=== PATIENT | female | born 1945 | race Caucasian/White ===

== ENCOUNTER 2017-07-22 20:52 | Emergency (ER) | payer MEDICARE, OTHER, SELFPAY ==
[2017-07-22 20:46] VITALS: BP 126/47; PULSE 70; RESP 20; TEMP 36.4; O2SAT 95; BMI 29.9
--- NOTE | 2017-07-22 20:55 | XR_ITS ---
XR chest 2V HISTORY: ITS.REASON: CHEST PAIN ORDERING PHYSICIAN: Juan Pablo Hilton MD PATIENT AGE: 72 years COMPARISON: None available FINDINGS: The cardiomediastinal silhouette and pulmonary vascularity are within normal limits. The lungs are clear without infiltrates, suspicious nodules, or pleural effusions. There is chronic wedging of T12 No acute bony abnormalities. IMPRESSION: No change with no acute finding
[2017-07-22 21:43] LABS: Basophils % 0.6 % (0.1-2.0); Eosinophils # 0.2 K/mm3 (0.0-0.4); Eosinophils % 2.5 % (0.1-12.0); Hematocrit 37.2 % (37.0-47.0); Hemoglobin 11.8 g/dL (12.2-16.2); Lymphocytes # 2.1 K/mm3 (0.7-4.5); Lymphocytes % 26.3 K/mm3 (10-50); Mean Corpuscular HGB Conc 31.7 g/dL (31.8-35.4); Mean Corpuscular Hemoglobin 29.3 pg (27.0-31.2); Mean Corpuscular Volume 92.2 fl (81-99); Mean Platelet Volume 8.5 fl (7.4-10.4); Monocytes # 0.6 K/mm3 (0.1-1.0); Monocytes % 7.3 % (1.7-9.3); Neutrophils # 5.1 K/mm3 (1.8-7.8); Neutrophils % 63.2 % (37.0-80.0); Platelet Count 182 K/mm3 (142-424); Red Blood Count 4.03 M/mm3 (4.20-5.40); Red Cell Distribution Width 13.4 % (11.5-17.5)
[2017-07-22 22:10] LABS: Alanine Aminotransferase 26 U/L (12-78); Albumin Level 3.7 gm/dL (3.4-5.0); Albumin/Globulin Ratio 1.1 (1.1-1.8); Alkaline Phosphatase 106 U/L (46-116); Anion Gap 12.7 mEq/L (5-15); Aspartate Amino Transferase 11 U/L (15-37); Bilirubin,Total 0.4 mg/dL (0.2-1.0); Blood Urea Nitrogen 13 mg/dL (7-18); CKMB Relative Index 1.6 U/L (0-4.0); Calcium 8.6 mg/dL (8.5-10.1); Carbon Dioxide 27 mmol/L (21.0-32.0); Chloride 105 mmol/L (98-107); Creatine Kinase 87 U/L (26-192); Creatine Kinase MB 1.4 mg/ml (0.0-3.6); Creatinine Clearance Estimated 66 mL/min (0-300); Creatinine,Serum 0.72 mg/dL (0.55-1.02); Estimated Glomerular Filt Rate 80 ml/min (>60); GFR (African American) 96 ML/MIN (>60); Globulin 3.4 gm/dl (1.3-3.2); Glucose 97 mg/dL (74-106); Potassium 3.7 mmoL/L (3.5-5.1); Sodium 141 mmol/L (136-145); Total Protein,Serum 7.1 gm/dL (6.4-8.2); Troponin I < 0.02 ng/ml (0.00-0.06)
[2017-07-22 23:15] VITALS: BP 169/90; PULSE 85; O2SAT 95
--- NOTE | 2017-07-22 23:15 | HMH.EDCP ---
ED Disposition Clinical Impression: Chest pain Qualifiers: Chest pain type: other chest pain Qualified Code(s): R07.89 - Other chest pain Acute bronchitis Qualifiers: Bronchitis organism: unspecified organism Qualified Code(s): J20.9 - Acute bronchitis, unspecified Disposition: Home, Self-Care Condition on Discharge: Good Instructions: DI for Acute Bronchitis, DI for Atypical Chest Pain Additional Instructions: Please follow-up with Dr. Jerel Juares, manager development, within 2 days, for mandatory follow-up. Prescriptions: Amoxicillin/Potassium Clav [Augmentin 875-125 Tablet] 1 tab PO Q12H #20 tab Referrals: Donnie Wadsworth MD [Primary Care Provider] - Time of Disposition: 00:35 - Critical Care Critical Care Time: No Attestation: On 07/22/17, the high probability of a clinically significant, sudden or life threatening deterioration of the following system(s) required my full and direct attention, intervention and personal management. The time I documented below is in addition to time spent performing reported procedures but includes the following listed in this critical care notation. Medical Decision Making - Medical Records Medical records reviewed: Yes: I reviewed the patient's medical records. Vital Signs: 07/22/17 20:46 07/22/17 23:15 07/23/17 00:46 Temperature 97.6 F 97.9 F Temperature Source Oral Pulse Rate 65 Pulse Rate [Right Radial] 70 85 Respiratory Rate 20 20 Blood Pressure 101/56 Blood Pressure [Right Arm] 126/47 169/90 Blood Pressure Mean [Right Arm] 73 116 Blood Pressure Source [Right Arm] Automatic Cuff Blood Pressure Position Sitting Blood Pressure Position [Right Arm] Sitting 02 Sat by Pulse Oximetry 95 95 - Lab Data Lab results reviewed: Yes: I reviewed the patient's lab results. Lab Results 07/22/17 21:10: WBC 8.0, RBC 4.03 L, Hgb 11.8 L, Hct 37.2, MCV 92.2, MCH 29.3, MCHC 31.7 L, RDW 13.4, Plt Count 182, MPV 8.5, Neut % (Auto) 63.2, Lymph % (Auto) 26.3, Swain % (Auto) 7.3, Eos % (Auto) 2.5, Baso % (Auto) 0.6, Neut # (Auto) 5.1, Lymph # (Auto) 2.1, Swain # (Auto) 0.6, Eos # (Auto) 0.2, Baso # (Auto) 0.0 07/22/17 21:10: Sodium 141, Potassium 3.7, Chloride 105, Carbon Dioxide 27, Anion Gap 12.7, BUN 13, Creatinine 0.72, Estimated Creat Clear 66, Estimated GFR 80, Est GFR ( Amer) 96, Glucose 97, Calcium 8.6, Total Bilirubin 0.4, AST 11 L, ALT 26, Alkaline Phosphatase 106, Total Creatine Kinase 87, CK-MB (CK-2) 1.4, CK-MB (CK-2) Rel Index 1.6, Troponin I < 0.02, Total Protein 7.1, Albumin 3.7, Globulin 3.4 H, Albumin/Globulin Ratio 1.1 07/22/17 23:35: Total Creatine Kinase 84, CK-MB (CK-2) 1.0 D, CK-MB (CK-2) Rel Index 1.2, Troponin I < 0.02 Result diagrams: 07/22/17 21:10 07/22/17 21:10 Orders (Tests/Meds): ED MEDICATIONS Discontinued Medications Generic Name Dose Route Start Last Admin Trade Name Freq PRN Reason Stop Dose Admin Amoxicillin/Clavulanate Potassium 1 each 07/23/17 00:37 07/23/17 00:45 Augmentin 500mg Tablet PO 07/23/17 00:38 1 each ONCE ONE Administration Protocol - Radiology Data #1 Image(s): Chest Image Reviewed: Yes I reviewed the patient's radiology results - ECG Data Tracing #1 I reviewed this ECG and interpreted as documented below: ECG normal with no acute: arrhythmias, ischemia, conduction abnormalities, chamber hypertrophy Normal Sinus Rhythm: Yes - Nitin Inquiry Pt receiving controlled substance: No - Reevaluation(s) Time: 00:30 Reevaluation #1: Upon evaluation patient appears medically stable, in no acute distress. Advise patient of results obtained, need to follow-up with PCP if not better within 2 days. If unable to see her family physician and still having active complaints patient instructed to return promptly to this, same, emergency room for re-evaluation. Chest Pain HPI - General Chief Complaint: Chest Pain Stated Complaint: CHEST PAIN Mode of Arrival: EM
[2017-07-23 00:08] LABS: CKMB Relative Index 1.2 U/L (0-4.0); Creatine Kinase 84 U/L (26-192); Troponin I < 0.02 ng/ml (0.00-0.06)
[2017-07-23 00:46] VITALS: BP 101/56; PULSE 65; RESP 20; TEMP 36.6; O2SAT 96
== END 2017-07-23 00:55 | disposition home or self-care (01) ==
PROVIDERS: Emergency Provider Emergency Medicine; Family Provider Emergency Medicine; PCP Emergency Medicine
DX: R07.89 Other chest pain (principal)
CPT/HCPCS: 71046; 80053; 82550; 82553; 84484; 85025; 93005; 99283

== ENCOUNTER → 2017-08-09 14:24 | Outpatient (CLI) | payer MEDICARE, OTHER, SELFPAY ==
--- NOTE | 2017-08-09 14:24 | CT_ITS ---
CT chest wo con HISTORY: Chest pain, cough, dyspnea ITS.REASON: DYSPNEA ORDERING PHYSICIAN: Junior Sanchez MD PATIENT AGE: 72 years Technique: Axial images obtained. Sagittal and coronal reformatted images are also generated and reviewed. All CT scans at the facility use one or more dose reduction, viz: automated exposure control; ma/kV adjustment per patient size (including targeted exams where dose is matched to indication; i.e. head); or iterative reconstruction technique. CONTRAST: None COMPARISON: None FINDINGS: Scattered small lymph nodes are present within the mediastinum. Coronary artery calcifications are present. There is gas present within a mildly distended esophagus throughout the esophagus. This could be related to severe reflux, achalasia or, stenosis of the distal esophagus etiology indeterminate. Consider barium swallow for further evaluation. Biapical fibrotic changes are present. There is calcified granuloma in the right lung base. Dependent changes are present in the posterior hemithoraces on both sides. There is a 16 x 12 mm opacity in the right middle lobe anteriorly subpleural region. As could be postinflammatory or fibrotic in nature. Cannot exclude the possibility of a developing nodule. Short-term CT follow-up recommended. No effusions evident. Upper abdominal images show fat-containing nodule in the right kidney superiorly consistent with an adenoma lipoma at 7 mm. Nonobstructing calculus is present in the upper pole the right kidney. Severe wedge compression changes are present at T11 with gas in the disc spaces at T10-T11 and T11-T12 and within the compressed vertebral body. This was present on older radiograph of 09/03/2016. IMPRESSION: 1. Mild dependent changes in the lung bases and posterior hemithoraces. 2. 16 mm parenchymal opacity right middle lobe inferiorly and anteriorly and could be related to postinflammatory fibrotic change or developing nodule. Recommend [address] follow-up 3. Dilated esophagus which may be seen with a chalasia, severe reflux, or distal esophageal structure and. Consider barium swallow for further evaluation. 4. Biapical fibrotic changes
== END ==
PROVIDERS: Family Provider Emergency Medicine; PCP Emergency Medicine; Visit Provider Internal Medicine Cardiovascular Disease
DX: R06.00 Dyspnea, unspecified (principal); R00.2 Palpitations; R07.89 Other chest pain; I10 Essential (primary) hypertension; E78.5 Hyperlipidemia, unspecified
CPT/HCPCS: 71250

== ENCOUNTER → 2017-08-17 06:53 | Outpatient (CLI) | payer MEDICARE, OTHER, SELFPAY ==
--- NOTE | 2017-08-17 | CA_ITS ---
PROCEDURE: 2-D M-mode and color Doppler study INDICATIONS FOR THE TEST: Chest pain+ COPD Heart Murmur Tobacco Smoking+ Palpitations Fatigue Syncope Edema Hypertension+Diabetes Mellitus Rheumatic Fever SOB+[place] Obesity Hyperlipidemia+ Family History HD Additional History PATIENT INFORMATION HEIGHT: 66 WEIGHT: 178 GENDER: Female B/P: 136/90 2-D/M-MODE INTERPRETATION: 2-D MEASUREMENTS OBSERVED VALUES IN CMS Right Ventricular Dimension (RVDd) 1.8 Interventricular Septum (Thickness)(IVsd) 0.9 Left Ventricular Internal Dimensions(LVIDd) 3.2 Left Ventricular Posterior Wall (Thickness)(LVPWd) 1.0 Aortic Root 2.7 Aortic Cusp Separation 2.0 Left Atrial Dimensions (LAD) 2.6 2D 1. Technically difficult study because of the patient's factor and poor acoustic windows 2. Qualitatively mildly enlarged left atrium, normal left ventricular size, visually estimated ejection fraction 55% with no obvious regional wall motion abnormality, there is no concentric left ventricular hypertrophy. 3. The right atrium and right ventricle are normal size and contractility. 4. The aortic valve is minimally thickened and fibrosed. 5. The mitral and tricuspid valve are grossly normal. 6. The pulmonic valve is poorly visualized. 7. No significant pericardial effusion noted. DOPPLER INTERROGATION: Doppler interrogation of the aortic, mitral and tricuspid valvular presence of mild mitral and tricuspid regurgitation, tricuspid and enteric velocity insufficient for calculation of the right ventricular systolic pressure, grade 1 diastolic dysfunction seen without tissue Doppler evidence of raised left atrial pressure. CONCLUSION: 1. Technically difficult study because of the patient's factor and poor acoustic windows 2. Qualitatively mildly enlarged left atrium, normal left ventricular size, visually estimated ejection fraction 55% with no obvious regional wall motion abnormality, grade 1 diastolic dysfunction seen without tissue Doppler evidence of raised left atrial pressure. 3. Mild mitral and tricuspid regurgitation 4. No significant pericardial effusion noted.
--- NOTE | 2017-08-17 06:56 | NM_ITS ---
History and Indications: Chest pain, shortness of breath, palpitations and hyperlipidemia Procedure: Patient received a 0.4 mg of Lexiscan, resting heart rate was 73 resting blood pressure 124/65, with Lexiscan maximum heart rate achieved was 91 bpm which is less than 85% of the maximum predicted heart rate and a blood pressure 134/70. With Lexiscan patient complained of shortness of breath. Electrocardiogram: Resting electrocardiogram showed sinus, with Lexiscan there is less than 1.[address] segment depression noted from the baseline EKG. The EKG portion of the Lexiscan Myoview is nondiagnostic. Cardiac stress and resting SPECT images: Cardiac stress and rest SPECT images were obtained using technetium 99 Myoview 11.1 mCi at rest and 29.5 mCi at stress, gated SPECT further analysis of segmental wall motion and calculation of the ejection fraction also done. Cardiac stress and rest increased tracer activity in the inferior and inferoseptal wall which improves on the resting images suggestive of reversible computer derived ejection fraction is 65% with no obvious regional wall motion abnormality, right ventricle is mildly enlarged with normal contractility. Conclusion: 1. The EKG portion of the Lexiscan Myoview is nondiagnostic. 2. Scintigraphic evidence of mild reversible ischemia involving the inferior and inferoseptal wall, computer derived ejection fraction is over 65% with no obvious regional wall motion abnormality, right ventricle is mildly enlarged with normal contractility. 3. Abnormal Lexiscan Myoview study.
--- NOTE | 2017-08-17 11:05 | HMH.ITSHM ---
compazine albuterol lopurinol vetolim aspirin atorvastatin baclofen buspar neurontin celexa claritin ativan pantoprazole potassium maxzide
== END ==
PROVIDERS: Family Provider Emergency Medicine; PCP Emergency Medicine; Visit Provider Internal Medicine Cardiovascular Disease
DX: E78.5 Hyperlipidemia, unspecified; R06.00 Dyspnea, unspecified; R00.2 Palpitations; I10 Essential (primary) hypertension; R07.9 Chest pain, unspecified
CPT/HCPCS: 78452; 93017; 93306; A9502; J2785

== ENCOUNTER 2018-09-09 19:35 | Observation (INO) ==
[2018-09-09 19:58] LABS: Basophils % 0.7 % (0.1-2.0); Eosinophils # 0.2 K/mm3 (0.0-0.4); Eosinophils % 3.4 % (0.1-12.0); Hematocrit 36.2 % (37.0-47.0); Hemoglobin 12.1 g/dL (12.2-16.2); Lymphocytes # 2.6 K/mm3 (0.7-4.5); Lymphocytes % 48.6 % (10-50); Mean Corpuscular HGB Conc 33.5 g/dL (31.8-35.4); Mean Corpuscular Hemoglobin 30.4 pg (27.0-31.2); Mean Corpuscular Volume 90.6 fl (81-99); Mean Platelet Volume 8.4 fl (7.4-10.4); Monocytes # 0.4 K/mm3 (0.1-1.0); Monocytes % 7.1 % (1.7-9.3); Neutrophils # 2.2 K/mm3 (1.8-7.8); Neutrophils % 40.3 % (37.0-80.0); Platelet Count 191 K/mm3 (142-424); Red Blood Count 3.99 M/mm3 (4.20-5.40); Red Cell Distribution Width 13.6 % (11.5-17.5); White Blood Count 5.4 K/mm3 (4.8-10.8)
--- NOTE | 2018-09-09 20:15 | Emergency Department Note ---
ED Disposition Clinical Impression: Unstable angina pectoris, Tobacco dependence syndrome Schizophrenia Qualifiers: Schizophrenia type: unspecified Qualified Code(s): F20.9 - Schizophrenia, unspecified Gastroesophageal reflux disease Qualifiers: Esophagitis presence: esophagitis presence not specified Qualified Code(s): K21.9 - Gastro-esophageal reflux disease without esophagitis HLD (hyperlipidemia) Qualifiers: Hyperlipidemia type: unspecified Qualified Code(s): E78.5 - Hyperlipidemia, unspecified Hypertension Qualifiers: Hypertension type: essential hypertension Qualified Code(s): I10 - Essential (primary) hypertension Disposition: Admitted as Observation Condition on Discharge: Good Referrals: Provider,Referral, [Referring] - - Critical Care Critical Care Time: No Attestation: On 09/09/18, the high probability of a clinically significant, sudden or life threatening deterioration of the following system(s) required my full and direct attention, intervention and personal management. The time I documented below is in addition to time spent performing reported procedures but includes the following listed in this critical care notation. Medical Decision Making - Medical Records Medical records reviewed: Yes: I reviewed the patient's medical records. - Nitin Inquiry Pt receiving controlled substance: No Vital Signs: 09/09/18 19:36 09/09/18 20:35 Temperature 97.9 F Temperature Source Oral Pulse Rate [Right Brachial] 73 63 Respiratory Rate 16 Blood Pressure [Right Arm] 127/66 125/67 Blood Pressure Mean [Right Arm] 86 86 Blood Pressure Source [Right Arm] Automatic Cuff Blood Pressure Position [Right Arm] Sitting 02 Sat by Pulse Oximetry 97 94 L Oxygen Delivery Method Room Air Room Air - Lab Data Lab results reviewed: Yes: I reviewed the patient's lab results. Lab Results 09/09/18 19:30: WBC 5.4, RBC 3.99 L, Hgb 12.1 L, Hct 36.2 L, MCV 90.6, MCH 30.4, MCHC 33.5, RDW 13.6, Plt Count 191, MPV 8.4, Neut % (Auto) 40.3, Lymph % (Auto) 48.6, Potter % (Auto) 7.1, Eos % (Auto) 3.4, Baso % (Auto) 0.7, Neut # (Auto) 2.2, Lymph # (Auto) 2.6, Potter # (Auto) 0.4, Eos # (Auto) 0.2, Baso # (Auto) 0.0 09/09/18 19:30: Sodium 141, Potassium 3.6, Chloride 104, Carbon Dioxide 29, Anion Gap 11.6, BUN 15, Creatinine 0.72, Estimated Creat Clear 61, Estimated GFR 79, Est GFR ( Amer) 96, Glucose 86, Calcium 8.7, Troponin I < 0.02 09/09/18 19:30: Lactate 1.1 Result diagrams: 09/09/18 19:30 09/09/18 19:30 Orders (Tests/Meds): ED MEDICATIONS Generic Name Dose Route Start Last Admin Trade Name Freq PRN Reason Stop Dose Admin Sodium Chloride 1,000 mls @ 999 mls/hr 09/09/18 20:00 09/09/18 20:14 Sod Chlor 0.9% 1000ml Bag IV 09/09/18 21:00 999 mls/hr .Q1H1M FISH Administration Discontinued Medications Generic Name Dose Route Start Last Admin Trade Name Freq PRN Reason Stop Dose Admin Nitroglycerin 0.5 gm 09/09/18 20:54 Nitroglycerin 1 Inch Oint Udp TD 09/09/18 20:55 ONCE ONE ORDERS Category Date Time Status Urinalysis and Microscopic Stat Lab 09/09/18 19:46 Ordered Blood Culture Stat Micro 09/09/18 19:55 Ordered ECG Request by /Gerri Stat Y 09/09/18 19:45 Ordered - Radiology Data #1 Image(s): Chest Image Reviewed: Yes I reviewed the patient's radiology image Preliminary Findings: Normal/NAD - ECG Data Tracing #1 Normal Sinus Rhythm: Yes Ischemic changes: non-specific ST-T wave changes Chest Pain HPI - General Chief Complaint: Chest Pain Stated Complaint: CP Time Seen by Provider: 09/09/18 20:14 Mode of Arrival: EMS Source of Information: Patient, EMS, Medical Record Limitations: No Limitations Description of Symptoms (Recalled from ER Triage Doc. by RN): Pt states she was outside walking in the heat about an hour ago, when she starting having CP and SOA. She states she has had a cough for a while, no other symptoms reported. - History of Present Illness HPI narrative: pt with episode of chest pain at [facility] today with hx of abn gxt - pt with recurrent episodes of chest pain MD complaint: chest pain indicative of cardiac Onset (ago): hour(s) Duration: intermittent Activity at onset: during rest, light activity Pain location: substernal, left chest Severity: similar to previous episodes Quality: tightness Relieving factors: nitroglycerin Associated symptoms: dyspnea Risk Factors for CAD: Hypercholesterolemia, Family Hx of CAD, Smoking Treatments prior to or on arrival for Cardiac Chest Pain: aspirin, nitroglycerin - BLU Score for Non-Stemi Age of Patient: 70-79 years old Heart Rate: 70-89 bpm Systolic Blood Pressure: 120-139 mmhg Serum Creatinine: 0.40-0.79 mg/dl CHF [place] Class: I-No CHF Other Risk Factors: None Non-Stemi Risk Score: 122 - Related Data Prior Cardiac Testing/Procedures: Echocardiogram, Stress Test On Oral Contraceptives: No Home Medications Medication Instructions Recorded Confirmed acetaminophen 500 mg capsule 500 mg PO Q6H PRN 07/27/17 10/03/17 albuterol sulfate HFA 90 2 puff INHALATION Q4-6H PRN 07/27/17 10/03/17 mcg/actuation aerosol inhaler allopurinol 100 mg tablet 100 mg PO BID tab 07/27/17 10/03/17 aspirin 81 mg tablet,delayed 81 mg PO DAILY tab 07/27/17 10/03/17 release atorvastatin 10 mg tablet 10 mg PO DAILY tab 07/27/17 10/03/17 baclofen 20 mg tablet 20 mg PO BID tab 07/27/17 10/03/17 benztropine 1 mg tablet 1 mg PO BID 07/27/17 10/03/17 buspirone 10 mg tablet 10 mg PO BID 07/27/17 10/03/17 citalopram 20 mg tablet 20 mg PO DAILY tab 07/27/17 10/03/17 dextromethorphan-guaifenesin 10 10 ml PO Q4-6H PRN 07/27/17 10/03/17 mg-100 mg/5 mL oral syrup gabapentin 100 mg capsule 100 mg PO TID cap 07/27/17 10/03/17 lactulose 10 gram/15 mL oral 20 g PO DAILY PRN ml 07/27/17 10/03/17 solution loperamide 2 mg tablet 2 mg PO Q8H PRN tab 07/27/17 10/03/17 loratadine 10 mg tablet 10 mg PO DAILY tab 07/27/17 10/03/17 lorazepam 1 mg tablet 1 mg PO TID tab 07/27/17 10/03/17 nitroglycerin 0.4 mg sublingual 0.4 mg SUBLINGUAL Q5M PRN 07/27/17 10/03/17 tablet olanzapine 10 mg tablet 5 mg PO BID tab 07/27/17 10/03/17 pantoprazole 40 mg tablet,delayed 40 mg PO QAM 07/27/17 10/03/17 release potassium chloride ER 20 mEq 20 meq PO TID tab 07/27/17 10/03/17 tablet,extended release prochlorperazine maleate 10 mg 10 mg PO .Q6hr PRN tab 07/27/17 10/03/17 tablet triamterene 75 1 tab PO QAM 07/27/17 10/03/17 mg-hydrochlorothiazide 50 mg tablet Previous Rx's Medication Instructions Recorded Benzonatate [Tessalon Perle 100mg 100 mg PO TID #30 cap 10/03/17 Cap] levoFLOXacin [Levaquin 500mg 500 mg PO DAILY #7 tab 10/03/17 tab] predniSONE [Prednisone 20mg 20 mg PO DAILY #10 tab 10/03/17 Tab] Allergies Allergy/AdvReac Type Severity Reaction Status Date / Time No Known Allergies Allergy Verified 11/22/17 08:49 [facility] History - Hepatitis A Screen Drug use history?: No High risk sexual behaviors?: No History of sexually transmitted infection?: No Currently employed?: No Childcare worker?: No Do you have indoor plumbing?: Yes Do you have electricity?: Yes Attestation statement:: This patient has been screened for Hepatitis A risk factors. I have reviewed the patient's past medical history: Yes Medical History: Reports:: Asthma, Chronic Obstructive Pulmonary Disease (COPD), Gastroesophageal Reflux Disease(GERD), Hyperlipidemia, Hypertension Denies:: Cancer, Diabetes Mellitus Type 1, Diabetes Mellitus Type 2, MRSA Other Medical History: Reports: Arthritis Other Surgeries: Yes: Cholecystectomy Amputation: No Fractures: No Comment: Tumor removed from breast. - Social History Smoking Status: Current every day smoker Tobacco Type: cigarettes # Packs/Day (cigarettes): 1 Alcohol Intake: never Alcohol Intake Frequency:: other Substance Use Type: denies use Occupational Status: disabled Housing: assisted living facility - Psychiatric History Expresses thoughts of harming self/others: None Suicide Plan Description: No Plan Family Hx:: Unable to obtain ROS Obtained: Yes All systems reviewed & no additional complaints - Constitutional Constitutional: Denies fever(s) - Eyes Eyes: Denies change in vision - ENT Ears, Nose, Mouth, and Throat: Denies sore throat - Cardiovascular Cardiovascular: Reports chest pain, Reports chest pain with activity, Reports dyspnea - Respiratory Respiratory: Yes cough, No non-productive cough - Gastrointestinal Gastrointestingal: Denies: vomiting - Genitourinary Female Genitourinary: Denies hematuria - Musculoskeletal Musculoskeletal: Denies joint pain - Integumentary/Breasts Skin/Breast: Denies rash - Neurologic Neurologic: Denies seizure-like activity Physical Exam - General General appearance: in no apparent distress - Head Head exam: normocephalic - Eye Eye exam: Present: PERRL, EOMI. Absent: scleral icterus - ENT ENT exam: Present: mucous membranes dry - Neck Neck exam: Present: trachea midline - Respiratory Respiratory exam: Present: normal lung sounds bilaterally. Absent: respiratory distress - Cardiovascular Cardiovascular exam: Present: regular rate, systolic murmur, +S4 - Abdominal Exam Abdominal exam: Present: soft - Extremities Exam Extremities exam: Absent: calf tenderness - Neurological Exam Neurological exam: Present: alert, CN II-XII intact. Absent: motor sensory deficit - Psychiatric Psychiatric exam: Present: flat affect - Skin Skin exam: Absent: rash
[2018-09-09 20:16] LABS: Anion Gap 11.6 mEq/L (5-15); Blood Urea Nitrogen 15 mg/dL (7-18); Calcium 8.7 mg/dL (8.5-10.1); Carbon Dioxide 29 mmol/L (21.0-32.0); Chloride 104 mmol/L (98-107); Glucose 86 mg/dL (74-106); Potassium 3.6 mmoL/L (3.5-5.1); Sodium 141 mmol/L (136-145)
[2018-09-10 06:28] LABS: Basophils # 0.1 K/mm3 (0-0.2); Basophils % 0.9 % (0.1-2.0); Eosinophils # 0.2 K/mm3 (0.0-0.4); Eosinophils % 2.9 % (0.1-12.0); Hematocrit 34.4 % (37.0-47.0); Hemoglobin 11.4 g/dL (12.2-16.2); Lymphocytes # 1.7 K/mm3 (0.7-4.5); Lymphocytes % 33.4 % (10-50); Mean Corpuscular HGB Conc 33.3 g/dL (31.8-35.4); Mean Corpuscular Hemoglobin 30.1 pg (27.0-31.2); Mean Corpuscular Volume 90.6 fl (81-99); Mean Platelet Volume 8.3 fl (7.4-10.4); Monocytes # 0.4 K/mm3 (0.1-1.0); Monocytes % 8.2 % (1.7-9.3); Neutrophils # 2.8 K/mm3 (1.8-7.8); Neutrophils % 54.5 % (37.0-80.0); Platelet Count 166 K/mm3 (142-424); Red Blood Count 3.79 M/mm3 (4.20-5.40); Red Cell Distribution Width 13.7 % (11.5-17.5); White Blood Count 5.2 K/mm3 (4.8-10.8)
[2018-09-10 06:40] LABS: Anion Gap 10.8 mEq/L (5-15); Calcium 8.1 mg/dL (8.5-10.1); Chol/HDL Ratio 1.7 (1-3.5)
[2018-09-10 06:55] LABS: Potassium 2.8 mmoL/L (3.5-5.1)
--- NOTE | 2018-09-10 07:57 | Pharmacy Consult Notes ---
[facility] Pharmacy VTE Monitoring - Patient Demographics Admission date: 09/09/18 Report Date: 09/10/18 Time: 07:57 Allergies/Adverse Reactions: Patient Allergies No Known Allergies Allergy (Verified 11/22/17 08:49) Height: 1.73 m Weight: 81.4 kg Patient Problems: Current Active Problems (Updated 09/09/18 @ 21:06 by Donnie Wadsworth MD) Unstable angina pectoris (Acute) Gastroesophageal reflux disease (Chronic) Tobacco dependence syndrome (Chronic) Schizophrenia (Chronic) HLD (hyperlipidemia) (Chronic) Hypertension (Chronic) - VTE Risk Labs: VTE Related Lab Results Hgb 11.4 g/dL (12.2-16.2) L 09/10/18 05:46 Hct 34.4 % (37.0-47.0) L 09/10/18 05:46 Plt Count 166 K/mm3 (142-424) 09/10/18 05:46 BUN 12 mg/dL (7-18) 09/10/18 05:46 Creatinine 0.58 mg/dL (0.55-1.02) 09/10/18 05:46 Estimated Creat Clear 64 mL/min (50-200) 09/10/18 05:46 Was VTE Risk Assessment Performed: Yes VTE Score: 2 Clinical Trial Participant: No - Prophylaxis Types of VTE Prophylaxis: TEDS Knee High Location of Applied Device: Not Applicable
--- NOTE | 2018-09-10 08:08 | Consult Report ---
History of Present Illness Consult date: 09/10/18 Requesting physician: Donnie Wadsworth Consult reason: chest pain Chief complaint: Chest pain Additional Medical History:: 1. Chest pain A. Abnormal lexiscan myoview, 07/2017, 1. The EKG portion of the Lexiscan Myoview is nondiagnostic. 2. Scintigraphic evidence of mild reversible ischemia involving the inferior and inferoseptal wall, computer derived ejection fraction is over 65% with no obvious regional wall motion abnormality, right ventricle is mildly enlarged with normal contractility. 3. Abnormal Lexiscan Myoview study. 2. HTN A. Echo, 07/2017, 1. Technically difficult study because of the patient's factor and poor acoustic windows 2. Qualitatively mildly enlarged left atrium, normal left ventricular size, visually estimated ejection fraction 55% with no obvious regional wall motion abnormality, grade 1 diastolic dysfunction seen without tissue Doppler evidence of raised left atrial pressure. 3. Mild mitral and tricuspid regurgitation 4. No significant pericardial effusion noted 3. Gastroesophageal reflux disease 4. Hyperlipidemia 5. Tobacco use with history of COPD 6. History of schizophrenia History of present illness: 73-year-old white female resident of [facility] was sent to the emergency department for evaluation of chest pain. Patient relates substernal discomfort with associated sweating without radiation of symptoms. Symptoms did resolve with nitroglycerin with no further recurrence overnight. Patient is somewhat vague on the discomfort with activity but states this is not the first time she has had this chest pain. Previously she was evaluated July 2017 with a stress test and echocardiogram. Echocardiogram showed preserved ejection fraction with stress test showing evidence of ischemia. Patient did not follow-up for further testing. Troponins overnight have returned normal. EKG is sinus with no acute changes. Cardiology consulted for evaluation recommendations. [facility] History Medical History: Reports:: Asthma, Chronic Obstructive Pulmonary Disease (COPD), Gastroesophageal Reflux Disease(GERD), Hyperlipidemia, Hypertension Denies:: Cancer, Diabetes Mellitus Type 1, Diabetes Mellitus Type 2, MRSA *Have you ever received a pneumonia vaccine?: No *Have you received a flu vaccine this season?: No Other Medical History: Reports: Arthritis Other Surgeries: Yes: Cholecystectomy Amputation: No Fractures: No - *Social History Educational Level: Attended Grade School Smoking Status: Current every day smoker Tobacco Type: cigarettes # Packs/Day (cigarettes): 1 Alcohol Intake: never Alcohol Intake Frequency:: other Substance Use Type: denies use *Occupational Status:: disabled Housing: assisted living facility *Travel in the last 8 weeks: None - Psychiatric History Expresses thoughts of harming self/others: None Suicide Plan Description: No Plan Family Hx:: Unable to obtain Meds Home Medications Medication Instructions Recorded Confirmed Type allopurinol 100 mg tablet 100 mg PO BID tab 07/27/17 09/10/18 History aspirin 81 mg tablet,delayed 81 mg PO DAILY tab 07/27/17 09/10/18 History release atorvastatin 10 mg tablet 10 mg PO DAILY tab 07/27/17 09/10/18 History baclofen 20 mg tablet 20 mg PO BID tab 07/27/17 09/10/18 History benztropine 1 mg tablet 1 mg PO BID 07/27/17 09/10/18 History buspirone 10 mg tablet 10 mg PO BID 07/27/17 09/10/18 History citalopram 20 mg tablet 20 mg PO DAILY tab 07/27/17 09/10/18 History gabapentin 100 mg capsule 100 mg PO TID cap 07/27/17 09/10/18 History lactulose 10 gram/15 mL oral 20 g PO DAILYP PRN ml 07/27/17 09/10/18 History solution loperamide 2 mg tablet 2 mg PO Q8HP PRN tab 07/27/17 09/10/18 History loratadine 10 mg tablet 10 mg PO DAILY tab 07/27/17 09/10/18 History lorazepam 1 mg tablet 1 mg PO TID tab 07/27/17 09/10/18 History nitroglycerin 0.4 mg sublingual 0.4 mg SUBLINGUAL Q5M PRN 07/27/17 09/10/18 History tablet olanzapine 10 mg tablet 10 mg PO DAILY tab 07/27/17 09/10/18 History pantoprazole 40 mg tablet,delayed 40 mg PO QAM 07/27/17 09/10/18 History release potassium chloride ER 20 mEq 20 meq PO TID tab 07/27/17 09/10/18 History tablet,extended release triamterene 75 1 tab PO QAM 07/27/17 09/10/18 History mg-hydrochlorothiazide 50 mg tablet Acetaminophen 650 mg PO Q4HP PRN 09/10/18 09/10/18 History Allergies Allergy/AdvReac Type Severity Reaction Status Date / Time No Known Allergies Allergy Verified 11/22/17 08:49 Review of Systems - *Cardiovascular Reports chest pain, Denies shortness of breath with activity - *Respiratory Reports cough, Denies shortness of breath with activity - *Gastrointestinal Denies abdominal pain, Denies vomiting - *Genitourinary Denies blood in urine - *Musculoskeletal Denies joint pain, Denies back pain - *Neurologic Denies seizure-like activity Exam Vital signs and Labs for Last 24 Hours: Temp Pulse Resp BP Pulse Ox 97.2 F L 72 20 122/59 L 94 L 09/10/18 04:00 09/10/18 04:00 09/10/18 04:00 09/10/18 04:00 09/10/18 04:00 Laboratory Results - last 24 hr 09/09/18 19:30: WBC 5.4, RBC 3.99 L, Hgb 12.1 L, Hct 36.2 L, MCV 90.6, MCH 30.4, MCHC 33.5, RDW 13.6, Plt Count 191, MPV 8.4, Neut % (Auto) 40.3, Lymph % (Auto) 48.6, [place] % (Auto) 7.1, Eos % (Auto) 3.4, Baso % (Auto) 0.7, Neut # (Auto) 2.2, Lymph # (Auto) 2.6, [place] # (Auto) 0.4, Eos # (Auto) 0.2, Baso # (Auto) 0.0 09/09/18 19:30: Sodium 141, Potassium 3.6, Chloride 104, Carbon Dioxide 29, Anion Gap 11.6, BUN 15, Creatinine 0.72, Estimated Creat Clear 61, Estimated GFR 79, Est GFR ( Amer) 96, Glucose 86, Calcium 8.7, Troponin I < 0.02 09/09/18 19:30: Lactate 1.1 09/10/18 01:55: Troponin I < 0.02 09/10/18 03:23: Troponin I < 0.02 09/10/18 05:46: WBC 5.2, RBC 3.79 L, Hgb 11.4 L, Hct 34.4 L, MCV 90.6, MCH 30.1, MCHC 33.3, RDW 13.7, Plt Count 166, MPV 8.3, Neut % (Auto) 54.5, Lymph % (Auto) 33.4, [place] % (Auto) 8.2, Eos % (Auto) 2.9, Baso % (Auto) 0.9, Neut # (Auto) 2.8, Lymph # (Auto) 1.7, [place] # (Auto) 0.4, Eos # (Auto) 0.2, Baso # (Auto) 0.1 09/10/18 05:46: Sodium 143, Potassium 2.8 L* D, Chloride 108 H, Carbon Dioxide 27, Anion Gap 10.8, BUN 12, Creatinine 0.58, Estimated Creat Clear 64, Estimated GFR 102, Est GFR ( Amer) 123 D, Glucose 92, Calcium 8.1 L, Magnesium 1. 9, Triglycerides 35, Cholesterol 129 L, LDL Cholesterol 45, VLDL Cholesterol 7, HDL Cholesterol 77, Cholesterol/HDL Ratio 1.7 I & O for Last 24 hours: Intake & Output 09/07/18 09/08/18 09/09/18 09/10/18 11:59 11:59 11:59 11:59 Intake Total 187 / 187 Output Total 300 / 300 Balance -113 / -113 Weight 179 lb 7.3 oz Microbiology Reports for the Last 24 Hours: Microbiology 09/10/18 02:00 Sputum - Expectorated Sputum Gram Stain - Final - *Routine HEENT Exam Head: Present: normocephalic Eye: Present: EOMI, PERRL ENT: Present: mucous membranes moist - *Routine Neck Exam Present: supple. Absent: JVD, carotid bruit - *Routine Respiratory Exam Present: CTA bilaterally. Absent: accessory muscle use, rales, rhonchi, wheezes - *Routine Cardiovascular Exam Present: RRR. Absent: murmur, gallop, rubs - *Routine Abdominal Exam Present: soft. Absent: tenderness, distended, guarding - *Routine Extremities Exam Absent: edema, calf tenderness - *Routine Neurological Exam Present: alert, moving all extremities Assessment and Plan (1) Unstable angina pectoris Current visit: Yes Status: Acute Category: Medical Code(s): I20.0 - Unstable angina (2) Abnormal cardiovascular stress test Current visit: Yes Status: Acute Category: Medical Code(s): R94.39 - Abnormal result of other cardiovascular function study (3) Gastroesophageal reflux disease Current visit: Yes Status: Chronic Qualifiers: Esophagitis presence: esophagitis presence not specified Qualified Code(s): K21.9 - Gastro-esophageal reflux disease without esophagitis Category: Medical Code(s): K21.9 - Gastro-esophageal reflux disease without esophagitis (4) HLD (hyperlipidemia) Current visit: Yes Status: Chronic Qualifiers: Hyperlipidemia type: unspecified Qualified Code(s): E78.5 - Hyperlipidemia, unspecified Category: Medical Code(s): E78.5 - Hyperlipidemia, unspecified (5) Hypertension Current visit: Yes Status: Chronic Qualifiers: Hypertension type: essential hypertension Qualified Code(s): I10 - Essential (primary) hypertension Category: Medical Code(s): I10 - Essential (primary) hypertension (6) Schizophrenia Current visit: Yes Status: Chronic Qualifiers: Schizophrenia type: unspecified Qualified Code(s): F20.9 - Schizophrenia, unspecified Category: Medical Code(s): F20.9 - Schizophrenia, unspecified (7) Tobacco dependence syndrome Current visit: Yes Status: Chronic Category: Medical Code(s): F17.200 - Nicotine dependence, unspecified, uncomplicated - Assessment and plan all Dx Assessment and Plan for all problems:: 1. In light of the patient's recurrent chest pain, tobacco use with history of abnormal stress test, recommend proceeding with left heart catheterization today. 2. Continue aspirin, statin and will add metoprolol 25 mg daily. 3. Further recommendations to follow pending cardiac catheter results.
--- NOTE | 2018-09-10 09:39 | History & Physical Report ---
*Admission Date: 09/09/18 *Chief complaint: Chest Pain *History of present illness: 73-year-old white female resident of [facility] was sent to the emergency department for evaluation of chest pain. Patient relates substernal discomfort with associated sweating without radiation of symptoms. Symptoms did resolve with nitroglycerin with no further recurrence overnight. Patient is somewhat vague on the discomfort with activity but states this is not the first time she has had this chest pain. Previously she was evaluated July 2017 with a stress test and echocardiogram. Echocardiogram showed preserved ejection fraction with stress test showing evidence of ischemia. Patient did not follow-up for further testing. Troponins overnight have returned normal. EKG is sinus with no acute changes. Cardiology consulted for evaluation recommendations. Per Jus Luevano [facility] History I have reviewed the patient's past medical history: Yes Medical History: Reports:: Asthma, Chronic Obstructive Pulmonary Disease (COPD), Gastroesophageal Reflux Disease(GERD), Hyperlipidemia, Hypertension Denies:: Cancer, Diabetes Mellitus Type 1, Diabetes Mellitus Type 2, MRSA *Have you ever received a pneumonia vaccine?: No *Have you received a flu vaccine this season?: No Other Medical History: Reports: Arthritis Other Surgeries: Yes: Cholecystectomy Amputation: No Fractures: No - *Social History Educational Level: Attended Grade School Smoking Status: Current every day smoker Tobacco Type: cigarettes # Packs/Day (cigarettes): 1 Alcohol Intake: never Alcohol Intake Frequency:: other Substance Use Type: denies use *Occupational Status:: disabled Housing: assisted living facility *Travel in the last 8 weeks: None - Psychiatric History Expresses thoughts of harming self/others: None Suicide Plan Description: No Plan Family Hx:: Unable to obtain Review of Systems - Review of Systems Review of systems:: pertinent systems reviewed and negative unless documented below - Constitutional Reports fatigue, Reports weakness - Eyes Denies blurry vision, Denies change in vision - ENT Denies abnormal hearing - *Cardiovascular Reports chest pain, Reports shortness of breath - *Respiratory Denies chest congestion, Denies cough - *Gastrointestinal Denies abdominal pain, Denies change in bowel habits - *Musculoskeletal Denies abnormal walking, Denies joint pain - *Neurologic Denies abnormal speech, Denies seizure-like activity - Psychiatric Denies hearing things others do not hear, Denies behavioral changes - Endocrine Denies cold intolerance, Denies heat intolerance - Hematologic/Lymphatic Denies easy bleeding Meds Home Medications Medication Instructions Recorded Confirmed Type allopurinol 100 mg tablet 100 mg PO BID tab 07/27/17 09/10/18 History aspirin 81 mg tablet,delayed 81 mg PO DAILY tab 07/27/17 09/10/18 History release atorvastatin 10 mg tablet 10 mg PO DAILY tab 07/27/17 09/10/18 History baclofen 20 mg tablet 20 mg PO BID tab 07/27/17 09/10/18 History benztropine 1 mg tablet 1 mg PO BID 07/27/17 09/10/18 History buspirone 10 mg tablet 10 mg PO BID 07/27/17 09/10/18 History citalopram 20 mg tablet 20 mg PO DAILY tab 07/27/17 09/10/18 History gabapentin 100 mg capsule 100 mg PO TID cap 07/27/17 09/10/18 History lactulose 10 gram/15 mL oral 20 g PO DAILYP PRN ml 07/27/17 09/10/18 History solution loperamide 2 mg tablet 2 mg PO Q8HP PRN tab 07/27/17 09/10/18 History loratadine 10 mg tablet 10 mg PO DAILY tab 07/27/17 09/10/18 History lorazepam 1 mg tablet 1 mg PO TID tab 07/27/17 09/10/18 History nitroglycerin 0.4 mg sublingual 0.4 mg SUBLINGUAL Q5M PRN 07/27/17 09/10/18 History tablet olanzapine 10 mg tablet 10 mg PO DAILY tab 07/27/17 09/10/18 History pantoprazole 40 mg tablet,delayed 40 mg PO QAM 07/27/17 09/10/18 History release potassium chloride ER 20 mEq 20 meq PO TID tab 07/27/17 09/10/18 History tablet,extended release triamterene 75 1 tab PO QAM 07/27/17 09/10/18 History mg-hydrochlorothiazide 50 mg tablet Acetaminophen 650 mg PO Q4HP PRN 09/10/18 09/10/18 History Allergies Allergy/AdvReac Type Severity Reaction Status Date / Time No Known Allergies Allergy Verified 11/22/17 08:49 Exam Vital signs and Labs for Last 24 Hours: Temp Pulse Resp BP Pulse Ox 97.8 F 78 22 136/76 93 L 09/10/18 08:00 09/10/18 08:00 09/10/18 08:00 09/10/18 08:00 09/10/18 08:00 Laboratory Results - last 24 hr 09/09/18 19:30: WBC 5.4, RBC 3.99 L, Hgb 12.1 L, Hct 36.2 L, MCV 90.6, MCH 30.4, MCHC 33.5, RDW 13.6, Plt Count 191, MPV 8.4, Neut % (Auto) 40.3, Lymph % (Auto) 48.6, [place] % (Auto) 7.1, Eos % (Auto) 3.4, Baso % (Auto) 0.7, Neut # (Auto) 2.2, Lymph # (Auto) 2.6, [place] # (Auto) 0.4, Eos # (Auto) 0.2, Baso # (Auto) 0.0 09/09/18 19:30: Sodium 141, Potassium 3.6, Chloride 104, Carbon Dioxide 29, Anion Gap 11.6, BUN 15, Creatinine 0.72, Estimated Creat Clear 61, Estimated GFR 79, Est GFR ( Amer) 96, Glucose 86, Calcium 8.7, Troponin I < 0.02 09/09/18 19:30: Lactate 1.1 09/10/18 01:55: Troponin I < 0.02 09/10/18 03:23: Troponin I < 0.02 09/10/18 05:46: WBC 5.2, RBC 3.79 L, Hgb 11.4 L, Hct 34.4 L, MCV 90.6, MCH 30.1, MCHC 33.3, RDW 13.7, Plt Count 166, MPV 8.3, Neut % (Auto) 54.5, Lymph % (Auto) 33.4, [place] % (Auto) 8.2, Eos % (Auto) 2.9, Baso % (Auto) 0.9, Neut # (Auto) 2.8, Lymph # (Auto) 1.7, [place] # (Auto) 0.4, Eos # (Auto) 0.2, Baso # (Auto) 0.1 09/10/18 05:46: Sodium 143, Potassium 2.8 L* D, Chloride 108 H, Carbon Dioxide 27, Anion Gap 10.8, BUN 12, Creatinine 0.58, Estimated Creat Clear 64, Estimated GFR 102, Est GFR ( Amer) 123 D, Glucose 92, Calcium 8.1 L, Magnesium 1 .9, Triglycerides 35, Cholesterol 129 L, LDL Cholesterol 45, VLDL Cholesterol 7, HDL Cholesterol 77, Cholesterol/HDL Ratio 1.7 I & O for Last 24 hours: Intake & Output 09/07/18 09/08/18 09/09/18 09/10/18 23:59 23:59 23:59 23:59 Intake Total 187 / 187 Output Total 1100 / 1100 Balance -913 / -913 Weight 179 lb 7.3 oz 179 lb 7.3 oz Microbiology Reports for the Last 24 Hours: Microbiology 09/10/18 02:00 Sputum - Expectorated Sputum Gram Stain - Final Radiology Reports for the Last 24 Hours: CXR 09/09: MPRESSION: Findings suggesting minimal bilateral basilar bronchopneumonia and suggest follow-up films to assess clearing Dictated By: Alfred Link - *Routine HEENT Exam Head: Present: normocephalic Eye: Present: EOMI, PERRL ENT: Present: mucous membranes moist - *Routine Neck Exam Present: supple. Absent: lymphadenopathy - *Routine Respiratory Exam Present: CTA bilaterally - *Routine Cardiovascular Exam Present: RRR, Normal S1, Normal S2 - *Routine Abdominal Exam Present: soft, normoactive bowel sounds. Absent: tenderness - *Routine Extremities Exam Present: full ROM. Absent: cyanosis - *Routine Skin Exam Present: warm. Absent: rash - *Routine Neurological Exam Present: alert, oriented X3 Assessment and Plan (1) Unstable angina pectoris Current visit: Yes Status: Acute Category: Medical Code(s): I20.0 - Unstable angina (2) Abnormal cardiovascular stress test Current visit: Yes Status: Acute Category: Medical Code(s): R94.39 - Abnormal result of other cardiovascular function study (3) Gastroesophageal reflux disease Current visit: Yes Status: Chronic Qualifiers: Esophagitis presence: esophagitis presence not specified Qualified Code(s): K21.9 - Gastro-esophageal reflux disease without esophagitis Category: Medical Code(s): K21.9 - Gastro-esophageal reflux disease without esophagitis (4) HLD (hyperlipidemia) Current visit: Yes Status: Chronic Qualifiers: Hyperlipidemia type: unspecified Qualified Code(s): E78.5 - Hyperlipidemia, unspecified Category: Medical Code(s): E78.5 - Hyperlipidemia, unspecified (5) Hypertension Current visit: Yes Status: Chronic Qualifiers: Hypertension type: essential hypertension Qualified Code(s): I10 - Essential (primary) hypertension Category: Medical Code(s): I10 - Essential (primary) hypertension (6) Schizophrenia Current visit: Yes Status: Chronic Qualifiers: Schizophrenia type: unspecified Qualified Code(s): F20.9 - Schizophrenia, unspecified Category: Medical Code(s): F20.9 - Schizophrenia, unspecified (7) Tobacco dependence syndrome Current visit: Yes Status: Chronic Category: Medical Code(s): F17.200 - Nicotine dependence, unspecified, uncomplicated - Assessment and plan all Dx Assessment and Plan for all problems:: Rounds per Dr. Wadsworth All orders per Dr. Wadsworth To have Card Cath today
--- NOTE | 2018-09-10 14:40 | Discharge Summary ---
General - General Admission date:: 09/09/18 Discharge date: 09/10/18 HPI HPI: 73-year-old white female resident of [facility] was sent to the emergency department for evaluation of chest pain. Patient relates substernal discomfort with associated sweating without radiation of symptoms. Symptoms did resolve with nitroglycerin with no further recurrence overnight. Patient is somewhat vague on the discomfort with activity but states this is not the first time she has had this chest pain. Previously she was evaluated July 2017 with a stress test and echocardiogram. Echocardiogram showed preserved ejection fraction with stress test showing evidence of ischemia. Patient did not follow-up for further testing. Troponins overnight have returned normal. EKG is sinus with no acute changes. Cardiology consulted for evaluation recommendations. Per [facility] Hospital Course: pt has did well in hospital and no chest pain - she had low k but otherwise stable labs - she was seen by willie ibrahim A. Abnormal lexiscan myoview, 07/2017, 1. The EKG portion of the Lexiscan Myoview is nondiagnostic. 2. Scintigraphic evidence of mild reversible ischemia involving the inferior and inferoseptal wall, computer derived ejection fraction is over 65% with no obvious regional wall motion abnormality, right ventricle is mildly enlarged with normal contractility. 3. Abnormal Lexiscan Myoview study. 2. HTN A. Echo, 07/2017, 1. Technically difficult study because of the patient's factor and poor acoustic windows 2. Qualitatively mildly enlarged left atrium, normal left ventricular size, visually estimated ejection fraction 55% with no obvious regional wall motion abnormality, grade 1 diastolic dysfunction seen without tissue Doppler evidence of raised left atrial pressure. 3. Mild mitral and tricuspid regurgitation 4. No significant pericardial effusion noted 3. Gastroesophageal reflux disease 4. Hyperlipidemia 5. Tobacco use with history of COPD 6. History of schizophrenia History of present illness: 73-year-old white female resident of [facility] was sent to the emergency department for evaluation of chest pain. Patient relates substernal discomfort with associated sweating without radiation of symptoms. Symptoms did resolve with nitroglycerin with no further recurrence overnight. Patient is somewhat vague on the discomfort with activity but states this is not the first time she has had this chest pain. Previously she was evaluated July 2017 with a stress test and echocardiogram. Echocardiogram showed preserved ejection fraction with stress test showing evidence of ischemia. Patient did not follow-up for further testing. Troponins overnight have returned normal. EKG is sinus with no acute changes. Cardiology consulted for evaluation recommendations. n light of the patient's recurrent chest pain, tobacco use with history of abnormal stress test, recommend proceeding with left heart catheterization today. 2. Continue aspirin, statin and will add metoprolol 25 mg daily. 3. Further recommendations to follow pending cardiac catheter results. pt refused heart cath and amadeo be d/c to senior living at this time Objective Vital signs: Temp Pulse Resp BP Pulse Ox 97.7 F 64 18 119/58 L 91 L 09/10/18 11:50 09/10/18 11:50 09/10/18 11:50 09/10/18 11:50 09/10/18 11:50 no acute distress - *Routine HEENT Exam Head: Present: normocephalic Eye: Present: EOMI, PERRL ENT: Present: mucous membranes dry - *Routine Neck Exam Present: supple. Absent: JVD - *Routine Respiratory Exam Present: CTA bilaterally - *Routine Cardiovascular Exam Present: RRR, murmur, S4 - *Routine Abdominal Exam Present: soft - *Routine Extremities Exam Absent: calf tenderness - *Routine Skin Exam Present: intact - *Routine Neurological Exam Present: alert, oriented X3, CN II-XII intact - Routine Psychiatric Exam Present: normal affect Results Labs on day of discharge: Labs from last 24 hours 09/10/18 09/10/18 09/10/18 05:46 05:46 03:23 WBC 5.2 RBC 3.79 L Hgb 11.4 L Hct 34.4 L MCV 90.6 MCH 30.1 MCHC 33.3 RDW 13.7 Plt Count 166 MPV 8.3 Neut % (Auto) 54.5 Lymph % (Auto) 33.4 Mcnairy % (Auto) 8.2 Eos % (Auto) 2.9 Baso % (Auto) 0.9 Neut # (Auto) 2.8 Lymph # (Auto) 1.7 Mcnairy # (Auto) 0.4 Eos # (Auto) 0.2 Baso # (Auto) 0.1 Sodium 143 Potassium 2.8 L* D Chloride 108 H Carbon Dioxide 27 Anion Gap 10.8 BUN 12 Creatinine 0.58 Estimated Creat Clear 64 Estimated GFR 102 Est GFR ( Amer) 123 D Glucose 92 Lactate Calcium 8.1 L Magnesium 1.9 Troponin I < 0.02 Triglycerides 35 Cholesterol 129 L LDL Cholesterol 45 VLDL Cholesterol 7 HDL Cholesterol 77 Cholesterol/HDL Ratio 1.7 09/10/18 09/09/18 09/09/18 01:55 19:30 19:30 WBC RBC Hgb Hct MCV MCH MCHC RDW Plt Count MPV Neut % (Auto) Lymph % (Auto) Mcnairy % (Auto) Eos % (Auto) Baso % (Auto) Neut # (Auto) Lymph # (Auto) Mcnairy # (Auto) Eos # (Auto) Baso # (Auto) Sodium 141 Potassium 3.6 Chloride 104 Carbon Dioxide 29 Anion Gap 11.6 BUN 15 Creatinine 0.72 Estimated Creat Clear 61 Estimated GFR 79 Est GFR ( Amer) 96 Glucose 86 Lactate 1.1 Calcium 8.7 Magnesium Troponin I < 0.02 < 0.02 Triglycerides Cholesterol LDL Cholesterol VLDL Cholesterol HDL Cholesterol Cholesterol/HDL Ratio 09/09/18 19:30 WBC 5.4 RBC 3.99 L Hgb 12.1 L Hct 36.2 L MCV 90.6 MCH 30.4 MCHC 33.5 RDW 13.6 Plt Count 191 MPV 8.4 Neut % (Auto) 40.3 Lymph % (Auto) 48.6 Mcnairy % (Auto) 7.1 Eos % (Auto) 3.4 Baso % (Auto) 0.7 Neut # (Auto) 2.2 Lymph # (Auto) 2.6 Mcnairy # (Auto) 0.4 Eos # (Auto) 0.2 Baso # (Auto) 0.0 Sodium Potassium Chloride Carbon Dioxide Anion Gap BUN Creatinine Estimated Creat Clear Estimated GFR Est GFR ( Amer) Glucose Lactate Calcium Magnesium Troponin I Triglycerides Cholesterol LDL Cholesterol VLDL Cholesterol HDL Cholesterol Cholesterol/HDL Ratio DS: Diagnosis - Discharge Diagnosis (1) Unstable angina pectoris Status: Acute (2) Abnormal cardiovascular stress test Status: Acute (3) Gastroesophageal reflux disease Status: Chronic (4) HLD (hyperlipidemia) Status: Chronic (5) Hypertension Status: Chronic (6) Schizophrenia Status: Chronic (7) Tobacco dependence syndrome Status: Chronic (8) Hypokalemia Status: Acute Discharge Plan - Patient Discharge Instructions ACTIVITY: Continue current activity DIET: continue same diet Patient Instructions: Heart-Healthy Diet, DI for Angina, DI for Gastroesophageal Reflux Disease (GERD) - Follow up Plan Disposition: Home, Self-Intermediate Medications: Home Medications Medication Instructions Recorded Confirmed Type allopurinol 100 mg tablet 100 mg PO BID tab 07/27/17 09/10/18 History aspirin 81 mg tablet,delayed 81 mg PO DAILY tab 07/27/17 09/10/18 History release atorvastatin 10 mg tablet 10 mg PO DAILY tab 07/27/17 09/10/18 History baclofen 20 mg tablet 20 mg PO BID tab 07/27/17 09/10/18 History benztropine 1 mg tablet 1 mg PO BID 07/27/17 09/10/18 History buspirone 10 mg tablet 10 mg PO BID 07/27/17 09/10/18 History citalopram 20 mg tablet 20 mg PO DAILY tab 07/27/17 09/10/18 History gabapentin 100 mg capsule 100 mg PO TID cap 07/27/17 09/10/18 History lactulose 10 gram/15 mL oral 20 g PO DAILYP PRN ml 07/27/17 09/10/18 History solution loperamide 2 mg tablet 2 mg PO Q8HP PRN tab 07/27/17 09/10/18 History loratadine 10 mg tablet 10 mg PO DAILY tab 07/27/17 09/10/18 History lorazepam 1 mg tablet 1 mg PO TID tab 07/27/17 09/10/18 History nitroglycerin 0.4 mg sublingual 0.4 mg SUBLINGUAL Q5M PRN 07/27/17 09/10/18 History tablet olanzapine 10 mg tablet 10 mg PO DAILY tab 07/27/17 09/10/18 History pantoprazole 40 mg tablet,delayed 40 mg PO QAM 07/27/17 09/10/18 History release potassium chloride ER 20 mEq 20 meq PO TID tab 07/27/17 09/10/18 History tablet,extended release triamterene 75 1 tab PO QAM 07/27/17 09/10/18 History mg-hydrochlorothiazide 50 mg tablet Acetaminophen 650 mg PO Q4HP PRN 09/10/18 09/10/18 History Metoprolol Succinate [Toprol XL 25 mg PO DAILY #90 tab.er.24h 09/10/18 Rx 25mg tablet] Prescriptions/Medication Reconciliation: New Buspirone HCl [Buspar 10mg tablet] 10 mg PO BID tablet Citalopram Hydrobromide [Celexa 20mg Tablet] 20 mg PO DAILY tablet Benztropine Mesylate [Cogentin 1mg tablet] 1 mg PO BID tablet Potassium Chloride [Klor-con 20 mEq tablet] 20 meq PO TID tablet Baclofen [Lioresal 10mg tablet] 20 mg PO BID tablet Allopurinol [Allopurinol 100mg tablet] 100 mg PO BID tablet OLANZapine [Zyprexa 5mg tablet] 10 mg PO DAILY tablet Metoprolol Succinate [Toprol XL 25mg tablet] 25 mg PO DAILY #90 tab.er.24h Continued atorvastatin 10 mg tablet 10 mg PO DAILY tab baclofen 20 mg tablet 20 mg PO BID tab buspirone 10 mg tablet 10 mg PO BID citalopram 20 mg tablet 20 mg PO DAILY tab gabapentin 100 mg capsule 100 mg PO TID cap loratadine 10 mg tablet 10 mg PO DAILY tab olanzapine 10 mg tablet 10 mg PO DAILY tab lactulose 10 gram/15 mL oral solution 20 g PO DAILYP PRN ml PRN Reason: Constipation loperamide 2 mg tablet 2 mg PO Q8HP PRN tab PRN Reason: Diarrhea nitroglycerin 0.4 mg sublingual tablet 0.4 mg SUBLINGUAL Q5M PRN PRN Reason: Chest Pain allopurinol 100 mg tablet 100 mg PO BID tab pantoprazole 40 mg tablet,delayed release 40 mg PO QAM triamterene 75 mg-hydrochlorothiazide 50 mg tablet 1 tab PO QAM aspirin 81 mg tablet,delayed release 81 mg PO DAILY tab lorazepam 1 mg tablet 1 mg PO TID tab potassium chloride ER 20 mEq tablet,extended release 20 meq PO TID tab Acetaminophen 650 mg PO Q4HP PRN PRN Reason: Breakthru Moderate Pain No Action benztropine 1 mg tablet 1 mg PO BID
== END 2018-09-10 15:14 | disposition home or self-care (01) ==
LOC: 2ND 19:35 → ER 19:35 → 2ND 22:00
PROVIDERS: ADMIT Emergency Medicine; ATTEND Emergency Medicine
DX: Z79.82 Long term (current) use of aspirin; F20.9 Schizophrenia, unspecified; R94.39 Abnormal result of other cardiovascular function study; J44.9 Chronic obstructive pulmonary disease, unspecified; E78.5 Hyperlipidemia, unspecified; F17.200 Nicotine dependence, unspecified, uncomplicated; J45.909 Unspecified asthma, uncomplicated; Z79.899 Other long term (current) drug therapy; I10 Essential (primary) hypertension; R06.02 Shortness of breath; R07.9 Chest pain, unspecified; K21.9 Gastro-esophageal reflux disease without esophagitis; I20.0 Unstable angina
CPT/HCPCS: 36415; 71010; 71045; 80048; 80061; 83605; 83735; 84484; 85025; 87040; 87070; 87205; 93005; 96365; 99284; G0378

== ENCOUNTER 2018-10-18 11:38 | Emergency (ER) | payer MEDICARE, OTHER, SELFPAY ==
[2018-10-18 11:39] VITALS: BP 106/65; PULSE 68; RESP 20; TEMP 36.8; O2SAT 95; BMI 28.7
--- NOTE | 2018-10-18 11:45 | XR_ITS ---
XR femur LT 2V CLINICAL INDICATION: Pain following injury ITS.REASON: fall ORDERING PHYSICIAN: John Porter MD PATIENT AGE: 73 years Comparison: None FINDINGS: No fracture or dislocation. No lytic or blastic change. There is hyperostosis of the symphysis pubis with an old fracture of left superior and inferior pubic ramus medially. IMPRESSION: 1. No acute finding. 2. Old left superior and inferior pubic ramus fracture medially
--- NOTE | 2018-10-18 11:46 | HMH.EDGENADL ---
ED Disposition Clinical Impression: Elevated troponin Abdominal trauma Qualifiers: Encounter type: initial encounter Qualified Code(s): S39.91XA - Unspecified injury of abdomen, initial encounter Disposition: Xfer Short-Term Hosp Condition on Discharge: Good - Critical Care Critical Care Time: No Attestation: On , the high probability of a clinically significant, sudden or life threatening deterioration of the following system(s) required my full and direct attention, intervention and personal management. The time I documented below is in addition to time spent performing reported procedures but includes the following listed in this critical care notation. Medical Decision Making - Medical Records Medical records reviewed: Yes: I reviewed the patient's medical records. - Nitin Inquiry Pt receiving controlled substance: No Vital Signs: 10/18/18 11:39 10/18/18 12:42 10/18/18 13:30 Temperature 98.3 F Temperature Source Oral Pulse Rate [Right Radial] 68 65 66 Respiratory Rate 20 18 Blood Pressure [Right Arm] 106/65 L 125/63 128/58 L Blood Pressure Mean [Right Arm] 78 83 81 Blood Pressure Source [Right Arm] Automatic Cuff Automatic Cuff Automatic Cuff Blood Pressure Position [Right Arm] Sitting Sitting Sitting 02 Sat by Pulse Oximetry 95 95 95 Oxygen Delivery Method Room Air Room Air Room Air - Lab Data Lab results reviewed: Yes: I reviewed the patient's lab results. Lab Results 10/18/18 11:55: WBC 8.0, RBC 4.44, Hgb 12.5, Hct 42.1, MCV 94.8, MCH 28.2, MCHC 29.7 L, RDW 14.0, Plt Count 182, MPV 8.9, Neut % (Auto) 78.4, Lymph % (Auto) 13.7, Benson % (Auto) 7.3, Eos % (Auto) 0.4, Baso % (Auto) 0.4, Neut # (Auto) 6.3, Lymph # (Auto) 1.1, Benson # (Auto) 0.6, Eos # (Auto) 0.0, Baso # (Auto) 0.0 10/18/18 11:55: Sodium 142, Potassium 3.6, Chloride 103, Carbon Dioxide 25, Anion Gap 17.6 H, BUN 24 H, Creatinine 0.84, Estimated Creat Clear 72, Estimated GFR 66, Est GFR ( Amer) 80, Glucose 115 H, Calcium 8.8, Total Bilirubin 1.0, AST 93 H, ALT 45, Alkaline Phosphatase 116, Troponin I 0.07 H, Total Protein 7.4, Albumin 3.9, Globulin 3.5 H, Albumin/Globulin Ratio 1.1 Result diagrams: 10/18/18 11:55 10/18/18 11:55 Orders (Tests/Meds): ED MEDICATIONS Discontinued Medications Generic Name Dose Route Start Last Admin Trade Name Ethan PRN Reason Stop Dose Admin Acetaminophen 500 mg 10/18/18 11:45 10/18/18 12:42 Tylenol 500mg Tablet PO 10/18/18 11:46 500 mg ONCE ONE Administration Furosemide 40 mg 10/18/18 14:43 Lasix 40mg/4ml Vial IV 10/18/18 14:44 ONCE ONE ORDERS Category Date Time Status CT abdomen pelvis w con Stat Cat Scan 10/18/18 13:[address] angio chest Stat Cat Scan 10/18/18 13:48 Ordered Chest XR -- portable [XR chest portable] Stat Exams 10/18/18 15:28 Ordered - Radiology Data #1 Image(s): Femur Image Reviewed: Yes I have reviewed radiologist's interpretation Preliminary Findings: No Fracture Seen - ECG Data Tracing #1 I reviewed this ECG and interpreted as documented below: Normal Sinus Rhythm: Yes (no stemi) Medical Decision Narrative: pt accepted to ED by Dr Soto ([facility]) for trauma since the cat scanner at [place] is down indefinitely, pt vss General Adult HPI - General Stated complaint: fall lastnight, R rib pain Time Seen by Provider: 10/18/18 11:46 Mode of Arrival: EMS Source of Information: Patient, EMS - History of Present Illness HPI narrative: mild constant ache of the right chest wall and left thigh since slip and fall in the tub at assisted living yesterday, no loc, no bleeding, no neck pain - Related Data Home Medications Medication Instructions Recorded Confirmed allopurinol 100 mg tablet 100 mg PO BID tab 07/27/17 10/02/18 aspirin 81 mg tablet,delayed 81 mg PO DAILY tab 07/27/17 10/02/18 release baclofen 20 mg tablet 20 mg PO BID tab 07/27/17 10/02/18 buspirone 10 mg tablet 10 mg PO BID
--- NOTE | 2018-10-18 11:49 | ED_ITS ---
ED Disposition Clinical Impression: Elevated troponin Abdominal trauma Qualifiers: Encounter type: initial encounter Qualified Code(s): S39.91XA - Unspecified injury of abdomen, initial encounter Disposition: Xfer Short-Term Hosp Condition on Discharge: Good - Critical Care Critical Care Time: No Attestation: On , the high probability of a clinically significant, sudden or life threatening deterioration of the following system(s) required my full and direct attention, intervention and personal management. The time I documented below is in addition to time spent performing reported procedures but includes the following listed in this critical care notation. Medical Decision Making - Medical Records Medical records reviewed: Yes: I reviewed the patient's medical records. - Nitin Inquiry Pt receiving controlled substance: No Vital Signs: 10/18/18 11:39 10/18/18 12:42 10/18/18 13:30 Temperature 98.3 F Temperature Source Oral Pulse Rate [Right Radial] 68 65 66 Respiratory Rate 20 18 Blood Pressure [Right Arm] 106/65 L 125/63 128/58 L Blood Pressure Mean [Right Arm] 78 83 81 Blood Pressure Source [Right Arm] Automatic Cuff Automatic Cuff Automatic Cuff Blood Pressure Position [Right Arm] Sitting Sitting Sitting 02 Sat by Pulse Oximetry 95 95 95 Oxygen Delivery Method Room Air Room Air Room Air - Lab Data Lab results reviewed: Yes: I reviewed the patient's lab results. Lab Results 10/18/18 11:55: WBC 8.0, RBC 4.44, Hgb 12.5, Hct 42.1, MCV 94.8, MCH 28.2, MCHC 29.7 L, RDW 14.0, Plt Count 182, MPV 8.9, Neut % (Auto) 78.4, Lymph % (Auto) 13.7, Orange % (Auto) 7.3, Eos % (Auto) 0.4, Baso % (Auto) 0.4, Neut # (Auto) 6.3, Lymph # (Auto) 1.1, Orange # (Auto) 0.6, Eos # (Auto) 0.0, Baso # (Auto) 0.0 10/18/18 11:55: Sodium 142, Potassium 3.6, Chloride 103, Carbon Dioxide 25, Anion Gap 17.6 H, BUN 24 H, Creatinine 0.84, Estimated Creat Clear 72, Estimated GFR 66, Est GFR ( Amer) 80, Glucose 115 H, Calcium 8.8, Total Bilirubin 1.0, AST 93 H, ALT 45, Alkaline Phosphatase 116, Troponin I 0.07 H, Total Protein 7.4, Albumin 3.9, Globulin 3.5 H, Albumin/Globulin Ratio 1.1 Result diagrams: 10/18/18 11:55 10/18/18 11:55 Orders (Tests/Meds): ED MEDICATIONS Discontinued Medications Generic Name Dose Route Start Last Admin Trade Name Freq PRN Reason Stop Dose Admin Acetaminophen 500 mg 10/18/18 11:45 10/18/18 12:42 Tylenol 500mg Tablet PO 10/18/18 11:46 500 mg ONCE ONE Administration Furosemide 40 mg 10/18/18 14:43 Lasix 40mg/4ml Vial IV 10/18/18 14:44 ONCE ONE ORDERS Category Date Time Status CT abdomen pelvis w con Stat Cat Scan 10/18/18 13:[address] angio chest Stat Cat Scan 10/18/18 13:48 Ordered Chest XR -- portable [XR chest portable] Stat Exams 10/18/18 15:28 Ordered - Radiology Data #1 Image(s): Femur Image Reviewed: Yes I have reviewed radiologist's interpretation Preliminary Findings: No Fracture Seen - ECG Data Tracing #1 I reviewed this ECG and interpreted as documented below: Normal Sinus Rhythm: Yes (no stemi) Medical Decision Narra
--- NOTE | 2018-10-18 11:50 | PC.NURSE ---
Upon reviewing orders that were placed per ER MD, I notified ER MD that I was given in report that pt has fallen when getting out of the bathtub and fell onto bath tub. Pt reports R shoulder and R rib pain and pt reports bruising on L inner thigh. ER MD was asked about pelvis xray, shoulder and rib xrays, ER MD did not give any further orders at this time, stated I will probably CT patient after lab work results
[2018-10-18 12:07] LABS: Basophils % 0.4 % (0.1-2.0); Eosinophils % 0.4 % (0.1-12.0); Hematocrit 42.1 % (37.0-47.0); Hemoglobin 12.5 g/dL (12.2-16.2); Lymphocytes # 1.1 K/mm3 (0.7-4.5); Lymphocytes % 13.7 % (10-50); Mean Corpuscular HGB Conc 29.7 g/dL (31.8-35.4); Mean Corpuscular Hemoglobin 28.2 pg (27.0-31.2); Mean Corpuscular Volume 94.8 fl (81-99); Mean Platelet Volume 8.9 fl (7.4-10.4); Monocytes # 0.6 K/mm3 (0.1-1.0); Monocytes % 7.3 % (1.7-9.3); Neutrophils # 6.3 K/mm3 (1.8-7.8); Neutrophils % 78.4 % (37.0-80.0); Platelet Count 182 K/mm3 (142-424); Red Blood Count 4.44 M/mm3 (4.20-5.40)
[2018-10-18 12:30] LABS: Alanine Aminotransferase 45 U/L (12-78); Albumin Level 3.9 gm/dL (3.4-5.0); Albumin/Globulin Ratio 1.1 (1.1-1.8); Alkaline Phosphatase 116 U/L (46-116); Anion Gap 17.6 mEq/L (5-15); Aspartate Amino Transferase 93 U/L (15-37); Blood Urea Nitrogen 24 mg/dL (7-18); Calcium 8.8 mg/dL (8.5-10.1); Carbon Dioxide 25 mmol/L (21.0-32.0); Chloride 103 mmol/L (98-107); Creatinine Clearance Estimated 72 mL/min (50-200); Creatinine,Serum 0.84 mg/dL (0.55-1.02); Estimated Glomerular Filt Rate 66 ml/min (>60); GFR (African American) 80 ML/MIN (>60); Globulin 3.5 gm/dl (1.3-3.2); Glucose 115 mg/dL (74-106); Potassium 3.6 mmoL/L (3.5-5.1); Sodium 142 mmol/L (136-145); Total Protein,Serum 7.4 gm/dL (6.4-8.2); Troponin I 0.07 ng/ml (0.00-0.06)
[2018-10-18 12:42] VITALS: BP 125/63; PULSE 65; O2SAT 95
--- NOTE | 2018-10-18 13:05 | PC.NURSE ---
Pt to rad
--- NOTE | 2018-10-18 13:13 | XR_ITS ---
XR femur RT 1V CLINICAL INDICATION: ITS.REASON: pain ORDERING PHYSICIAN: John Porter MD PATIENT AGE: 73 years Comparison: None FINDINGS: No fracture, location, lytic, or blastic change is evident within the femur. There are minimal osteoarthritic changes of the hip and knee. An area of sclerosis is present involving the fibular head consistent with bone infarction. IMPRESSION: Mild osteoarthritic change of the hip and knee Bone infarction or head
[2018-10-18 13:30] VITALS: BP 128/58; PULSE 66; RESP 18; O2SAT 95
--- NOTE | 2018-10-18 13:32 | PC.NURSE ---
Pt returned from rad.
--- NOTE | 2018-10-18 14:27 | PC.NURSE ---
ALEXANDER Rose at BS
--- NOTE | 2018-10-18 14:29 | PC.NURSE ---
Armando Luevano at bedside
--- NOTE | 2018-10-18 14:32 | HMH.CNCARD ---
History of Present Illness Consult date: 10/18/18 Consult reason: chest pain Chief complaint: chest pain Additional Medical History:: 1. Chest pain A. Abnormal lexiscan myoview, 07/2017, 1. The EKG portion of the Lexiscan Myoview is nondiagnostic. 2. Scintigraphic evidence of mild reversible ischemia involving the inferior and inferoseptal wall, computer derived ejection fraction is over 65% with no obvious regional wall motion abnormality, right ventricle is mildly enlarged with normal contractility. 3. Abnormal Lexiscan Myoview study. B. LHC, 09/2018, mild non-flow limiting CAD with normal LVEF and mildly elevated LVEDP at 20 mm Hg 2. HTN A. Echo, 07/2017, 1. Technically difficult study because of the patient's factor and poor acoustic windows 2. Qualitatively mildly enlarged left atrium, normal left ventricular size, visually estimated ejection fraction 55% with no obvious regional wall motion abnormality, grade 1 diastolic dysfunction seen without tissue Doppler evidence of raised left atrial pressure. 3. Mild mitral and tricuspid regurgitation 4. No significant pericardial effusion noted 3. Gastroesophageal reflux disease 4. Hyperlipidemia 5. Tobacco use with history of COPD 6. History of schizophrenia History of present illness: 73 yo WF with mild non-flow limiting CAD by cardiac cath this month was sent to ER for evaluation of chest pain after falling in bathroom. Symptoms are right sided and worse with movement and deep breathing. Initial troponin noted to be mildly elevated and cardiology consulted for evaluation. EKG is sinus and unremarkable. Pt denies any chest pain or palpitations prior to falling. She believes she slipped. [facility] History Medical History: Reports:: Asthma, Chronic Obstructive Pulmonary Disease (COPD), Gastroesophageal Reflux Disease(GERD), Hyperlipidemia, Hypertension Denies:: Cancer, Diabetes Mellitus Type 1, Diabetes Mellitus Type 2, Internal Pacemaker, MRSA, Seizures *Have you ever received a pneumonia vaccine?: No *Have you received a flu vaccine this season?: No Other Medical History: Reports: Arthritis Other Surgeries: Yes: Cardiac Catheterization, Cholecystectomy. No: Pacemaker Amputation: No Fractures: No - *Social History Smoking Status: Current some day smoker Tobacco Type: cigarettes # Packs/Day (cigarettes): 0 Alcohol Intake: never Alcohol Intake Frequency:: other Substance Use Type: denies use *Occupational Status:: retired, disabled Housing: assisted living facility Household Members: other *Travel in the last 8 weeks: None - Psychiatric History Expresses thoughts of harming self/others: None Suicide Plan Description: No Plan Family Hx:: Unable to obtain Meds Home Medications Medication Instructions Recorded Confirmed Type allopurinol 100 mg tablet 100 mg PO BID tab 07/27/17 10/02/18 History aspirin 81 mg tablet,delayed 81 mg PO DAILY tab 07/27/17 10/02/18 History release baclofen 20 mg tablet 20 mg PO BID tab 07/27/17 10/02/18 History buspirone 10 mg tablet 10 mg PO BID 07/27/17 10/02/18 History citalopram 20 mg tablet 20 mg PO DAILY tab 07/27/17 10/02/18 History gabapentin 100 mg capsule 100 mg PO TID cap 07/27/17 10/02/18 History lactulose 10 gram/15 mL oral 20 g PO DAILYP PRN ml 07/27/17 10/02/18 History solution loperamide 2 mg tablet 2 mg PO Q8HP PRN tab 07/27/17 10/02/18 History loratadine 10 mg tablet 10 mg PO DAILY tab 07/27/17 10/02/18 History lorazepam 1 mg tablet 1 mg PO TID tab 07/27/17 10/02/18 History nitroglycerin 0.4 mg sublingual 0.4 mg SUBLINGUAL Q5M PRN 07/27/17 10/02/18 History tablet olanzapine 10 mg tablet 10 mg PO DAILY tab 07/27/17 10/02/18 History pantoprazole 40 mg tablet,delayed 40 mg PO QAM 07/27/17 10/02/18 History release potassium chloride ER 20 mEq 20 meq PO TID tab 07/27/17 10/02/18 History tablet,extended release triamterene 75 1 tab PO QAM 07/27/17 10/02/18 History mg-hydrochloroth
--- NOTE | 2018-10-18 14:33 | PC.NURSE ---
radiology notified of CT order, spoke with Elton
--- NOTE | 2018-10-18 14:35 | P.CONS_ITS ---
History of Present Illness Consult date: 10/18/18 Consult reason: chest pain Chief complaint: chest pain Additional Medical History:: 1. Chest pain A. Abnormal lexiscan myoview, 07/2017, 1. The EKG portion of the Lexiscan Myoview is nondiagnostic. 2. Scintigraphic evidence of mild reversible ischemia involving the inferior and inferoseptal wall, computer derived ejection fraction is over 65% with no obvious regional wall motion abnormality, right ventricle is mildly enlarged with normal contractility. 3. Abnormal Lexiscan Myoview study. B. LHC, 09/2018, mild non-flow limiting CAD with normal LVEF and mildly elevated LVEDP at 20 mm Hg 2. HTN A. Echo, 07/2017, 1. Technically difficult study because of the patient's factor and poor acoustic windows 2. Qualitatively mildly enlarged left atrium, normal left ventricular size, visually estimated ejection fraction 55% with no obvious regional wall motion abnormality, grade 1 diastolic dysfunction seen without tissue Doppler evidence of raised left atrial pressure. 3. Mild mitral and tricuspid regurgitation 4. No significant pericardial effusion noted 3. Gastroesophageal reflux disease 4. Hyperlipidemia 5. Tobacco use with history of COPD 6. History of schizophrenia History of present illness: 73 yo WF with mild non-flow limiting CAD by cardiac cath this month was sent to ER for evaluation of chest pain after falling in bathroom. Symptoms are right sided and worse with movement and deep breathing. Initial troponin noted to be mildly elevated and cardiology consulted for evaluation. EKG is sinus and unremarkable. Pt denies any chest pain or palpitations prior to falling. She believes she slipped. [facility] History Medical History: Reports:: Asthma, Chronic Obstructive Pulmonary Disease (COPD), Gastroesophageal Reflux Disease(GERD), Hyperlipidemia, Hypertension Denies:: Cancer, Diabetes Mellitus Type 1, Diabetes Mellitus Type 2, Internal Pacemaker, MRSA, Seizures *Have you ever received a pneumonia vaccine?: No *Have you received a flu vaccine this season?: No Other Medical History: Reports: Arthritis Other Surgeries: Yes: Cardiac Catheterization, Cholecystectomy. No: Pacemaker Amputation: No Fractures: No - *Social History Smoking Status: Current some day smoker Tobacco Type: cigarettes # Packs/Day (cigarettes): 0 Alcohol Intake: never Alcohol Intake Frequency:: other Substance Use Type: denies use *Occupational Status:: retired, disabled Housing: assisted living facility Household Members: other *Travel in the last 8 weeks: None - Psychiatric History Expresses thoughts of harming self/others: None Suicide Plan Description: No Plan Family Hx:: Unable to obtain Meds Home Medications Medication Instructions Recorded Confirmed Type allopurinol 100 mg tablet 100 mg PO BID tab 07/27/17 10/02/18 History aspirin 81 mg tablet,delayed 81 mg PO DAILY tab 07/27/17 10/02/18 History release baclofen 20 mg tablet 20 mg PO BID tab 07/27/17 10/02/18 History buspirone 10 mg tablet 10 mg PO BID 07/27/17 10/02/18 History citalopram 20 mg tablet 20 mg PO DAILY tab 07/27/17 10/02/18 History gabapentin 100 mg capsule 100 mg PO TID cap 07/27/17 10/02/18 History lactulose 10 gram/15 mL oral 20 g PO DAILYP PRN ml 07/27/17 10/02/18 History solution loperamide 2 mg tablet 2 mg PO Q8HP PRN tab 07/27/17 10/02/18 History loratadine 10 mg tablet 10 mg PO DAILY tab 07/27/17 10/02/18 History lorazepam
--- NOTE | 2018-10-18 14:41 | PC.NURSE ---
Pt ambulated with staff to bathroom and to wheelchair, transported to radiology
--- NOTE | 2018-10-18 14:54 | PC.NURSE ---
pt to CT
--- NOTE | 2018-10-18 15:19 | PC.NURSE ---
Pt return from CT scan at this time, pt was unable to get CT scans r/t a malfunction of the CT scan table. ER is aware
--- NOTE | 2018-10-18 15:28 | XR_ITS ---
XR chest portable HISTORY: Fall with injury and pain ITS.REASON: trauma ORDERING PHYSICIAN: John Porter MD PATIENT AGE: 73 years COMPARISON: 09/09/2018 FINDINGS: The cardiomediastinal silhouette and pulmonary vascularity are within normal limits. There is a patchy area of increased density left lung base which may be due to an area of atelectasis versus patchy infiltrate or developing nodule. Upright PA and lateral chest suggested for both evaluation. The remaining lungs are clear. There is chronic coarsening of the bronchovascular markings.. No acute bony abnormalities. IMPRESSION: Faint opacity in the left lung base which may be due to atelectasis/infiltrate or developing nodule. Suggest follow-up for confirmation
--- NOTE | 2018-10-18 15:37 | PC.NURSE ---
DR LEE HAS REQUESTED TO SPEAK WITH [facility] DUE TO NOT BEING ABLE TO SCAN PT DUE TO CT SCANNER DOWN
--- NOTE | 2018-10-18 15:42 | PC.NURSE ---
Pt accepted to ER per Dr. Soto
--- NOTE | 2018-10-18 15:50 | PC.NURSE ---
PT SLEEPING AT THIS TIME
--- NOTE | 2018-10-18 15:58 | PC.NURSE ---
[facility] aware of pt need of transport, stated will transport pt when a truck becomes available
[2018-10-18 16:03] VITALS: BP 139/96; PULSE 63; O2SAT 98
--- NOTE | 2018-10-18 16:36 | PC.NURSE ---
notified lab of need of blood draw on pt
[2018-10-18 17:09] LABS: Troponin I 0.05 ng/ml (0.00-0.06)
[2018-10-18 17:18] VITALS: BP 132/42; PULSE 66; O2SAT 93
--- NOTE | 2018-10-18 17:33 | PC.NURSE ---
notified ER MD of pt repeat troponin result.
--- NOTE | 2018-10-18 17:40 | PC.NURSE ---
report called to LEANNA Pantoja at ER
--- NOTE | 2018-10-18 18:35 | PC.NURSE ---
Upon assessment of liu insert, pt vaginal labia is swollen, left more than right with some bruising noted.
[2018-10-18 18:40] LABS: Appearance,Urine CLEAR (Clear); Bilirubin,Urine Negative (Negative); Blood, Urine Negative (Negative); Color,Urine YELLOW (Yellow); Glucose,Urine (UA) Negative (Negative); Ketones,Urine Negative (Negative); Leukocyte Esterase,Urine Negative (Negative); Microscopic, Urine URINE MICROSCOPIC (MICROSCOPIC); Nitrate,Urine Negative (Negative); PH,Urine 7.5 (5.0-8.5); Protein,Urine Negative (Negative); Specific Gravity, Urine 1.015 (1.005-1.030); Urobilinogen,Urine 0.2 EU/dl (0.2)
[2018-10-18 18:42] LABS: Bacteria,Urine Trace /lpf; Mucus,Urine Trace /lpf
[2018-10-18 19:05] VITALS: BP 144/74; PULSE 62; RESP 18; TEMP 36.6; O2SAT 95
== END 2018-10-18 19:07 | disposition short-term general hospital (02) ==
PROVIDERS: Emergency Provider Emergency Medicine Emergency Medical Services
DX: S39.91XA Unspecified injury of abdomen, initial encounter (principal); W18.2XXA Fall in (into) shower or empty bathtub, initial encounter; Y92.121 Bathroom in nursing home as the place of occurrence of the external cause; R74.8 Abnormal levels of other serum enzymes; F17.210 Nicotine dependence, cigarettes, uncomplicated; I10 Essential (primary) hypertension; E78.5 Hyperlipidemia, unspecified; J44.9 Chronic obstructive pulmonary disease, unspecified; K21.9 Gastro-esophageal reflux disease without esophagitis
CPT/HCPCS: 36415; 71045; 73551; 73552; 80053; 81001; 84484; 85025; 93005; 96374; 99285

== ENCOUNTER → 2019-01-24 10:33 | Outpatient (CLI) | payer MEDICARE, OTHER, SELFPAY ==
--- NOTE | 2019-01-24 10:38 | XR_ITS ---
PROCEDURE: XR KNEE RT 4V CLINICAL INDICATION: Right knee pain possible knot anterior side of knee for the past few weeks COMPARISON: Femur R from 10/18/2018 FINDINGS: No fracture or dislocation. No lytic or blastic change. There is normal mineralization. There is mild narrowing of the patellofemoral space. There is no definite effusion. 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 No soft tissue abnormality is noted. IMPRESSION: No acute findings. Dictated by: Dr. Juan Pablo Link MD 01/24/2019 11:[address] Juan Pablo Link MD in [place] 01/24/2019 11:09
== END ==
PROVIDERS: PCP Emergency Medicine; Visit Provider Orthopaedic Surgery
DX: M25.561 Pain in right knee (principal)
CPT/HCPCS: 73564

== ENCOUNTER 2019-02-25 09:30 | Outpatient (CLI) | payer MEDICARE, OTHER, SELFPAY ==
[2019-02-25 09:50] VITALS: BP 123/80; PULSE 105; RESP 20; TEMP 36.6; O2SAT 93
== END 2019-02-25 10:20 | disposition home or self-care (01) ==
LOC: INF 09:30
PROVIDERS: Visit Provider Emergency Medicine
DX: J06.9 Acute upper respiratory infection, unspecified (principal)
CPT/HCPCS: 96372; J1335

== ENCOUNTER 2019-02-26 11:22 | Outpatient (CLI) | payer MEDICARE, OTHER, SELFPAY ==
[2019-02-26 11:47] VITALS: BP 105/53; PULSE 67; RESP 18; TEMP 36.6; O2SAT 95
[2019-02-26 12:15] VITALS: BP 110/59; PULSE 64; RESP 18; TEMP 36.6; O2SAT 95
== END 2019-02-26 12:15 | disposition home or self-care (01) ==
LOC: INF 11:22
PROVIDERS: Visit Provider Emergency Medicine
DX: J06.9 Acute upper respiratory infection, unspecified (principal)
CPT/HCPCS: 96372; J1335

== ENCOUNTER 2019-02-27 10:40 | Outpatient (CLI) | payer MEDICARE, OTHER, SELFPAY ==
[2019-02-27 11:00] VITALS: BP 124/69; PULSE 70; RESP 18; TEMP 36.6; O2SAT 98
== END 2019-02-27 11:27 | disposition home or self-care (01) ==
LOC: INF 10:40
PROVIDERS: Visit Provider Emergency Medicine
DX: J06.9 Acute upper respiratory infection, unspecified (principal)
CPT/HCPCS: 96372; J1335

== ENCOUNTER 2019-03-01 15:42 | Outpatient (CLI) | payer MEDICARE, OTHER, SELFPAY ==
[2019-03-01 16:04] VITALS: BP 132/72; PULSE 74; RESP 18; O2SAT 97
[2019-03-01 16:07] VITALS: BMI 26.6
== END 2019-03-01 16:05 | disposition home or self-care (01) ==
PROVIDERS: PCP Emergency Medicine; Visit Provider Emergency Medicine
DX: J06.9 Acute upper respiratory infection, unspecified (principal)
CPT/HCPCS: 96372; J1335

== ENCOUNTER 2019-03-02 10:54 | Outpatient (CLI) | payer MEDICARE, OTHER, SELFPAY ==
[2019-03-02 11:05] VITALS: BP 126/69; PULSE 72; RESP 18; O2SAT 96
== END 2019-03-02 11:53 | disposition home or self-care (01) ==
LOC: INF 10:55
PROVIDERS: PCP Emergency Medicine; Visit Provider Emergency Medicine
DX: J06.9 Acute upper respiratory infection, unspecified (principal)
CPT/HCPCS: 96372; J1335

== ENCOUNTER 2019-03-03 14:04 | Outpatient (CLI) | payer MEDICARE, OTHER, SELFPAY ==
[2019-03-03 14:17] VITALS: BP 131/69; PULSE 72; RESP 18; TEMP 36.2; O2SAT 96
--- NOTE | 2019-03-03 14:17 | PC.NURSE ---
1417 Invanz 1 gram IM given, 500mg IM L gluteus terrence, 500mg IM R gluteus terrence. Pt giovanni well with no problems noted.
== END 2019-03-03 14:36 | disposition home or self-care (01) ==
LOC: INF 14:04
PROVIDERS: Visit Provider Emergency Medicine
DX: J06.9 Acute upper respiratory infection, unspecified (principal)
CPT/HCPCS: 96372; J1335

== ENCOUNTER 2019-03-04 13:47 | Outpatient (CLI) | payer MEDICARE, OTHER, SELFPAY ==
[2019-03-04 13:57] VITALS: BP 103/64; PULSE 71; RESP 18; TEMP 36.6; O2SAT 95
[2019-03-04 14:10] VITALS: BP 110/68; PULSE 74; RESP 16; TEMP 36.6; O2SAT 95
--- NOTE | 2019-03-04 16:20 | PC.NURSE ---
Gelacio Spoke with LEANNA Remy at Dr. Wadsworth's office to inform that [facility] IM course completed today. Inquired as to whether pt to have follow up appt scheduled. Sandrita states she will address issue with Dr. Wadsworth and he will see her at [place].
== END 2019-03-04 14:10 | disposition home or self-care (01) ==
LOC: INF 13:47
PROVIDERS: Visit Provider Emergency Medicine
DX: J06.9 Acute upper respiratory infection, unspecified (principal)
CPT/HCPCS: 96372; J1335

== ENCOUNTER 2019-03-22 06:26 | Observation (INO) ==
[2019-03-22 07:01] LABS: Basophils % 0.6 % (0.1-2.0); Eosinophils # 0.3 K/mm3 (0.0-0.4); Eosinophils % 4.1 % (0.1-12.0); Hemoglobin 11.8 g/dL (12.2-16.2); Lymphocytes % 46.3 % (10-50); Mean Corpuscular HGB Conc 31.2 g/dL (31.8-35.4); Mean Corpuscular Volume 98.5 fl (81-99); Mean Platelet Volume 8.9 fl (7.4-10.4); Monocytes # 0.4 K/mm3 (0.1-1.0); Monocytes % 5.8 % (1.7-9.3); Neutrophils # 2.8 K/mm3 (1.8-7.8); Neutrophils % 43.1 % (37.0-80.0); Platelet Count 209 K/mm3 (142-424); Red Blood Count 3.85 M/mm3 (4.20-5.40); Red Cell Distribution Width 14.1 % (11.5-17.5); White Blood Count 6.4 K/mm3 (4.8-10.8)
--- NOTE | 2019-03-22 07:04 | Emergency Department Note ---
ED Disposition Clinical Impression: Epistaxis due to trauma Concussion Qualifiers: Encounter type: initial encounter Loss of consciousness presence/duration: without LOC Qualified Code(s): S06.0X0A - Concussion without loss of consciousness, initial encounter Fall Qualifiers: Encounter type: initial encounter Qualified Code(s): W19.XXXA - Unspecified fall, initial encounter Nasal bone fracture Qualifiers: Encounter type: initial encounter Fracture type: open Qualified Code(s): S02.2XXB - Fracture of nasal bones, initial encounter for open fracture Shoulder fracture, left Qualifiers: Encounter type: initial encounter Fracture type: closed Qualified Code(s): S42.92XA - Fracture of left shoulder girdle, part unspecified, initial encounter for closed fracture Wrist fracture, right Qualifiers: Encounter type: initial encounter Fracture type: closed Qualified Code(s): S62.101A - Fracture of unspecified carpal bone, right wrist, initial encounter for closed fracture A-fib Qualifiers: Atrial fibrillation type: unspecified chronic Qualified Code(s): I48.20 - Chronic atrial fibrillation, unspecified; I48.2 - Chronic atrial fibrillation Schizophrenia Qualifiers: Schizophrenia type: unspecified Qualified Code(s): F20.9 - Schizophrenia, unspecified Disposition: Admitted as Observation Condition on Discharge: Fair Referrals: Donnie Wadsworth MD [Primary Care Provider] - - Critical Care Critical Care Time: No Attestation: On 03/22/19, the high probability of a clinically significant, sudden or life threatening deterioration of the following system(s) required my full and direct attention, intervention and personal management. The time I documented below is in addition to time spent performing reported procedures but includes the following listed in this critical care notation. Medical Decision Making - Medical Records Medical records reviewed: Yes: I reviewed the patient's medical records. - Nitin Inquiry Pt receiving controlled substance: No Vital Signs: 03/22/19 06:37 03/22/19 06:44 Temperature 98.9 F 98.9 F Temperature Source Rectal Rectal Pulse Rate [Right] 77 77 Respiratory Rate 18 18 Blood Pressure [Right Arm] 122/72 122/72 Blood Pressure Mean [Right Arm] 88 88 Blood Pressure Source [Right Arm] Manual Cuff/ Auscultation Manual Cuff/ Auscultation Blood Pressure Position [Right Arm] Supine Supine 02 Sat by Pulse Oximetry 98 98 Oxygen Delivery Method Room Air Room Air - Lab Data Lab results reviewed: Yes: I reviewed the patient's lab results. Lab Results 03/22/19 06:30: POC Glucose 135 H 03/22/19 06:32: WBC 6.4, RBC 3.85 L, Hgb 11.8 L, Hct 38.0, MCV 98.5, MCH 30.7, MCHC 31.2 L, RDW 14.1, Plt Count 209, MPV 8.9, Neut % (Auto) 43.1, Lymph % (Auto) 46.3, Kidder % (Auto) 5.8, Eos % (Auto) 4.1, Baso % (Auto) 0.6, Neut # (Auto) 2.8, Lymph # (Auto) 3.0, Kidder # (Auto) 0.4, Eos # (Auto) 0.3, Baso # (Auto) 0.0 03/22/19 06:32: Sodium 143, Potassium 4.1, Chloride 109 H, Carbon Dioxide 26, Anion Gap 12.1, BUN 14, Creatinine 0.72, Estimated Creat Clear 65, Estimated GFR 79, Est GFR ( Amer) 96, Glucose 120 H, Calcium 8.7, Total Bilirubin 0.4, AST 10 L, ALT 22, Alkaline Phosphatase 115, Total Protein 6.7, Albumin 3.4, Globulin 3.3 H, Albumin/Globulin Ratio 1.0 L, Amylase 40, Lipase 86 03/22/19 07:06: Urine Color Yellow, Urine Appearance Clear, Urine pH 7.0, Ur Specific [place] 1.015, Urine Protein Negative, Urine Glucose (UA) Negative, Urine Ketones Negative, Urine Blood Negative, Urine Nitrate Negative, Urine Bilirubin Negative, Urine Urobilinogen 0.2, Ur Leukocyte Esterase Trace, Urine WBC 3-5, Ur Squamous Epith Cells Occasional, Urine Bacteria 1+ Result diagrams: 03/22/19 06:32 03/22/19 06:32 Orders (Tests/Meds): ED MEDICATIONS Discontinued Medications Generic Name Dose Route Start Last Admin Trade Name Freq PRN Reason Stop Dose Admin Lidocaine HCl 20 ml 03/22/19 07:57 03/22/19 07:59 Lidocaine 2% 20ml Vial IJ 03/22/19 07:58 Not Given ONCE ONE Lidocaine HCl 20 ml 03/22/19 07:58 03/22/19 07:59 Lidocaine 1% 20ml Mdv IJ 03/22/19 07:59 20 ml ONCE ONE Administration Lidocaine/Epinephrine 20 ml 03/22/19 07:54 03/22/19 07:58 Lidocaine 1% W/Epi 1:100,000 20ml Vial IJ 03/22/19 07:55 Not Given ONCE ONE ORDERS Category Date Time Status Wrist XR right minimum 3 views [XR wrist RT min 3V] Exams 03/22/19 06:53 Taken Stat XR shoulder LT min 2V Stat Exams 03/22/19 06:53 Taken - Radiology Data #1 Image(s): Chest, Shoulder, Wrist, Pelvis Image Reviewed: Yes I reviewed the patient's radiology image Preliminary Findings: Abnormal (wrist and shoulder fx ) - CT Data CT Scan: Head, C-Spine, Sinus Time Received: 08:[address] Reviewed: Yes: I have viewed the radiologist's interpretation Preliminary Findings: Abnormal (see reports ) - ECG Data Tracing #1 Arrhythmias present: afib Ischemic changes: non-specific ST-T wave changes Fall HPI - General Chief Complaint: Fall Stated Complaint: trauma Time Seen by Provider: 03/22/19 07:04 Mode of Arrival: EMS Source of Information: Patient, EMS, Medical Record Limitations: Physical Limitations Description of Symptoms (Recalled from ER Triage Doc. by RN): fall - History of Present Illness HPI Narrative: [facility] this am with facial injury and lt shoulder and rt wrist injury -no loc and pt was unable to give hx of why she fell - no def loc - MD complaint: fall Onset (ago): hour(s) Fall from: standing Fall witnessed: no Place fall occurred: alf/SNF Loss of consciousness: unsure Prolonged down time: no Location of injury: head, face Location of injury - extremities: Left: shoulder, Right: forearm Severity: moderate Associated symptoms (after fall): denies - Related Data Home Medications Medication Instructions Recorded Confirmed allopurinol 100 mg tablet 100 mg PO BID tab 07/27/17 03/10/19 aspirin 81 mg tablet,delayed 81 mg PO DAILY tab 07/27/17 03/10/19 release baclofen 20 mg tablet 20 mg PO BID tab 07/27/17 03/10/19 buspirone 10 mg tablet 10 mg PO BID 07/27/17 03/10/19 citalopram 20 mg tablet 20 mg PO DAILY tab 07/27/17 03/10/19 gabapentin 100 mg capsule 100 mg PO TID cap 07/27/17 03/10/19 lorazepam 1 mg tablet 1 mg PO TID tab 07/27/17 03/10/19 nitroglycerin 0.4 mg sublingual 0.4 mg SUBLINGUAL Q5M PRN 07/27/17 03/10/19 tablet olanzapine 10 mg tablet 10 mg PO DAILY tab 07/27/17 03/10/19 pantoprazole 40 mg tablet,delayed 40 mg PO QAM 07/27/17 03/10/19 release potassium chloride ER 20 mEq 20 meq PO TID tab 07/27/17 03/10/19 tablet,extended release Acetaminophen 650 mg PO Q4HP PRN 09/10/18 03/10/19 atorvastatin 10 mg tablet 20 mg PO DAILY tab 10/02/18 03/10/19 Apixaban [Eliquis 5mg tab] 5 mg PO BID 12/09/18 03/10/19 Metoprolol Succinate 25 mg PO DAILY 12/09/18 03/10/19 Previous Rx's Medication Instructions Recorded Benztropine Mesylate [Cogentin 1mg 1 mg PO BID #60 tab 09/10/18 tablet] Allergies Allergy/AdvReac Type Severity Reaction Status Date / Time No Known Allergies Allergy Verified 03/10/19 10:13 [facility] History - Hepatitis A Screen Drug use history?: No High risk sexual behaviors?: No History of sexually transmitted infection?: No Currently employed?: No Childcare worker?: No Do you have indoor plumbing?: Yes Do you have electricity?: Yes Attestation statement:: This patient has been screened for Hepatitis A risk factors. I have reviewed the patient's past medical history: Yes Medical History: Reports:: Asthma, Chronic Obstructive Pulmonary Disease (COPD), Gastroesophageal Reflux Disease(GERD), Hyperlipidemia, Hypertension Denies:: Cancer, Diabetes Mellitus Type 1, Diabetes Mellitus Type 2, Internal Pacemaker, MRSA, Seizures Other Medical History: Reports: Arthritis Other Surgeries: Yes: Cardiac Catheterization, Cholecystectomy, Colonoscopy, Other. No: Pacemaker Amputation: No Fractures: No Comment: Tumor removed from breast. - Social History Smoking Status: Current every day smoker Tobacco Type: cigarettes, cigars # Packs/Day (cigarettes): 1 Alcohol Intake: never Alcohol Intake Frequency:: other Substance Use Type: denies use Occupational Status: retired, disabled Housing: assisted living facility Household Members: other Family Hx:: Unable to obtain ROS Obtained: Yes All systems reviewed & no additional complaints - Constitutional Constitutional: Denies fever(s) - Eyes Eyes: Denies change in vision - ENT Ears, Nose, Mouth, and Throat: Denies sore throat - Cardiovascular Cardiovascular: Denies chest pain - Respiratory Respiratory: No cough - Gastrointestinal Gastrointestingal: Denies: abdominal pain - Genitourinary Female Genitourinary: Denies hematuria - Musculoskeletal Musculoskeletal: Reports as per HPI, Reports joint pain, Reports joint swelling, Reports limited range of motion, Reports neck pain - Integumentary/Breasts Skin/Breast: Denies rash - Neurologic Neurologic: Reports as per HPI, Denies convulsions, Reports dizziness Physical Exam - General General appearance: alert, in no apparent distress - Head Head exam: normocephalic - Eye Eye exam: Present: PERRL, EOMI - ENT ENT exam: Present: other (nasal deformity with nosebleed and 1 cm nasal lac ) - Neck Neck exam: Present: full ROM, trachea midline - Respiratory Respiratory exam: Present: normal lung sounds bilaterally. Absent: respiratory distress - Cardiovascular Cardiovascular exam: Present: irregular rhythm, systolic murmur, +S4 - Abdominal Exam Abdominal exam: Present: soft. Absent: tenderness - Expanded Upper Extremity Exam Left Shoulder exam: Present: tenderness. Absent: full ROM Forearm/Wrist exam: Present: tenderness, deformity. Absent: full ROM - Neurological Exam Neurological exam: Present: alert, CN II-XII intact - Psychiatric Psychiatric exam: Present: normal affect - Skin Skin exam: Present: other (1 cm nasal lac ) Procedures - Laceration Laceration 1 Site: face Side (If applicable): right Size (cm): 1 Description: irregular Depth: involves subcutaneous layer Local Anesthetic: lidocaine 1% Amount of anesthesia used (mL): 2 Pre-repair: deep structures intact Skin layer closed with: nylon Size (cm): 4-0 Number of sutures: 2 Technique: simple, interrupted - Epistaxis Control Time Out Performed: Yes Nostril: bilateral Nose Prepped With: cocaine Direct Inspection: unable to visualize Clots Removed by: manually Patient Tolerated Procedure: well Complications: nasal trauma
[2019-03-22 07:08] LABS: Microscopic, Urine URINE MICROSCOPIC (MICROSCOPIC)
[2019-03-22 07:12] LABS: Appearance,Urine CLEAR (Clear); Bilirubin,Urine Negative (Negative); Blood, Urine Negative (Negative); Color,Urine YELLOW (Yellow); Glucose,Urine (UA) Negative (Negative); Ketones,Urine Negative (Negative); Leukocyte Esterase,Urine TRACE (Negative); Protein,Urine Negative (Negative); Specific Gravity, Urine 1.015 (1.005-1.030); Urobilinogen,Urine 0.2 EU/dl (0.2)
[2019-03-22 07:14] LABS: Albumin Level 3.4 gm/dL (3.4-5.0); Anion Gap 12.1 mEq/L (5-15); Bilirubin,Total 0.4 mg/dL (0.2-1.0); Calcium 8.7 mg/dL (8.5-10.1); Globulin 3.3 gm/dl (1.3-3.2); Total Protein,Serum 6.7 gm/dL (6.4-8.2)
[2019-03-22 07:29] LABS: Bacteria,Urine 1+ /lpf; Squamous Epithelial Cell,Urine Occasional #/hpf (0-5)
--- NOTE | 2019-03-22 08:31 | History & Physical Report ---
*Admission Date: 03/22/19 *Chief complaint: fall *History of present illness: this wf who fell at residential at [facility] - reported dizzyness and fell - has hx of a fib and on elaquis - no loc and pt denied any chest pain - she has facial and rt wrist and lt shoulder injury - she had nasal lac and assoc fx w ith nosebleed- pt was admitted for eval and treatment [facility] History I have reviewed the patient's past medical history: Yes Medical History: Reports:: Asthma, Chronic Obstructive Pulmonary Disease (COPD), Gastroesophageal Reflux Disease(GERD), Hyperlipidemia, Hypertension Denies:: Cancer, Diabetes Mellitus Type 1, Diabetes Mellitus Type 2, Internal Pacemaker, MRSA, Seizures *Have you ever received a pneumonia vaccine?: Yes *Have you received a flu vaccine this season?: Yes Other Medical History: Reports: Arthritis Other Surgeries: Yes: Cardiac Catheterization, Cholecystectomy, Colonoscopy, Other. No: Pacemaker Amputation: No Fractures: No - *Social History Smoking Status: Current every day smoker Tobacco Type: cigarettes, cigars # Packs/Day (cigarettes): 1 Alcohol Intake: never Alcohol Intake Frequency:: other Substance Use Type: denies use *Occupational Status:: retired, disabled Housing: assisted living facility Household Members: other *Travel in the last 8 weeks: None Family Hx:: Unable to obtain Review of Systems - Review of Systems Review of systems:: pertinent systems reviewed and negative unless documented below - Constitutional Denies fatigue, Denies fever(s) - Eyes Denies change in vision - ENT Reports facial pain, Reports nasal trauma, Reports neck pain, Denies sore throat - *Cardiovascular Denies chest pain - *Respiratory Denies cough - *Gastrointestinal Denies abdominal pain - *Genitourinary Denies blood in urine - *Musculoskeletal Reports joint pain, Reports deformity, Reports limited joint movement - Integumentary/Breasts Reports other (nasal lac ), Denies rash - *Neurologic Reports dizziness, Denies seizure-like activity - Psychiatric Denies confusion Meds Home Medications Medication Instructions Recorded Confirmed Type allopurinol 100 mg tablet 100 mg PO BID tab 07/27/17 03/22/19 History aspirin 81 mg tablet,delayed 81 mg PO DAILY tab 07/27/17 03/22/19 History release baclofen 20 mg tablet 20 mg PO 0900,1700 tab 07/27/17 03/22/19 History buspirone 10 mg tablet 10 mg PO BID 07/27/17 03/22/19 History citalopram 20 mg tablet 20 mg PO DAILY tab 07/27/17 03/22/19 History gabapentin 100 mg capsule 100 mg PO TID cap 07/27/17 03/22/19 History lorazepam 1 mg tablet 1 mg PO AC tab 07/27/17 03/22/19 History nitroglycerin 0.4 mg sublingual 0.4 mg SUBLINGUAL Q5MINP PRN 07/27/17 03/22/19 History tablet olanzapine 10 mg tablet 10 mg PO DAILY tab 07/27/17 03/22/19 History pantoprazole 40 mg tablet,delayed 40 mg PO QAM 07/27/17 03/22/19 History release potassium chloride ER 20 mEq 20 meq PO TID tab 07/27/17 03/22/19 History tablet,extended release Acetaminophen 650 mg PO Q4HP PRN 09/10/18 03/22/19 History Benztropine Mesylate [Cogentin 1mg 1 mg PO BID #60 tab 09/10/18 03/22/19 Rx tablet] Apixaban [Eliquis 5mg tab] 5 mg PO BID 12/09/18 03/22/19 History Metoprolol Succinate 25 mg PO DAILY 12/09/18 03/22/19 History Atorvastatin Calcium [Atorvastatin 20 mg PO HS 03/22/19 03/22/19 History 20mg Tab] Mag Hydrox/Aluminum Hyd/Simeth 30 ml PO Q4HP PRN 03/22/19 03/22/19 History [Mylanta Maximum Strength Liq] Allergies Allergy/AdvReac Type Severity Reaction Status Date / Time No Known Allergies Allergy Verified 03/10/19 10:13 Exam Vital signs and Labs for Last 24 Hours: Temp Pulse Resp BP Pulse Ox 98.9 F 77 18 122/72 98 03/22/19 06:44 03/22/19 06:44 03/22/19 06:44 03/22/19 06:44 03/22/19 06:44 Laboratory Results - last 24 hr 03/22/19 06:30: POC Glucose 135 H 03/22/19 06:32: WBC 6.4, RBC 3.85 L, Hgb 11.8 L, Hct 38.0, MCV 98.5, MCH 30.7, MCHC 31.2 L, RDW 14.1, Plt Count 209, MPV 8.9, Neut % (Auto) 43.1, Lymph % (Auto) 46.3, [place] % (Auto) 5.8, Eos % (Auto) 4.1, Baso % (Auto) 0.6, Neut # (Auto) 2.8, Lymph # (Auto) 3.0, [place] # (Auto) 0.4, Eos # (Auto) 0.3, Baso # (Auto) 0.0 03/22/19 06:32: Sodium 143, Potassium 4.1, Chloride 109 H, Carbon Dioxide 26, Anion Gap 12.1, BUN 14, Creatinine 0.72, Estimated Creat Clear 65, Estimated GFR 79, Est GFR ( Amer) 96, Glucose 120 H, Calcium 8.7, Total Bilirubin 0.4, AST 10 L, ALT 22, Alkaline Phosphatase 115, Total Protein 6.7, Albumin 3.4, Globulin 3.3 H, Albumin/Globulin Ratio 1.0 L, Amylase 40, Lipase 86 03/22/19 07:06: Urine Color Yellow, Urine Appearance Clear, Urine pH 7.0, Ur Specific [place] 1.015, Urine Protein Negative, Urine Glucose (UA) Negative, Urine Ketones Negative, Urine Blood Negative, Urine Nitrate Negative, Urine Bilirubin Negative, Urine Urobilinogen 0.2, Ur Leukocyte Esterase Trace, Urine WBC 3-5, Ur Squamous Epith Cells Occasional, Urine Bacteria 1+ I & O for Last 24 hours: Intake & Output 03/19/19 03/20/19 03/21/19 03/22/19 11:59 11:59 11:59 11:59 Weight 180 lb - Constitutional no acute distress - *Routine HEENT Exam Head: Present: normocephalic Eye: Present: EOMI, PERRL ENT: Present: mucous membranes dry Comments: nasal swelling with 1 cm nasal lac and periorbital swelling on rt - *Routine Neck Exam Present: trachea midline. Absent: full ROM - *Routine Respiratory Exam Present: decreased breath sounds - *Routine Cardiovascular Exam Present: murmur, S4, irregular rhythm - *Routine Abdominal Exam Present: soft - *Routine Extremities Exam Comments: dec rom of lt shoulder and rt wrist - *Routine Skin Exam Present: ecchymosis - *Routine Neurological Exam Present: alert, CN II-XII intact - Routine Psychiatric Exam Present: normal affect Assessment and Plan (1) Fall Current visit: Yes Status: Acute Category: Medical Code(s): W19.XXXA - Unspecified fall, initial encounter (2) Nasal bone fracture Current visit: Yes Status: Acute Qualifiers: Encounter type: initial encounter Fracture type: open Qualified Code(s): S02.2XXB - Fracture of nasal bones, initial encounter for open fracture Category: Medical Code(s): S02.2XXA - Fracture of nasal bones, initial encounter for closed fracture (3) Epistaxis due to trauma Current visit: Yes Status: Acute Category: Medical Code(s): R04.0 - Epistaxis (4) Fracture of humerus, proximal, left, closed Current visit: Yes Status: Acute Category: Medical Code(s): S42.202A - Unspecified fracture of upper end of left humerus, initial encounter for closed fracture (5) Fracture of radius, distal, right, closed Current visit: Yes Status: Acute Category: Medical Code(s): S52.501A - Unspecified fracture of the lower end of right radius, initial encounter for closed fracture (6) Schizophrenia Current visit: Yes Status: Chronic Qualifiers: Schizophrenia type: unspecified Qualified Code(s): F20.9 - Schizophrenia, unspecified Category: Medical Code(s): F20.9 - Schizophrenia, unspecified (7) Anemia Current visit: Yes Status: Acute Qualifiers: Anemia type: unspecified type Qualified Code(s): D64.9 - Anemia, unspe cified Category: Medical Code(s): D64.9 - Anemia, unspecified
--- NOTE | 2019-03-22 10:59 | Pharmacy Consult Notes ---
[facility] Pharmacy VTE Monitoring - Patient Demographics Admission date: 03/22/19 Report Date: 03/22/19 Time: 10:58 Allergies/Adverse Reactions: Patient Allergies No Known Allergies Allergy (Verified 03/10/19 10:13) Height: 1.78 m Weight: 76.289 kg Patient Problems: Current Active Problems Concussion (Acute) Fall (Acute) Nasal bone fracture (Acute) Epistaxis due to trauma (Acute) Shoulder fracture, left (Acute) Wrist fracture, right (Acute) A-fib (Acute) Schizophrenia (Chronic) - VTE Risk Labs: VTE Related Lab Results Hgb 11.8 g/dL (12.2-16.2) L 03/22/19 06:32 Hct 38.0 % (37.0-47.0) 03/22/19 06:32 Plt Count 209 K/mm3 (142-424) 03/22/19 06:32 BUN 14 mg/dL (7-18) 03/22/19 06:32 Creatinine 0.72 mg/dL (0.55-1.02) 03/22/19 06:32 Estimated Creat Clear 65 mL/min (50-200) 03/22/19 06:32 Was VTE Risk Assessment Performed: Yes VTE Score: 3 VTE Risk Level: Low Risk - Prophylaxis Types of VTE Prophylaxis: TEDS Knee High Location of Applied Device: Bilateral Lower Extremeties (MUNIR HOSE ORDER PLACED)
--- NOTE | 2019-03-22 17:11 | Consult Report ---
*Admission Date: 03/22/19 *Reason for consult:: Fracture proximal humerus, left; fracture distal radius, right *History of present illness: Patient is a 73-year-old [id number] female admitted from the ER early this morning with multiple injuries. She is a resident of [facility] who was brought to the ER with history of fall after feeling dizzy. Evaluation in the ER showed facial lacerations and fracture of nasal bones associated with epistaxis. She was also found to have a left proximal humerus fracture and a right distal radius fracture. Patient has multiple medical problems including atrial fibrillation and is on long-term anticoagulation with Eliquis. Her last dose was yesterday. There is no history of any loss of consciousness and she denies any chest pain. Patient is admitted mainly for social reasons as well as for the nosebleed and I was consulted to manage orthopedic injuries. She has history of chronic tobacco abuse. Review of Systems - Review of Systems Review of systems:: pertinent systems reviewed and negative unless documented below - Constitutional Denies fever(s) - Eyes Denies change in vision - ENT Reports nosebleed - *Cardiovascular Denies chest pain, Denies shortness of breath - *Respiratory Denies cough - *Gastrointestinal Denies abdominal pain - *Musculoskeletal Reports joint pain, Reports joint swelling, Reports limited joint movement - Integumentary/Breasts Denies rash - *Neurologic Reports dizziness, Denies seizure-like activity - Hematologic/Lymphatic Reports easy bleeding, Reports easy bruising [facility] History I have reviewed the patient's past medical history: Yes Medical History: Reports:: Asthma, Atrial Fibrillation, Chronic Obstructive Pulmonary Disease (COPD), Gastroesophageal Reflux Disease(GERD), Hyperlipidemia, Hypertension Denies:: Cancer, Diabetes Mellitus Type 1, Diabetes Mellitus Type 2, Internal Pacemaker, MRSA, Seizures *Have you ever received a pneumonia vaccine?: Yes *Have you received a flu vaccine this season?: No Other Medical History: Reports: Arthritis, Sinus Problems Other Surgeries: Yes: Cardiac Catheterization, Cholecystectomy, Colonoscopy, Other. No: Pacemaker Amputation: No Fractures: No - *Social History Educational Level: Attended Grade School Smoking Status: Current every day smoker Tobacco Type: cigarettes # Packs/Day (cigarettes): 1 Alcohol Intake: never Alcohol Intake Frequency:: other Substance Use Type: denies use *Occupational Status:: retired, disabled Housing: assisted living facility Household Members: other *Travel in the last 8 weeks: None Family Hx:: Unable to obtain Meds Home Medications Medication Instructions Recorded Confirmed Type allopurinol 100 mg tablet 100 mg PO BID tab 07/27/17 03/22/19 History aspirin 81 mg tablet,delayed 81 mg PO DAILY tab 07/27/17 03/22/19 History release baclofen 20 mg tablet 20 mg PO 0900,1700 tab 07/27/17 03/22/19 History buspirone 10 mg tablet 10 mg PO BID 07/27/17 03/22/19 History citalopram 20 mg tablet 20 mg PO DAILY tab 07/27/17 03/22/19 History gabapentin 100 mg capsule 100 mg PO TID cap 07/27/17 03/22/19 History lorazepam 1 mg tablet 1 mg PO AC tab 07/27/17 03/22/19 History nitroglycerin 0.4 mg sublingual 0.4 mg SUBLINGUAL Q5MINP PRN 07/27/17 03/22/19 History tablet olanzapine 10 mg tablet 10 mg PO DAILY tab 07/27/17 03/22/19 History pantoprazole 40 mg tablet,delayed 40 mg PO QAM 07/27/17 03/22/19 History release potassium chloride ER 20 mEq 20 meq PO TID tab 07/27/17 03/22/19 History tablet,extended release RX: Acetaminophen 650 mg PO Q4HP PRN 09/10/18 03/22/19 History RX: Benztropine Mesylate [Cogentin 1 mg PO BID #60 tab 09/10/18 03/22/19 Rx 1mg tablet] Apixaban [Eliquis 5mg tab] 5 mg PO BID 12/09/18 03/22/19 History Metoprolol Succinate 25 mg PO DAILY 12/09/18 03/22/19 History Atorvastatin Calcium [Atorvastatin 20 mg PO HS 03/22/19 03/22/19 History 20mg Tab] Mag Hydrox/Aluminum Hyd/Simeth 30 ml PO Q4HP PRN 03/22/19 03/22/19 History [Mylanta Maximum Strength Liq] Allergies Allergy/AdvReac Type Severity Reaction Status Date / Time No Known Allergies Allergy Verified 03/10/19 10:13 Exam Vital signs and Labs for Last 24 Hours: Temp Pulse Resp BP Pulse Ox 98.2 F 83 19 138/63 92 L 03/22/19 09:40 03/22/19 09:40 03/22/19 09:40 03/22/19 09:40 03/22/19 11:15 Laboratory Results - last 24 hr 03/22/19 06:30: POC Glucose 135 H 03/22/19 06:32: WBC 6.4, RBC 3.85 L, Hgb 11.8 L, Hct 38.0, MCV 98.5, MCH 30.7, MCHC 31.2 L, RDW 14.1, Plt Count 209, MPV 8.9, Neut % (Auto) 43.1, Lymph % (Auto) 46.3, [place] % (Auto) 5.8, Eos % (Auto) 4.1, Baso % (Auto) 0.6, Neut # (Auto) 2.8, Lymph # (Auto) 3.0, [place] # (Auto) 0.4, Eos # (Auto) 0.3, Baso # (Auto) 0.0 03/22/19 06:32: Sodium 143, Potassium 4.1, Chloride 109 H, Carbon Dioxide 26, Anion Gap 12.1, BUN 14, Creatinine 0.72, Estimated Creat Clear 65, Estimated GFR 79, Est GFR ( Amer) 96, Glucose 120 H, Calcium 8.7, Total Bilirubin 0.4, AST 10 L, ALT 22, Alkaline Phosphatase 115, Total Protein 6.7, Albumin 3.4, Globulin 3.3 H, Albumin/Globulin Ratio 1.0 L, Amylase 40, Lipase 86 03/22/19 07:06: Urine Color Yellow, Urine Appearance Clear, Urine pH 7.0, Ur Specific [place] 1.015, Urine Protein Negative, Urine Glucose (UA) Negative, Urine Ketones Negative, Urine Blood Negative, Urine Nitrate Negative, Urine Bilirubin Negative, Urine Urobilinogen 0.2, Ur Leukocyte Esterase Trace, Urine WBC 3-5, Ur Squamous Epith Cells Occasional, Urine Bacteria 1+ 03/22/19 11:10: Troponin I < 0.02 03/22/19 14:45: Troponin I < 0.02 I & O for Last 24 hours: Intake & Output 03/20/19 03/21/19 03/22/19 03/23/19 11:59 11:59 11:59 10:59 Intake Total 50 / 50 Balance 50 / 50 Weight 168 lb 3 oz - Constitutional no acute distress, average body habitus, cooperative - *Routine HEENT Exam Head: Present: normocephalic Eye: Present: EOMI ENT: Present: mucous membranes moist Comments: Multiple facial lacerations with suture laceration over the nose. Both nostrils are packed and no active bleeding noted at the time of examination. - *Routine Neck Exam Present: supple, full ROM, trachea midline. Absent: lymphadenopathy - *Routine Respiratory Exam Present: CTA bilaterally. Absent: respiratory distress - *Routine Cardiovascular Exam Present: RRR, Normal S1, Normal S2 - *Routine Abdominal Exam Present: soft, normoactive bowel sounds. Absent: organomegaly - *Routine Extremities Exam Comments: Left shoulder/upper extremity Skin: skin is in good condition, no ulcerations or lacerations evident, extensive ecchymosis noted over the upper arm and forearm. Palpation/Inspection: Tender over the proximal humerus and the shoulder joint. Range of motion: Not tested because of known fracture and pain. Vascular: Radial and ulnar pulses intact; cap refill brisk. Neurovascular status: grossly intact; axillary nerve intact. Sensation is intact to light touch throughout. Normal sensation and motor power over R/M/U nerve distribution. Miscellaneous: Examination of elbow, wrist and hand are unremarkable. Diagnostic Imaging: X-rays performed at [facility] reviewed along with the radiologist's report- the x-rays show a minimally displaced and impacted fracture of the proximal humerus. No evidence of any dislocation or subluxation noted. Right wrist/upper extremity: Skin is in good condition, no abrasions, ulcerations or lacerations noted; extensive ecchymosis noted over the distal forearm and wrist joint. Palpation/Inspection: Obvious dinner fork deformity of the right wrist noted; diffuse swelling and tenderness over the distal radius and wrist joint. Nontender over the elbow joint. There is some swelling over the dorsum of the hand and fingers. Range of motion: Wrist movements not tested because of pain and underlying fracture. She also has limited range of finger movements secondary to wrist pain and swelling of the fingers. Pronation and supination are limited. Full range of pain-free elbow movements present. Neurovascular status: Normal sensation noted to light touch over the median, ulnar and radial nerve distribution. Vascular status: Capillary refill is brisk. Miscellaneous: Examination of shoulder and elbow are unremarkable. Diagnostic Imaging: X-rays of her right wrist performed at [facility] reviewed along with radiologist report. The x-rays are showing a comminuted fracture of the left distal radius with shortening of the radius and dorsal tilt of the distal fragment. A degree of osteopenia is noted. - Routine Back/Spine/Pelvis Exam Back/Spine: Absent: paraspinal tenderness, vertebral tenderness - *Routine Skin Exam Present: warm, normal turgor, ecchymosis - *Routine Neurological Exam Present: alert, oriented X3, normal tone - Routine Psychiatric Exam Present: cooperative Results - Labs Result Diagrams: 03/23/19 06:46 03/23/19 06:46 Labs: Abnormal lab results 03/22/19 03/22/19 03/22/19 Range/Units 06:30 06:32 06:32 RBC 3.85 L (4.20-5.40) M/mm3 Hgb 11.8 L (12.2-16.2) g/dL MCHC 31.2 L (31.8-35.4) g/dL Chloride 109 H (98-107) mmol/L Glucose 120 H (74-106) mg/dL POC Glucose 135 H (70-110) AST 10 L (15-37) U/L Globulin 3.3 H (1.3-3.2) gm/dl Albumin/Globulin Ratio 1.0 L (1.1-1.8) H & H 03/22/19 Range/Units 06:32 Hgb 11.8 L (12.2-16.2) g/dL Hct 38.0 (37.0-47.0) % All other labs normal. Assessment and Plan (1) Fall Current visit: Yes Status: Acute Qualifiers: Encounter type: initial encounter Qualified Code(s): W19.XXXA - Unspecified fall, initial encounter Category: Medical Code(s): W19.XXXA - Unspecified fall, initial encounter (2) Fracture of humerus, proximal, left, closed Current visit: Yes Status: Acute Category: Medical Code(s): S42.202A - Unspecified fracture of upper end of left humerus, initial encounter for closed fracture I have reviewed the clinical and x-ray findings with the patient; discussed the diagnosis, natural history and management options in detail including both nonsurgical and surgical. Given the fracture pattern/alignment and her medical comorbidities, I have recommended continuation of conservative management with sling and swath immobilization. Advised rest, icing, intermittent elbow, wrist and finger movements, simple pain medication as needed and to sleep in a reclined position. I have told the patient that there will be some loss of shoulder range of movements following this type of injury which ever way it is managed. All her questions were answered and she verbalized a good understanding. (3) Fracture of radius, distal, right, closed Current visit: Yes Status: Acute Category: Medical Code(s): S52.501A - Unspecified fracture of the lower end of right radius, initial encounter for closed fracture I have reviewed the clinical and x-ray findings with the patient; discussed the diagnosis, natural history and management options in detail including both nonsurgical and surgical. She has a right distal radius fracture which is displaced along with a nondisplaced ulnar head fracture. Given the significant displacement, shortening and deformity of the distal radius fracture, it would be better to manage this with either close reduction and pertains pinning or closed reduction and external fixation or open reduction and internal fixation as appropriate at the time of the surgery. I also discussed about nonoperative management and patient is keen to have the fracture reduced and stabilized in the best possible manner to improve the function. I have discussed the details of the procedures, risks and benefits and alternatives in detail. The complications discussed include but are not limited to- infection, bleeding, injury to nerves, tendons and blood vessels, incisional scar (cosmesis), DVT/PE, malunion, nonunion/delayed union, loss of position, refracture, wrist/finger stiffness, CRPS (complex regional pain syndrome- pain, sensory and temperature changes, swelling and stiffness), painful/prominent hardware, intra-articular screw penetration, loss of fixation/hardware failure, pin tract infection, breakage of pins, incomplete relief of pain, incomplete return of function, posttraumatic arthritis and likely need for further surgery in future and also the risks of anesthesia including heart attack, stroke, and even . I have discussed how there is a small but real possibility of loss of use of the arm, loss of the limb (amputation) or loss of life itself. I have also explained how additional surgery may be required if there are any complications or the fracture fails to heal. We have also discussed the postoperative pain management, recovery and rehabilitation, immobilization required, the likely need for physical therapy, the possibility of stiffness, chronic pain and we've also discussed the option of nonsurgical treatment. The patient expressed full understanding and has asked appropriate questions. All her questions were answered and she verbalized a good understanding. She desires to proceed with the proposed surgery of either a closed reduction and percutaneous pinning or close reduction and external fixation or open reduction and internal fixation of the right distal radius fracture as appropriate at the time of surgery. Patient understood the risks, agreed to proceed with surgery and no guarantees or assurances were given or implied. Patient has multiple medical comorbidities including significant cardiac history. Patient is also on oral anticoagulation which is held since admission. Given the situation she would not be suitable for any surgical intervention for the next 48 hours or so. If cleared for surgery from medical and cardiac standpoint, I am planning to take her to the operating room on 03/24/2019. I have have re-applied the wrist splint, advised her to elevate the hand and mobilize the fingers. I have also advised her to mobilize the elbow and fingers and ice the fracture site frequently to try and reduce the pain and swelling. Continue medical management as per Dr. Wadsworth. (4) Epistaxis due to trauma Current visit: Yes Status: Acute Category: Medical Code(s): R04.0 - Epistaxis (5) Nasal bone fracture Current visit: Yes Status: Acute Qualifiers: Encounter type: initial encounter Fracture type: open Qualified Code(s): S02.2XXB - Fracture of nasal bones, initial encounter for open fracture Category: Medical Code(s): S02.2XXA - Fracture of nasal bones, initial encounter for closed fracture (6) A-fib Current visit: Yes Status: Acute Qualifiers: Atrial fibrillation type: unspecified chronic Qualified Code(s): I48.20 - Chronic atrial fibrillation, unspecified; I48.2 - Chronic atrial fibrillation Category: Medical Code(s): I48.91 - Unspecified atrial fibrillation
[2019-03-22 21:11] LABS: Hematocrit 32.6 % (37.0-47.0)
[2019-03-22 21:27] LABS: Hemoglobin 10.6 g/dL (12.2-16.2)
[2019-03-23 07:03] LABS: Basophils % 0.3 % (0.1-2.0); Eosinophils % 0.4 % (0.1-12.0); Lymphocytes # 1.2 K/mm3 (0.7-4.5); Lymphocytes % 16.6 % (10-50); Mean Corpuscular HGB Conc 31.4 g/dL (31.8-35.4); Mean Platelet Volume 9.5 fl (7.4-10.4); Monocytes # 0.6 K/mm3 (0.1-1.0); Monocytes % 8.2 % (1.7-9.3); Neutrophils # 5.4 K/mm3 (1.8-7.8); Neutrophils % 74.5 % (37.0-80.0); Platelet Count 177 K/mm3 (142-424); Red Cell Distribution Width 14.2 % (11.5-17.5); White Blood Count 7.3 K/mm3 (4.8-10.8)
[2019-03-23 07:08] LABS: Anion Gap 15.4 mEq/L (5-15); Calcium 7.9 mg/dL (8.5-10.1)
--- NOTE | 2019-03-23 09:15 | Electrocardiograph Report ---
APPROVED REPORT Exam: Resting ECG HR:81 bpm ECG Measurements Heart Rate 81 AXES QRSd 76 QRS -8 QT 382 T53 QTc 443 <Conclusion> Atrial fibrillation late r wave progression Abnormal ECG Electronically signed by : Cecil Pena, 03/23/2019 09:14:40
--- NOTE | 2019-03-23 09:40 | Progress Note ---
Internal Medicine - PN: Subj *Date: 03/24/19 *Time: 12:57 Interval history: doing better and no active nasal bleeding Exam Vital signs and Labs for Last 24 Hours: Temp Pulse Resp BP Pulse Ox 98.1 F 75 19 155/78 H 91 L 03/23/19 08:00 03/23/19 08:00 03/23/19 08:00 03/23/19 08:00 03/23/19 08:00 Laboratory Results - last 24 hr 03/22/19 11:10: Troponin I < 0.02 03/22/19 14:45: Troponin I < 0.02 03/22/19 21:00: Hgb 10.6 L D, Hct 32.6 L 03/23/19 06:46: WBC 7.3, RBC 3.30 L, Hgb 10.0 L, Hct 32.0 L, MCV 97.0, MCH 30.4, MCHC 31.4 L, RDW 14.2, Plt Count 177, MPV 9.5, Neut % (Auto) 74.5, Lymph % (Auto) 16.6, [place] % (Auto) 8.2, Eos % (Auto) 0.4, Baso % (Auto) 0.3, Neut # (Auto) 5.4, Lymph # (Auto) 1.2, [place] # (Auto) 0.6, Eos # (Auto) 0.0, Baso # (Auto) 0.0 03/23/19 06:46: Sodium 141, Potassium 3.4 L, Chloride 106, Carbon Dioxide 23, Anion Gap 15.4 H, BUN 17, Creatinine 0.56 D, Estimated Creat Clear 60, Estimated GFR 106, Est GFR ( Amer) 128 D, Glucose 117 H, Calcium 7.9 L I & O for Last 24 hours: Intake & Output 03/20/19 03/21/19 03/22/19 03/23/19 11:59 11:59 11:59 10:59 Intake Total 50 / 50 1862 / 1862 Output Total 1000 / 1000 Balance 50 50 862 / 862 Weight 168 lb 3 oz - Constitutional no acute distress - *Routine HEENT Exam Head: Present: normocephalic Eye: Present: EOMI, PERRL Comments: no active bleeding - *Routine Neck Exam Absent: JVD - *Routine Respiratory Exam Present: CTA bilaterally - *Routine Cardiovascular Exam Present: RRR, murmur - *Routine Abdominal Exam Present: soft - *Routine Extremities Exam Comments: s/p fx as noted rt wrist and lt shoulder - *Routine Skin Exam Present: ecchymosis - *Routine Neurological Exam Present: alert, CN II-XII intact - Routine Psychiatric Exam Present: normal affect
--- NOTE | 2019-03-23 17:41 | Progress Note ---
Subjective Date: 03/23/19 Time: 17:00 Principal diagnosis: Fracture distal radius, right; fracture proximal humerus, left Interval history: Patient states she is doing a lot better today and appears comfortable. She is lying down on the bed. She reports very little pain in her left shoulder and right wrist. No history of any further epistaxis. No history of any distal tingling or numbness. Nursing staff reports that she has been up this afternoon and sat in the chair for a while. PN: Obj Ex Vital signs: Temp Pulse Resp BP Pulse Ox 98.2 F 82 18 132/67 93 L 03/23/19 16:00 03/23/19 16:00 03/23/19 16:00 03/23/19 16:00 03/23/19 16:00 Narrative: Laboratory Results - last 24 hr 03/22/19 21:00: Hgb 10.6 L D, Hct 32.6 L 03/23/19 06:46: WBC 7.3, RBC 3.30 L, Hgb 10.0 L, Hct 32.0 L, MCV 97.0, MCH 30.4, MCHC 31.4 L, RDW 14.2, Plt Count 177, MPV 9.5, Neut % (Auto) 74.5, Lymph % (Auto) 16.6, [place] % (Auto) 8.2, Eos % (Auto) 0.4, Baso % (Auto) 0.3, Neut # (Auto) 5.4, Lymph # (Auto) 1.2, [place] # (Auto) 0.6, Eos # (Auto) 0.0, Baso # (Auto) 0.0 03/23/19 06:46: Sodium 141, Potassium 3.4 L, Chloride 106, Carbon Dioxide 23, Anion Gap 15.4 H, BUN 17, Creatinine 0.56 D, Estimated Creat Clear 60, Estimated GFR 106, Est GFR ( Amer) 128 D, Glucose 117 H, Calcium 7.9 L Exam General appearance: alert, active, awake, no acute distress Cardiovascular: regular rate & rhythm, normal peripheral pulses Respiratory: No respiratory distress noted, speaks in full sentences ABD: soft and non tender Neuro: alert, awake, oriented x 3 On examination of the left shoulder, the skin is intact. The left upper extremity is in an arm sling. There is diffuse swelling around the shoulder and ecchymosis over the upper arm. She is tender over the left shoulder. Movements of the shoulder not tested because of known fracture and pain. She has good range of elbow, wrist and finger movements. Distal circulation is intact-radial pulse 2+ and capillary refill is brisk. Sensation is intact light touch throughout. No motor deficits noted distally. On examination of her right wrist, she is in a removable wrist splint. The skin is intact. There is diffuse swelling and ecchymosis around the right wrist. There is an obvious dinner fork deformity of the distal forearm/wrist joint. Movements of the right is not tested because of the known fracture and pain. She has good range of elbow and finger movements. Sensation is intact light touch throughout. Capillary refill is brisk. - Urinary Catheter Management Mendoza Cath placed during this visit: no Progress Note: A&P (1) Fracture of humerus, proximal, left, closed Status: Acute Current Visit: Yes (2) Fracture of radius, distal, right, closed Status: Acute Current Visit: Yes Assessment and Plan for All Diagnoses:: I have reviewed the clinical findings and progress with the patient. She has an essentially nondisplaced proximal humerus fracture on the left side which we have decided to manage nonoperatively. She also has a right distal radius fracture which is displaced along with a nondisplaced ulnar head fracture. Given the significant displacement/deformity of the distal radius fracture, it would be better to manage this with either close reduction and pertains pinning or closed reduction and external fixation or open reduction and internal fixation as appropriate at the time of the surgery. We also discussed about nonoperative management and patient is keen to have the fracture reduced and stabilized in the best possible manner. I have discussed the details of the procedures, risks and benefits and alternatives in detail. The complications discussed include but are not limited to- infection, bleeding, injury to nerves, tendons and blood vessels, incisional scar (cosmesis), DVT/PE, malunion, nonunion/delayed union, loss of position, refracture, wrist/finger stiffness, CRPS (complex regional pain syndrome- pain, sensory and temperature changes, swelling and stiffness), painful/prominent hardware, intra-articular screw penetration, loss of fixation/hardware failure, pin tract infection, breakage of pins, incomplete relief of pain, incomplete return of function, posttraumatic arthritis and likely need for further surgery in future and also the risks of anesthesia including heart attack, stroke, and even . I have discussed how there is a small but real possibility of loss of use of the arm, loss of the limb (amputation) or loss of life itself. I have also explained how additional surgery may be required if there are any complications or the fracture fails to heal. We have also discussed the postoperative pain management, recovery and rehabilitation, immobilization required, the likely need for physical therapy, the possibility of stiffness, chronic pain and we've also discussed the option of nonsurgical treatment. The patient expressed full understanding and has asked appropriate questions. All her questions were answered and she verbalized a good understanding. She desires to proceed with the proposed surgery of either a closed reduction and percutaneous pinning or close reduction and external fixation or open reduction and internal fixation of the right distal radius fracture as appropriate at the time of surgery. Patient understood the risks, agreed to proceed with surgery and no guarantees or assurances were given or implied. Patient has multiple medical comorbidities including significant cardiac history. I am planning to take her to the operating room tomorrow if she is cleared from both medical and cardiac standpoint. Patient is also on oral anticoagulation which is held since admission. We have re-applied the wrist splint, advised her to elevate the hand and mobilize her fingers. I have also advised her to mobilize the elbow and fingers and ice the fracture site frequently to try and reduce the pain and swelling. Continue with sling and swath immobilization for the left proximal humerus fracture. Continue medical management as per Dr. Wadsworth.
--- NOTE | 2019-03-24 07:34 | Consult Report ---
History of Present Illness Consult date: 03/24/19 Requesting physician: Donnie Wadsworth Consult reason: pre-op evaluation Chief complaint: Fall with fractures, pre-op evaluation Additional Medical History:: 1. Chest pain A. Abnormal lexiscan myoview, 07/2017, 1. The EKG portion of the Lexiscan Myoview is nondiagnostic. 2. Scintigraphic evidence of mild reversible ischemia involving the inferior and inferoseptal wall, computer derived ejection fraction is over 65% with no obvious regional wall motion abnormality, right ventricle is mildly enlarged with normal contractility. 3. Abnormal Lexiscan Myoview study. B. LHC, 09/2018, mild non-flow limiting CAD with normal LVEF and mildly elevated LVEDP at 20 mm Hg 2. HTN A. Echo, 07/2017, 1. Technically difficult study because of the patient's factor and poor acoustic windows 2. Qualitatively mildly enlarged left atrium, normal left ventricular size, visually estimated ejection fraction 55% with no obvious regional wall motion abnormality, grade 1 diastolic dysfunction seen without tissue Doppler evidence of raised left atrial pressure. 3. Mild mitral and tricuspid regurgitation 4. No significant pericardial effusion noted 3. Gastroesophageal reflux disease 4. Hyperlipidemia 5. Tobacco use with history of COPD 6. History of schizophrenia 7. Reported PAF with eliquis use for elevated CHADS-VASC score, 2018 History of present illness: 73-year-old white female resident of [facility] with history as noted above was admitted through the ER for fracture suffered after a fall. Patient has a left shoulder fracture which will be managed nonoperatively. She has right wrist fractures with recommendation for surgical treatment. Patient states she fell without loss of consciousness, chest pain, pressure or tightness. She carries a history of atrial fibrillation and is on Eliquis therapy for that however her EKG on admission shows sinus rhythm with PACs and baseline artifact likely due to the patient's baseline tremors. Telemetry during her stay has shown only sinus rhythm. Eliquis has been held since admission. Echocardiogram has been performed this a.m. with preliminary report showing preserved ejection fraction. Patient denies any recent chest pain, pressure or tightness with activity. Cardiology consulted for preop evaluation. [facility] History Medical History: Reports:: Asthma, Atrial Fibrillation, Chronic Obstructive Pulmonary Disease (COPD), Gastroesophageal Reflux Disease(GERD), Hyperlipidemia, Hypertension Denies:: Cancer, Diabetes Mellitus Type 1, Diabetes Mellitus Type 2, Internal Pacemaker, MRSA, Seizures *Have you ever received a pneumonia vaccine?: Yes *Have you received a flu vaccine this season?: No Other Medical History: Reports: Arthritis, Sinus Problems Other Surgeries: Yes: Cardiac Catheterization, Cholecystectomy, Colonoscopy, Other. No: Pacemaker Amputation: No Fractures: No - *Social History Educational Level: Attended Grade School Smoking Status: Current every day smoker Tobacco Type: cigarettes # Packs/Day (cigarettes): 1 Alcohol Intake: never Alcohol Intake Frequency:: other Substance Use Type: denies use *Occupational Status:: retired, disabled Housing: assisted living facility Household Members: other *Travel in the last 8 weeks: None Family Hx:: Unable to obtain Meds Home Medications Medication Instructions Recorded Confirmed Type allopurinol 100 mg tablet 100 mg PO BID tab 07/27/17 03/22/19 History aspirin 81 mg tablet,delayed 81 mg PO DAILY tab 07/27/17 03/22/19 History release baclofen 20 mg tablet 20 mg PO 0900,1700 tab 07/27/17 03/22/19 History buspirone 10 mg tablet 10 mg PO BID 07/27/17 03/22/19 History citalopram 20 mg tablet 20 mg PO DAILY tab 07/27/17 03/22/19 History gabapentin 100 mg capsule 100 mg PO TID cap 07/27/17 03/22/19 History lorazepam 1 mg tablet 1 mg PO AC tab 07/27/17 03/22/19 History nitroglycerin 0.4 mg sublingual 0.4 mg SUBLINGUAL Q5MINP PRN 07/27/17 03/22/19 History tablet olanzapine 10 mg tablet 10 mg PO DAILY tab 07/27/17 03/22/19 History pantoprazole 40 mg tablet,delayed 40 mg PO QAM 07/27/17 03/22/19 History release potassium chloride ER 20 mEq 20 meq PO TID tab 07/27/17 03/22/19 History tablet,extended release Acetaminophen 650 mg PO Q4HP PRN 09/10/18 03/22/19 History Benztropine Mesylate [Cogentin 1mg 1 mg PO BID #60 tab 09/10/18 03/22/19 Rx tablet] Apixaban [Eliquis 5mg tab] 5 mg PO BID 12/09/18 03/22/19 History Metoprolol Succinate 25 mg PO DAILY 12/09/18 03/22/19 History Atorvastatin Calcium [Atorvastatin 20 mg PO HS 03/22/19 03/22/19 History 20mg Tab] Mag Hydrox/Aluminum Hyd/Simeth 30 ml PO Q4HP PRN 03/22/19 03/22/19 History [Mylanta Maximum Strength Liq] Allergies Allergy/AdvReac Type Severity Reaction Status Date / Time No Known Allergies Allergy Verified 03/10/19 10:13 Review of Systems - *Cardiovascular Reports shortness of breath with activity, Denies chest pain - *Respiratory Reports cough, Reports shortness of breath with activity - *Gastrointestinal Denies abdominal pain, Denies loose stools, Denies vomiting - *Genitourinary Denies blood in urine - *Musculoskeletal Reports joint pain, Reports back pain - *Neurologic Reports dizziness, Denies seizure-like activity Exam Vital signs and Labs for Last 24 Hours: Temp Pulse Resp BP Pulse Ox 98.6 F 79 16 153/72 H 95 03/24/19 04:22 03/24/19 04:22 03/24/19 04:22 03/24/19 04:22 03/24/19 04:22 I & O for Last 24 hours: Intake & Output 03/21/19 03/22/19 03/23/19 03/24/19 12:59 12:59 11:59 11:59 Intake Total 2106 / 2106 Output Total 250 / 250 Balance 1856 / 1856 Weight 168 lb 3 oz - *Routine HEENT Exam Head: Present: normocephalic Eye: Present: EOMI, PERRL ENT: Present: mucous membranes moist Comments: Bruising of face noted with stitches on nasal bridge. - *Routine Neck Exam Present: supple. Absent: JVD, carotid bruit - *Routine Respiratory Exam Present: CTA bilaterally. Absent: accessory muscle use, rales, rhonchi, wheezes - *Routine Cardiovascular Exam Present: RRR. Absent: murmur, gallop, rubs - *Routine Abdominal Exam Present: soft. Absent: tenderness, distended, guarding - *Routine Extremities Exam Absent: edema, calf tenderness Comments: right wrist in splint left arm in sling - *Routine Neurological Exam Present: alert, oriented X3, moving all extremities Assessment and Plan (1) Fall Current visit: Yes Status: Acute Qualifiers: Encounter type: initial encounter Qualified Code(s): W19.XXXA - Unspecified fall, initial encounter Category: Medical Code(s): W19.XXXA - Unspecified fall, initial encounter (2) Fracture of humerus, proximal, left, closed Current visit: Yes Status: Acute Category: Medical Code(s): S42.202A - Unspecified fracture of upper end of left humerus, initial encounter for closed fracture (3) Fracture of radius, distal, right, closed Current visit: Yes Status: Acute Category: Medical Code(s): S52.501A - Unspecified fracture of the lower end of right radius, initial encounter for closed fracture (4) Epistaxis due to trauma Current visit: Yes Status: Acute Category: Medical Code(s): R04.0 - Epistaxis (5) Nasal bone fracture Current visit: Yes Status: Acute Qualifiers: Encounter type: initial encounter Fracture type: open Qualified Code(s): S02.2XXB - Fracture of nasal bones, initial encounter for open fracture Category: Medical Code(s): S02.2XXA - Fracture of nasal bones, initial encounter for closed fracture (6) A-fib Current visit: Yes Status: Acute Qualifiers: Atrial fibrillation type: unspecified chronic Qualified Code(s): I48.20 - Chronic atrial fibrillation, unspecified; I48.2 - Chronic atrial fibrillation Category: Medical Code(s): I48.91 - Unspecified atrial fibrillation - Assessment and plan all Dx Assessment and Plan for all problems:: 1. Pt is a low and acceptable risk from Cardiology standpoint for planned surgery. 2. Recommend continue to hold eliquis and monitor for A. fib as patient is increased risk for falls and significant bleed. 3. Continue metoprolol XL perioperatively for HTN. 4. Continue atorvastatin for hyperlipidemia with LDL goal less than 70. Most recent LDL 45 in 08/2018.
--- NOTE | 2019-03-24 10:23 | Progress Note ---
Subjective Date: 03/24/19 Time: 09:45 Principal diagnosis: Fracture distal radius, right; fracture proximal humerus, left Interval history: Patient states she is doing well and appears comfortable. She is lying down on the bed. She reports very little pain in her left shoulder and right wrist. No history of any further nose bleeds. No history of any distal tingling or numbness. She was seen by cardiology this morning and cleared for surgery with appropriate risk stratification. PN: Obj Ex Vital signs: Temp Pulse Resp BP Pulse Ox 98.5 F 70 20 161/72 H 90 L 03/24/19 08:00 03/24/19 09:00 03/24/19 08:00 03/24/19 08:00 03/24/19 08:00 Narrative: Exam General appearance: alert, active, awake, no acute distress Cardiovascular: regular rate & rhythm, normal peripheral pulses Respiratory: No respiratory distress noted, speaks in full sentences ABD: soft and non tender On examination of the left shoulder, the skin is intact. The left upper extremity is in an arm sling. There is diffuse swelling around the shoulder and ecchymosis over the upper arm. She is tender over the left shoulder. Movements of the shoulder not tested because of known fracture and pain. She has good range of elbow, wrist and finger movements. Distal circulation is intact-radial pulse 2+ and capillary refill is brisk. Sensation is intact light touch throughout. No motor deficits noted distally. On examination of her right wrist, she is in a removable wrist splint. The skin is intact. There is diffuse swelling and ecchymosis around the right wrist. There is an obvious dinner fork deformity of the distal forearm. Movements of the wrist are not tested because of the known fracture and pain. She has good range of elbow and finger movements. Sensation is intact to light touch throughout. Capillary refill is brisk. - Urinary Catheter Management Mendoza Cath placed during this visit: no Progress Note: A&P (1) Fall Status: Acute Current Visit: Yes (2) Fracture of humerus, proximal, left, closed Status: Acute Current Visit: Yes (3) Fracture of radius, distal, right, closed Status: Acute Current Visit: Yes (4) Epistaxis due to trauma Status: Acute Current Visit: Yes (5) Nasal bone fracture Status: Acute Current Visit: Yes (6) A-fib Status: Acute Current Visit: Yes Assessment and Plan for All Diagnoses:: I have again reviewed the clinical, x-ray findings and progress with the patient. She has a nondisplaced proximal humerus fracture on the left side which we have decided to manage nonoperatively. She also has a right distal radius fracture which is displaced along with a nondisplaced ulnar head fracture. Given the significant displacement/deformity with shortening, the distal radius fracture would be better managed with either closed reduction and percutaneous pinning or closed reduction and external fixation or open reduction and internal fixation as appropriate at the time of the surgery. We also discussed about nonoperative management but not recommended. I have discussed the details of the proposed procedures, risks and benefits and alternatives in detail. The complications discussed include but are not limited to- infection, bleeding, injury to nerves, tendons and blood vessels, incisional scar (cosmesis), DVT/PE, malunion, nonunion/delayed union, loss of position, refracture, wrist/finger stiffness, CRPS (complex regional pain syndrome- pain, sensory and temperature changes, swelling and stiffness), painful/prominent hardware, intra-articular screw penetration, loss of fixation/hardware failure, pin tract infection, breakage of pins, incomplete relief of pain, incomplete return of function, posttraumatic arthritis and likely need for further surgery in future and also the risks of anesthesia including heart attack, stroke, and even . I have discussed how there is a small but real possibility of loss of use of the arm, loss of the limb (amputation) or loss of life itself. I have also explained how additional surgery may be required if there are any complications or the fracture fails to heal. We have also discussed the postoperative pain management, recovery and rehabilitation, immobilization required, the likely need for physical therapy, the possibility of stiffness, chronic pain and we've also discussed the option of nonsurgical treatment. The patient expressed full understanding and has asked appropriate questions. All her questions were answered and she verbalized a good understanding. She desires to proceed with the proposed surgery of either a closed reduction and percutaneous pinning or closed reduction and external fixation or open reduction and internal fixation of the right distal radius fracture as appropriate at the time of surgery. Patient understood the risks, agreed to proceed with surgery and no guarantees or assurances were given or implied. Patient has been cleared for surgery by the cardiology this morning. I am planning to take her to the operating room later today for the procedures. Patient is also on oral anticoagulation which is held since admission. We have re-applied the wrist splint, advised her to elevate the hand and mobilize her fingers. I have also advised her to mobilize the elbow and fingers and ice the fracture site frequently to try and reduce the pain and swelling. Continue with sling and swath immobilization for the left proximal humerus fracture. Continue medical management as per Dr. Wadsworth.
--- NOTE | 2019-03-24 10:33 | Progress Note ---
[facility] Anesthesia Checklist - Patient Identification Patient Identification: Arm Band, Verbal (Name & ) - Structural Data Admitted From: Inpatient Planned Operative Procedure/s: Right wrist closed reduction, percutaneous pinning Consent for Planned Operative Procedure(s) Verified: Yes Verified Documents: Surgical Consent, History and Physical, Cardiac Clearance - NPO Status Verified Time NPO: 00:00 - Chart Verification Results Verified: CBC, BMP, ECG - Additional verifications Patient : No Anesthesia Reactions: No - Airway Assessment C-Spine Mobility Assessed: Yes TMJ Mobility Assessed: Yes Dentition: Edentulous - Neurological Assessment Level of Consciousness: Awake, Appropriate, Follows Commands Hx Seizures: No Numbness or tingling in extremities: No - Anesthesia Plan Anesthesia Risk discussed: Yes Anesthesia Plan: Verified ASA Class: III Anesthesia Type: General [facility] History I have reviewed the patient's past medical history: Yes Medical History: Reports:: Atrial Fibrillation, Chronic Obstructive Pulmonary Disease (COPD), Gastroesophageal Reflux Disease(GERD), Hyperlipidemia, Hyper tension Denies:: Cancer, Diabetes Mellitus Type 1, Diabetes Mellitus Type 2, Internal Pacemaker, MRSA, Seizures *Have you ever received a pneumonia vaccine?: Yes *Have you received a flu vaccine this season?: No Other Medical History: Reports: Arthritis, Sinus Problems Comment:: Gout, Schizophrenia Anesthesia experience/problems:: No complications noted Other Surgeries: Yes: Cardiac Catheterization, Cholecystectomy, Colonoscopy, Other. No: Pacemaker Amputation: No Fractures: No - *Social History Educational Level: Attended Grade School Smoking Status: Current every day smoker Tobacco Type: cigarettes, cigars # Packs/Day (cigarettes): 1 Alcohol Intake: never Alcohol Intake Frequency:: other Substance Use Type: denies use *Occupational Status:: retired, disabled Housing: assisted living facility Household Members: other *Travel in the last 8 weeks: None Family Hx:: Unable to obtain
--- NOTE | 2019-03-24 13:03 | Progress Note ---
Internal Medicine - PN: Subj *Date: 03/24/19 *Time: 13:00 Interval history: doing better - discussed with card and ortho will possible do surg today Exam Vital signs and Labs for Last 24 Hours: Temp Pulse Resp BP Pulse Ox 98.5 F 70 20 161/72 H 90 L 03/24/19 08:00 03/24/19 09:00 03/24/19 08:00 03/24/19 08:00 03/24/19 08:00 I & O for Last 24 hours: Intake & Output 03/22/19 03/23/19 03/24/19 03/25/19 12:59 11:59 11:59 11:59 Intake Total 2106 / 2106 Output Total 250 / 250 Balance 1856 / 1856 Weight 168 lb 3.015 oz - Constitutional no acute distress - *Routine HEENT Exam Head: Present: normocephalic Eye: Present: EOMI, PERRL ENT: Present: mucous membranes dry - *Routine Neck Exam Present: supple - *Routine Respiratory Exam Present: decreased breath sounds - *Routine Cardiovascular Exam Present: RRR, murmur - *Routine Abdominal Exam Present: soft - *Routine Extremities Exam Comments: dec chris in rt wrist and lt shoulder - *Routine Skin Exam Present: ecchymosis - *Routine Neurological Exam Present: alert, CN II-XII intact - Routine Psychiatric Exam Present: normal affect
--- NOTE | 2019-03-24 14:36 | Consult Report ---
*Admission Date: 03/22/19 *Reason for consult:: nasal fracture *History of present illness: Patient is a 73-year-old [id number] female admitted from the ER early this morning with multiple injuries. She is a resident of [facility] who was brought to the ER with history of fall after feeling dizzy. Evaluation in the ER showed facial lacerations and fracture of nasal bones associated with epistaxis. She was also found to have a left proximal humerus fracture and a right distal radius fracture. Patient has multiple medical problems including atrial fibrillation and is on long-term anticoagulation with Eliquis. Her last dose was yesterday. There is no history of any loss of consciousness and she denies any chest pain. Patient is admitted mainly for social reasons as well as for the nosebleed and I was consulted to manage orthopedic injuries. She has history of chronic tobacco abuse. Review of Systems - ENT Reports other Comments: visible bruising over face and nasal bones - *Neurologic Reports dizziness, Denies confusion, Denies seizure-like activity [facility] History I have reviewed the patient's past medical history: Yes Medical History: Reports:: Asthma, Atrial Fibrillation, Chronic Obstructive Pulmonary Disease (COPD), Gastroesophageal Reflux Disease(GERD), Hyperlipidemia, Hypertension Denies:: Cancer, Diabetes Mellitus Type 1, Diabetes Mellitus Type 2, Internal Pacemaker, MRSA, Seizures *Have you ever received a pneumonia vaccine?: Yes *Have you received a flu vaccine this season?: No Other Medical History: Reports: Arthritis, Sinus Problems Anesthesia experience/problems:: No complications noted Other Surgeries: Yes: Cardiac Catheterization, Cholecystectomy, Colonoscopy, Other. No: Pacemaker Amputation: No Fractures: No - *Social History Educational Level: Attended Grade School Smoking Status: Current every day smoker Tobacco Type: cigarettes, cigars # Packs/Day (cigarettes): 1 Alcohol Intake: never Alcohol Intake Frequency:: other Substance Use Type: denies use *Occupational Status:: retired, disabled Housing: assisted living facility Household Members: other *Travel in the last 8 weeks: None Family Hx:: Unable to obtain Meds Home Medications Medication Instructions Recorded Confirmed Type allopurinol 100 mg tablet 100 mg PO BID tab 07/27/17 03/22/19 History aspirin 81 mg tablet,delayed 81 mg PO DAILY tab 07/27/17 03/22/19 History release baclofen 20 mg tablet 20 mg PO 0900,1700 tab 07/27/17 03/22/19 History buspirone 10 mg tablet 10 mg PO BID 07/27/17 03/22/19 History citalopram 20 mg tablet 20 mg PO DAILY tab 07/27/17 03/22/19 History gabapentin 100 mg capsule 100 mg PO TID cap 07/27/17 03/22/19 History lorazepam 1 mg tablet 1 mg PO AC tab 07/27/17 03/22/19 History nitroglycerin 0.4 mg sublingual 0.4 mg SUBLINGUAL Q5MINP PRN 07/27/17 03/22/19 History tablet olanzapine 10 mg tablet 10 mg PO DAILY tab 07/27/17 03/22/19 History pantoprazole 40 mg tablet,delayed 40 mg PO QAM 07/27/17 03/22/19 History release potassium chloride ER 20 mEq 20 meq PO TID tab 07/27/17 03/22/19 History tablet,extended release Acetaminophen 650 mg PO Q4HP PRN 09/10/18 03/22/19 History Benztropine Mesylate [Cogentin 1mg 1 mg PO BID #60 tab 09/10/18 03/22/19 Rx tablet] Apixaban [Eliquis 5mg tab] 5 mg PO BID 12/09/18 03/22/19 History Metoprolol Succinate 25 mg PO DAILY 12/09/18 03/22/19 History Atorvastatin Calcium [Atorvastatin 20 mg PO HS 03/22/19 03/22/19 History 20mg Tab] Mag Hydrox/Aluminum Hyd/Simeth 30 ml PO Q4HP PRN 03/22/19 03/22/19 History [Mylanta Maximum Strength Liq] Allergies Allergy/AdvReac Type Severity Reaction Status Date / Time No Known Allergies Allergy Verified 03/10/19 10:13 Exam Vital signs and Labs for Last 24 Hours: Temp Pulse Resp BP Pulse Ox 98.5 F 80 20 161/72 H 90 L 03/24/19 08:00 03/24/19 11:39 03/24/19 08:00 03/24/19 08:00 03/24/19 08:00 I & O for Last 24 hours: Intake & Output 03/22/19 03/23/19 03/23/19 03/24/19 00:59 00:59 23:59 23:59 Intake Total 1386 / 1386 Output Total 250 / 250 Balance 1136 / 1136 Weight 168 lb 3.015 oz - *Routine HEENT Exam Comments: Patient was examined because of an injury that she sustained to her face when she fell 2 days ago. Severely comminuted nasal fracture as well as a septal fra cture resulting in a severe displacement of her nose to the right and a severe deviation of the nasal septum to the left. He also sustained a fractured wrist and was scheduled for orthopedic surgery to reset the wrist. I recommended that we proceed with a an open reduction of the nasal septal fracture and that was scheduled immediately to proceed prior to the wrist fracture repair. She was given 1 g of Ancef and 12 mg of Decadron preop. Results - Labs 03/23/19 06:46 03/23/19 06:46
--- NOTE | 2019-03-24 14:42 | Operative Note ---
Date of procedure: 03/24/19 Pre-op Diagnosis:: Nasal septal fracture with displacement Post-op Diagnosis:: same Procedure performed:: Open reduction of nasal septal fracture with external fixation Surgeon:: Derek Morillo MD COLOR SPECIALIST:: Vito Frias Anesthesia: LATRICE Estimated blood loss (mL): 4 Operative findings:: same Operative note:: With the patient under general anesthesia the face was prepped and draped the eyes were protected with Steri-Strips. The nose was decongested with topical cocaine and then examined. There were blood clots in both nasal fossae and also a hematoma of the nasal septum. The nose was injected with 5 cc of 2% lidocaine containing epinephrine. A left hemitransfixion incision was made and the mucoperichondrium and mucoperiosteum was elevated from both sides of the nasal septum. The quadrangular cartilage and vomer were severely fractured the cartilaginous and bony fragments were removed, there was a hematoma of the nasal septum which was evacuated, there was continuing oozing from the maxillary crest, and that was stopped with cautery. Blood loss during the procedure was less than 10 cc but all of the preexistent clots were removed. The septum was then realigned in the midline and it was held there with transfixion and yaz- transfixion cromic suture. Surgicel snow was placed in the septum as well as in the nasal cavities. The Steve elevator was then used to elevate the fracture nasal bones and septum in the midline. External fixation was obtained using a Steri-Strip nasal dressing. The patient tolerated the procedure well and was left on the operating table to have her wrist repaired per Dr Brand. Condition: stable Disposition: PACU Complications:: none
--- NOTE | 2019-03-24 14:44 | Progress Note ---
[facility] Anesthesia Record Part I Intake, IV Amount: 1,500 Estimated blood loss (mL): 10 Urine output (mL): 400 Blood Pressure: 135/66 SaO2: 95 Pulse Rate: 82 Respiratory Rate: 16 Temperature: 97.0 F Patient is:: Drowsy, Stable Stable to PACU at:: 14:35
--- NOTE | 2019-03-24 14:45 | Progress Note ---
[facility] Anesthesia Record Part II Discharge Time: 15:05 Destination: 2nd floor PACU nurse assessment reviewed?: Yes Patient Condition:: Good Anesthesia Complications:: None Swallowing reflex intact?: Yes Cyanosis?: No
--- NOTE | 2019-03-24 15:38 | Operative Note ---
Date of procedure: 03/24/19 Pre-op Diagnosis:: 1. Fracture distal radius, right wrist 2. Fracture distal ulna, right wrist Post-op Diagnosis:: Same Procedure performed:: Closed reduction and K wire fixation distal radius, right Surgeon:: Chon Brand MD Valve Repairer(s):: Maine Ferguson UMBRELLA TIPPER:: Vito Frias Anesthesia: GETA Estimated blood loss (mL): 2 Clinical Note:: Patient is a 73-year-old female who sustained a closed displaced fracture of her right distal radius along with a nondisplaced distal ulna fracture a when she had the [facility] longterm couple of days ago. A closed reduction under anesthesia with or without K wire fixation or an open reduction and internal fixation as appropriate is indicated to improve the alignment of the fracture and improve the function. Patient also has a nondisplaced impacted fracture of the left proximal humerus and we are treating this nonoperatively. Nikky warner refer to my consult note for full details. Operative findings:: A closed, displaced fracture of the right distal radius and a nondisplaced fracture of the distal ulna as noted on the preoperative x-rays. The fracture is reducible satisfactory by closed manipulation. The distal radius fracture was then stabilized with percutaneous K wires in a stable fashion. Bone quality is osteoporotic. Operative note:: Prior to the procedure, I have reviewed the clinical and x-ray findings with the patient. I have discussed the diagnosis, natural history and management options in detail including both nonsurgical and surgical. Given the fracture pattern and displacement, I have recommended a closed manipulative reduction under anesthesia and percutaneous pinning. I have informed her that if we could not reduce the fracture by closed manipulation or if the fracture is too unstable for stabilization with percutaneous pinning then I would perform either an external fixation or an open reduction and internal fixation as necessary. I have discussed the procedures, risks and benefits and alternatives in detail. The complications discussed include but are not limited to- infection, injury to nerves and blood vessels, injury to tendons, loss of position requiring further procedures, nonunion, malunion/delayed union, refracture, stiffness, CRPS, incomplete relief of pain, incomplete return of function, likely need for further procedures or surgery in future and anesthetic risks. All her questions were answered and she verbalized a good understanding. The limb was appropriately marked and initialed by me. Patient understood the risks, agreed to proceed with surgery and no guarantees or assurances were given or implied. Operative consent was obtained from her healthcare proxy over telephone. The patient was already in the operating room having an open reduction of her nasal bones by Dr. Morillo. I followed the procedure for the right wrist fracture after Dr. Morillo finished his surgery. Patient was already in the supine position on the operating table and was under general anesthesia. The RIGHT upper extremity was placed on a hand table. All the bony prominences were appropriately padded. A well-padded tourniquet cuff was placed over the right upper arm. The RIGHT upper extremity was prepped and draped in the usual steri le fashion. A preprocedure timeout was performed as per the Hospital protocol. Administration of IV Ancef was verbally confirmed with the floor person. Under C- arm control the fracture site was marked on the skin. Then the fracture was reduced by closed manipulation under fluoroscopic control. I then made a small skin incision over the radial styloid, the soft tissue by blunt dissection with the hemostat and introduced a 0.62 K wire percutaneously. The K wire was introduced into the bone through the radial styloid and passed across the fracture site engaging the opposite medial cortex. I then placed a second K wire through the dorsal aspect of the distal radius. We again made a small skin incision on the dorsal aspect of the distal radius and soft tissue bluntly dissected with hemostat. A second 0.62 K wire was then introduced just proximal to the articular surface of the distal radius and advanced across the fracture site to engage the volar cortex. I then added a third K wire through the radial styloid process for additional stability for the fixation. This gave us satisfactory fixation and stability to the fracture. The K wires were bent and cut outside the skin. Protective end caps were placed over the K wires. Sterile dressings were applied with Xeroform, 4 x 4 and a Soft-Roll. A sugar tongs Ortho-Glass splint was applied with the elbow at 90 degrees flexion and the forearm in full pronation. Fluoroscopic images at the end of the procedure were satisfactory with good reduction and stable fixation. The patient was then reversed from the anesthetic and [facility] She was then transported to the postoperative recovery area in stable condition. The swab, needle and instrument counts were correct at the end of the procedure according to the scrub team. Patient tolerated the procedure well and there were no immediate complications. Following a period of observation in the postoperative recovery area, the patient was transferred to the floor. Implants: 0.62 K wires 3 with end caps Tourniquet time (min): 0 Condition: stable Disposition: PACU Specimens:: None Complications:: None
--- NOTE | 2019-03-24 19:25 | Cardiology Report ---
APPROVED REPORT EXAM: Comprehensive 2D, Doppler, and color-flow Echocardiogram Grounds Maintenance Supervisor: Erin Mitchell CRT Ht: 5 ft 10 in Wt: 168lbs BSA: 1.94 BP: 122/72 mmHg Indications: murmur, preop shoulder and wrist fx, fall, afib, copd, gerd, htn, hld 2D Dimensions IVSd 1.25 cm F: 0.6-1.0LVEF (Visual) 75.70 % PWd 0.50 cm F: 0.6 - 1.0 LVDd 4.04 cm F: 3.9 - 5.3 LVDs 2.00 cm F: 2.2 - 3.5 LVOT 1.66 cm (M/F) 1.5-2.5 M-Mode Dimensions LVDd 4.04 cm (3.5-5.7)LVDs 2.00 cm (3.5-5.7) IVSd 1.25 cm (0.6-1.1)PWd 0.50 cm (0.6-1.1) FS 43.50% LV Diastology E/A Ratio 0.82 Mitral Valve MV A Velocity 81.00 (40-130 cm/s) Left Ventricle Left atrium is mildly enlarged, left ventricle is normal size, mild concentric left ventricular hypertrophy, visually estimated ejection fraction 55% with no regional wall motion abnormality. Grade 1 diastolic dysfunction seen without tissue Doppler evidence of raise left atrial pressure. Right Ventricle Right atrium and right ventricular normal size and contractility. Aortic Valve Aortic valve is minimally thickened and fibrosed, there is no aortic stenosis or aortic insufficiency. Mitral Valve Mitral valve is grossly normal, there is mild mitral regurgitation. Tricuspid Valve Tricuspid valve is poorly visualized, there is mild tricuspid regurgitation. Pulmonic Valve Pulmonic valve is poorly visualized. Great Vessels Aortic root is normal size. Pericardium No significant pericardial effusion noted. Conclusion 1. Mildly low left atrium, normal left ventricular size, mild concentric left ventricular hypertrophy, visually estimated ejection fraction 55% with no regional wall motion abnormality, grade 1 diastolic dysfunction seen without tissue Doppler evidence of raise left atrial pressure. Grade 1 diastolic dysfunction seen without tissue Doppler evidence of raise left atrial pressure. 2. Mild mitral and tricuspid regurgitation. 3. No significant pericardial effusion noted. Electronically signed by : Junior Sanchez, 03/24/2019 19:24:38
--- NOTE | 2019-03-25 07:28 | Progress Note ---
Subjective Date: 03/25/19 Time: 07:25 Principal diagnosis: Fracture distal radius, right; fracture proximal humerus, left Interval history: 73 yo WF in bedside chair eating breakfast in NAD. Denies any chest pain. Right wrist and nasal surgery performed without complications. Exam Vital signs and Labs for Last 24 Hours: Temp Pulse Resp BP Pulse Ox 98.5 F 95 H 20 153/69 H 93 L 03/25/19 04:00 03/25/19 04:00 03/25/19 04:00 03/25/19 04:00 03/25/19 04:00 I & O for Last 24 hours: Intake & Output 03/22/19 03/23/19 03/24/19 03/25/19 12:59 11:59 11:59 11:59 Intake Total 2106 / 2106 2417 / 2417 Output Total 250 / 250 1150 / 1150 Balance 1856 / 1856 1267 / 1267 Weight 168 lb 3.015 oz 171 lb 4 oz - *Routine Respiratory Exam Present: CTA bilaterally. Absent: accessory muscle use, rales, rhonchi, wheezes - *Routine Cardiovascular Exam Present: RRR. Absent: murmur, gallop, rubs - *Routine Extremities Exam Absent: edema, calf tenderness Progress Note: A&P (1) Nasal bone fracture Status: Acute Current Visit: Yes (2) Shoulder fracture, left Status: Acute Current Visit: Yes (3) Wrist fracture, right Status: Acute Current Visit: Yes (4) Schizophrenia Status: Chronic Current Visit: Yes (5) Hypertension Status: Chronic Current Visit: No Assessment and Plan for All Diagnoses:: 1. Continue metoprolol succinate XL but increase to 50 mg daily and follow BP and HR. 2. Continue to monitor for A. fib on telemetry until discharged. Continue to hold eliquis due to high risk for falls. No A. fib seen during this hospital stay. 3. OK for discharge from cardiology standpoint when placement at rehab obtained.
--- NOTE | 2019-03-25 08:35 | History & Physical Report ---
*Admission Date: 03/22/19 *History of present illness: this wf who fell at fdc at [facility] - reported dizzyness and fell - has h x of a fib and on elaquis - no loc and pt denied any chest pain - she has facial and rt wrist and lt shoulder injury - she had nasal lac and assoc fx with nosebleed- pt was admitted for eval and treatment [facility] History Medical History: Reports:: Asthma, Atrial Fibrillation, Chronic Obstructive Pulmonary Disease (COPD), Gastroesophageal Reflux Disease(GERD), Hyperlipidemia, Hypertension Denies:: Cancer, Diabetes Mellitus Type 1, Diabetes Mellitus Type 2, Internal Pacemaker, MRSA, Seizures *Have you ever received a pneumonia vaccine?: Yes *Have you received a flu vaccine this season?: No Other Medical History: Reports: Arthritis, Sinus Problems Anesthesia experience/problems:: No complications noted Other Surgeries: Yes: Cardiac Catheterization, Cholecystectomy, Colonoscopy, Other. No: Pacemaker Amputation: No Fractures: No - *Social History Educational Level: Attended Grade School Smoking Status: Current every day smoker Tobacco Type: cigarettes # Packs/Day (cigarettes): 1 Alcohol Intake: never Alcohol Intake Frequency:: other Substance Use Type: denies use *Occupational Status:: retired, disabled Housing: assisted living facility Household Members: other *Travel in the last 8 weeks: None Family Hx:: Unable to obtain Review of Systems - *Neurologic Reports dizziness, Denies confusion, Denies seizure-like activity Meds Home Medications Medication Instructions Recorded Confirmed Type allopurinol 100 mg tablet 100 mg PO BID tab 07/27/17 03/22/19 History aspirin 81 mg tablet,delayed 81 mg PO DAILY tab 07/27/17 03/22/19 History release baclofen 20 mg tablet 20 mg PO 0900,1700 tab 07/27/17 03/22/19 History buspirone 10 mg tablet 10 mg PO BID 07/27/17 03/22/19 History citalopram 20 mg tablet 20 mg PO DAILY tab 07/27/17 03/22/19 History gabapentin 100 mg capsule 100 mg PO TID cap 07/27/17 03/22/19 History lorazepam 1 mg tablet 1 mg PO AC tab 07/27/17 03/22/19 History nitroglycerin 0.4 mg sublingual 0.4 mg SUBLINGUAL Q5MINP PRN 07/27/17 03/22/19 History tablet olanzapine 10 mg tablet 10 mg PO DAILY tab 07/27/17 03/22/19 History pantoprazole 40 mg tablet,delayed 40 mg PO QAM 07/27/17 03/22/19 History release potassium chloride ER 20 mEq 20 meq PO TID tab 07/27/17 03/22/19 History tablet,extended release Acetaminophen 650 mg PO Q4HP PRN 09/10/18 03/22/19 History Benztropine Mesylate [Cogentin 1mg 1 mg PO BID #60 tab 09/10/18 03/22/19 Rx tablet] Apixaban [Eliquis 5mg tab] 5 mg PO BID 12/09/18 03/22/19 History Metoprolol Succinate 25 mg PO DAILY 12/09/18 03/22/19 History Atorvastatin Calcium [Atorvastatin 20 mg PO HS 03/22/19 03/22/19 History 20mg Tab] Mag Hydrox/Aluminum Hyd/Simeth 30 ml PO Q4HP PRN 03/22/19 03/22/19 History [Mylanta Maximum Strength Liq] Allergies Allergy/AdvReac Type Severity Reaction Status Date / Time No Known Allergies Allergy Verified 03/10/19 10:13 Exam Vital signs and Labs for Last 24 Hours: Temp Pulse Resp BP Pulse Ox 98.1 F 82 18 168/79 H 90 L 03/25/19 08:00 03/25/19 08:00 03/25/19 08:00 03/25/19 08:00 03/25/19 08:00 I & O for Last 24 hours: Intake & Output 03/23/19 03/23/19 03/24/19 03/25/19 00:59 23:59 23:59 23:59 Intake Total 3126 / 3126 1037 / 1037 Output Total 500 / 1100 900 / 900 Balance 2626 / 2026 137 / 137 Weight 168 lb 3.015 oz 171 lb 4 oz Assessment and Plan (1) Nasal bone fracture Current visit: Yes Status: Acute Qualifiers: Encounter type: initial encounter Fracture type: open Qualified Code(s): S02.2XXB - Fracture of nasal bones, initial encounter for open fracture Category: Medical Code(s): S02.2XXA - Fracture of nasal bones, initial encounter for closed fracture (2) Shoulder fracture, left Current visit: Yes Status: Acute Qualifiers: Encounter type: initial encounter Fracture type: closed Qualified Code(s): S42.92XA - Fracture of left shoulder girdle, part unspecified, initial encounter for closed fracture Category: Medical Code(s): S42.92XA - Fracture of left shoulder girdle, part unspecified, initial encounter for closed fracture (3) Wrist fracture, right Current visit: Yes Status: Acute Qualifiers: Encounter type: initial encounter Fracture type: closed Qualified Code(s): S62.101A - Fracture of unspecified carpal bone, right wrist, initial encounter for closed fracture Category: Medical Code(s): S62.101A - Fracture of unspecified carpal bone, right wrist, initial encounter for closed fracture (4) Schizophrenia Current visit: Yes Status: Chronic Qualifiers: Schizophrenia type: unspecified Qualified Code(s): F20.9 - Schizophrenia, unspecified Category: Medical Code(s): F20.9 - Schizophrenia, unspecified (5) Hypertension Current visit: No Status: Chronic Qualifiers: Hypertension type: essential hypertension Qualified Code(s): I10 - Essential (primary) hypertension Category: Medical Code(s): I10 - Essential (primary) hypertension - Assessment and plan all Dx Assessment and Plan for all problems:: Rounded with Dr. Wadsworth, all orders per Dr. Wadsworth
--- NOTE | 2019-03-25 08:36 | Progress Note ---
Internal Medicine - PN: Subj *Date: 03/25/19 *Time: 08:41 Interval history: 73-year-old female patient sitting up in chair respirations easy even. Closed reduction and K wire fixation distal radius, right per Dr. Brand and a Open reduction of nasal septal fracture with external fixation per Dr. Morillo yesterday. She does report her pain is under control, Juma wrap to right upper extremity good neuro/circ checks right upper extremity. Was explained that she will need to be discharged from extended care facility before going back [facility]. She is in agreement with this, furniture upholsterer is currently working on placement Exam Vital signs and Labs for Last 24 Hours: Temp Pulse Resp BP Pulse Ox 98.1 F 82 18 168/79 H 90 L 03/25/19 08:00 03/25/19 08:00 03/25/19 08:00 03/25/19 08:00 03/25/19 08:00 I & O for Last 24 hours: Intake & Output 03/23/19 03/23/19 03/24/19 03/25/19 00:59 23:59 23:59 23:59 Intake Total 3126 / 3126 1037 / 1037 Output Total 500 / 1100 900 / 900 Balance 2626 / 2026 137 / 137 Weight 168 lb 3.015 oz 171 lb 4 oz - Constitutional no acute distress - *Routine HEENT Exam Head: Present: normocephalic, facial swelling Eye: Present: EOMI, PERRL, periorbital swelling ENT: Present: mucous membranes dry - *Routine Neck Exam Present: full ROM, trachea midline. Absent: JVD, tracheal deviation - *Routine Respiratory Exam Present: CTA bilaterally. Absent: accessory muscle use - *Routine Cardiovascular Exam Present: RRR - *Routine Abdominal Exam Present: soft, normoactive bowel sounds. Absent: tenderness, firm - *Routine Extremities Exam Present: edema, pulses intact. Absent: full ROM Comments: Juma wrap and splint to right upper extremity - Routine Back/Spine/Pelvis Exam Back/Spine: Present: full ROM. Absent: CVA tenderness - *Routine Skin Exam Present: intact. Absent: mottling - *Routine Neurological Exam Present: alert, CN II-XII intact. Absent: altered mental status - Routine Psychiatric Exam Present: normal affect, normal thought process. Absent: visual hallucinations, tactile hallucinations Assessment and Plan (1) Nasal bone fracture Current visit: Yes Status: Acute Qualifiers: Encounter type: initial encounter Fracture type: open Qualified Code(s): S02.2XXB - Fracture of nasal bones, initial encounter for open fracture Category: Medical Code(s): S02.2XXA - Fracture of nasal bones, initial encounter for closed fracture (2) Shoulder fracture, left Current visit: Yes Status: Acute Qualifiers: Encounter type: initial encounter Fracture type: closed Qualified Code(s): S42.92XA - Fracture of left shoulder girdle, part unspecified, initial encounter for closed fracture Category: Medical Code(s): S42.92XA - Fracture of left shoulder girdle, part unspecified, initial encounter for closed fracture (3) Wrist fracture, right Current visit: Yes Status: Acute Qualifiers: Encounter type: initial encounter Fracture type: closed Qualified Code(s): S62.101A - Fracture of unspecified carpal bone, right wrist, initial encounter for closed fracture Category: Medical Code(s): S62.101A - Fracture of unspecified carpal bone, right wrist, initial encounter for closed fracture (4) Schizophrenia Current visit: Yes Status: Chronic Qualifiers: Schizophrenia type: unspecified Qualified Code(s): F20.9 - Schizophrenia, unspecified Category: Medical Code(s): F20.9 - Schizophrenia, unspecified (5) Hypertension Current visit: No Status: Chronic Qualifiers: Hypertension type: essential hypertension Qualified Code(s): I10 - Essential (primary) hypertension Category: Medical Code(s): I10 - Essential (primary) hypertension - Assessment and plan all Dx Assessment and Plan for all problems:: Rounded with Dr. Wadsworth all orders per Dr. Wadsworth Cardiology is seen and recommends: 1. Continue metoprolol succinate XL but increase to 50 mg daily and follow BP and HR. 2. Continue to monitor for A. fib on telemetry until discharged. Continue to hold eliquis due to high risk for falls. No A. fib seen during this hospital stay. 3. OK for discharge from cardiology standpoint when placement at rehab obtained. 1. Currently working on discharge to [facility]
--- NOTE | 2019-03-26 08:56 | Progress Note ---
Subjective Date: 03/26/19 Time: 08:40 Principal diagnosis: Fracture distal radius, right; fracture proximal humerus, left Interval history: This is a 73-year-old white female who is status post right wrist and nasal surgery. She has tolerated this well. She denies any pain this morning. She denies any chest pain or pressure. She denies any shortness of breath or edema. She denies any fever, chills, nausea, vomiting, diarrhea, PND or orthopnea. Exam Vital signs and Labs for Last 24 Hours: Temp Pulse Resp BP Pulse Ox 98.0 F 77 18 166/76 H 92 L 03/26/19 07:53 03/26/19 07:53 03/26/19 07:53 03/26/19 07:53 03/26/19 08:00 I & O for Last 24 hours: Intake & Output 03/23/19 03/24/19 03/25/19 03/26/19 23:59 23:59 23:59 23:59 Intake Total 3126 / 3126 1037 / 1037 1312 / 1312 Output Total 500 / 1100 1400 / 1400 850 / 850 Balance 2626 / 2026 -363 / -363 462 / 462 Weight 168 lb 3.015 oz 171 lb 4 oz 170 lb 8 oz Narrative: Telemetry strip is sinus rhythm with a rate of 68. - Constitutional no acute distress, average body habitus - *Routine HEENT Exam Head: Present: normocephalic, atraumatic Eye: Present: EOMI, PERRL ENT: Present: mucous membranes moist - *Routine Neck Exam Present: supple, full ROM, normal carotid upstroke. Absent: JVD, carotid bruit, lymphadenopathy - *Routine Respiratory Exam Present: CTA bilaterally - *Routine Cardiovascular Exam Present: RRR, Normal S1, Normal S2. Absent: murmur - *Routine Abdominal Exam Present: soft, normoactive bowel sounds. Absent: tenderness, distended - *Routine Extremities Exam Present: full ROM (Except right upper extremity due to cast), pulses intact, normal capillary refill. Absent: cyanosis, clubbing, edema - *Routine Skin Exam Present: intact, warm. Absent: erythema, rash - *Routine Neurological Exam Present: alert, oriented X3, CN II-XII intact - Detailed Eye Exam Eyelids: Left normal inspection Progress Note: A&P (1) Nasal bone fracture Status: Acute Current Visit: Yes (2) Shoulder fracture, left Status: Acute Current Visit: Yes (3) Wrist fracture, right Status: Acute Current Visit: Yes (4) Schizophrenia Status: Chronic Current Visit: Yes (5) Hypertension Status: Chronic Current Visit: No (6) A-fib Status: Acute Current Visit: Yes (7) Gastroesophageal reflux disease Status: Chronic Current Visit: No (8) HLD (hyperlipidemia) Status: Chronic Current Visit: No Assessment and Plan for All Diagnoses:: Plan: 1. Patient was admitted to the hospital after a fall. She did have surgery to her right wrist in her nose. She has tolerated this well. 2. The patient's anticoagulation has been stopped due to her high risk of falls. 3. She has had no evidence of atrial fibrillation on telemetry at this time. Continue Toprol XL. 4. Her blood pressure is high today. We will start losartan 50 mg p.o. daily for better blood pressure control. 5. Her LDL goal is less than 100. 6. No further recommendations at this time from a cardiac standpoint. The patient is stable for discharge from a cardiovascular standpoint. She will need to follow-up in 1 to 2 weeks on an outpatient basis. Thank you for the opportunity to help participate in the care of this patient.
--- NOTE | 2019-03-26 15:55 | Progress Note ---
Internal Medicine - PN: Subj *Date: 03/26/19 *Time: 08:00 Interval history: pt doing better - will remove liu and oob Exam Vital signs and Labs for Last 24 Hours: Temp Pulse Resp BP Pulse Ox 97.7 F 90 20 156/72 H 92 L 03/26/19 11:39 03/26/19 12:00 03/26/19 11:39 03/26/19 11:39 03/26/19 11:39 I & O for Last 24 hours: Intake & Output 03/24/19 03/25/19 03/26/19 03/27/19 11:59 11:59 11:59 11:59 Intake Total 2106 / 2106 2777 / 2777 1312 / 1312 120 / 120 Output Total 250 / 250 1150 / 1150 1350 / 1350 Balance 1856 / 1856 1627 / 1627 -38 / -38 120 / 120 Weight 168 lb 3.015 oz 171 lb 4 oz 170 lb 8 oz - Constitutional no acute distress - *Routine HEENT Exam Head: Present: normocephalic Eye: Present: EOMI, PERRL ENT: Present: mucous membranes dry - *Routine Neck Exam Present: supple - *Routine Respiratory Exam Present: decreased breath sounds - *Routine Cardiovascular Exam Present: RRR, murmur - *Routine Abdominal Exam Present: soft - *Routine Extremities Exam Comments: cast on rt upper ext - *Routine Skin Exam Present: intact - *Routine Neurological Exam Present: alert, CN II-XII intact - Routine Psychiatric Exam Present: normal affect Assessment and Plan (1) Nasal bone fracture Current visit: Yes Status: Acute Qualifiers: Encounter type: initial encounter Fracture type: open Qualified Code(s): S02.2XXB - Fracture of nasal bones, initial encounter for open fracture Category: Medical Code(s): S02.2XXA - Fracture of nasal bones, initial encounter for closed fracture (2) Shoulder fracture, left Current visit: Yes Status: Acute Qualifiers: Encounter type: initial encounter Fracture type: closed Qualified Code(s): S42.92XA - Fracture of left shoulder girdle, part unspecified, initial encounter for closed fracture Category: Medical Code(s): S42.92XA - Fracture of left shoulder girdle, part unspecified, initial encounter for closed fracture (3) Wrist fracture, right Current visit: Yes Status: Acute Qualifiers: Encounter type: initial encounter Fracture type: closed Qualified Code(s): S62.101A - Fracture of unspecified carpal bone, right wrist, initial encounter for closed fracture Category: Medical Code(s): S62.101A - Fracture of unspecified carpal bone, right wrist, initial encounter for closed fracture (4) Schizophrenia Current visit: Yes Status: Chronic Qualifiers: Schizophrenia type: unspecified Qualified Code(s): F20.9 - Schizophrenia, unspecified Category: Medical Code(s): F20.9 - Schizophrenia, unspecified (5) Hypertension Current visit: No Status: Chronic Qualifiers: Hypertension type: essential hypertension Qualified Code(s): I10 - Essential (primary) hypertension Category: Medical Code(s): I10 - Essential (primary) hypertension (6) A-fib Current visit: Yes Status: Acute Qualifiers: Atrial fibrillation type: unspecified chronic Qualified Code(s): I48.20 - Chronic atrial fibrillation, unspecified; I48.2 - Chronic atrial fibrillation Category: Medical Code(s): I48.91 - Unspecified atrial fibrillation (7) Gastroesophageal reflux disease Current visit: No Status: Chronic Qualifiers: Esophagitis presence: esophagitis presence not specified Qualified Code(s): K21.9 - Gastro-esophageal reflux disease without esophagitis Category: Medical Code(s): K21.9 - Gastro-esophageal reflux disease without es ophagitis (8) HLD (hyperlipidemia) Current visit: No Status: Chronic Qualifiers: Hyperlipidemia type: unspecified Qualified Code(s): E78.5 - Hyperlipidemia, unspecified Category: Medical Code(s): E78.5 - Hyperlipidemia, unspecified
--- NOTE | 2019-03-26 17:17 | Progress Note ---
Subjective Date: 03/26/19 Time: 17:05 Principal diagnosis: Fracture distal radius, right; fracture proximal humerus, left Interval history: Patient is status post closed reduction and K wire fixation right distal radius fracture, POD 2; she also has an impacted fracture of her left proximal humerus which is being treated nonoperatively. She is lying down on the bed and says she is comfortable. Reports no problems and says the pain is well controlled with as needed medication. Nursing staff also reports no problems with her. She is awaiting placement to a senior care facility. PN: Obj Ex Vital signs: Temp Pulse Resp BP Pulse Ox 97.7 F 78 18 151/73 H 91 L 03/26/19 16:00 03/26/19 16:00 03/26/19 16:00 03/26/19 16:00 03/26/19 16:00 Narrative: Exam General appearance: alert, active, awake, no acute distress Cardiovascular: regular rate & rhythm, normal peripheral pulses Respiratory: No respiratory distress noted, speaks in full sentences ABD: soft and non tender On examination of the left shoulder, the skin is intact. The left upper extremity is in an arm sling. There is diffuse swelling around the shoulder and ecchymosis over the upper arm. She is tender over the left shoulder. Movements of the shoulder not tested because of known fracture and pain. She has good range of elbow, wrist and finger movements. Distal circulation is intact-radial pulse 2+ and capillary refill is brisk. Sensation is intact light touch throughout. No motor deficits noted distally. On examination of her right wrist, she is in a sugar tong's splint which is fitting well. There is minimal swelling of the fingers and she has got good range of finger movements. Sensation is intact to light touch throughout. Capillary refill is brisk. - Urinary Catheter Management Mendoza Cath placed during this visit: no Progress Note: A&P (1) Nasal bone fracture Status: Acute Current Visit: Yes (2) Shoulder fracture, left Status: Acute Current Visit: Yes (3) Wrist fracture, right Status: Acute Current Visit: Yes (4) Schizophrenia Status: Chronic Current Visit: Yes (5) Hypertension Status: Chronic Current Visit: No (6) A-fib Status: Acute Current Visit: Yes (7) Gastroesophageal reflux disease Status: Chronic Current Visit: No (8) HLD (hyperlipidemia) Status: Chronic Current Visit: No Assessment and Plan for All Diagnoses:: I have reviewed the findings and progress with the patient. Overall she is doing well from an orthopedic standpoint and her pain is well controlled with as needed pain medication. Continue sling and swath immobilization to the left proximal humerus fracture, continue icing, elevation of the hand and active finger movements; continue splint for the right wrist, elevation, icing and as needed pain medication. Patient is awaiting placement to a senior care facility. She can be discharged from an orthopedic standpoint if medically appropriate. Follow-up in my office in 1 weeks time with check x-ray right wrist and left shoulder. Please feel free to call our office at [phone] for any orthopaedic questions. Continue medical management as per Dr. Wadsworth.
--- NOTE | 2019-03-27 08:18 | Progress Note ---
Subjective Date: 03/27/19 Time: 08:15 Principal diagnosis: Fracture distal radius, right; fracture proximal humerus, left Interval history: 73 yo WF in bedside chair eating breakfast with assistance. No complaints. Awaiting MDP. Exam Vital signs and Labs for Last 24 Hours: Temp Pulse Resp BP Pulse Ox 98.3 F 80 17 180/82 H 95 03/27/19 04:00 03/27/19 04:00 03/27/19 04:00 03/27/19 04:00 03/27/19 04:00 I & O for Last 24 hours: Intake & Output 03/24/19 03/25/19 03/26/19 03/27/19 11:59 11:59 11:59 11:59 Intake Total 2106 / 2106 2777 / 2777 1312 / 1312 1470 / 1470 Output Total 250 / 250 1150 / 1150 1350 / 1350 Balance 1856 / 1856 1627 / 1627 -38 / -38 1470 / 1470 Weight 168 lb 3.015 oz 171 lb 4 oz 170 lb 8 oz 168 lb 8 oz - *Routine Respiratory Exam Present: CTA bilaterally. Absent: accessory muscle use, rales, rhonchi, wheezes - *Routine Cardiovascular Exam Present: RRR. Absent: murmur, gallop, rubs - *Routine Extremities Exam Absent: edema, calf tenderness - *Routine Neurological Exam Present: alert, oriented X3, moving all extremities Progress Note: A&P (1) Nasal bone fracture Status: Acute Current Visit: Yes (2) Shoulder fracture, left Status: Acute Current Visit: Yes (3) Wrist fracture, right Status: Acute Current Visit: Yes (4) Schizophrenia Status: Chronic Current Visit: Yes (5) Hypertension Status: Chronic Current Visit: No (6) A-fib Status: Acute Current Visit: Yes (7) Gastroesophageal reflux disease Status: Chronic Current Visit: No (8) HLD (hyperlipidemia) Status: Chronic Current Visit: No Assessment and Plan for All Diagnoses:: 1. s/p fall with multiple fractures of left shoulder, right wrist and nasal area. S/p correction. 2. HTN, will increase irbesartan to bid. 3. History of A. fib, none on telemetry, anticoagulation stopped due to recurrent fall risk.
--- NOTE | 2019-03-27 08:37 | Progress Note ---
Internal Medicine - PN: Subj *Date: 03/27/19 *Time: 08:33 Interval history: pt up to chair, states no c/o Exam Vital signs and Labs for Last 24 Hours: Temp Pulse Resp BP Pulse Ox 98.3 F 80 17 180/82 H 95 03/27/19 04:00 03/27/19 04:00 03/27/19 04:00 03/27/19 04:00 03/27/19 04:00 I & O for Last 24 hours: Intake & Output 03/24/19 03/25/19 03/26/19 03/27/19 11:59 11:59 11:59 11:59 Intake Total 2106 / 2106 2777 / 2777 1312 / 1312 1470 / 1470 Output Total 250 / 250 1150 / 1150 1350 / 1350 Balance 1856 / 1856 1627 / 1627 -38 / -38 1470 / 1470 Weight 168 lb 3.015 oz 171 lb 4 oz 170 lb 8 oz 168 lb 8 oz - Constitutional no acute distress - *Routine HEENT Exam Head: Present: normocephalic Eye: Present: PERRL ENT: Present: mucous membranes moist Comments: dressing to bridge of nose bruising to face - *Routine Neck Exam Present: supple. Absent: lymphadenopathy - *Routine Respiratory Exam Present: CTA bilaterally - *Routine Cardiovascular Exam Present: RRR - *Routine Abdominal Exam Present: soft, normoactive bowel sounds. Absent: tenderness - *Routine Extremities Exam Absent: cyanosis, clubbing, edema Comments: splint to rt arm and sling to rt arm - *Routine Skin Exam Present: ecchymosis Comments: scattered bruising to maricruz knees,face,arms three scratches to back splint to rt arm and sling to left arm - *Routine Neurological Exam Present: alert - Routine Psychiatric Exam Present: normal affect Assessment and Plan (1) Nasal bone fracture Current visit: Yes Status: Acute Qualifiers: Encounter type: initial encounter Fracture type: open Qualified Code(s): S02.2XXB - Fracture of nasal bones, initial encounter for open fracture Category: Medical Code(s): S02.2XXA - Fracture of nasal bones, initial encounter for closed fracture (2) Shoulder fracture, left Current visit: Yes Status: Acute Qualifiers: Encounter type: initial encounter Fracture type: closed Qualified Code(s): S42.92XA - Fracture of left shoulder girdle, part unspecified, initial encounter for closed fracture Category: Medical Code(s): S42.92XA - Fracture of left shoulder girdle, part unspecified, initial encounter for closed fracture (3) Wrist fracture, right Current visit: Yes Status: Acute Qualifiers: Encounter type: initial encounter Fracture type: closed Qualified Code(s): S62.101A - Fracture of unspecified carpal bone, right wrist, initial encounter for closed fracture Category: Medical Code(s): S62.101A - Fracture of unspecified carpal bone, right wrist, initial encounter for closed fracture (4) Schizophrenia Current visit: Yes Status: Chronic Qualifiers: Schizophrenia type: unspecified Qualified Code(s): F20.9 - Schizophrenia, unspecified Category: Medical Code(s): F20.9 - Schizophrenia, unspecified (5) Hypertension Current visit: No Status: Chronic Qualifiers: Hypertension type: essential hypertension Qualified Code(s): I10 - Essential (primary) hypertension Category: Medical Code(s): I10 - Essential (primary) hypertension (6) A-fib Current visit: Yes Status: Acute Qualifiers: Atrial fibrillation type: unspecified chronic Qualified Code(s): I48.20 - Chronic atrial fibrillation, unspecified; I48.2 - Chronic atrial fibrillation Category: Medical Code(s): I48.91 - Unspecified atrial fibrillation (7) Gastroesophageal reflux disease Current visit: No Status: Chronic Qualifiers: Esophagitis presence: esophagitis presence not specified Qualified Code(s): K21.9 - Gastro-esophageal reflux disease without esophagitis Category: Medical Code(s): K21.9 - Gastro-esophageal reflux disease without esophagitis (8) HLD (hyperlipidemia) Current visit: No Status: Chronic Qualifiers: Hyperlipidemia type: unspecified Qualified Code(s): E78.5 - Hyperlipidemia, unspecified Category: Medical Code(s): E78.5 - Hyperlipidemia, unspecified - Assessment and plan all Dx Assessment and Plan for all problems:: Rounded with Dr. Wadsworth all orders per Ananth Waiting for emergency guardianship for placement At this time patient is unable to feed self
--- NOTE | 2019-03-28 09:14 | Progress Note ---
Internal Medicine - PN: Subj *Date: 03/28/19 *Time: 09:10 Interval history: pt laying in bed, states no c/o Exam Vital signs and Labs for Last 24 Hours: Temp Pulse Resp BP Pulse Ox 98.7 F 84 19 179/77 H 93 L 03/28/19 08:00 03/28/19 08:00 03/28/19 08:00 03/28/19 08:00 03/28/19 08:00 I & O for Last 24 hours: Intake & Output 03/25/19 03/26/19 03/27/19 03/28/19 11:59 11:59 11:59 11:59 Intake Total 2777 / 2777 1312 / 1312 1830 / 1830 905 / 905 Output Total 1150 / 1150 1350 / 1350 1100 / 1100 Balance 1627 / 1627 -38 / -38 1830 / 1830 -195 / -195 Weight 171 lb 4 oz 170 lb 8 oz 168 lb 8 oz 168 lb 8 oz - Constitutional no acute distress - *Routine HEENT Exam Head: Present: normocephalic Eye: Present: PERRL, periorbital ecchymosis ENT: Present: mucous membranes moist Comments: bruising to eye,vessels in eye ruptured - *Routine Neck Exam Present: supple. Absent: lymphadenopathy - *Routine Respiratory Exam Present: CTA bilaterally - *Routine Cardiovascular Exam Present: RRR - *Routine Abdominal Exam Present: soft, normoactive bowel sounds. Absent: tenderness - *Routine Extremities Exam Present: normal capillary refill. Absent: cyanosis, clubbing, edema Comments: rt lower arm in splint, left arm in sling - *Routine Skin Exam Present: warm, ecchymosis. Absent: rash Comments: scattered bruising to knees, maricruz. rt cheek, scratches to back - *Routine Neurological Exam Present: alert, oriented X3 - Routine Psychiatric Exam Present: normal affect Assessment and Plan (1) Nasal bone fracture Current visit: Yes Status: Acute Qualifiers: Encounter type: initial encounter Fracture type: open Qualified Code(s): S02.2XXB - Fracture of nasal bones, initial encounter for open fracture Category: Medical Code(s): S02.2XXA - Fracture of nasal bones, initial encounter for closed fracture (2) Shoulder fracture, left Current visit: Yes Status: Acute Qualifiers: Encounter type: initial encounter Fracture type: closed Qualified Code(s): S42.92XA - Fracture of left shoulder girdle, part unspecified, initial encounter for closed fracture Category: Medical Code(s): S42.92XA - Fracture of left shoulder girdle, part unspecified, initial encounter for closed fracture (3) Wrist fracture, right Current visit: Yes Status: Acute Qualifiers: Encounter type: initial encounter Fracture type: closed Qualified Code(s): S62.101A - Fracture of unspecified carpal bone, right wrist, initial encounter for closed fracture Category: Medical Code(s): S62.101A - Fracture of unspecified carpal bone, right wrist, initial encounter for closed fracture (4) Schizophrenia Current visit: Yes Status: Chronic Qualifiers: Schizophrenia type: unspecified Qualified Code(s): F20.9 - Schizophrenia, unspecified Category: Medical Code(s): F20.9 - Schizophrenia, unspecified (5) Hypertension Current visit: No Status: Chronic Qualifiers: Hypertension type: essential hypertension Qualified Code(s): I10 - Essential (primary) hypertension Category: Medical Code(s): I10 - Essential (primary) hypertension (6) A-fib Current visit: Yes Status: Acute Qualifiers: Atrial fibrillation type: unspecified chronic Qualified Code(s): I48.20 - Chronic atrial fibrillation, unspecified; I48.2 - Chronic atrial fibrillation Category: Medical Code(s): I48.91 - Unspecified atrial fibrillation (7) Gastroesophageal reflux disease Current visit: No Status: Chronic Qualifiers: Esophagitis presence: esophagitis presence not specified Qualified Code(s): K21.9 - Gastro-esophageal reflux disease without esophagitis Category: Medical Code(s): K21.9 - Gastro-esophageal reflux disease without esophagitis (8) HLD (hyperlipidemia) Current visit: No Status: Chronic Qualifiers: Hyperlipidemia type: unspecified Qualified Code(s): E78.5 - Hyperlipidemia, unspecified Category: Medical Code(s): E78.5 - Hyperlipidemia, unspecified - Assessment and plan all Dx Assessment and Plan for all problems:: rounded with nilam all orders per nilam
--- NOTE | 2019-03-28 16:12 | Progress Note ---
Subjective Date: 03/28/19 Time: 16:09 Principal diagnosis: Fracture distal radius, right; fracture proximal humerus, left Interval history: 73-year-old white female in bed in no acute distress "just relaxing" with no complaints of chest pain, pressure or tightness. She does have a congested cough. Exam Vital signs and Labs for Last 24 Hours: Temp Pulse Resp BP Pulse Ox 97.8 F 72 18 177/81 H 99 03/28/19 11:55 03/28/19 12:00 03/28/19 11:55 03/28/19 13:00 03/28/19 11:55 I & O for Last 24 hours: Intake & Output 03/26/19 03/27/19 03/28/19 03/29/19 11:59 11:59 11:59 11:59 Intake Total 1312 / 1312 1830 / 1830 905 / 905 Output Total 1350 / 1350 1100 / 1100 450 / 450 Balance -38 / -38 1830 / 1830 -195 / -195 -450 / -450 Weight 170 lb 8 oz 168 lb 8 oz 168 lb 8 oz - *Routine Respiratory Exam Present: CTA bilaterally. Absent: accessory muscle use, rales, rhonchi, wheezes - *Routine Cardiovascular Exam Present: RRR. Absent: murmur, gallop, rubs - *Routine Extremities Exam Present: edema. Absent: calf tenderness - *Routine Neurological Exam Present: alert, oriented X3, moving all extremities Progress Note: A&P (1) Nasal bone fracture Status: Acute Current Visit: Yes (2) Shoulder fracture, left Status: Acute Current Visit: Yes (3) Wrist fracture, right Status: Acute Current Visit: Yes (4) Schizophrenia Status: Chronic Current Visit: Yes (5) Hypertension Status: Chronic Current Visit: No (6) A-fib Status: Acute Current Visit: Yes (7) Gastroesophageal reflux disease Status: Chronic Current Visit: No (8) HLD (hyperlipidemia) Status: Chronic Current Visit: No Assessment and Plan for All Diagnoses:: 1. Hypertension still not to goal. Irbesartan increased to 150 twice daily and hydrochlorothiazide added today. 2. History of A. fib but none on telemetry. Continue to hold anticoagulation. Continue metoprolol for rate control. 3. multiple fractures, healing 4. Stable from a cardiac standpoint. We will see as needed.
[2019-03-29 06:33] LABS: Basophils % 0.7 % (0.1-2.0); Eosinophils # 0.1 K/mm3 (0.0-0.4); Eosinophils % 1.5 % (0.1-12.0); Hematocrit 31.9 % (37.0-47.0); Hemoglobin 9.9 g/dL (12.2-16.2); Lymphocytes # 1.2 K/mm3 (0.7-4.5); Lymphocytes % 18.1 % (10-50); Mean Corpuscular HGB Conc 31.2 g/dL (31.8-35.4); Mean Corpuscular Volume 94.2 fl (81-99); Monocytes # 0.5 K/mm3 (0.1-1.0); Monocytes % 7.7 % (1.7-9.3); Neutrophils # 4.8 K/mm3 (1.8-7.8); Neutrophils % 72.1 % (37.0-80.0); Platelet Count 247 K/mm3 (142-424); Red Blood Count 3.39 M/mm3 (4.20-5.40); Red Cell Distribution Width 14.3 % (11.5-17.5); White Blood Count 6.6 K/mm3 (4.8-10.8)
[2019-03-29 07:04] LABS: Anion Gap 14.3 mEq/L (5-15); Calcium 8.4 mg/dL (8.5-10.1)
--- NOTE | 2019-03-29 08:34 | Progress Note ---
Internal Medicine - PN: Subj *Date: 03/29/19 *Time: 08:31 Interval history: sitting in chair - doing ok - low k on labs sec to hctz prob Exam Vital signs and Labs for Last 24 Hours: Temp Pulse Resp BP Pulse Ox 98.1 F 61 18 164/68 H 94 L 03/29/19 08:00 03/29/19 08:00 03/29/19 08:00 03/29/19 08:00 03/29/19 08:00 Laboratory Results - last 24 hr 03/29/19 06:07: WBC 6.6, RBC 3.39 L, Hgb 9.9 L, Hct 31.9 L, MCV 94.2, MCH 29.3, MCHC 31.2 L, RDW 14.3, Plt Count 247, MPV 8.0, Neut % (Auto) 72.1, Lymph % (Au to) 18.1, [place] % (Auto) 7.7, Eos % (Auto) 1.5, Baso % (Auto) 0.7, Neut # (Auto) 4.8, Lymph # (Auto) 1.2, [place] # (Auto) 0.5, Eos # (Auto) 0.1, Baso # (Auto) 0.0 03/29/19 06:07: Sodium 141, Potassium 2.3 L*, Chloride 102, Carbon Dioxide 27, Anion Gap 14.3, BUN 8, Creatinine 0.41 L, Estimated Creat Clear 58, Estimated GFR 152, Est GFR ( Amer) 184, Glucose 100, Calcium 8.4 L I & O for Last 24 hours: Intake & Output 03/26/19 03/27/19 03/28/19 03/29/19 11:59 11:59 11:59 11:59 Intake Total 1312 / 1312 183 / 1830 905 / 905 600 / 600 Output Total 1350 / 1350 1100 / 1100 1525 / 1525 Balance -38 / -38 183 / 1830 -195 / -195 -925 / -925 Weight 170 lb 8 oz 168 lb 8 oz 168 lb 8 oz 162 lb - Constitutional no acute distress - *Routine HEENT Exam Head: Present: normocephalic Eye: Present: EOMI, PERRL ENT: Present: mucous membranes dry - *Routine Neck Exam Absent: JVD - *Routine Respiratory Exam Present: CTA bilaterally - *Routine Cardiovascular Exam Present: RRR, murmur, S4 - *Routine Abdominal Exam Present: soft - *Routine Extremities Exam Comments: s/p fx - *Routine Skin Exam Comments: no new lesions - *Routine Neurological Exam Present: alert, CN II-XII intact - Routine Psychiatric Exam Present: normal affect Assessment and Plan (1) Nasal bone fracture Current visit: Yes Status: Acute Qualifiers: Encounter type: initial encounter Fracture type: open Qualified Code(s): S02.2XXB - Fracture of nasal bones, initial encounter for open fracture Category: Medical Code(s): S02.2XXA - Fracture of nasal bones, initial encounter for closed fracture (2) Shoulder fracture, left Current visit: Yes Status: Acute Qualifiers: Encounter type: initial encounter Fracture type: closed Qualified Code(s): S42.92XA - Fracture of left shoulder girdle, part unspecified, initial encounter for closed fracture Category: Medical Code(s): S42.92XA - Fracture of left shoulder girdle, part unspecified, initial encounter for closed fracture (3) Wrist fracture, right Current visit: Yes Status: Acute Qualifiers: Encounter type: initial encounter Fracture type: closed Qualified Code(s): S62.101A - Fracture of unspecified carpal bone, right wrist, initial encounter for closed fracture Category: Medical Code(s): S62.101A - Fracture of unspecified carpal bone, right wrist, initial encounter for closed fracture (4) Schizophrenia Current visit: Yes Status: Chronic Qualifiers: Schizophrenia type: unspecified Qualified Code(s): F20.9 - Schizophrenia, unspecified Category: Medical Code(s): F20.9 - Schizophrenia, unspecified (5) Hypertension Current visit: No Status: Chronic Qualifiers: Hypertension type: essential hypertension Qualified Code(s): I10 - Essential (primary) hypertension Category: Medical Code(s): I10 - Essential (primary) hypertension (6) A-fib Current visit: Yes Status: Acute Qualifiers: Atrial fibrillation type: unspecified chronic Qualified Code(s): I48.20 - Chronic atrial fibrillation, unspecified; I48.2 - Chronic atrial fibrillation Category: Medical Code(s): I48.91 - Unspecified atrial fibrillation (7) Gastroesophageal reflux disease Current visit: No Status: Chronic Qualifiers: Esophagitis presence: esophagitis presence not specified Qualified Code(s): K21.9 - Gastro-esophageal reflux disease without esophagitis Category: Medical Code(s): K21.9 - Gastro-esophageal reflux disease without esophagitis (8) HLD (hyperlipidemia) Current visit: No Status: Chronic Qualifiers: Hyperlipidemia type: unspecified Qualified Code(s): E78.5 - Hyperlipidemia, unspecified Category: Medical Code(s): E78.5 - Hyperlipidemia, unspecified (9) Hypokalemia Current visit: Yes Status: Acute Category: Medical Code(s): E87.6 - Hypokalemia
--- NOTE | 2019-03-30 08:15 | Progress Note ---
Internal Medicine - PN: Subj *Date: 03/30/19 *Time: 08:13 Interval history: doing ok - no specific c/o - labs pending Exam Vital signs and Labs for Last 24 Hours: Temp Pulse Resp BP Pulse Ox 97.5 F L 76 18 151/38 H 91 L 03/30/19 07:52 03/30/19 07:52 03/30/19 07:52 03/30/19 07:52 03/30/19 07:52 I & O for Last 24 hours: Intake & Output 03/27/19 03/28/19 03/29/19 03/30/19 11:59 11:59 11:59 11:59 Intake Total 1830 / 1830 905 / 905 600 / 600 1841 / 1841 Output Total 1100 / 1100 1525 / 1525 1575 / 1575 Balance 1830 / 1830 -195 / -195 -925 / -925 266 / 266 Weight 168 lb 8 oz 168 lb 8 oz 162 lb 163 lb 4 oz - Constitutional no acute distress - *Routine HEENT Exam Head: Present: normocephalic Eye: Present: EOMI, PERRL ENT: Present: mucous membranes dry - *Routine Neck Exam Absent: JVD - *Routine Respiratory Exam Present: decreased breath sounds - *Routine Cardiovascular Exam Present: RRR - *Routine Abdominal Exam Present: soft - *Routine Extremities Exam Comments: rt wrist splint - *Routine Skin Exam Present: intact - *Routine Neurological Exam Present: alert, CN II-XII intact - Routine Psychiatric Exam Present: normal affect Assessment and Plan (1) Nasal bone fracture Current visit: Yes Status: Acute Qualifiers: Encounter type: initial encounter Fracture type: open Qualified Code(s): S02.2XXB - Fracture of nasal bones, initial encounter for open fracture Category: Medical Code(s): S02.2XXA - Fracture of nasal bones, initial encounter for closed fracture (2) Shoulder fracture, left Current visit: Yes Status: Acute Qualifiers: Encounter type: initial encounter Fracture type: closed Qualified Code(s): S42.92XA - Fracture of left shoulder girdle, part unspecified, initial encounter for closed fracture Category: Medical Code(s): S42.92XA - Fracture of left shoulder girdle, part unspecified, initial encounter for closed fracture (3) Wrist fracture, right Current visit: Yes Status: Acute Qualifiers: Encounter type: initial encounter Fracture type: closed Qualified Code(s): S62.101A - Fracture of unspecified carpal bone, right wrist, initial encounter for closed fracture Category: Medical Code(s): S62.101A - Fracture of unspecified carpal bone, right wrist, initial encounter for closed fracture (4) Schizophrenia Current visit: Yes Status: Chronic Qualifiers: Schizophrenia type: unspecified Qualified Code(s): F20.9 - Schizophrenia, unspecified Category: Medical Code(s): F20.9 - Schizophrenia, unspecified (5) Hypertension Current visit: No Status: Chronic Qualifiers: Hypertension type: essential hypertension Qualified Code(s): I10 - Essential (primary) hypertension Category: Medical Code(s): I10 - Essential (primary) hypertension (6) A-fib Current visit: Yes Status: Acute Qualifiers: Atrial fibrillation type: unspecified chronic Qualified Code(s): I48.20 - Chronic atrial fibrillation, unspecified; I48.2 - Chronic atrial fibrillation Category: Medical Code(s): I48.91 - Unspecified atrial fibrillation (7) Gastroesophageal reflux disease Current visit: No Status: Chronic Qualifiers: Esophagitis presence: esophagitis presence not specified Qualified Code(s): K21.9 - Gastro-esophageal reflux disease without esophagitis Category: Medical Code(s): K21.9 - Gastro-esophageal reflux disease without esophagitis (8) HLD (hyperlipidemia) Current visit: No Status: Chronic Qualifiers: Hyperlipidemia type: unspecified Qualified Code(s): E78.5 - Hyperlipidemia, unspecified Category: Medical Code(s): E78.5 - Hyperlipidemia, unspecified (9) Hypokalemia Current visit: Yes Status: Acute Category: Medical Code(s): E87.6 - Hypokalemia
[2019-03-30 08:36] LABS: Basophils % 0.4 % (0.1-2.0); Eosinophils # 0.1 K/mm3 (0.0-0.4); Eosinophils % 1.6 % (0.1-12.0); Hematocrit 32.6 % (37.0-47.0); Hemoglobin 10.8 g/dL (12.2-16.2); Lymphocytes % 14.1 % (10-50); Mean Corpuscular Volume 92.8 fl (81-99); Mean Platelet Volume 8.7 fl (7.4-10.4); Monocytes # 0.5 K/mm3 (0.1-1.0); Monocytes % 6.6 % (1.7-9.3); Neutrophils # 5.6 K/mm3 (1.8-7.8); Neutrophils % 77.4 % (37.0-80.0); Platelet Count 263 K/mm3 (142-424); Red Blood Count 3.52 M/mm3 (4.20-5.40); Red Cell Distribution Width 14.3 % (11.5-17.5); White Blood Count 7.2 K/mm3 (4.8-10.8)
[2019-03-30 08:43] LABS: Anion Gap 14.3 mEq/L (5-15); Calcium 8.5 mg/dL (8.5-10.1)
--- NOTE | 2019-03-31 09:13 | Progress Note ---
Subjective Date: 03/31/19 Time: 09:09 Principal diagnosis: Fracture distal radius, right; fracture proximal humerus, left Interval history: 73-year-old white female in bedside chair in no acute distress. States she did not rest well last night but denies any chest pain, pressure or tightness. Telemetry continues to show sinus with intermittent PACs and brief PAT Exam Vital signs and Labs for Last 24 Hours: Temp Pulse Resp BP Pulse Ox 97.6 F 85 18 132/60 96 03/31/19 04:00 03/31/19 04:00 03/31/19 04:00 03/31/19 04:00 03/31/19 04:00 I & O for Last 24 hours: Intake & Output 03/28/19 03/29/19 03/30/19 03/31/19 11:59 11:59 11:59 11:59 Intake Total 905 / 905 600 / 600 1841 / 1841 1683 / 1683 Output Total 1100 / 1100 1525 / 1525 1575 / 1575 780 / 780 Balance -195 / -195 -925 / -925 266 / 266 903 / 903 Weight 168 lb 8 oz 162 lb 163 lb 4 oz 159 lb 5.99 oz - *Routine HEENT Exam Head: Present: normocephalic Eye: Present: EOMI, PERRL ENT: Present: mucous membranes moist - *Routine Respiratory Exam Present: CTA bilaterally. Absent: accessory muscle use, rales, rhonchi, wheezes Comments: Decreased breath sounds left lung base posteriorly - *Routine Cardiovascular Exam Present: RRR. Absent: murmur, gallop, rubs - *Routine Extremities Exam Absent: edema, calf tenderness - *Routine Neurological Exam Present: alert, oriented X3, moving all extremities Progress Note: A&P (1) Nasal bone fracture Status: Acute Current Visit: Yes (2) Shoulder fracture, left Status: Acute Current Visit: Yes (3) Wrist fracture, right Status: Acute Current Visit: Yes (4) Schizophrenia Status: Chronic Current Visit: Yes (5) Hypertension Status: Chronic Current Visit: No (6) A-fib Status: Acute Current Visit: Yes (7) Gastroesophageal reflux disease Status: Chronic Current Visit: No (8) HLD (hyperlipidemia) Status: Chronic Current Visit: No (9) Hypokalemia Status: Acute Current Visit: Yes Assessment and Plan for All Diagnoses:: 1. Potassium replacement has been ordered 2. Check magnesium level and replace if needed 3. Continue current medications but will increase metoprolol and decrease Norvasc in the setting of atrial ectopy. 4. A[address] court date later this week and potential residential placement thereafter 5. Cardiac status stable.
--- NOTE | 2019-03-31 09:27 | Progress Note ---
Internal Medicine - PN: Subj *Date: 03/31/19 *Time: 09:25 Interval history: not as active - read card note - no specific c/o - will await labs Exam Vital signs and Labs for Last 24 Hours: Temp Pulse Resp BP Pulse Ox 98.4 F 86 18 154/67 H 94 L 03/31/19 08:00 03/31/19 08:00 03/31/19 08:00 03/31/19 08:00 03/31/19 08:00 Laboratory Results - last 24 hr 03/31/19 08:06: Magnesium 1.7 I & O for Last 24 hours: Intake & Output 03/28/19 03/29/19 03/30/19 03/31/19 11:59 11:59 11:59 11:59 Intake Total 905 / 905 600 / 600 1841 / 1841 2043 / 2043 Output Total 1100 / 1100 1525 / 1525 1575 / 1575 930 / 930 Balance -195 / -195 -925 / -925 266 / 266 1113 / 1113 Weight 168 lb 8 oz 162 lb 163 lb 4 oz 159 lb 5.99 oz - Constitutional no acute distress, somnolent - *Routine HEENT Exam Head: Present: normocephalic Eye: Present: EOMI, PERRL ENT: Present: mucous membranes dry - *Routine Neck Exam Present: supple. Absent: JVD - *Routine Respiratory Exam Present: CTA bilaterally - *Routine Cardiovascular Exam Present: RRR - *Routine Abdominal Exam Present: soft - *Routine Extremities Exam Absent: calf tenderness - *Routine Skin Exam Present: intact - *Routine Neurological Exam Present: alert, CN II-XII intact - Routine Psychiatric Exam Present: cooperative. Absent: good insight Assessment and Plan (1) Nasal bone fracture Current visit: Yes Status: Acute Qualifiers: Encounter type: initial encounter Fracture type: open Qualified Code(s): S02.2XXB - Fracture of nasal bones, initial encounter for open fracture Category: Medical Code(s): S02.2XXA - Fracture of nasal bones, initial encounter for closed fracture (2) Shoulder fracture, left Current visit: Yes Status: Acute Qualifiers: Encounter type: initial encounter Fracture type: closed Qualified Code(s): S42.92XA - Fracture of left shoulder girdle, part unspecified, initial encounter for closed fracture Category: Medical Code(s): S42.92XA - Fracture of left shoulder girdle, part unspecified, initial encounter for closed fracture (3) Wrist fracture, right Current visit: Yes Status: Acute Qualifiers: Encounter type: initial encounter Fracture type: closed Qualified Code(s): S62.101A - Fracture of unspecified carpal bone, right wrist, initial encounter for closed fracture Category: Medical Code(s): S62.101A - Fracture of unspecified carpal bone, right wrist, initial encounter for closed fracture (4) Schizophrenia Current visit: Yes Status: Chronic Qualifiers: Schizophrenia type: unspecified Qualified Code(s): F20.9 - Schizophrenia, unspecified Category: Medical Code(s): F20.9 - Schizophrenia, unspecified (5) Hypertension Current visit: No Status: Chronic Qualifiers: Hypertension type: essential hypertension Qualified Code(s): I10 - Essential (primary) hypertension Category: Medical Code(s): I10 - Essential (primary) hypertension (6) A-fib Current visit: Yes Status: Acute Qualifiers: Atrial fibrillation type: unspecified chronic Qualified Code(s): I48.20 - Chronic atrial fibrillation, unspecified; I48.2 - Chronic atrial fibrillation Category: Medical Code(s): I48.91 - Unspecified atrial fibrillation (7) Gastroesophageal reflux disease Current visit: No Status: Chronic Qualifiers: Esophagitis presence: esophagitis presence not specified Qualified Code(s): K21.9 - Gastro-esophageal reflux disease without esophagitis Category: Medical Code(s): K21.9 - Gastro-esophageal reflux disease without esophagitis (8) HLD (hyperlipidemia) Current visit: No Status: Chronic Qualifiers: Hyperlipidemia type: unspecified Qualified Code(s): E78.5 - Hyperlipidemia, unspecified Category: Medical Code(s): E78.5 - Hyperlipidemia, unspecified (9) Hypokalemia Current visit: Yes Status: Acute Category: Medical Code(s): E87.6 - Hypokalemia
[2019-03-31 10:02] LABS: Basophils % 0.6 % (0.1-2.0); Eosinophils # 0.2 K/mm3 (0.0-0.4); Hematocrit 36.1 % (37.0-47.0); Hemoglobin 11.6 g/dL (12.2-16.2); Lymphocytes # 1.2 K/mm3 (0.7-4.5); Lymphocytes % 16.3 % (10-50); Mean Corpuscular HGB Conc 32.2 g/dL (31.8-35.4); Mean Corpuscular Volume 95.2 fl (81-99); Mean Platelet Volume 8.2 fl (7.4-10.4); Monocytes # 0.5 K/mm3 (0.1-1.0); Monocytes % 6.3 % (1.7-9.3); Neutrophils # 5.6 K/mm3 (1.8-7.8); Neutrophils % 74.9 % (37.0-80.0); Platelet Count 310 K/mm3 (142-424); Red Blood Count 3.79 M/mm3 (4.20-5.40); Red Cell Distribution Width 14.5 % (11.5-17.5); White Blood Count 7.4 K/mm3 (4.8-10.8)
[2019-03-31 10:36] LABS: Anion Gap 14.4 mEq/L (5-15); Calcium 8.8 mg/dL (8.5-10.1)
[2019-04-01 08:56] LABS: Basophils % 0.6 % (0.1-2.0); Eosinophils # 0.2 K/mm3 (0.0-0.4); Eosinophils % 2.4 % (0.1-12.0); Hematocrit 35.9 % (37.0-47.0); Hemoglobin 11.4 g/dL (12.2-16.2); Lymphocytes # 1.5 K/mm3 (0.7-4.5); Lymphocytes % 21.7 % (10-50); Mean Corpuscular HGB Conc 31.8 g/dL (31.8-35.4); Mean Corpuscular Volume 96.3 fl (81-99); Mean Platelet Volume 8.8 fl (7.4-10.4); Monocytes # 0.4 K/mm3 (0.1-1.0); Monocytes % 5.5 % (1.7-9.3); Neutrophils # 4.8 K/mm3 (1.8-7.8); Neutrophils % 69.8 % (37.0-80.0); Platelet Count 297 K/mm3 (142-424); Red Blood Count 3.73 M/mm3 (4.20-5.40); Red Cell Distribution Width 14.6 % (11.5-17.5); White Blood Count 6.9 K/mm3 (4.8-10.8)
[2019-04-01 09:01] LABS: Anion Gap 13.3 mEq/L (5-15); Calcium 8.4 mg/dL (8.5-10.1)
--- NOTE | 2019-04-01 09:05 | Progress Note ---
Internal Medicine - PN: Subj *Date: 04/01/19 *Time: 09:02 Interval history: Pt sitting up in chair states doing ok. waiting for guardianship for rehab Exam Vital signs and Labs for Last 24 Hours: Temp Pulse Resp BP Pulse Ox 98.4 F 85 18 145/76 H 96 04/01/19 07:46 04/01/19 07:46 04/01/19 07:46 04/01/19 07:46 04/01/19 07:46 Laboratory Results - last 24 hr 03/31/19 08:06: Magnesium 1.7 03/31/19 09:55: WBC 7.4, RBC 3.79 L, Hgb 11.6 L, Hct 36.1 L, MCV 95.2, MCH 30.6, MCHC 32.2, RDW 14.5, Plt Count 310, MPV 8.2, Neut % (Auto) 74.9, Lymph % (Auto) 16.3, [place] % (Auto) 6.3, Eos % (Auto) 2.0, Baso % (Auto) 0.6, Neut # (Auto) 5.6, Lymph # (Auto) 1.2, [place] # (Auto) 0.5, Eos # (Auto) 0.2, Baso # (Auto) 0.0 03/31/19 09:55: Sodium 140, Potassium 2.4 L*, Chloride 102, Carbon Dioxide 26, Anion Gap 14.4, BUN 7 D, Creatinine 0.47 L, Estimated Creat Clear 57, Estimated GFR 130, Est GFR ( Amer) 157, Glucose 157 H, Calcium 8.8 I & O for Last 24 hours: Intake & Output 03/29/19 03/30/19 03/31/19 04/01/19 11:59 11:59 11:59 11:59 Intake Total 600 / 600 1841 / 1841 2143 / 2143 1128 / 1128 Output Total 1525 / 1525 1575 / 1575 930 / 930 600 / 600 Balance -925 / -925 266 / 266 1213 / 1213 528 / 528 Weight 162 lb 163 lb 4 oz 159 lb 5.99 oz 163 lb 11.2 oz - Constitutional no acute distress - *Routine HEENT Exam Head: Present: normocephalic Eye: Present: PERRL ENT: Present: mucous membranes moist Comments: dressing to nose - *Routine Neck Exam Present: supple. Absent: lymphadenopathy - *Routine Respiratory Exam Present: CTA bilaterally - *Routine Cardiovascular Exam Present: RRR - *Routine Abdominal Exam Present: soft, normoactive bowel sounds. Absent: tenderness - *Routine Extremities Exam Present: full ROM, normal capillary refill. Absent: cyanosis, clubbing, edema - *Routine Skin Exam Present: warm, ecchymosis. Absent: rash Comments: bruising to face, maricruz knees, and scratches to back - *Routine Neurological Exam Present: alert, oriented X3 - Routine Psychiatric Exam Present: normal affect Assessment and Plan (1) Nasal bone fracture Current visit: Yes Status: Acute Qualifiers: Encounter type: initial encounter Fracture type: open Qualified Code(s): S02.2XXB - Fracture of nasal bones, initial encounter for open fracture Category: Medical Code(s): S02.2XXA - Fracture of nasal bones, initial encounter for closed fracture (2) Shoulder fracture, left Current visit: Yes Status: Acute Qualifiers: Encounter type: initial encounter Fracture type: closed Qualified Code(s): S42.92XA - Fracture of left shoulder girdle, part unspecified, initial encounter for closed fracture Category: Medical Code(s): S42.92XA - Fracture of left shoulder girdle, part unspecified, initial encounter for closed fracture (3) Wrist fracture, right Current visit: Yes Status: Acute Qualifiers: Encounter type: initial encounter Fracture type: closed Qualified Code(s): S62.101A - Fracture of unspecified carpal bone, right wrist, initial encounter for closed fracture Category: Medical Code(s): S62.101A - Fracture of unspecified carpal bone, right wrist, initial encounter for closed fracture (4) Schizophrenia Current visit: Yes Status: Chronic Qualifiers: Schizophrenia type: unspecified Qualified Code(s): F20.9 - Schizophrenia, unspecified Category: Medical Code(s): F20.9 - Schizophrenia, unspecified (5) Hypertension Current visit: No Status: Chronic Qualifiers: Hypertension type: essential hypertension Qualified Code(s): I10 - Essential (primary) hypertension Category: Medical Code(s): I10 - Essential (primary) hypertension (6) A-fib Current visit: Yes Status: Acute Qualifiers: Atrial fibrillation type: unspecified chronic Qualified Code(s): I48.20 - Chronic atrial fibrillation, unspecified; I48.2 - Chronic atrial fibrillation Category: Medical Code(s): I48.91 - Unspecified atrial fibrillation (7) Gastroesophageal reflux disease Current visit: No Status: Chronic Qualifiers: Esophagitis presence: esophagitis presence not specified Qualified Code(s): K21.9 - Gastro-esophageal reflux disease without esophagitis Category: Medical Code(s): K21.9 - Gastro-esophageal reflux disease without esophagitis (8) HLD (hyperlipidemia) Current visit: No Status: Chronic Qualifiers: Hyperlipidemia type: unspecified Qualified Code(s): E78.5 - Hyperlipidemia, unspecified Category: Medical Code(s): E78.5 - Hyperlipidemia, unspecified (9) Hypokalemia Current visit: Yes Status: Acute Category: Medical Code(s): E87.6 - Hypokalemia - Assessment and plan all Dx Assessment and Plan for all problems:: rounded with nilam all orders per nilam wait hearing for guardianship for transfer to rehab
[2019-04-02 06:13] LABS: Basophils # 0.1 K/mm3 (0-0.2); Basophils % 0.7 % (0.1-2.0); Eosinophils # 0.2 K/mm3 (0.0-0.4); Eosinophils % 2.8 % (0.1-12.0); Hematocrit 32.5 % (37.0-47.0); Hemoglobin 10.4 g/dL (12.2-16.2); Lymphocytes # 1.5 K/mm3 (0.7-4.5); Lymphocytes % 22.2 % (10-50); Mean Corpuscular Volume 94.8 fl (81-99); Mean Platelet Volume 8.5 fl (7.4-10.4); Monocytes # 0.5 K/mm3 (0.1-1.0); Monocytes % 6.7 % (1.7-9.3); Neutrophils # 4.6 K/mm3 (1.8-7.8); Neutrophils % 67.6 % (37.0-80.0); Platelet Count 269 K/mm3 (142-424); Red Blood Count 3.42 M/mm3 (4.20-5.40); Red Cell Distribution Width 14.7 % (11.5-17.5); White Blood Count 6.8 K/mm3 (4.8-10.8)
[2019-04-02 06:26] LABS: Anion Gap 13.7 mEq/L (5-15); Calcium 8.4 mg/dL (8.5-10.1)
--- NOTE | 2019-04-02 08:57 | Progress Note ---
Internal Medicine - PN: Subj *Date: 04/02/19 *Time: 08:56 Interval history: doing ok - looks good Exam Vital signs and Labs for Last 24 Hours: Temp Pulse Resp BP Pulse Ox 97.7 F 76 20 114/60 95 04/02/19 08:00 04/02/19 08:00 04/02/19 08:00 04/02/19 08:00 04/02/19 08:00 Laboratory Results - last 24 hr 04/01/19 08:35: WBC 6.9, RBC 3.73 L, Hgb 11.4 L, Hct 35.9 L, MCV 96.3, MCH 30.6, MCHC 31.8, RDW 14.6, Plt Count 297, MPV 8.8, Neut % (Auto) 69.8, Lymph % (Auto) 21.7, [place] % (Auto) 5.5, Eos % (Auto) 2.4, Baso % (Auto) 0.6, Neut # (Auto) 4.8, Lymph # (Auto) 1.5, [place] # (Auto) 0.4, Eos # (Auto) 0.2, Baso # (Auto) 0.0 04/01/19 08:35: Sodium 139, Potassium 3.3 L D, Chloride 105, Carbon Dioxide 24, Anion Gap 13.3, BUN 11 D, Creatinine 0.66 D, Estimated Creat Clear 59, Estimated GFR 88, Est GFR ( Amer) 106 D, Glucose 137 H, Calcium 8.4 L 04/02/19 06:02: WBC 6.8, RBC 3.42 L, Hgb 10.4 L, Hct 32.5 L, MCV 94.8, MCH 30.3, MCHC 32.0, RDW 14.7, Plt Count 269, MPV 8.5, Neut % (Auto) 67.6, Lymph % (Auto) 22.2, [place] % (Auto) 6.7, Eos % (Auto) 2.8, Baso % (Auto) 0.7, Neut # (Auto) 4.6, Lymph # (Auto) 1.5, [place] # (Auto) 0.5, Eos # (Auto) 0.2, Baso # (Auto) 0.1 04/02/19 06:02: Sodium 139, Potassium 3.7, Chloride 105, Carbon Dioxide 24, Anion Gap 13.7, BUN 11, Creatinine 0.46 L D, Estimated Creat Clear 58, Estimated GFR 133, Est GFR ( Amer) 161 D, Glucose 104 D, Calcium 8.4 L I & O for Last 24 hours: Intake & Output 03/30/19 03/31/19 04/01/19 04/02/19 11:59 11:59 11:59 11:59 Intake Total 1841 / 1841 2143 / 2143 1128 / 1128 2131 / 2131 Output Total 1575 / 1575 930 / 930 600 / 600 1200 / 1200 Balance 266 / 266 1213 / 1213 528 / 528 931 / 931 Weight 163 lb 4 oz 159 lb 5.99 oz 163 lb 11.2 oz 162 lb 3 oz - Constitutional no acute distress - *Routine HEENT Exam Head: Present: normocephalic Eye: Present: EOMI, PERRL ENT: Present: mucous membranes dry - *Routine Neck Exam Present: supple - *Routine Respiratory Exam Present: CTA bilaterally - *Routine Cardiovascular Exam Present: RRR, murmur - *Routine Abdominal Exam Present: soft - *Routine Extremities Exam Absent: Luiza's sign - *Routine Skin Exam Present: intact - *Routine Neurological Exam Present: alert, oriented X3, CN II-XII intact - Routine Psychiatric Exam Present: normal affect Assessment and Plan (1) Nasal bone fracture Current visit: Yes Status: Acute Qualifiers: Encounter type: initial encounter Fracture type: open Qualified Code(s): S02.2XXB - Fracture of nasal bones, initial encounter for open fracture Category: Medical Code(s): S02.2XXA - Fracture of nasal bones, initial encounter for closed fracture (2) Shoulder fracture, left Current visit: Yes Status: Acute Qualifiers: Encounter type: initial encounter Fracture type: closed Qualified Code(s): S42.92XA - Fracture of left shoulder girdle, part unspecified, initial encounter for closed fracture Category: Medical Code(s): S42.92XA - Fracture of left shoulder girdle, part unspecified, initial encounter for closed fracture (3) Wrist fracture, right Current visit: Yes Status: Acute Qualifiers: Encounter type: initial encounter Fracture type: closed Qualified Code(s): S62.101A - Fracture of unspecified carpal bone, right wrist, initial encounter for closed fracture Category: Medical Code(s): S62.101A - Fracture of unspecified carpal bone, right wrist, initial encounter for closed fracture (4) Schizophrenia Current visit: Yes Status: Chronic Qualifiers: Schizophrenia type: unspecified Qualified Code(s): F20.9 - Schizophrenia, unspecified Category: Medical Code(s): F20.9 - Schizophrenia, unspecified (5) Hypertension Current visit: No Status: Chronic Qualifiers: Hypertension type: essential hypertension Qualified Code(s): I10 - Essential (primary) hypertension Category: Medical Code(s): I10 - Essential (primary) hypertension (6) A-fib Current visit: Yes Status: Acute Qualifiers: Atrial fibrillation type: unspecified chronic Qualified Code(s): I48.20 - Chronic atrial fibrillation, unspecified; I48.2 - Chronic atrial fibrillation Category: Medical Code(s): I48.91 - Unspecified atrial fibrillation (7) Gastroesophageal reflux disease Current visit: No Status: Chronic Qualifiers: Esophagitis presence: esophagitis presence not specified Qualified Code(s): K21.9 - Gastro-esophageal reflux disease without esophagitis Category: Medical Code(s): K21.9 - Gastro-esophageal reflux disease without esophagitis (8) HLD (hyperlipidemia) Current visit: No Status: Chronic Qualifiers: Hyperlipidemia type: unspecified Qualified Code(s): E78.5 - Hyperlipidemia, unspecified Category: Medical Code(s): E78.5 - Hyperlipidemia, unspecified (9) Hypokalemia Current visit: Yes Status: Acute Category: Medical Code(s): E87.6 - Hypokalemia
--- NOTE | 2019-04-02 10:08 | Progress Note ---
Subjective Date: 04/02/19 Time: 10:05 Principal diagnosis: Fracture distal radius, right; fracture proximal humerus, left Interval history: The patient is sitting up in the chair drinking water when I enter the room. She appears to be in no distress. She denies any chest pain or pressure this morning. She denies any shortness of breath or edema. She denies any fever, chills, nausea, vomiting, diarrhea, PND orthopnea. She denies any pain any where and states that she feels well. Exam Vital signs and Labs for Last 24 Hours: Temp Pulse Resp BP Pulse Ox 97.7 F 76 20 114/60 95 04/02/19 08:00 04/02/19 08:00 04/02/19 08:00 04/02/19 08:00 04/02/19 08:00 Laboratory Results - last 24 hr 04/02/19 06:02: WBC 6.8, RBC 3.42 L, Hgb 10.4 L, Hct 32.5 L, MCV 94.8, MCH 30.3, MCHC 32.0, RDW 14.7, Plt Count 269, MPV 8.5, Neut % (Auto) 67.6, Lymph % (Auto) 22.2, [place] % (Auto) 6.7, Eos % (Auto) 2.8, Baso % (Auto) 0.7, Neut # (Auto) 4.6, Lymph # (Auto) 1.5, [place] # (Auto) 0.5, Eos # (Auto) 0.2, Baso # (Auto) 0.1 04/02/19 06:02: Sodium 139, Potassium 3.7, Chloride 105, Carbon Dioxide 24, Anion Gap 13.7, BUN 11, Creatinine 0.46 L D, Estimated Creat Clear 58, Estimated GFR 133, Est GFR ( Amer) 161 D, Glucose 104 D, Calcium 8.4 L I & O for Last 24 hours: Intake & Output 03/30/19 03/31/19 04/01/19 04/02/19 23:59 23:59 23:59 23:59 Intake Total 1867 / 1867 1157 / 1277 2103 / 2103 1036 / 1036 Output Total 1105 / 1305 950 / 950 300 / 300 900 / 900 Balance 762 / 562 207 / 327 1803 / 1803 136 / 136 Weight 163 lb 4 oz 159 lb 5.99 oz 163 lb 11.2 oz 162 lb 3 oz Narrative: Telemetry strip is sinus rhythm with a rate of 71. - Constitutional no acute distress, average body habitus - *Routine HEENT Exam Head: Present: normocephalic Eye: Present: EOMI, PERRL ENT: Present: mucous membranes moist Comments: Bruising noted to her face from fall - *Routine Neck Exam Present: supple, full ROM, normal carotid upstroke. Absent: JVD, carotid bruit, lymphadenopathy - *Routine Respiratory Exam Present: CTA bilaterally - *Routine Cardiovascular Exam Present: RRR, Normal S1, Normal S2. Absent: murmur - *Routine Abdominal Exam Present: soft, normoactive bowel sounds. Absent: tenderness, distended - *Routine Extremities Exam Present: full ROM, pulses intact, normal capillary refill. Absent: cyanosis, clubbing, edema - *Routine Skin Exam Present: intact, warm. Absent: erythema, rash - *Routine Neurological Exam Present: alert, oriented X3, CN II-XII intact. Absent: sensory deficit, motor deficit - Detailed Eye Exam Eyelids: Left normal inspection Progress Note: A&P (1) Nasal bone fracture Status: Acute Current Visit: Yes (2) Shoulder fracture, left Status: Acute Current Visit: Yes (3) Wrist fracture, right Status: Acute Current Visit: Yes (4) Schizophrenia Status: Chronic Current Visit: Yes (5) Hypertension Status: Chronic Current Visit: No (6) A-fib Status: Acute Current Visit: Yes (7) Gastroesophageal reflux disease Status: Chronic Current Visit: No (8) HLD (hyperlipidemia) Status: Chronic Current Visit: No (9) Hypokalemia Status: Acute Current Visit: Yes Assessment and Plan for All Diagnoses:: Plan: 1. Patient remains in sinus rhythm this morning with good rate control. 2. She denies any chest pain or pressure. 3. Her blood pressure is excellent. 4. Her LDL goal is less than 100. 5. The patient is awaiting a court date to be granted wart of the state status in order to be sent to the [facility]. 6. The patient is stable for a cardiac standpoint for transfer to the [facility] when indicated. Thank you for the opportunity to help participate in the care of this patient.
--- NOTE | 2019-04-02 13:08 | Progress Note ---
Subjective Date: 04/02/19 Time: 12:00 Principal diagnosis: Fracture distal radius, right; fracture proximal humerus, left PN: Obj Ex Vital signs: Temp Pulse Resp BP Pulse Ox 97.7 F 76 20 114/60 95 04/02/19 08:00 04/02/19 08:00 04/02/19 08:00 04/02/19 08:00 04/02/19 08:00 Narrative: Laboratory Results - last 24 hr 04/02/19 06:02: WBC 6.8, RBC 3.42 L, Hgb 10.4 L, Hct 32.5 L, MCV 94.8, MCH 30.3, MCHC 32.0, RDW 14.7, Plt Count 269, MPV 8.5, Neut % (Auto) 67.6, Lymph % (Auto) 22.2, [place] % (Auto) 6.7, Eos % (Auto) 2.8, Baso % (Auto) 0.7, Neut # (Auto) 4.6, Lymph # (Auto) 1.5, [place] # (Auto) 0.5, Eos # (Auto) 0.2, Baso # (Auto) 0.1 04/02/19 06:02: Sodium 139, Potassium 3.7, Chloride 105, Carbon Dioxide 24, Anion Gap 13.7, BUN 11, Creatinine 0.46 L D, Estimated Creat Clear 58, Estimated GFR 133, Est GFR ( Amer) 161 D, Glucose 104 D, Calcium 8.4 L - Urinary Catheter Management Mendoza Cath placed during this visit: no Progress Note: A&P (1) Nasal bone fracture Status: Acute Current Visit: Yes (2) Shoulder fracture, left Status: Acute Current Visit: Yes (3) Wrist fracture, right Status: Acute Current Visit: Yes (4) Schizophrenia Status: Chronic Current Visit: Yes (5) Hypertension Status: Chronic Current Visit: No (6) A-fib Status: Acute Current Visit: Yes (7) Gastroesophageal reflux disease Status: Chronic Current Visit: No (8) HLD (hyperlipidemia) Status: Chronic Current Visit: No (9) Hypokalemia Status: Acute Current Visit: Yes
--- NOTE | 2019-04-03 09:07 | Progress Note ---
Internal Medicine - PN: Subj *Date: 04/03/19 *Time: 09:03 Interval history: pt sitting up in chair voiced no c/o. Exam Vital signs and Labs for Last 24 Hours: Temp Pulse Resp BP Pulse Ox 98.3 F 71 18 128/76 94 L 04/03/19 07:45 04/03/19 07:45 04/03/19 07:45 04/03/19 07:45 04/03/19 07:45 I & O for Last 24 hours: Intake & Output 03/31/19 04/01/19 04/02/19 04/03/19 11:59 11:59 11:59 11:59 Intake Total 2143 / 2143 1128 / 1128 213 / 1 1968 / 1968 Output Total 930 / 930 600 / 600 1200 / 1200 650 / 650 Balance 1213 / 1213 528 / 528 931 / 931 1319 / 1319 Weight 159 lb 5.99 oz 163 lb 11.2 oz 162 lb 3 oz 162 lb 3 oz - Constitutional no acute distress - *Routine HEENT Exam Head: Present: normocephalic Eye: Present: PERRL ENT: Present: mucous membranes moist - *Routine Neck Exam Present: supple. Absent: lymphadenopathy - *Routine Respiratory Exam Present: CTA bilaterally - *Routine Cardiovascular Exam Present: RRR - *Routine Abdominal Exam Present: soft, normoactive bowel sounds. Absent: tenderness - *Routine Extremities Exam Present: full ROM, pulses intact, normal capillary refill. Absent: cyanosis, clubbing, edema - *Routine Skin Exam Present: warm, ecchymosis. Absent: rash - *Routine Neurological Exam Present: alert, oriented X3 - Routine Psychiatric Exam Present: normal affect Assessment and Plan (1) Nasal bone fracture Current visit: Yes Status: Acute Qualifiers: Encounter type: initial encounter Fracture type: open Qualified Code(s): S02.2XXB - Fracture of nasal bones, initial encounter for open fracture Category: Medical Code(s): S02.2XXA - Fracture of nasal bones, initial encounter for closed fracture (2) Shoulder fracture, left Current visit: Yes Status: Acute Qualifiers: Encounter type: initial encounter Fracture type: closed Qualified Code(s): S42.92XA - Fracture of left shoulder girdle, part unspecified, initial encounter for closed fracture Category: Medical Code(s): S42.92XA - Fracture of left shoulder girdle, part unspecified, initial encounter for closed fracture (3) Wrist fracture, right Current visit: Yes Status: Acute Qualifiers: Encounter type: initial encounter Fracture type: closed Qualified Code(s): S62.101A - Fracture of unspecified carpal bone, right wrist, initial encounter for closed fracture Category: Medical Code(s): S62.101A - Fracture of unspecified carpal bone, right wrist, initial encounter for closed fracture (4) Schizophrenia Current visit: Yes Status: Chronic Qualifiers: Schizophrenia type: unspecified Qualified Code(s): F20.9 - Schizophrenia, unspecified Category: Medical Code(s): F20.9 - Schizophrenia, unspecified (5) Hypertension Current visit: No Status: Chronic Qualifiers: Hypertension type: essential hypertension Qualified Code(s): I10 - Essential (primary) hypertension Category: Medical Code(s): I10 - Essential (primary) hypertension (6) A-fib Current visit: Yes Status: Acute Qualifiers: Atrial fibrillation type: unspecified chronic Qualified Code(s): I48.20 - Chronic atrial fibrillation, unspecified; I48.2 - Chronic atrial fibrillation Category: Medical Code(s): I48.91 - Unspecified atrial fibrillation (7) Gastroesophageal reflux disease Current visit: No Status: Chronic Qualifiers: Esophagitis presence: esophagitis presence not specified Qualified Code(s): K21.9 - Gastro-esophageal reflux disease without esophagitis Category: Medical Code(s): K21.9 - Gastro-esophageal reflux disease without esophagitis (8) HLD (hyperlipidemia) Current visit: No Status: Chronic Qualifiers: Hyperlipidemia type: unspecified Qualified Code(s): E78.5 - Hyperlipidemia, unspecified Category: Medical Code(s): E78.5 - Hyperlipidemia, unspecified (9) Hypokalemia Current visit: Yes Status: Acute Category: Medical Code(s): E87.6 - Hypokalemia - Assessment and plan all Dx Assessment and Plan for all problems:: rounded with nilam all orders per nilam waiting for hearing for guardianship, then transfer to [facility] for rehab
--- NOTE | 2019-04-03 12:15 | Discharge Summary ---
General - General Admission date:: 03/22/19 Discharge date: 04/03/19 HPI HPI: pt sitting up in chair voiced no c/o at this time Hospital Course Hospital Course: cardiology consult: see note echo:Conclusion 1. Mildly low left atrium, normal left ventricular size, mild concentric left ventricular hypertrophy, visually estimated ejection fraction 55% with no regional wall motion abnormality, grade 1 diastolic dysfunction seen without tissue Doppler evidence of raise left atrial pressure. Grade 1 diastolic dysfunction seen without tissue Doppler evidence of raise left atrial pressure. 2. Mild mitral and tricuspid regurgitation. 3. No significant pericardial effusion noted. fx: ortho consult see note/op note at this time pt is unable to feed self due to splint on rt wrist and sling on left. Pt also needs rehab to work on strength building so she can d/c back to [facility]. Pt has been waiting on emergency guardian ship for transfer to [facility] for rehab. Objective Vital signs: Temp Pulse Resp BP Pulse Ox 98.3 F 71 18 128/76 94 L 04/03/19 07:45 04/03/19 07:45 04/03/19 07:45 04/03/19 07:45 04/03/19 07:45 no acute distress - *Routine HEENT Exam Head: Present: normocephalic Eye: Present: PERRL ENT: Present: mucous membranes moist Comments: bruising to rt cheek - *Routine Neck Exam Present: full ROM - *Routine Respiratory Exam Present: CTA bilaterally - *Routine Cardiovascular Exam Present: RRR - *Routine Abdominal Exam Present: soft, normoactive bowel sounds - *Routine Extremities Exam Present: full ROM Comments: rt wrist in splint and lt arm in sling - *Routine Skin Exam Present: intact, ecchymosis - *Routine Neurological Exam Present: alert - Routine Psychiatric Exam Present: normal affect Results - Additional Comments rounded with nilam all orders per nilam DS: Diagnosis - Discharge Diagnosis (1) Nasal bone fracture Status: Acute (2) Shoulder fracture, left Status: Acute (3) Wrist fracture, right Status: Acute (4) Schizophrenia Status: Chronic (5) Hypertension Status: Chronic (6) A-fib Status: Acute (7) Gastroesophageal reflux disease Status: Chronic (8) HLD (hyperlipidemia) Status: Chronic (9) Hypokalemia Status: Acute Discharge Plan - Patient Discharge Instructions ACTIVITY: Continue current activity DIET: continue same diet Patient Instructions: DI for Nose Fracture, DI for Wrist Fracture, DI for Shoulder Fracture, How to Prevent Falls, DI for Surgical Site Infection - Follow up Plan Follow up with: Donnie Wadsworth MD [Primary Care Provider] - Chon Brand MD [Staff Physician] - 04/22/19 10:15 am (Arrive 15 minutes early) Derek Morillo MD [Staff Physician] - 04/03/19 12:30 pm Disposition: [facility] Home Medications: Home Medications Medication Instructions Recorded Confirmed Type allopurinol 100 mg tablet 100 mg PO BID tab 07/27/17 03/22/19 History aspirin 81 mg tablet,delayed 81 mg PO DAILY tab 07/27/17 03/22/19 History release baclofen 20 mg tablet 20 mg PO 0900,1700 tab 07/27/17 03/22/19 History buspirone 10 mg tablet 10 mg PO BID 07/27/17 03/22/19 History citalopram 20 mg tablet 20 mg PO DAILY tab 07/27/17 03/22/19 History gabapentin 100 mg capsule 100 mg PO TID cap 07/27/17 03/22/19 History lorazepam 1 mg tablet 1 mg PO AC tab 07/27/17 03/22/19 History nitroglycerin 0.4 mg sublingual 0.4 mg SUBLINGUAL Q5MINP PRN 07/27/17 03/22/19 History tablet olanzapine 10 mg tablet 10 mg PO DAILY tab 07/27/17 03/22/19 History pantoprazole 40 mg tablet,delayed 40 mg PO QAM 07/27/17 03/22/19 History release potassium chloride ER 20 mEq 20 meq PO TID tab 07/27/17 03/22/19 History tablet,extended release Acetaminophen 650 mg PO Q4HP PRN 09/10/18 03/22/19 History Benztropine Mesylate [Cogentin 1mg 1 mg PO BID #60 tab 09/10/18 03/22/19 Rx tablet] Apixaban [Eliquis 5mg tab] 5 mg PO BID 12/09/18 03/22/19 History Metoprolol Succinate 25 mg PO DAILY 12/09/18 03/22/19 History Atorvastatin Calcium [Atorvastatin 20 mg PO HS 11/02/19 11/02/19 History 20mg Tab] Mag Hydrox/Aluminum Hyd/Simeth 30 ml PO Q4HP PRN 03/22/19 03/22/19 History [Mylanta Maximum Strength Liq] Amlodipine Besylate [Norvasc 10mg 10 mg PO DAILY PRN #30 tab 04/03/19 Rx tablet] Irbesartan [Avapro 150mg 150 mg PO BID #30 tab 04/03/19 Rx tablet] hydroCHLOROthiazide [HCTZ 25mg 25 mg PO DAILY #30 tab 04/03/19 Rx tab] Prescriptions/Medication Reconciliation: New Hydrocod/Acet 5/325 mg [[place] 5/325mg tablet] 1 tab PO Q6HP PRN tablet PRN Reason: Moderate To Severe Pain Irbesartan [Avapro 150mg tablet] 150 mg PO BID #30 tab hydroCHLOROthiazide [HCTZ 25mg tab] 25 mg PO DAILY #30 tab Amlodipine Besylate [Norvasc 10mg tablet] 10 mg PO DAILY PRN #30 tab PRN Reason: Blood Pressure - High Continued buspirone 10 mg tablet 10 mg PO BID citalopram 20 mg tablet 20 mg PO DAILY tab gabapentin 100 mg capsule 100 mg PO TID cap nitroglycerin 0.4 mg sublingual tablet 0.4 mg SUBLINGUAL Q5MINP PRN PRN Reason: Chest Pain allopurinol 100 mg tablet 100 mg PO BID tab pantoprazole 40 mg tablet,delayed release 40 mg PO QAM aspirin 81 mg tablet,delayed release 81 mg PO DAILY tab lorazepam 1 mg tablet 1 mg PO AC tab potassium chloride ER 20 mEq tablet,extended release 20 meq PO TID tab Benztropine Mesylate [Cogentin 1mg tablet] 1 mg PO BID #60 tab Acetaminophen 650 mg PO Q4HP PRN PRN Reason: Breakthru Moderate Pain Metoprolol Succinate 25 mg PO DAILY Mag Hydrox/Aluminum Hyd/Simeth [Mylanta Maximum Strength Liq] 30 ml PO Q4HP PRN PRN Reason: Indigestion Atorvastatin Calcium [Atorvastatin 20mg Tab] 20 mg PO HS Discontinued baclofen 20 mg tablet 20 mg PO 0900,1700 tab olanzapine 10 mg tablet 10 mg PO DAILY tab Apixaban [Eliquis 5mg tab] 5 mg PO BID - Problem Reconciliation Problems Reviewed?: Yes
== END 2019-04-03 14:31 ==
LOC: ER 06:26 → 2ND 06:26
PROVIDERS: ADMIT Emergency Medicine; ATTEND Emergency Medicine
CPT/HCPCS: 36415; 70450; 70486; 71010; 71045; 72125; 72170; 73030; 73100; 73110; 76000; 80048; 80053; 81001; 82150; 82962; 83690; 83735; 84484; 85014; 85018; 85025; 90715; 92610; 93005; 93306; 94761; 96367; 96372; 96375; 97110; 97116; 97161; 97166; 97530; 97535; 99291; G0378; J2405; J2710

== ENCOUNTER → 2019-04-22 09:02 | Outpatient (CLI) | payer MEDICARE, OTHER, SELFPAY ==
--- NOTE | 2019-04-22 09:20 | XR_ITS ---
PROCEDURE: XR SHOULDER LT MIN 2V CLINICAL INDICATION: left proximal humerus fracture fu Follow-up humeral fracture COMPARISON: XR SHOULDER LT MIN 2V from 03/22/2019 XR SHOULDER LT MIN 2V from 04/02/2019 FINDINGS: A of a comminuted fracture involves the left humeral neck and head with impaction of the fracture fragments the and anterior displacement of the distal fracture fragment. There is some developing callus at the fracture site. IMPRESSION: Healing left humeral neck fracture with impaction and displacement of the distal fracture fragment as before Dictated by: Clinton Spencer MD 04/22/2019 20:16 Electronically signed by Clinton Spencer MD in [place] 04/22/2019 20:16
--- NOTE | 2019-04-22 09:20 | XR_ITS ---
PROCEDURE: XR WRIST RT MIN 3V CLINICAL INDICATION: sp RT wrist sx 03/24/19 COMPARISON: XR WRIST RT MIN 3V from 03/22/2019 XR WRIST RT MIN 3V from 04/02/2019 FINDINGS: There are 3 external wires stabilizing the distal radial fracture with some increasing callus formation. There is impaction of the fracture fragments. The wire placed from the dorsal aspect of the wrist has either been withdrawn or has migrated dorsally. This wire previously extended along the volar aspect of the distal radius and now projects over the bone itself. 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 Sclerosis is noted at the distal aspect of the ulna IMPRESSION: Status post external fixation of the comminuted distal radial fracture with [address] as described above Dictated by: Clinton Spencer MD 04/22/2019 20:14 Electronically signed by Clinton Spencer MD in [place] 04/22/2019 20:14
== END ==
PROVIDERS: PCP Emergency Medicine; Visit Provider Orthopaedic Surgery
DX: S42.92XA Fracture of left shoulder girdle, part unspecified, initial encounter for closed fracture (principal); S62.101A Fracture of unspecified carpal bone, right wrist, initial encounter for closed fracture; W19.XXXA Unspecified fall, initial encounter; Z48.89 Encounter for other specified surgical aftercare
CPT/HCPCS: 73030; 73110

== ENCOUNTER → 2019-05-15 09:09 | Outpatient (CLI) | payer MEDICARE, OTHER, SELFPAY ==
--- NOTE | 2019-05-15 09:20 | XR_ITS ---
PROCEDURE: XR WRIST RT MIN 3V CLINICAL INDICATION: sp RT wrist closed reduction/ after cast removal COMPARISON: XR WRIST RT MIN 3V from 03/22/2019 XR WRIST RT MIN 3V from 04/02/2019 XR WRIST RT MIN 3V from 04/22/2019 FINDINGS: There has been removal of the fixator pins. The degree of healing of the distal ulna and radial fracture remains stable. The radial carpal articulation remains normal. There is moderate generalized osteopenia. Soft tissues are unremarkable. IMPRESSION: Removal of fixation pins. Osteopenia. Overall no change in the appearance of the healing distal radial and ulnar fractures. Dictated by: Robby Green 05/15/2019 09:36 Electronically signed by Robby Green in [place] 05/15/2019 09:36
--- NOTE | 2019-05-15 09:20 | XR_ITS ---
PROCEDURE: XR SHOULDER LT MIN 2V CLINICAL INDICATION: left proximal humerus fracture fu COMPARISON: XR SHOULDER LT MIN 2V from 03/22/2019 XR SHOULDER LT MIN 2V from 04/02/2019 XR SHOULDER LT MIN 2V from 04/22/2019 FINDINGS: When compared with 04/22/2019 exam the appearance of the proximal left humeral fracture remains fairly stable. The alignment at the glenohumeral joint is otherwise preserved and stable. There are no new fractures elsewhere. The left AC joint is normal. Soft tissues are unremarkable. IMPRESSION: No significant change. Dictated by: Robby Green 05/15/2019 09:38 Electronically signed by Robby Green in [place] 05/15/2019 09:38
== END ==
PROVIDERS: PCP Emergency Medicine; Visit Provider Orthopaedic Surgery
DX: Z48.89 Encounter for other specified surgical aftercare (principal); S42.202A Unspecified fracture of upper end of left humerus, initial encounter for closed fracture
CPT/HCPCS: 73030; 73110

== ENCOUNTER → 2019-06-25 10:11 | Outpatient (CLI) | payer MEDICARE, MEDICAID, SELFPAY | PROVIDERS: PCP Emergency Medicine; Visit Provider Orthopaedic Surgery | DX: S42.202A Unspecified fracture of upper end of left humerus, initial encounter for closed fracture (principal); S52.501A Unspecified fracture of the lower end of right radius, initial encounter for closed fracture ==

== ENCOUNTER → 2019-07-03 09:56 | Outpatient (CLI) | payer MEDICARE, MEDICAID, SELFPAY ==
--- NOTE | 2019-07-03 10:09 | XR_ITS ---
PROCEDURE: XR WRIST RT MIN 3V CLINICAL INDICATION: sp closed reduction wiring, right wrist Follow-up fracture COMPARISON: XR WRIST RT MIN 3V from 03/22/2019 XR WRIST RT MIN 3V from 04/02/2019 XR WRIST RT MIN 3V from 04/22/2019 XR WRIST RT MIN 3V from 05/15/2019 FINDINGS: There is a healing distal radial fracture with mild radial angulation and dorsal angulation of the distal fracture fragment. Overall findings are not significantly changed from the previous exam. Osteoarthritic changes are present at the scapho trapezium joint. There is a mild ulnar plus variant with a small avulsion fracture of the ulnar styloid. IMPRESSION: Overall no change in the healing distal radial fracture as described above Dictated by: Clinton Spencer MD 07/03/2019 12:49 Electronically signed by Clinton Spencer MD in [place] 07/03/2019 12:49
--- NOTE | 2019-07-03 10:09 | XR_ITS ---
PROCEDURE: XR SHOULDER LT MIN 2V CLINICAL INDICATION: left proximal humerus fracture fu Follow-up fracture COMPARISON: XR SHOULDER LT MIN 2V from 03/22/2019 XR SHOULDER LT MIN 2V from 04/02/2019 XR SHOULDER LT MIN 2V from 04/22/2019 XR SHOULDER LT MIN 2V from 05/15/2019 FINDINGS: There is a healing impacted fracture of the neck of the humerus with mild anterior displacement and mild lateral displacement of the distal fracture fragment. The glenohumeral joint remains intact. IMPRESSION: Overall no change healing humeral neck fracture Dictated by: Clinton Spencer MD 07/03/2019 12:50 Electronically signed by Clinton Spencer MD in [facility] 07/03/2019 12:50
== END ==
PROVIDERS: PCP Emergency Medicine; Visit Provider Orthopaedic Surgery
DX: S42.202A Unspecified fracture of upper end of left humerus, initial encounter for closed fracture (principal); S52.501A Unspecified fracture of the lower end of right radius, initial encounter for closed fracture; Z48.89 Encounter for other specified surgical aftercare
CPT/HCPCS: 73030; 73110

== ENCOUNTER 2020-03-29 20:15 | Emergency (ER) | payer MEDICARE, MEDICAID, SELFPAY ==
[2020-03-29 20:14] VITALS: BP 106/56; PULSE 71; RESP 18; TEMP 36.6; O2SAT 96; BMI 23.9
--- NOTE | 2020-03-29 20:20 | XR_ITS ---
PROCEDURE: XR CHEST 2V CLINICAL HISTORY: chest pain COMPARISON: CT CHESTWO CT chest wo con from 08/09/2017 CR XR CHEST PORTABLE from 02/24/2019 CR XR CHEST PORTABLE from 03/22/2019 CR XR CHEST PORTABLE from 03/27/2019 FINDINGS: The cardiomediastinal silhouette and pulmonary vascularity are within normal limits. The lungs are clear without infiltrates, suspicious nodules, or pleural effusions. No acute bony abnormalities. IMPRESSION: No acute findings. Dictated by: Clinton Spencer MD 03/30/2020 05:10 Clinton Spencer MD in [facility] 03/30/2020 05:10
--- NOTE | 2020-03-29 20:23 | HMH.EDCP ---
ED Disposition Clinical Impression: Chest pain Qualifiers: Chest pain type: precordial pain Qualified Code(s): R07.2 - Precordial pain Disposition: Home, Self-Care Condition on Discharge: Good Instructions: DI for Atypical Chest Pain Additional Instructions: see pcp for follow up Referrals: Donnie Wadsworth MD [Primary Care Provider] - - Critical Care Critical Care Time: No Attestation: On 03/29/20, the high probability of a clinically significant, sudden or life threatening deterioration of the following system(s) required my full and direct attention, intervention and personal management. The time I documented below is in addition to time spent performing reported procedures but includes the following listed in this critical care notation. Medical Decision Making - Medical Records Medical records reviewed: Yes: I reviewed the patient's medical records. - Nitin Inquiry Pt receiving controlled substance: No Vital Signs: 03/29/20 20:14 03/29/20 21:38 Temperature 98 F 98.3 F Temperature Source Oral Oral Pulse Rate 64 Pulse Rate [Right] 71 Respiratory Rate 18 18 Blood Pressure 100/64 L Blood Pressure [Right Arm] 106/56 L Blood Pressure Mean [Right Arm] 72 Blood Pressure Source Automatic Cuff Blood Pressure Source [Right Arm] Automatic Cuff Blood Pressure Position Sitting Blood Pressure Position [Right Arm] Sitting 02 Sat by Pulse Oximetry 96 Oxygen Delivery Method Room Air Room Air - Lab Data Lab results reviewed: Yes: I reviewed the patient's lab results. Lab Results 03/29/20 20:05: WBC 6.9, RBC 3.24 L, Hgb 10.1 L, Hct 30.7 L, MCV 94.7, MCH 31.2, MCHC 33.0, RDW 14.7, Plt Count 210, MPV 8.3, Neut % (Auto) 49.7, Lymph % (Auto) 38.6, [place] % (Auto) 7.8, Eos % (Auto) 3.1, Baso % (Auto) 0.8, Neut # (Auto) 3.4, Lymph # (Auto) 2.7, [place] # (Auto) 0.5, Eos # (Auto) 0.2, Baso # (Auto) 0.1 03/29/20 20:05: Sodium 134 L, Potassium 5.1, Chloride 104, Carbon Dioxide 21 L, Anion Gap 14.1, BUN 21 H, Creatinine 1.00, Estimated Creat Clear 48, Estimated GFR 54 L, Est GFR ( Amer) 66, Glucose 110 H, Calcium 9.2, Troponin I < 0.01 Result diagrams: 03/29/20 20:05 03/29/20 20:05 Orders (Tests/Meds): ED MEDICATIONS Discontinued Medications Generic Name Dose Route Start Last Admin Trade Name Ethan PRN Reason Stop Dose Admin Aspirin 324 mg 03/29/20 20:21 03/29/20 20:23 Aspirin 81mg Chewable Tablet PO 03/29/20 20:22 324 mg ONCE ONE Administration ORDERS Category Date Time Status XR chest 2V Stat Exams 03/29/20 20:20 Taken Troponin I Q3H Lab 03/29/20 23:30 Ordered Troponin I Q3H Lab 03/30/20 02:30 Ordered - Radiology Data #1 Image(s): Chest Image Reviewed: Yes I reviewed the patient's radiology image Preliminary Findings: Normal/NAD - ECG Data Tracing #1 Normal Sinus Rhythm: Yes Ischemic changes: non-specific ST-T wave changes Chest Pain HPI - General Chief Complaint: Chest Pain Stated Complaint: chest pain Time Seen by Provider: 03/29/20 20:15 Mode of Arrival: EMS Source of Information: Patient, EMS, Medical Record Limitations: No Limitations Description of Symptoms (Recalled from ER Triage Doc. by RN): pt started having chest pain around 1800. pt is only alert to self. pt is unaware of hx or medications. - History of Present Illness HPI narrative: pt with chest pain at residential with no other c/o MD complaint: chest pain indicative of cardiac Onset (ago): hour(s) Duration: now resolved Activity at onset: during rest Pain location: left chest Severity: moderate Quality: dull Risk Factors for CAD: Family Hx of CAD Treatments prior to or on arrival for Cardiac Chest Pain: none - BLU Score for Non-Stemi Age of Patient: 70-79 years old Heart Rate: 70-89 bpm Systolic Blood Pressure: 100-119 mmHg Serum Creatinine: 0.80-1.19 mg/dl CHF Killip Class: I-No CHF Other Risk Factors: None Non-Stemi Risk Score: 134 - Related Data Prior
--- NOTE | 2020-03-29 20:31 | PC.NURSE ---
pt to radiology via wc. no incidents or issues.
[2020-03-29 20:32] LABS: Basophils # 0.1 K/mm3 (0-0.2); Basophils % 0.8 % (0.1-2.0); Eosinophils # 0.2 K/mm3 (0.0-0.4); Eosinophils % 3.1 % (0.1-12.0); Hematocrit 30.7 % (37.0-47.0); Hemoglobin 10.1 g/dL (12.2-16.2); Lymphocytes # 2.7 K/mm3 (0.7-4.5); Lymphocytes % 38.6 % (10-50); Mean Corpuscular Hemoglobin 31.2 pg (27.0-31.2); Mean Corpuscular Volume 94.7 fl (81-99); Mean Platelet Volume 8.3 fl (7.4-10.4); Monocytes # 0.5 K/mm3 (0.1-1.0); Monocytes % 7.8 % (1.7-9.3); Neutrophils # 3.4 K/mm3 (1.8-7.8); Neutrophils % 49.7 % (37.0-80.0); Platelet Count 210 K/mm3 (142-424); Red Blood Count 3.24 M/mm3 (4.20-5.40); Red Cell Distribution Width 14.7 % (11.5-17.5); White Blood Count 6.9 K/mm3 (4.8-10.8)
[2020-03-29 20:33] LABS: Chloride 104 mmol/L (98-107)
[2020-03-29 20:34] LABS: Potassium 5.1 mmoL/L (3.5-5.1); Sodium 134 mmol/L (136-145)
[2020-03-29 20:36] LABS: Blood Urea Nitrogen 21 mg/dl (7-17); Creatinine Clearance Estimated 48 mL/min (50-200); Estimated Glomerular Filt Rate 54 ml/min (>60); GFR (African American) 66 ML/MIN (>60)
[2020-03-29 20:37] LABS: Anion Gap 14.1 mEq/L (5-15); Calcium 9.2 mg/dl (8.4-10.2); Carbon Dioxide 21 mmol/L (22.0-30.0); Glucose 110 mg/dl (74-100)
--- NOTE | 2020-03-29 20:38 | PC.NURSE ---
pt return from radiology via wc. no incidents or issues.
[2020-03-29 20:54] LABS: Troponin I < 0.01 ng/ml (0.00-0.034)
--- NOTE | 2020-03-29 21:35 | PC.NURSE ---
call placed to [facility].
[2020-03-29 21:38] VITALS: BP 100/64; PULSE 64; RESP 18; TEMP 36.8; O2SAT 96
--- NOTE | 2020-03-29 22:32 | PC.NURSE ---
called luis e at [facility]. for the second time. they are still trying to reach schuyler moya to get a ride for the pt.
== END 2020-03-29 22:55 | disposition home or self-care (01) ==
PROVIDERS: Emergency Provider Emergency Medicine; PCP Emergency Medicine
DX: R07.2 Precordial pain (principal); R07.89 Other chest pain; Z79.899 Other long term (current) drug therapy; F41.9 Anxiety disorder, unspecified; I48.91 Unspecified atrial fibrillation; K21.9 Gastro-esophageal reflux disease without esophagitis; J44.9 Chronic obstructive pulmonary disease, unspecified; E78.5 Hyperlipidemia, unspecified; I10 Essential (primary) hypertension
CPT/HCPCS: 71046; 80048; 84484; 85025; 93041; 99282

== ENCOUNTER 2020-06-20 17:22 | Emergency (ER) | payer MEDICARE, MEDICAID, SELFPAY ==
--- NOTE | 2020-06-20 17:39 | PC.NURSE ---
Went in to triage patient and asked her what was going on, pt threw her hands up and said I don't know honey there is nothing wrong with me beside I coughed Asked patient if she was hurting anywhere and she denied pain or complaints anywhere. Pt advised she wanted to go back to [facility] and did not want to be seen by the ED physician. I confirmed with patient and asked again if she wanted to be seen by ED physician, pt again denies wanting to be seen. Called [facility] and asked why they sent the patient, she advised pt had a coughing fit and said she wasn't ok. I advised her of the conversation with the patient and that the patient did not want to be seen. Staff advised someone from [facility] would be up to get the patient.
[2020-06-20 18:17] VITALS: BP 156/72; PULSE 74; RESP 16; TEMP 36.8; O2SAT 97
== END 2020-06-20 18:18 | disposition left against medical advice (07) ==
PROVIDERS: Emergency Provider Emergency Medicine; PCP Emergency Medicine
DX: Z53.21 Procedure and treatment not carried out due to patient leaving prior to being seen by health care provider (principal); R05 Cough
CPT/HCPCS: G0463; 99211

== ENCOUNTER → 2021-05-30 08:10 | Outpatient (CLI) | payer MEDICARE, MEDICAID, SELFPAY ==
--- NOTE | 2021-05-30 08:26 | CT_ITS ---
FINAL REPORT TECHNIQUE: Axial images were obtained from the lung apex to the mid abdomen by computed tomography. Coronal reformatted images were obtained. This study was performed with techniques to keep radiation doses as low as reasonably achievable, (ALARA). Individualized dose reduction techniques using automated exposure control or adjustment of mA and/or kV according to the patient''s size were employed. CLINICAL HISTORY: R/O PNEUMONIA/ patient from nursing facility not able to provide much info COMPARISON: 08/09/2017 FINDINGS: The esophagus is air-filled of uncertain significance which could be due to stricture or reflux. There is no axillary adenopathy. There is no hilar or mediastinal adenopathy. Heart size is normal. There is no pericardial or pleural effusion. There is mild pulmonary scarring. Focal opacity is seen in the anterior right lung base which may represent atelectasis or pneumonia, worse from prior exam. There are several calcified granulomas. Limited imaging of the upper abdomen demonstrates postoperative change of cholecystectomy. There is a less than 3 mm nonobstructing right renal stone. IMPRESSION: Focal opacity, anterior right lung base which may represent atelectasis or scarring. Air-filled esophagus which could be due to stricture or reflux. Reviewed, Interpreted and Dictated by Evgeny Flores III, MD Transcribed by Marnie Woodall Authenticated by Evgeny Flores III, MD on 05/30/2021 10:58:33 AM [facility]
== END ==
PROVIDERS: PCP Emergency Medicine; Visit Provider Emergency Medicine
DX: R09.89 Other specified symptoms and signs involving the circulatory and respiratory systems (principal)
CPT/HCPCS: 71250

== ENCOUNTER 2021-07-15 13:51 | Emergency (ER) | payer MEDICARE, MEDICAID, SELFPAY ==
[2021-07-15] VITALS (13 sets, daily range): BP systolic 97–144; BP diastolic 50–66; PULSE 60–88; RESP 15–16; TEMP 36.6; O2SAT 95–100; BMI 22.7
--- NOTE | 2021-07-15 14:01 | CT_ITS ---
FINAL REPORT TECHNIQUE: Axial images through the thoracic spine were performed. Sagittal reconstruction images were performed. This study was performed with techniques to keep radiation doses as low as reasonably achievable, (ALARA). Individualized dose reduction techniques using automated exposure control or adjustment of mA and/or kV according to the patient's size were employed. CLINICAL HISTORY: pain FINDINGS: There are multiple compression deformities throughout the thoracic vertebrae. There is a 60% compression deformity at T3. There is an 80% compression deformity at T7. There is a 90% compression deformity at T11. There is approximately a 30% compression deformity at T12. There is mild retropulsion of the superior endplate of T7 with mild spinal canal compromise. There is significant retropulsion of the superior endplates of T11 and T12 with moderate spinal canal compromise at T10-11 and T11-12. The visualized lung palacios demonstrate mild scarring or fibrosis. IMPRESSION: Multiple compression deformities as detailed above, age indeterminate. MRI of the thoracic spine could better assess for marrow edema. Reviewed, Interpreted and Dictated by Randy Newton MD Transcribed by Maxine Carlson Authenticated by Randy Newton MD on 07/15/2021 04:14:37 PM [facility]
--- NOTE | 2021-07-15 14:30 | PC.NURSE ---
PT UPDATED ON PLAN OF CARE
--- NOTE | 2021-07-15 14:30 | PC.NURSE ---
PT UPDATED ON PLAN OF CARE
--- NOTE | 2021-07-15 14:57 | HMH.EDBACK ---
ED Disposition Clinical Impression: Fracture, thoracic vertebra, compression Qualifiers: Encounter type: initial encounter Thoracic vertebra fracture level: unspecified thoracic vertebra Qualified Code(s): S22.000A - Wedge compression fracture of unspecified thoracic vertebra, initial encounter for closed fracture UTI (urinary tract infection) Qualifiers: Urinary tract infection type: acute cystitis Hematuria presence: without hematuria Qualified Code(s): N30.00 - Acute cystitis without hematuria Disposition: Home, Self-Care Condition on Discharge: Good Instructions: DI for Thoracic Back Pain Prescriptions: cephALEXin [Cephalexin 500mg Tab] 500 mg PO BID #14 tab Transmission Status: Pending to [facility] Referrals: Donnie Wadsworth MD [Primary Care Provider] - - Critical Care Critical Care Time: No Attestation: On 07/15/21, the high probability of a clinically significant, sudden or life threatening deterioration of the following system(s) required my full and direct attention, intervention and personal management. The time I documented below is in addition to time spent performing reported procedures but includes the following listed in this critical care notation. Medical Decision Making - Medical Records Medical records reviewed: Yes: I reviewed the patient's medical records. - Nitin Inquiry Pt receiving controlled substance: No Vital Signs: 07/15/21 13:52 07/15/21 15:18 07/15/21 16:00 Temperature 97.8 F Temperature Source Oral Pulse Rate 69 82 Pulse Rate [Radial] 88 Respiratory Rate 16 16 16 Blood Pressure 110/60 101/57 L Blood Pressure [Right Arm] 144/66 H Blood Pressure Mean 73 71 Blood Pressure Mean [Right Arm] 92 Blood Pressure Position [Right Arm] Sitting 02 Sat by Pulse Oximetry 97 98 100 Oxygen Delivery Method Room Air 07/15/21 16:30 07/15/21 17:00 07/15/21 17:30 Temperature Temperature Source Pulse Rate 69 71 63 Pulse Rate [Radial] Respiratory Rate 16 15 15 Blood Pressure 112/61 112/58 L 113/59 L Blood Pressure [Right Arm] Blood Pressure Mean 72 76 77 Blood Pressure Mean [Right Arm] Blood Pressure Position [Right Arm] 02 Sat by Pulse Oximetry 99 99 97 Oxygen Delivery Method 07/15/21 18:00 Temperature Temperature Source Pulse Rate 67 Pulse Rate [Radial] Respiratory Rate Blood Pressure 111/62 Blood Pressure [Right Arm] Blood Pressure Mean 71 Blood Pressure Mean [Right Arm] Blood Pressure Position [Right Arm] 02 Sat by Pulse Oximetry 96 Oxygen Delivery Method - Lab Data Lab Results 07/15/21 17:33: WBC 5.3, RBC 3.60 L, Hgb 11.0 L, Hct 33.1 L, MCV 92.0, MCH 30.7, MCHC 33.3, RDW 14.3, Plt Count 248, MPV 7.9, Neut % (Auto) 67.8, Lymph % (Auto) 24.4, [place] % (Auto) 6.6, Eos % (Auto) 0.7, Baso % (Auto) 0.5, Neut # (Auto) 3.6, Lymph # (Auto) 1.3, [place] # (Auto) 0.3, Eos # (Auto) 0.0, Baso # (Auto) 0.0 07/15/21 17:33: Sodium 139, Potassium 4.5, Chloride 106, Carbon Dioxide 25, Anion Gap 12.5, BUN 24 H, Creatinine 0.70, Estimated Creat Clear 50, Estimated GFR 81, Est GFR ( Amer) 98, Glucose 104 H, Calcium 9.0, Total Bilirubin 0.7, AST 27, ALT 25, Alkaline Phosphatase 111, Total Protein 6.9, Albumin 4.3, Globulin 2.6, Albumin/Globulin Ratio 1.7, Lipase 135 07/15/21 18:48: Urine Color Yellow, Urine Appearance Clear, Urine pH 6.0, Ur Specific [place] 1.025, Urine Protein Negative, Urine Glucose (UA) Negative, Urine Ketones Negative, Urine Blood Negative, Urine Nitrate Positive, Urine Bilirubin Negative, Urine Urobilinogen 0.2, Ur Leukocyte Esterase 1+ A Result diagrams: 07/15/21 17:33 07/15/21 17:33 Orders (Tests/Meds): ED MEDICATIONS Generic Name Dose Route Start Last Admin Trade Name Freq PRN Reason Stop Dose Admin Sodium Chloride 10 ml 07/15/21 17:33 Sodium Chloride 0.9% 10ml Flush Syringe IV 08/14/21 17:32 NEEDED PRN Maintain IV Site Discontinued Medications Generic Name D
--- NOTE | 2021-07-15 15:32 | PC.NURSE ---
Patient back from radiology
--- NOTE | 2021-07-15 16:30 | PC.NURSE ---
PT RESTING UPDATED
--- NOTE | 2021-07-15 17:18 | PC.NURSE ---
on the phone with
[2021-07-15 17:42] LABS: Basophils % 0.5 % (0.1-2.0); Eosinophils % 0.7 % (0.1-12.0); Hematocrit 33.1 % (37.0-47.0); Lymphocytes # 1.3 K/mm3 (0.7-4.5); Lymphocytes % 24.4 % (10-50); Mean Corpuscular HGB Conc 33.3 g/dL (31.8-35.4); Mean Corpuscular Hemoglobin 30.7 pg (27.0-31.2); Mean Platelet Volume 7.9 fl (7.4-10.4); Monocytes # 0.3 K/mm3 (0.1-1.0); Monocytes % 6.6 % (1.7-9.3); Neutrophils # 3.6 K/mm3 (1.8-7.8); Neutrophils % 67.8 % (37.0-80.0); Platelet Count 248 K/mm3 (142-424); Red Cell Distribution Width 14.3 % (11.5-17.5); White Blood Count 5.3 K/mm3 (4.8-10.8)
[2021-07-15 17:55] LABS: Alanine Aminotransferase 25 U/L (12-78); Albumin Level 4.3 g/dl (3.5-5.0); Albumin/Globulin Ratio 1.7 (1.1-1.8); Alkaline Phosphatase 111 U/L (38-126); Anion Gap 12.5 mEq/L (5-15); Aspartate Amino Transferase 27 U/L (14-36); Bilirubin,Total 0.7 mg/dl (0.2-1.3); Blood Urea Nitrogen 24 mg/dl (7-17); Carbon Dioxide 25 mmol/L (22.0-30.0); Chloride 106 mmol/L (98-107); Creatinine Clearance Estimated 50 mL/min (50-200); Estimated Glomerular Filt Rate 81 ml/min (>60); GFR (African American) 98 ML/MIN (>60); Globulin 2.6 g/dL (1.3-3.2); Glucose 104 mg/dl (74-100); Lipase 135 U/L (23-300); Potassium 4.5 mmoL/L (3.5-5.1); Sodium 139 mmol/L (136-145); Total Protein,Serum 6.9 g/dl (6.3-8.2)
[2021-07-15 18:55] LABS: Microscopic, Urine URINE MICROSCOPIC (MICROSCOPIC)
[2021-07-15 18:58] LABS: Appearance,Urine CLEAR (Clear); Bilirubin,Urine Negative (Negative); Blood, Urine Negative (Negative); Color,Urine YELLOW (Yellow); Glucose,Urine (UA) Negative (Negative); Ketones,Urine Negative (Negative); Leukocyte Esterase,Urine 1+ (Negative); Nitrate,Urine POSITIVE (Negative); Protein,Urine Negative (Negative); Specific Gravity, Urine 1.025 (1.005-1.030); Urobilinogen,Urine 0.2 EU/dl (0.2)
[2021-07-15 19:27] LABS: Amorphous Sediment,Urine 1+ /lpf; Bacteria,Urine 2+ /lpf
--- NOTE | 2021-07-15 21:05 | PC.NURSE ---
Calling Karen Womack at this time to get a ride for this patient.
== END 2021-07-15 23:17 | disposition home or self-care (01) ==
PROVIDERS: Emergency Provider Emergency Medicine; PCP Emergency Medicine
DX: M48.54XA Collapsed vertebra, not elsewhere classified, thoracic region, initial encounter for fracture (principal); N30.00 Acute cystitis without hematuria; J44.9 Chronic obstructive pulmonary disease, unspecified; K21.9 Gastro-esophageal reflux disease without esophagitis; E78.5 Hyperlipidemia, unspecified; I10 Essential (primary) hypertension; Z79.899 Other long term (current) drug therapy
CPT/HCPCS: 72128; 80053; 81001; 83690; 85025; 87086; 87088; 87186; 99283; J0696

== ENCOUNTER 2022-05-28 09:06 | Observation (INO) | payer MEDICARE, MEDICAID, SELFPAY ==
[2022-05-28] VITALS (14 sets, daily range): BP systolic 77–120; BP diastolic 49–65; PULSE 61–77; RESP 13–23; TEMP 36.3–36.6; O2SAT 95–98; BMI 25.0; BMI 21.2
--- NOTE | 2022-05-28 09:07 | ECG_ITS ---
APPROVED REPORT Exam: Resting ECG HR:85 bpm ECG Measurements Heart Rate [address] 188 P 71 QRSd 80 QRS 0 QT 338 T 53 QTc 380 Conclusion SINUS RHYTHM SEPTAL MYOCARDIAL INFARCTION , PROBABLY OLD [40+ ms Q WAVE IN V1/V2] ABNORMAL ECG UNCONFIRMED REPORT Electronically signed by : Cecli Pena MD 05/28/2022 16:55:48
--- NOTE | 2022-05-28 09:21 | XR_ITS ---
PROCEDURE INFORMATION: Exam: XR Chest Exam date and time: 05/28/2022 9:49 AM Age: 77 years old Clinical indication: Shortness of breath; Additional info: Transient hypoxia, worsening tremor TECHNIQUE: Imaging protocol: Radiologic exam of the chest. Views: 1 view. COMPARISON: CT CHEST WO CON 05/30/2021 8:42 AM FINDINGS: Lungs: Unremarkable. No consolidation. Pleural spaces: Unremarkable. No pleural effusion. No pneumothorax. Heart/Mediastinum: Unremarkable. No cardiomegaly. Bones/joints: Unremarkable. IMPRESSION: No acute findings.
--- NOTE | 2022-05-28 09:36 | PC.NURSE ---
Anesthesiologist has been paged
[2022-05-28 09:37] LABS: Basophils # 0.1 K/mm3 (0-0.2); Basophils % 0.9 % (0.1-2.0); Eosinophils # 0.1 K/mm3 (0.0-0.4); Eosinophils % 2.4 % (0.1-12.0); Hematocrit 31.3 % (37.0-47.0); Hemoglobin 10.4 g/dL (12.2-16.2); Lymphocytes # 1.2 K/mm3 (0.7-4.5); Lymphocytes % 20.6 % (10-50); Mean Corpuscular HGB Conc 33.4 g/dL (31.8-35.4); Mean Corpuscular Hemoglobin 30.3 pg (27.0-31.2); Mean Corpuscular Volume 90.6 fl (81-99); Mean Platelet Volume 8.1 fl (7.4-10.4); Monocytes # 0.4 K/mm3 (0.1-1.0); Monocytes % 6.9 % (1.7-9.3); Neutrophils # 4.1 K/mm3 (1.8-7.8); Neutrophils % 69.2 % (37.0-80.0); Platelet Count 304 K/mm3 (142-424); Red Blood Count 3.45 M/mm3 (4.20-5.40); Red Cell Distribution Width 14.9 % (11.5-17.5); White Blood Count 5.9 K/mm3 (4.8-10.8)
--- NOTE | 2022-05-28 09:38 | PC.NURSE ---
portable chest at bedside
[2022-05-28 09:39] LABS: Chloride 107 mmol/L (98-107)
[2022-05-28 09:40] LABS: Potassium 4.2 mmoL/L (3.5-5.1); Sodium 139 mmol/L (136-145)
[2022-05-28 09:43] LABS: Anion Gap 16.2 mEq/L (5-15); Blood Urea Nitrogen 41 mg/dl (7-17); Calcium 8.7 mg/dl (8.4-10.2); Carbon Dioxide 20 mmol/L (22.0-30.0); Creatinine Clearance Estimated 51 mL/min (50-200); Estimated Glomerular Filt Rate 48 ml/min (>60); GFR (African American) 58 ML/MIN (>60); Glucose 124 mg/dl (74-100)
--- NOTE | 2022-05-28 09:50 | HMH.EDGENADL ---
Discharge Plan Disposition Patient Disposition: Admitted As Inpatient Condition: Good Clinical Impressions Clinical Impression: Acute kidney injury, UTI (urinary tract infection) Discharge ED Provider: Bradley Hackett General Adult HPI General Chief complaint: Arrhythmia/Palpitations Stated complaint: shaking Time Seen by Provider: 05/28/22 10:10 Mode of Arrival: EMS Source of Information: Patient, Parent(s) and Medical Record Limitations: No Limitations Description of Symptoms (Recalled from ER Triage Doc. by RN): [facility] staff called and stated patient had increased shaking when she came to breakfast this am and stated her heartrate has been all over the place, pt states she has no symptoms and feels fine History of Present Illness HPI narrative: Patient presents for evaluation of worsening tremor. She lives that [facility] with diagnosis of schizophrenia for which she takes aripiprazole. She has a family history of tremor and has a tremor constantly herself, but this morning it seemed worse and she had difficulty holding her spoon so she presents for evaluation. She says she does not take medication specifically for her tremor, but she does take a beta-allison for atrial fibrillation. She denies shortness of breath, pain, dysuria, fevers, nausea, diarrhea. Related Data Home Medications Medication Instructions Recorded Confirmed allopurinol 100 mg tablet 100 mg PO BID GOUT 07/27/17 05/28/22 buspirone 10 mg tablet 10 mg PO BID mood 07/27/17 05/28/22 citalopram 20 mg tablet (Celexa) 20 mg PO DAILY mood 07/27/17 05/28/22 nitroglycerin 0.4 mg sublingual 0.4 mg sublingual Q5MINP PRN Chest 07/27/17 05/28/22 tablet (Nitrostat) Pain pantoprazole 40 mg tablet,delayed 40 mg PO DAILY GERD 07/27/17 05/28/22 release (Protonix) potassium chloride 20 mEq 20 meq PO TID Supplement 07/27/17 05/28/22 tablet,extended release atorvastatin 20 mg tablet 20 mg PO HS Cholesterol 03/22/19 05/28/22 hydrochlorothiazide 25 mg tablet 25 mg PO DAILY Fluid 03/29/20 05/28/22 albuterol sulfate 90 mcg/actuation 2 puff inhalation Q6HP PRN 05/28/22 05/28/22 aerosol inhaler (Ventolin HFA) shortness of breath or wheezing aripiprazole 5 mg tablet 5 mg PO DAILY MOOD 05/28/22 05/28/22 aspirin 81 mg chewable tablet 81 mg PO DAILY HEART HEALTH 05/28/22 05/28/22 benztropine 1 mg tablet 1.5 mg PO BID MOVEMENT DISORDER 05/28/22 05/28/22 donepezil 5 mg tablet 5 mg PO HS MEMORY 05/28/22 05/28/22 irbesartan 300 mg tablet 300 mg PO DAILY Hypertension 05/28/22 05/28/22 loperamide 2 mg capsule 2 mg PO Q4HP PRN Diarrhea 05/28/22 05/28/22 metoprolol tartrate 25 mg tablet 12.5 mg PO DAILY Hypertension 05/28/22 05/28/22 Previous Rx's Medication Instructions Recorded gabapentin 100 mg capsule 100 mg PO TID Pain #90 caps 03/02/22 Allergies Allergy/AdvReac Type Severity Reaction Status Date / Time No Known Allergies Allergy Verified 05/28/22 09:21 [facility] Disclaimer: The information contained in this section may have been updated after the patient was seen, as this information can be updated by other users. Medical History (Updated 05/28/22 @ 15:30 by Janneth Simon RN) Asthma Atypical chest pain COPD (chronic obstructive pulmonary disease) Dyspnea Gall bladder disease Gastroesophageal reflux disease HLD (hyperlipidemia) Hypertension Palpitations Schizophrenia Tobacco dependence syndrome Family History (Updated 05/28/22 @ 15:11 by Marquita Ruvalcaba RN) Other Family history of cancer Social History (Updated 05/28/22 @ 15:12 by Marquita Ruvalcaba RN) Smoking Status: Current every day smoker tobacco type: cigarettes packs per day: 1 second hand exposure: Yes alcohol intake: never substance use type: denies use current occupational status: unemployed and disabled Travel in the last 8 weeks: None household members: other housing: assisted living facility current occupational exposures/hazards: No c
[2022-05-28 10:19] LABS: Coronavirus 19, PCR Not Detected (NotDetected); Influenza A, PCR Not Detected (NotDetected); Influenza B, PCR Not Detected (NotDetected)
--- NOTE | 2022-05-28 10:49 | PC.NURSE ---
BP MANUALLY 78/52 ER MD AWARE AND AT BEDSIDE
--- NOTE | 2022-05-28 10:55 | PC.NURSE ---
on the phone with hospitalist
[2022-05-28 11:16] LABS: Microscopic, Urine URINE MICROSCOPIC (MICROSCOPIC)
[2022-05-28 11:23] LABS: Appearance,Urine CLEAR (Clear); Bilirubin,Urine Negative (Negative); Blood, Urine Negative (Negative); Color,Urine YELLOW (Yellow); Glucose,Urine (UA) Negative (Negative); Ketones,Urine Negative (Negative); Leukocyte Esterase,Urine 1+ (Negative); Nitrate,Urine POSITIVE (Negative); PH,Urine 6.5 (5.0-8.5); Protein,Urine TRACE (Negative)
[2022-05-28 11:46] LABS: Bacteria,Urine 1+ /lpf; WBC,Urine 20-50 #/hpf (0-3)
--- NOTE | 2022-05-28 11:46 | PC.NURSE ---
SABRINA EMERSON talking to [facility]ist at this time.
--- NOTE | 2022-05-28 11:50 | PC.NURSE ---
air conditioning supervisor has been called for admission
--- NOTE | 2022-05-28 13:09 | PC.NURSE ---
ATTEMPTED TO CALL REPORT BUT RN IS PREPPING PT FOR EMERGENCY SURGERY. TOLD THEM TO CALL WHEN THEY WERE DONE.
--- NOTE | 2022-05-28 13:13 | EXP.ACUTE.PN ---
Subjective *Date: 05/28/22 *Time: 13:13 Interval history: 77-year-old female presenting as a emergency department evaluation for worsening tremor the last 24 hours. She is a patient at [facility] with schizophrenia. Also having increased dry cough. Patient is schizophrenic and able to provide further history. In the emergency department creatinine was elevated, urine analysis positive for UTI. She was given 2 L bolus normal saline with maps in the 50s. Hospitalist was contacted for admission Medical Exam Vital signs and Labs for Last 24 Hours: Vital Signs Temp Pulse Pulse Resp BP BP Pulse Ox 05/28/22 12:31 64 17 109/58 L 97 05/28/22 12:09 61 15 93/53 L 96 05/28/22 11:30 72 21 88/49 L 98 05/28/22 11:00 67 98/62 L 96 05/28/22 10:43 66 79/55 L 97 05/28/22 10:39 62 89/50 L 96 05/28/22 10:30 69 18 87/53 L 95 05/28/22 10:00 66 23 77/52 L 96 05/28/22 09:30 67 13 101/53 L 97 05/28/22 09:11 97.8 F 77 18 93/57 L 97 Intake and Output 05/27/22 05/28/22 05/28/22 23:59 07:59 15:59 Other: Weight 74.843 kg Patient Weight 05/28/22 23:59 Weight 74.843 kg Laboratory Results - last 24 hr 05/28/22 09:25: WBC 5.9, RBC 3.45 L, Hgb 10.4 L, Hct 31.3 L, MCV 90.6, MCH 30.3, MCHC 33.4, RDW 14.9, Plt Count 304, MPV 8.1, Neut % (Auto) 69.2, Lymph % (Auto) 20.6, [place] % (Auto) 6.9, Eos % (Auto) 2.4, Baso % (Auto) 0.9, Neut # (Auto) 4.1, Lymph # (Auto) 1.2, [place] # (Auto) 0.4, Eos # (Auto) 0.1, Baso # (Auto) 0.1 05/28/22 09:25: Sodium 139, Potassium 4.2, Chloride 107, Carbon Dioxide 20 L, Anion Gap 16.2 H, BUN 41 H, Creatinine 1.10 H, Estimated Creat Clear 51, Estimated GFR 48 L, Est GFR ( Amer) 58 L, Glucose 124 H, Calcium 8.7 05/28/22 10:07: SARS-CoV-2 (PCR) Not detected, Influenza A Untype (PCR) Not detected, Influenza Type B (PCR) Not detected 05/28/22 11:11: Urine Color Yellow, Urine Appearance Clear, Urine pH 6.5, Ur Specific [place] 1.010, Urine Protein Trace, Urine Glucose (UA) Negative, Urine Ketones Negative, Urine Blood Negative, Urine Nitrate Positive, Urine Bilirubin Negative, Urine Urobilinogen 1.0, Ur Leukocyte Esterase 1+ A, Urine RBC None, Urine WBC 20-50, Ur Squamous Epith Cells 5-10, Urine Bacteria 1+ I & O for Labs for Last 24 Hours: Intake & Output 05/25/22 05/26/22 05/27/22 05/28/22 23:59 23:59 23:59 23:59 Weight 74.843 kg Head: Present atraumatic and normocephalic Neck: Present normal inspection Respiratory: Present CTA bilaterally; Absent accessory muscle use Cardiac: Present Reg Rate and Rhythm and S1/S2 GI: Present soft; Absent tenderness Rectal (female): Present deferred (female): Present deferred Extremities: Present normal inspection and tenderness Skin: Present intact and dry Assessment and Plan *Assessment and plan (1) Urinary tract infection: Status: Acute Category: Medical Code(s): N39.0 - Urinary tract infection, site not specified (2) Acute kidney injury: Status: Acute Category: Medical Code(s): N17.9 - Acute kidney failure, unspecified Plan 77yo F with schizophrenia admitted for UTI and RENA. Patient is hypotensive on admission with poor p.o. intake, will give IV fluids. RENA likely prerenal. Urinary tract infection with hypotension -Leuk esterase, pyuria and urine bacteria - agressive IVF, maps > 65 - rocephin - follow up culture RENA -Creatinine 1.1 up from baseline 0.7 -Likely prerenal given hypotension and poor p.o. intake we will give IV fluids
--- NOTE | 2022-05-28 13:26 | PC.NURSE ---
CALLED REPORT TO VONNIE RAM
--- NOTE | 2022-05-28 14:13 | PC.NURSE ---
patient came to floor by wheelchair from ED
--- NOTE | 2022-05-28 14:26 | P.CONPHA_ITS ---
Pharmacy Intervention Comments: MEDICATION RECONCILIATION COMPLETED ON PATIENT USING MAR FROM INTERMEDIATE. -JORDAN CHEN, RAISSAD
--- NOTE | 2022-05-28 14:26 | HMH.PHAINT1 ---
Pharmacy Intervention Comments: MEDICATION RECONCILIATION COMPLETED ON PATIENT USING MAR FROM LONG-TERM. -JORDAN CHEN, RAISSAD
--- NOTE | 2022-05-28 18:43 | PC.NURSE ---
PT IS RESTING IN BED. 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 PT STATED SHE DID STOP SMOKING A FEW WEEKS AGO AND HAS NOT BEEN AT [facility] FOR VERY LONG. FOLLOWS COMMANDS. AMBULATES TO THE BATHROOM STANDBY ASSIST. TOLERATED SITTING UP ON THE SOB FOR DINNER. LUNG SOUNDS DIMINISHED WITH SCATTERED WHEEZES. ABDOMEN SOFT/NON TENDER WITH ACTIVE BOWEL SOUNDS. WILL CONTINUE TO MONITOR.
[2022-05-29 04:00] VITALS: BP 117/51; PULSE 80; RESP 16; TEMP 36.8; O2SAT 97; BMI 20.2
[2022-05-29 07:15] LABS: Alanine Aminotransferase 20 U/L (12-78); Albumin Level 3.4 g/dl (3.5-5.0); Albumin/Globulin Ratio 1.4 (1.1-1.8); Alkaline Phosphatase 106 U/L (38-126); Anion Gap 11.7 mEq/L (5-15); Aspartate Amino Transferase 22 U/L (14-36); Bilirubin,Total 0.5 mg/dl (0.2-1.3); Blood Urea Nitrogen 25 mg/dl (7-17); Calcium 8.1 mg/dl (8.4-10.2); Carbon Dioxide 18 mmol/L (22.0-30.0); Chloride 111 mmol/L (98-107); Creatinine Clearance Estimated 45 mL/min (50-200); Estimated Glomerular Filt Rate 81 ml/min (>60); GFR (African American) 98 ML/MIN (>60); Globulin 2.5 g/dL (1.3-3.2); Glucose 91 mg/dl (74-100); Magnesium 1.4 mg/dl (1.6-2.3); Phosphorous 2.9 mg/dl (2.5-4.5); Potassium 3.7 mmoL/L (3.5-5.1); Sodium 137 mmol/L (136-145); Total Protein,Serum 5.9 g/dl (6.3-8.2)
[2022-05-29 07:26] VITALS: BP 109/55; PULSE 79; RESP 17; TEMP 36.7; O2SAT 95
--- NOTE | 2022-05-29 07:27 | PC.NURSE ---
AOx4. Pt has not voiced any c/o to staff. Ambulating to BR standby assist. Call light within reach.
[2022-05-29 08:09] LABS: Basophils % 0.7 % (0.1-2.0); Eosinophils # 0.1 K/mm3 (0.0-0.4); Eosinophils % 2.3 % (0.1-12.0); Lymphocytes % 20.2 % (10-50); Mean Corpuscular HGB Conc 32.9 g/dL (31.8-35.4); Mean Corpuscular Hemoglobin 30.8 pg (27.0-31.2); Mean Corpuscular Volume 93.5 fl (81-99); Mean Platelet Volume 8.5 fl (7.4-10.4); Monocytes # 0.3 K/mm3 (0.1-1.0); Monocytes % 6.1 % (1.7-9.3); Neutrophils # 3.6 K/mm3 (1.8-7.8); Neutrophils % 70.7 % (37.0-80.0); Platelet Count 236 K/mm3 (142-424); Red Cell Distribution Width 14.9 % (11.5-17.5); White Blood Count 5.1 K/mm3 (4.8-10.8)
[2022-05-29 08:15] LABS: Hemoglobin 9.2 g/dL (12.2-16.2)
--- NOTE | 2022-05-29 09:28 | XR_ITS ---
FINAL REPORT CLINICAL HISTORY: cough COMPARISON: May 28, 2019 FINDINGS: Two views of the chest were obtained. The heart size and pulmonary vascularity are within normal limits. The mediastinum is normal. There are mild left lung base opacities which may represent atelectasis or pneumonia. There is no pneumothorax. There is a chronic fracture of the proximal left humerus. IMPRESSION: Mild left lung base atelectasis or pneumonia, somewhat worse since the prior exam. Reviewed, Interpreted and Dictated by Evgeny Flores III, MD Transcribed by Rosalia Patel Authenticated and [facility]
--- NOTE | 2022-05-29 09:57 | HMH.OTEV ---
OT Inpatient Evaluation Rehab OT IP Evaluation Start: 05/29/22 09:22 Freq: ONCE Status: Active Protocol: Document 05/29/22 09:53 WERO (Rec: 05/29/22 09:57 [facility] [id number]) Rehab OT IP Assessment Subjective History Pt oriented x 2 on arrival. Pt agreeable to engage in therapy evaluation. Pt was admitted via ED on 05/28/22 due to worsening of tremor and UTI . Prior to being in the hospital, pt lived at [facility]. Pt claims she was independent with all ADLs. She was dependent upon staff for IADLs . She did not use a walker or cane during ambulation. The following information is copied ER documentation: Patient presents for evaluation of worsening tremor . She lives that [facility] with diagnosis of schizophrenia for which she takes aripiprazole. She has a family history of tremor and has a tremor constantly herself, but this morning it seemed worse and she had difficulty holding her spoon so she presents for evaluation. She says she does not take medication specifically for her tremor, but she does take a beta- allison for atrial fibrillation. She denies shortness of breath, pain, dysuria, fevers, nausea, diarrhea. Pt has a past medical history of: Asthma Atypical chest pain COPD (chronic obstructive pulmonary disease) Dyspnea Gall bladder disease Gastroesophageal reflux disease HLD (hyperlipidemia) Hypertension
--- NOTE | 2022-05-29 11:00 | HMH.PTEV ---
Physical Therapy Evaluation Rehab PT IP Evaluation Start: 05/29/22 09:21 Freq: ONCE Status: Active Protocol: Document 05/29/22 09:30 PHORAMSEY (Rec: 05/29/22 11:00 PHORNE [id number]) Subjective/History History History 77 yowf adm to [facility] with UTI. She is resident of personal longterm and generally independent with all mobility without AD. Subjective Subjective Pt reports low back discomfort this am, but only mild. Rehab PT IP Eval Objective Appearance Patient Behavior Appropriate Patient Orientation Person,Place,Time Difficulty following instructions none Speech Pattern Clear Ambulation Patient Able to Ambulate Yes Ambulation Observation IP General Gait Pattern Observation No Deviations/Normal Ambulation Distance (feet) 30 Ambulation Assistive Device None Ambulation Ability Supervision/Stand by Balance Ability to Arise Able, uses arms to help Sitting Balance Steady, safe Dynamic Sitting Balance Ability Good Dynamic Standing Balance Ability Good Transfers Bed Transfer Ability Supervision/Stand by Chair Transfer Ability Supervision/Stand by Sit to Stand Bed Transfer Ability Supervision/Stand by Sit to Stand Chair Transfer Ability Supervision/Stand by ROM All Extremities PT ROM Status WFL MMT All Extremities PT MMT WFL Rehab PT IP prob,goals,plan Problems Date of Evaluation: 05/29/22 Discharge Plan PT Discharge Plan Pt presents at baseline for all mobility this am, no current inpatient therapy needs. She is appropriate to return to prior living situation once medically stable for d/c. Recommend Home Health therapy as appropriate . G -code Required No Eval Complexity Eval Charge Codes 64162 - Moderate Complexity PHYSICIAN CERTIFICATION: I certify the specified therapy services for Corie Peck are required, authorized, and reviewed every 30 days.
--- NOTE | 2022-05-29 11:57 | SW/DCPLANNER ---
Addendum entered by Quita Dumont 05/29/22 15:18: Irena fried/ Karen Womack stated they would be transporting this patient. Original Note: [place] [facility] I have updated Irena fried/ Karen that the plan for this patient per MD is to return there today. PT/OT evaluated patient and stated that she is safe to return.
--- NOTE | 2022-05-29 13:11 | EXP.HP ---
History of Present Illness *History of present illness: 77-year-old female presenting as a emergency department evaluation for worsening tremor the last 24 hours.? She is a patient at [facility] with schizophrenia.? Also having increased dry cough.? Patient is schizophrenic and able to provide further history. In the emergency department creatinine was elevated, urine analysis positive for UTI.? She was given 2 L bolus normal saline with maps in the 50s.? Hospitalist was contacted for admission.? [facility] Disclaimer: The information contained in this section may have been updated after the patient was seen, as this information can be updated by other users. Medical History (Updated 05/28/22 @ 15:30 by Janneth Simon RN) Asthma Atypical chest pain COPD (chronic obstructive pulmonary disease) Dyspnea Gall bladder disease Gastroesophageal reflux disease HLD (hyperlipidemia) Hypertension Palpitations Schizophrenia Tobacco dependence syndrome Family History (Updated 05/28/22 @ 15:11 by Marquita Ruvalcaba RN) Other Family history of cancer Social History (Updated 05/28/22 @ 15:12 by Marquita Ruvalcaba RN) Smoking Status: Current every day smoker tobacco type: cigarettes packs per day: 1 second hand exposure: Yes alcohol intake: never substance use type: denies use current occupational status: unemployed and disabled Travel in the last 8 weeks: None household members: other housing: assisted living facility current occupational exposures/hazards: No caffeine: Yes Review of Systems Review of Systems Review of systems:: unable to obtain *Neurologic Neurologic: Reports tremor(s) Meds Home Medications and Allergies Home Medications Medication Instructions Recorded Confirmed Type allopurinol 100 mg tablet 100 mg PO BID GOUT 07/27/17 05/28/22 History buspirone 10 mg tablet 10 mg PO BID mood 07/27/17 05/28/22 History citalopram 20 mg tablet (Celexa) 20 mg PO DAILY mood 07/27/17 05/28/22 History nitroglycerin 0.4 mg sublingual 0.4 mg sublingual Q5MINP PRN Chest 07/27/17 05/28/22 History tablet (Nitrostat) Pain pantoprazole 40 mg tablet,delayed 40 mg PO DAILY GERD 07/27/17 05/28/22 History release (Protonix) potassium chloride 20 mEq 20 meq PO TID Supplement 07/27/17 05/28/22 History tablet,extended release atorvastatin 20 mg tablet 20 mg PO HS Cholesterol 11/02/19 01/08/23 History hydrochlorothiazide 25 mg tablet 25 mg PO DAILY Fluid 03/29/20 05/28/22 History gabapentin 100 mg capsule 100 mg PO TID Pain #90 caps 03/02/22 05/28/22 Rx albuterol sulfate 90 mcg/actuation 2 puff inhalation Q6HP PRN 05/28/22 05/28/22 History aerosol inhaler (Ventolin HFA) shortness of breath or wheezing aripiprazole 5 mg tablet 5 mg PO DAILY MOOD 05/28/22 05/28/22 History aspirin 81 mg chewable tablet 81 mg PO DAILY HEART HEALTH 05/28/22 05/28/22 History benztropine 1 mg tablet 1.5 mg PO BID MOVEMENT DISORDER 05/28/22 05/28/22 History donepezil 5 mg tablet 5 mg PO HS MEMORY 05/28/22 05/28/22 History irbesartan 300 mg tablet 300 mg PO DAILY Hypertension 05/28/22 05/28/22 History loperamide 2 mg capsule 2 mg PO Q4HP PRN Diarrhea 05/28/22 05/28/22 History metoprolol tartrate 25 mg tablet 12.5 mg PO DAILY Hypertension 05/28/22 05/28/22 History New Prescriptions to Start Prescriptions: Allergies Allergy/AdvReac Type Severity Reaction Status Date / Time No Known Allergies Allergy Verified 05/28/22 09:21 Exam Data for Last 24 hours Vital signs and Labs for Last 24 Hours: Temp Pulse Resp BP Pulse Ox 98.0 F 79 17 109/55 L 95 05/29/22 07:26 05/29/22 07:26 05/29/22 07:26 05/29/22 07:26 05/29/22 07:26 Laboratory Results - last 24 hr 05/29/22 06:38: WBC 5.1, RBC 3.00 L, Hgb 9.2 L D, Hct 28.0 L, MCV 93.5, MCH 30.8, MCHC 32.9, RDW 14.9, Plt Count 236, MPV 8.5, Neut % (Auto) 70.7, Lymph % (Auto) 20.2, [place] % (Auto) 6.1, Eos % (Auto) 2.3, Baso % (Auto) 0.7, Neut # (Auto) 3.6, Lymph # (Auto)
--- NOTE | 2022-05-29 13:19 | EXP.DC.SUM ---
General Admission date:: 05/28/22 HPI HPI HPI: 77-year-old female presenting as a emergency department evaluation for worsening tremor the last 24 hours.? She is a patient at [facility] with schizophrenia.? Also having increased dry cough.? Patient is schizophrenic and able to provide further history. In the emergency department creatinine was elevated, urine analysis positive for UTI.? She was given 2 L bolus normal saline with maps in the 50s.? Hospitalist was contacted for admission.? Hospital Course Hospital Course Hospital Course: Patient was admitted with mild urinary tract infection and acute kidney injury. Patient was initially hypotensive on admission secondary to poor p.o. intake. Placed on IV fluids with improvement of creatinine and blood pressure. She was transition Rocephin to cefdinir. Exam Data for Last 24 hours Vital signs and Labs for Last 24 Hours: Temp Pulse Resp BP Pulse Ox 98.0 F 79 17 109/55 L 95 05/29/22 07:26 05/29/22 07:26 05/29/22 07:26 05/29/22 07:26 05/29/22 07:26 Laboratory Results - last 24 hr 05/29/22 06:38: WBC 5.1, RBC 3.00 L, Hgb 9.2 L D, Hct 28.0 L, MCV 93.5, MCH 30.8, MCHC 32.9, RDW 14.9, Plt Count 236, MPV 8.5, Neut % (Auto) 70.7, Lymph % (Auto) 20.2, [place] % (Auto) 6.1, Eos % (Auto) 2.3, Baso % (Auto) 0.7, Neut # (Auto) 3.6, Lymph # (Auto) 1.0, [place] # (Auto) 0.3, Eos # (Auto) 0.1, Baso # (Auto) 0.0 05/29/22 06:38: Sodium 137, Potassium 3.7, Chloride 111 H, Carbon Dioxide 18 L, Anion Gap 11.7, BUN 25 H D, Creatinine 0.70 D, Estimated Creat Clear 45, Estimated GFR 81, Est GFR ( Amer) 98 D, Glucose 91 D, Calcium 8.1 L, Phosphorus 2.9, Magnesium 1.4 L, Total Bilirubin 0.5, AST 22, ALT 20, Alkaline Phosphatase 106, Total Protein 5.9 L, Albumin 3.4 L, Globulin 2.5, Albumin/Globulin Ratio 1.4 I & O for Last 24 hours: Intake & Output 05/26/22 05/27/22 05/28/22 05/29/22 23:59 23:59 23:59 23:59 Intake Total 480 / 480 120 / 120 Output Total 0 / 0 250 / 250 Balance 480 / 480 -130 / -130 Weight 63.191 kg 60.645 kg Microbiology Reports for the Last 24 Hours: Microbiology 05/28/22 11:11 Urine,Catheterized Urine Culture - Preliminary Constitutional Constitutional: no acute distress *Routine HEENT Exam Head: Present normocephalic and atraumatic Eye: Present EOMI ENT: Present mucous membranes moist *Routine Neck Exam Neck: Present supple and full ROM *Routine Respiratory Exam Respiratory: Present CTA bilaterally; Absent accessory muscle use *Routine Cardiovascular Exam Cardiovascular: Present RRR, Normal S1 and Normal S2 *Routine Abdominal Exam Abdominal: Present soft; Absent tenderness *Routine Extremities Exam Extremities: Present edema; Absent cyanosis *Routine Skin Exam Skin: Present intact and dry *Routine Neurological Exam Neurological: Present alert Results Data Completed and Pending Labs on day of discharge: Labs from last 24 hours 05/29/22 05/29/22 06:38 06:38 WBC 5.1 RBC 3.00 L Hgb 9.2 L D Hct 28.0 L MCV 93.5 MCH 30.8 MCHC 32.9 RDW 14.9 Plt Count 236 MPV 8.5 Neut % (Auto) 70.7 Lymph % (Auto) 20.2 Fannin % (Auto) 6.1 Eos % (Auto) 2.3 Baso % (Auto) 0.7 Neut # (Auto) 3.6 Lymph # (Auto) 1.0 Fannin # (Auto) 0.3 Eos # (Auto) 0.1 Baso # (Auto) 0.0 Sodium 137 Potassium 3.7 Chloride 111 H Carbon Dioxide 18 L Anion Gap 11.7 BUN 25 H D Creatinine 0.70 D Estimated Creat Clear 45 Estimated GFR 81 Est GFR ( Amer) 98 D Glucose 91 D Calcium 8.1 L Phosphorus 2.9 Magnesium 1.4 L Total Bilirubin 0.5 AST 22 ALT 20 Alkaline Phosphatase 106 Total Protein 5.9 L Albumin 3.4 L Globulin 2.5 Albumin/Globulin Ratio 1.4 Preliminary micro results at discharge 05/28/22 11:11 Urine Culture - Preliminary Urine,Catheterized DS: Diagnosis Discharge Diagnosis (1) Urinary tract infection: Status: Acute (2) Acute kid
--- NOTE | 2022-05-29 13:19 | DIET.NUTRFU ---
Patient reports she does not wear teeth but can tolerate regular diet at [facility]. She was coughing loudly this AM. REGISTERED SAFETY ENGINEER ordered for eval prior to discharge back. She is on regular diet but only consuming 25%. Will follow REGISTERED SAFETY ENGINEER recommendations.
--- NOTE | 2022-05-29 14:16 | PC.NURSE ---
Blood cx prelim reported to Tai Juares MD
--- NOTE | 2022-05-29 14:34 | HMH.SLDYSPHA ---
Speech & Language Evaluation Speech/Language Dysphagia Evaluation Start: 05/29/22 13:28 Freq: ONCE Status: Active Protocol: Document 05/29/22 13:28 SAMANTHAYOLI (Rec: 05/29/22 14:34 [id number] Dysphagia Assess/Goals/Plan Assessment Date of Evaluation: 05/29/22 Evaluation Type Initial Certification Assessment/Problems Pt was assessed at the bedside for a clinical swallow evaluation per MD order following concerns with coughing during meals. Does Patient Qualify for Service No Qualify/Failure Comment Based on assessment results, skilled speech therapy services are not warranted at this time. Recommendations PHYSICIAN CERTIFICATION: The specified therapy services are required, authorized, and reviewed every 30 days. Diet Recommendations Mechanical Soft Liquid Type Recommendations Normal/Thin SL Swallow Guidelines Standard Aspiration Prec. Dysphagia Swallow Precautions/Strategies Sitting Upright (90 deg),Small Bites and Sips,Alternate Liquids/Solids Plan Pt/Guardian verbally ack understanding Yes of dx/prognosis/goals G -code Required No Education Instructions provided Discussed results and diet recommendations with pt, nurse , and care management who expressed understanding. Pt/Caregiver able to recall information Able to recall/restate Reinforcement needed No Speech & Language HPI History Present Illness Description of Patient Problem Pt is a 77 year old female who presented in ER for worsening tremor per [facility] report. Pt admitted for UTI and acute kidney injury. Pt chest xray impression stated lungs and pleural spaces were unremarkable. Primary medical hx includes: COPD, asthma, GERD, atypical chest pain, gallbladder disease, palpitations, dyspnea, HTN, tobacco dependence syndrome, and schizophrenia. Rehab Services Assessed Speech therapy Language Primary Language Latvian General Information General Current Food Consistancy Regular Dentition Edentulous Oxygen Status Room Air Patient Orientation Situation
[2022-05-29 15:31] VITALS: BP 115/70; PULSE 80; RESP 18; TEMP 36.7; O2SAT 95
--- NOTE | 2022-05-30 14:38 | CARE MANAGER ---
Contacted [facility] and they state patient is doing very well. They state Dr. Wadsworth will see her this week there and she is taking antibiotics as prescribed. LEANNA Murillo
== END 2022-05-29 16:00 | disposition home or self-care (01) ==
LOC: ER 09:38 → 2ND 12:11
PROVIDERS: Admitting Provider Student in an Organized Health Care Education/Training Program; Emergency Provider Emergency Medicine; Visit Provider Student in an Organized Health Care Education/Training Program
DX: N17.9 Acute kidney failure, unspecified (principal); N39.0 Urinary tract infection, site not specified; F17.210 Nicotine dependence, cigarettes, uncomplicated; Z79.899 Other long term (current) drug therapy; J44.9 Chronic obstructive pulmonary disease, unspecified; I10 Essential (primary) hypertension; F20.9 Schizophrenia, unspecified; E78.5 Hyperlipidemia, unspecified; Z20.822 Contact with and (suspected) exposure to COVID-19
CPT/HCPCS: G0378; 36415; 71045; 71046; 80048; 80053; 81001; 83735; 84100; 85025; 87040; 87077; 87086; 87088; 87186; 92610; 93005; 97162; 97165; 99285; C9803; J0696; J3475; U0003; U0005

== ENCOUNTER 2022-06-16 08:42 | Emergency (ER) | payer MEDICARE, MEDICAID, SELFPAY ==
[2022-06-16 08:55] VITALS: BP 130/100; PULSE 94; RESP 16; TEMP 36.7; O2SAT 95; BMI 20.1
--- NOTE | 2022-06-16 08:56 | PC.NURSE ---
Contacted care mgn to fu on possible group home placement. CM will come to evaluate pt
--- NOTE | 2022-06-16 08:57 | HMH.EDGENADL ---
Discharge Plan Disposition Patient Disposition: Home, Self-Care Condition: Good Prescriptions Prescriptions: No Action buspirone 10 mg tablet 10 mg PO BID citalopram [Celexa] 20 mg tablet 20 mg PO DAILY nitroglycerin [Nitrostat] 0.4 mg tablet, sublingual 0.4 mg SUBLINGUAL Q5MINP PRN (Reason: Chest Pain) allopurinol 100 mg tablet 100 mg PO BID pantoprazole [Protonix] 40 mg tablet,delayed release (DR/EC) 40 mg PO DAILY potassium chloride 20 mEq tablet extended release 20 meq PO TID gabapentin 100 mg capsule 100 mg PO TID Qty: 90 5RF atorvastatin 20 MG tablet 20 mg PO HS benztropine 1 MG tablet 1.5 mg PO BID donepezil 5 mg Tablet 5 mg PO HS loperamide 2 mg Capsule 2 mg PO Q4HP PRN (Reason: Diarrhea) Rx Instructions: administer after each loose stool until symptoms controlled; do not exceed 8 mg per 24 hrs aspirin 81 mg tablet,chewable 81 mg PO DAILY irbesartan 300 mg Tablet 300 mg PO DAILY aripiprazole 5 mg Tablet 5 mg PO DAILY metoprolol tartrate 25 mg Tablet 12.5 mg PO DAILY albuterol sulfate [Ventolin HFA] 90 mcg/actuation HFA aerosol inhaler 2 puff INHALATION Q6HP PRN (Reason: shortness of breath or wheezing) cefdinir 300 mg Capsule 300 mg PO BID 5 Days Qty: 10 0RF hydrochlorothiazide 25 MG tablet 25 mg PO DAILY Referrals Follow up/Referrals: Provider,Referral, MD [Primary Care Provider] - See instructions Activity Restrictions/Add. Instructions Additional Instructions/Restrictions: Please return to the emergency department if your condition changes. Follow-up with your primary care doctor in about 3 to 5 days. Take all medications as prescribed. Clinical Impressions Clinical Impression: Bilateral leg pain Instructions Patient Instructions: DI for Low Back Pain, DI for Chronic Pain -- Adult Discharge ED Provider: [place] Adult HPI General Chief complaint: Back Pain/Injury Stated complaint: Lower Extremity Pain Time Seen by Provider: 06/16/22 08:57 Mode of Arrival: EMS Source of Information: Patient History of Present Illness HPI narrative: The patient presents to the emergency department by ambulance because she has had a 5-week history of bilateral leg pain. She states that she has not been able to walk for 5 weeks. She denies any recent injury. She used to wear a leg brace. He has no new symptoms. Onset (ago): week(s) (5) Related Data Home Medications Medication Instructions Recorded Confirmed allopurinol 100 mg tablet 100 mg PO BID GOUT 07/27/17 06/16/22 buspirone 10 mg tablet 10 mg PO BID mood 07/27/17 06/16/22 citalopram 20 mg tablet (Celexa) 20 mg PO DAILY mood 07/27/17 06/16/22 nitroglycerin 0.4 mg sublingual 0.4 mg sublingual Q5MINP PRN Chest 07/27/17 05/28/22 tablet (Nitrostat) Pain pantoprazole 40 mg tablet,delayed 40 mg PO DAILY GERD 07/27/17 06/16/22 release (Protonix) potassium chloride 20 mEq 20 meq PO TID Supplement 07/27/17 06/16/22 tablet,extended release atorvastatin 20 mg tablet 20 mg PO HS Cholesterol 03/22/19 06/16/22 hydrochlorothiazide 25 mg tablet 25 mg PO DAILY Fluid 03/29/20 06/16/22 albuterol sulfate 90 mcg/actuation 2 puff inhalation Q6HP PRN 05/28/22 05/28/22 aerosol inhaler (Ventolin HFA) shortness of breath or wheezing aripiprazole 5 mg tablet 5 mg PO DAILY MOOD 05/28/22 06/16/22 aspirin 81 mg chewable tablet 81 mg PO DAILY HEART HEALTH 05/28/22 06/16/22 benztropine 1 mg tablet 1.5 mg PO BID MOVEMENT DISORDER 05/28/22 06/16/22 donepezil 5 mg tablet 5 mg PO HS MEMORY 05/28/22 06/16/22 irbesartan 300 mg tablet 300 mg PO DAILY Hypertension 05/28/22 06/16/22 loperamide 2 mg capsule 2 mg PO Q4HP PRN Diarrhea 05/28/22 05/28/22 metoprolol tartrate 25 mg tablet 12.5 mg PO DAILY Hypertension 05/28/22 06/16/22 Previous Rx's Medication Instructions Recorded gabapentin 100 mg capsule 100 mg PO TID Pain #90 caps
--- NOTE | 2022-06-16 09:10 | PC.NURSE ---
called [facility] for pt ride home.
--- NOTE | 2022-06-16 09:12 | SW/DCPLANNER ---
I called and spoke with Irena at [facility] regarding this patient. I have informed Irena that stated that he thinks that patient will need placement in the near future. Irena stated that she has already has a conversation w/ patient's State Guardian and they will start the process for placement at [facility] once patient returns.
[2022-06-16 09:31] VITALS: BP 129/75; PULSE 90; RESP 16; O2SAT 94
[2022-06-16 10:00] VITALS: BP 124/88; PULSE 87; RESP 16; O2SAT 95
--- NOTE | 2022-06-16 10:05 | PC.NURSE ---
Rounded on patient; patient needed to use bathroom. Got patient on bedpan.
--- NOTE | 2022-06-16 10:10 | PC.NURSE ---
Took patient off bed [place]; helped patient ambulate to wheelchair and ordered patient breakfast tray
[2022-06-16 10:47] VITALS: BP 109/74; PULSE 62; RESP 19; TEMP 36.7
== END 2022-06-16 10:55 | disposition home or self-care (01) ==
PROVIDERS: Emergency Provider Emergency Medicine
DX: M79.604 Pain in right leg (principal); M79.605 Pain in left leg; J45.909 Unspecified asthma, uncomplicated; J44.9 Chronic obstructive pulmonary disease, unspecified; K21.9 Gastro-esophageal reflux disease without esophagitis; I10 Essential (primary) hypertension; E78.5 Hyperlipidemia, unspecified; F20.9 Schizophrenia, unspecified; Z80.9 Family history of malignant neoplasm, unspecified; F17.210 Nicotine dependence, cigarettes, uncomplicated; R53.1 Weakness
CPT/HCPCS: 99283

== ENCOUNTER → 2022-08-10 10:30 | Outpatient (CLI) | payer MEDICARE, MEDICAID, SELFPAY ==
--- NOTE | 2022-08-10 10:32 | CA_ITS ---
APPROVED REPORT EXAM: Comprehensive 2D, Doppler, and color-flow Echocardiogram Dice Spotter: ORIN Shaw, RVS Ht: 5 ft 1 in Wt: 136lbs BSA: 1.60 BP: 119/58 mmHg Indications: CP, Afib, SOB, HTN, HLD, Exsmoker, SOB Echo Enhancing Agent Comments: Low parasternal windows=subxiphoid parasternal imaging 2D Dimensions Aortic Root 2.99 cm LA Volume 46.10 mL Left Atrium 3.81 cm LA Volume Index 28.10 mL/m2 (M/F) 16-34 LVOT 1.95 cm (M/F) 1.5-2.5 M-Mode Dimensions RVDd 2.18 cm (0.9-2.6) LA Diam 3.55 cm (1.9-4.0) LVDd 4.47 cm (3.5-5.7) Ao Diam 3.19 cm (2.0-3.7) LVDs 2.79 cm (3.5-5.7) IVSd 0.82 cm (0.6-1.1) PWd 0.86 cm (0.6-1.1) EF (Teich) 67.80% EPSs 0.50 cm FS 37.60% EDV (Teich) 91.00 mL TAPSE 2.22 (<1.7) ESV (Teich) 29.30 mL LV Diastology E Decel Time 243.00 (160-240 msec) E/A Ratio 0.90 MED E' 6.90 (< 7 cm/sec) MED A' 11.50 cm/s E'/MED E' Ratio 11.64 (>14) LAT E' 12.30 (<10 cm/sec) LAT A' 13.70 cm/s E/LAT E' Ratio 6.53 (>14) Aortic Valve LVOT Max 103.00 (70-110 cm/s) LVOT VTI 22.90 cm AoV Peak Javed. 123.00 (50-130 cm/s) AO Peak GR. 6.10 mmHg AO Mean GR. 3.10 (<5 mmHg) AO VTI 26.16 (18-25 cm) SHAI (VTI) 2.61 (2.5-4.5 cm2) Mitral Valve MV A Velocity 89.00 (40-130 cm/s) E/A Ratio 0.90 MV Decel. Time 243.00 (160-240 ms) MV PHT 70.00 ms Pulmonary Valve PV Peak Velocity 55.00 (50-150 cm/s) Tricuspid Valve TR P. Velocity 186.00 cm/s RAP Estimate 10.00 mmHg RVSP 23.90 mmHg Left Ventricle Left atrium is mildly enlarged, left ventricle is normal size mild concentric left ventricular hypertrophy, estimated ejection fraction of 55% with no regional wall motion abnormality, grade 1 diastolic dysfunction seen without tissue Doppler evidence of late left atrial pressure. Right Ventricle Right atrium and right ventricular mildly enlarged with normal contractility. Aortic Valve Aortic valve is minimally thickened and fibrosed there is no aortic stenosis or aortic insufficiency. Mitral Valve Mitral valve is grossly normal, there is mild mitral regurgitation. Tricuspid Valve Tricuspid grossly normal, there is mild tricuspid regurgitation, tricuspid regurgitation jet velocity is inadequate for calculation of the right ventricular systolic pressure. Pulmonic Valve Pulmonic valve is poorly visualized. Great Vessels Aortic root is normal size. Inferior vena cava is mildly dilated with less than 50% inspiratory collapse. Pericardium No significant pericardial effusion noted. Conclusion 1. Mild biatrial enlargement, normal left ventricular size, mild concentric left ventricular hypertrophy, estimated ejection fraction 55% with no regional wall motion abnormality, grade 1 diastolic dysfunction seen without tissue Doppler evidence of late left atrial pressure. 2. Mildly enlarged right ventricle with normal contractility. 3. Mild mitral and tricuspid regurgitation. 4. No significant pericardial effusion noted. 5. Inferior vena cava is mildly dilated with less than 50% inspiratory collapse. Electronically signed by : Junior Sanchez MD 08/11/2022 17:00:18
== END ==
PROVIDERS: PCP Emergency Medicine; Visit Provider Nurse Practitioner Family
DX: E78.5 Hyperlipidemia, unspecified (principal); F17.200 Nicotine dependence, unspecified, uncomplicated; I95.9 Hypotension, unspecified; K21.9 Gastro-esophageal reflux disease without esophagitis; R06.09 Other forms of dyspnea
CPT/HCPCS: 93306

== ENCOUNTER 2022-11-09 19:36 | Emergency (ER) | payer MEDICARE, MEDICAID, SELFPAY ==
[2022-11-09] VITALS (9 sets, daily range): BP systolic 123–147; BP diastolic 52–71; PULSE 69–76; RESP 14–24; TEMP 37.2; O2SAT 93–98; BMI 19.8
--- NOTE | 2022-11-09 19:49 | ECG_ITS ---
APPROVED REPORT Exam: Resting ECG HR:72 bpm ECG Measurements Heart Rate 72 AXES ND 184 P 61 QRSd 93 QRS -18 QT 392 T 41 QTc 415 Conclusion SINUS RHYTHM POSSIBLE RIGHT VENTRICULAR CONDUCTION DELAY [RSR (QR) IN V1/V2] BORDERLINE ECG UNCONFIRMED REPORT Electronically signed by : Cecil Pena MD 11/10/2022 21:30:51
--- NOTE | 2022-11-09 21:01 | PC.NURSE ---
chest pain orders delayed being entered due to multiple trauma alerts. Pt remains stable and pain free at this time
--- NOTE | 2022-11-09 21:02 | XR_ITS ---
PROCEDURE INFORMATION: Exam: XR Chest Exam date and time: 11/09/2022 9:17 PM Age: 77 years old Clinical indication: Sternal or substernal pain; Additional info: Chest pain earlier this date TECHNIQUE: Imaging protocol: Radiologic exam of the chest. Views: 1 view. COMPARISON: CR XR CHEST 2V 01/19/2023 10:12 FINDINGS: Lungs: Mild peripheral pulmonary scarring. Bilateral apical scarring. Stigmata of old granulomatous disease. Pleural spaces: Unremarkable. No pleural effusion. No pneumothorax. Heart/Mediastinum: Unremarkable. No cardiomegaly. Vasculature: Mildly tortuous thoracic aorta. Bones/joints: Old right rib fractures.Low lung volumes with associated vascular crowding and bibasilar atelectasis. Chronic left humeral deformity. IMPRESSION: No acute findings.
[2022-11-09 21:14] LABS: Chloride 99 mmol/L (98-107); Potassium 4.9 mmoL/L (3.5-5.1); Sodium 137 mmol/L (136-145)
[2022-11-09 21:17] LABS: Alanine Aminotransferase 27 U/L (12-78); Albumin/Globulin Ratio 1.4 (1.1-1.8); Alkaline Phosphatase 124 U/L (38-126); Anion Gap 13.9 mEq/L (5-15); Aspartate Amino Transferase 32 U/L (14-36); Bilirubin,Total 0.4 mg/dl (0.2-1.3); Blood Urea Nitrogen 17 mg/dl (7-17); Carbon Dioxide 29 mmol/L (22.0-30.0); Creatinine Clearance Estimated 44 mL/min (50-200); Estimated Glomerular Filt Rate 120 ml/min (>60); GFR (African American) 145 ML/MIN (>60); Globulin 2.8 g/dL (1.3-3.2); Glucose 114 mg/dl (74-100); Total Protein,Serum 6.8 g/dl (6.3-8.2)
[2022-11-09 21:18] LABS: Calcium 8.9 mg/dl (8.4-10.2)
[2022-11-09 21:22] LABS: Basophils % 0.3 % (0.1-2.0); Eosinophils # 0.1 K/mm3 (0.0-0.4); Eosinophils % 1.6 % (0.1-12.0); Hematocrit 33.1 % (37.0-47.0); Hemoglobin 10.4 g/dL (12.2-16.2); Lymphocytes # 1.6 K/mm3 (0.7-4.5); Lymphocytes % 22.6 % (10-50); Mean Corpuscular HGB Conc 31.5 g/dL (31.8-35.4); Mean Corpuscular Hemoglobin 27.2 pg (27.0-31.2); Mean Corpuscular Volume 86.3 fl (81-99); Mean Platelet Volume 9.2 fl (7.4-10.4); Monocytes # 0.6 K/mm3 (0.1-1.0); Monocytes % 9.1 % (1.7-9.3); Neutrophils # 4.7 K/mm3 (1.8-7.8); Neutrophils % 66.4 % (37.0-80.0); Platelet Count 229 K/mm3 (142-424); Red Blood Count 3.84 M/mm3 (4.20-5.40); Red Cell Distribution Width 14.9 % (11.5-17.5)
[2022-11-09 21:34] LABS: Troponin I < 0.01 ng/ml (0.00-0.034)
--- NOTE | 2022-11-09 21:57 | PC.NURSE ---
Omar rounded on patient at this time. Pt advised she was ok at this time and had no new needs
--- NOTE | 2022-11-09 21:57 | PC.NURSE ---
s/w Lynn at [facility] and gave pt update to her.
--- NOTE | 2022-11-09 22:40 | PC.NURSE ---
Asked lab to collect 2nd troponin.
--- NOTE | 2022-11-09 23:22 | PC.NURSE ---
Rounded on patient at this time. Resting in bed. no new needs
[2022-11-09 23:24] LABS: Troponin I < 0.01 ng/ml (0.00-0.034)
[2022-11-10] VITALS: BP 135/61; PULSE 70; RESP 18; O2SAT 95
[2022-11-10 00:31] VITALS: BP 151/70; PULSE 72; RESP 16; O2SAT 96
--- NOTE | 2022-11-10 00:56 | PC.NURSE ---
Notified EMS of pt transfer back to [place]
--- NOTE | 2022-11-10 00:58 | PC.NURSE ---
Called report to [facility]
[2022-11-10 01:00] VITALS: BP 143/62; PULSE 69; RESP 24; O2SAT 95
[2022-11-10 01:01] VITALS: BP 143/62; PULSE 71; RESP 16; TEMP 36.8; O2SAT 98
--- NOTE | 2022-11-10 01:37 | HMH.EDCP ---
Discharge Plan Disposition Patient Disposition: Xfer SNF Condition: Good Prescriptions Prescriptions: New amoxicillin-pot clavulanate [Augmentin] 500-125 mg tablet 1 tab PO TID Qty: 30 0RF No Action citalopram [Celexa] 20 mg tablet 20 mg PO DAILY nitroglycerin [Nitrostat] 0.4 mg tablet, sublingual 0.4 mg SUBLINGUAL Q5MINP PRN (Reason: Chest Pain) allopurinol 100 mg tablet 100 mg PO BID pantoprazole [Protonix] 40 mg tablet,delayed release (DR/EC) 40 mg PO DAILY potassium chloride 20 mEq tablet extended release 20 meq PO TID multivitamin [Daily Multi-Vitamin] Tablet 1 tab PO DAILY tramadol 50 mg tablet 50 mg PO BID Qty: 60 2RF loperamide 2 mg Capsule 2 mg PO Q4HP PRN (Reason: Diarrhea) Rx Instructions: administer after each loose stool until symptoms controlled; do not exceed 8 mg per 24 hrs aspirin 81 mg tablet,chewable 81 mg PO DAILY aripiprazole 5 mg Tablet 5 mg PO DAILY metoprolol tartrate 25 mg Tablet 12.5 mg PO DAILY albuterol sulfate [Ventolin HFA] 90 mcg/actuation HFA aerosol inhaler 2 puff INHALATION Q6HP PRN (Reason: shortness of breath or wheezing) Referrals Follow up/Referrals: Donnie Wadsworth MD [Primary Care Provider] - See instructions Activity Restrictions/Add. Instructions Additional Instructions/Restrictions: You came in for cough and chest pain. You have some atelectasis in the lower lung. I think there is also pneumonia some given use of antibiotics. Chest pain was atypical which means it hurt when I pushed on it. I do not think this is a heart attack sending you home on some antibiotics and take Tylenol for chest pain. Clinical Impressions Clinical Impression: Chest pain, Pneumonia Instructions Patient Instructions: Pneumonia-Adult, DI for Atypical Chest Pain Discharge ED Provider: Emily Galo Chest Pain HPI General Chief Complaint: Chest Pain Stated Complaint: CP Time Seen by Provider: 11/09/22 20:00 Mode of Arrival: EMS Limitations: No Limitations Description of Symptoms (Recalled from ER Triage Doc. by RN): Pt is a resident at [facility] and advises she has been having stabbing chest pain for the past week. It comes and goes and tonight while she was eating the pain came again and lasted for a couple of minutes and she notified staff. Pt arrives to the ED pain free. She was given ASA this morning History of Present Illness HPI narrative: Patient is a 77-year-old male who is here secondary to right chest pain. Patient is complaining about chest pain which is sharp in nature hurts when she takes a deep breath or move. Patient stated that she has been coughing and bringing up some yellow phlegm. No fever or chills. No GI symptoms. MD complaint: chest pain Onset (ago): week(s) Duration: intermittent Activity at onset: during rest Pain location: right chest Severity: mild Severity scale (1-10): 5 Quality: sharp Pain radiation: none Relieving factors: nothing Exacerbating factors: palpation and movement Context: recent illness (Upper respiratory symptoms with cough ,sneezing and productive yellow phlegm) Associated symptoms: cough Risk Factors for CAD: Hypertension Treatments prior to or on arrival for Cardiac Chest Pain: aspirin Related Data On Oral Contraceptives: No Home Medications Medication Instructions Recorded Confirmed allopurinol 100 mg tablet 100 mg PO BID GOUT 07/27/17 11/01/22 citalopram 20 mg tablet (Celexa) 20 mg PO DAILY mood 07/27/17 11/01/22 nitroglycerin 0.4 mg sublingual 0.4 mg sublingual Q5MINP PRN Chest 07/27/17 11/01/22 tablet (Nitrostat) Pain pantoprazole 40 mg tablet,delayed 40 mg PO DAILY GERD 07/27/17 11/01/22 release (Protonix) potassium chloride 20 mEq 20 meq PO TID Supplement 07/27/17 11/01/22 tablet,extended release albuterol sulfate 90 mcg/actuation 2 puff inhalation Q6HP PRN 05/28/22 11/01/22 aerosol inhaler (Ventolin HFA) shortness o
== END 2022-11-10 01:44 ==
PROVIDERS: Emergency Provider Emergency Medicine; PCP Emergency Medicine
DX: R07.89 Other chest pain (principal); J18.9 Pneumonia, unspecified organism; J44.9 Chronic obstructive pulmonary disease, unspecified; I10 Essential (primary) hypertension; E78.5 Hyperlipidemia, unspecified; K21.9 Gastro-esophageal reflux disease without esophagitis; J45.909 Unspecified asthma, uncomplicated; Z87.891 Personal history of nicotine dependence
CPT/HCPCS: 36415; 71045; 80053; 84484; 85025; 93005; 96374; 99284; 99285; J0131

== ENCOUNTER 2022-11-28 16:08 | Emergency (ER) | payer MEDICARE, MEDICAID, SELFPAY ==
[2022-11-28 16:04] VITALS: BP 137/62; PULSE 72; RESP 17; TEMP 36.9; O2SAT 96; BMI 24.7
--- NOTE | 2022-11-28 16:09 | XR_ITS ---
PROCEDURE INFORMATION: Exam: XR Chest Exam date and time: 11/28/2022 4:15 PM Age: 77 years old Clinical indication: Dyspnea; Additional info: Cp. Weakness. Dyspnea TECHNIQUE: Imaging protocol: Radiologic exam of the chest. Views: 1 view. COMPARISON: CR XR CHEST PORTABLE 11/09/2022 9:17 PM FINDINGS: Lungs: Chronic appearing interstitial lung markings bilaterally. No acute airspace consolidation. Pleural spaces: Unremarkable. No pleural effusion. No pneumothorax. Heart/Mediastinum: Unremarkable. No cardiomegaly. Bones/joints: Chronic left proximal humerus deformity. IMPRESSION: No acute findings.
--- NOTE | 2022-11-28 16:11 | ECG_ITS ---
APPROVED REPORT Exam: Resting ECG HR:72 bpm ECG Measurements Heart Rate [address] 203 P 69 QRSd 88 QRS -26 QT 387 T 65 QTc 412 Conclusion SINUS RHYTHM SEPTAL MYOCARDIAL INFARCTION , PROBABLY OLD [40+ ms Q WAVE IN V1/V2] ABNORMAL ECG UNCONFIRMED REPORT Electronically signed by : Cecil Pena MD 11/30/2022 21:39:18
--- NOTE | 2022-11-28 16:16 | PC.NURSE ---
ER MD Soto at
--- NOTE | 2022-11-28 16:18 | PC.NURSE ---
rad at [facility] for portable xray
--- NOTE | 2022-11-28 16:25 | HMH.EDGENADL ---
Discharge Plan Disposition Patient Disposition: Home, Self-Care Chief Complaint: Chest Pain Prescriptions Prescriptions: No Action multivitamin Tablet 1 tab PO DAILY atorvastatin 20 mg Tablet 20 mg PO HS donepezil 5 mg Tablet 5 mg PO HS allopurinol 100 mg Tablet 100 mg PO BID tramadol 50 mg Tablet 50 mg PO BID citalopram 20 mg Tablet 20 mg PO DAILY pantoprazole 40 mg Tablet,Delayed Release (Dr/Ec) 40 mg PO DAILY buspirone 10 mg Tablet 10 mg PO BID aspirin 81 mg Tablet,Chewable 81 mg PO DAILY furosemide 20 mg Tablet 20 mg PO QODHS gabapentin 100 mg Capsule 100 mg PO TID albuterol sulfate 90 mcg/actuation Hfa Aerosol Inhaler 2 puff INHALATION Q6H PRN (Reason: Breathing Problems) aripiprazole 5 mg Tablet 5 mg PO DAILY metoprolol tartrate 25 mg Tablet 12.5 mg PO DAILY potassium chloride 20 mEq Tablet Extended Release 20 meq PO TID Referrals Follow up/Referrals: Donnie Wadsworth MD [Primary Care Provider] - See instructions Activity Restrictions/Add. Instructions Additional Instructions/Restrictions: Your emergency work-up did not demonstrate any emergent medical condition. There was evidence of some dilation of the esophagus with some fluid within it but without GI symptoms no further work-up is needed for this at the moment. If there continues to be any gastrointestinal symptoms please follow-up with Dr. Kaye or a GI doctor for an endoscopy. Additionally there were some incidental compression fractures of the spine that were found on CT scan but without any acute pain associate with this today these are presumed to be old injuries. Cardiopulmonary emergencies were ruled out. Please see the patient back to the emergency department with any worsening symptoms. Clinical Impressions Clinical Impression: Chest pain Discharge ED Provider: Javier Soto General Adult [facility] General Chief complaint: Chest Pain Stated complaint: Chest Pain Time Seen by Provider: 11/28/22 16:15 Mode of Arrival: EMS Source of Information: EMS Limitations: No Limitations Description of Symptoms (Recalled from ER Triage Doc. by RN): 77 F presents via EMS from [facility] after staff called out for patient c/o mid-sternal chest pain. Staff reports patient being a social butterfly around the facility; however, this morning and into this afternoon she has been very quiet and not herself. They went to her room to check on her and she was laying in bed c/o this chest pain. They're unaware of a time comanche since chest pain started. They administered 81mg Aspirin prior to EMS. [facility] on EMS reports giving 4 more 81mg Aspirin and 1 spray of Nitro 0.4mg History of Present Illness HPI narrative: Patient is a 77-year-old female brought in by EMS from [facility] for midsternal chest pain. Patient denies any radiation shortness of breath diaphoresis or nausea associated with this. Unsure as to whether or not this is exertional. She states she has no medical problems. She states her symptoms have only been going on today and yesterday she felt fine. Symptoms have been constant since early this morning. She denies any other gastrointestinal symptoms abdominal pain fever chills but does states she has had a cough intermittently recently. Related Data Home Medications Medication Instructions Recorded Confirmed albuterol sulfate 90 mcg/actuation 2 puff inhalation Q6H PRN 11/28/22 11/28/22 aerosol inhaler Breathing Problems allopurinol 100 mg tablet 100 mg PO BID Gout 11/28/22 11/28/22 aripiprazole 5 mg tablet 5 mg PO DAILY Psychiatric 11/28/22 11/28/22 aspirin 81 mg chewable tablet 81 mg PO DAILY Heart Disease 11/28/22 11/28/22 atorvastatin 20 mg tablet 20 mg PO HS High Cholesterol 11/28/22 11/28/22 buspirone 10 mg tablet 10 mg PO BID Psychiatric 11/28/22 11/28/22 citalopram 20 mg tablet 20 mg PO DAILY Psychiatric 11/28/22
[2022-11-28 16:27] LABS: Basophils % 0.7 % (0.1-2.0); Eosinophils % 3.2 % (0.1-12.0); Hematocrit 32.2 % (37.0-47.0); Hemoglobin 9.8 g/dL (12.2-16.2); Lymphocytes % 35.7 % (10-50); Mean Corpuscular HGB Conc 30.6 g/dL (31.8-35.4); Mean Corpuscular Hemoglobin 27.1 pg (27.0-31.2); Mean Corpuscular Volume 88.7 fl (81-99); Mean Platelet Volume 8.4 fl (7.4-10.4); Monocytes % 11.7 % (1.7-9.3); Neutrophils % 48.8 % (37.0-80.0); Platelet Count 206 K/mm3 (142-424); Red Blood Count 3.63 M/mm3 (4.20-5.40); Red Cell Distribution Width 15.6 % (11.5-17.5); White Blood Count 4.2 K/mm3 (4.8-10.8)
[2022-11-28 16:28] VITALS: PULSE 72
[2022-11-28 16:28] LABS: Eosinophils # 0.1 K/mm3 (0.0-0.4); Lymphocytes # 1.5 K/mm3 (0.7-4.5); Monocytes # 0.5 K/mm3 (0.1-1.0)
[2022-11-28 16:35] LABS: Alanine Aminotransferase 25 U/L (12-78); Albumin Level 3.9 g/dl (3.5-5.0); Albumin/Globulin Ratio 1.6 (1.1-1.8); Alkaline Phosphatase 132 U/L (38-126); Anion Gap 8.8 mEq/L (5-15); Aspartate Amino Transferase 31 U/L (14-36); Bilirubin,Total 0.3 mg/dl (0.2-1.3); Blood Urea Nitrogen 16 mg/dl (7-17); Calcium 8.7 mg/dl (8.4-10.2); Carbon Dioxide 30 mmol/L (22.0-30.0); Chloride 103 mmol/L (98-107); Creatinine Clearance Estimated 46 mL/min (50-200); Estimated Glomerular Filt Rate 97 ml/min (>60); GFR (African American) 117 ML/MIN (>60); Globulin 2.5 g/dL (1.3-3.2); Glucose 104 mg/dl (74-100); Potassium 3.8 mmoL/L (3.5-5.1); Sodium 138 mmol/L (136-145); Total Protein,Serum 6.4 g/dl (6.3-8.2)
[2022-11-28 16:44] LABS: D-Dimer 1.28 ug/mL (0.0-0.5); Lipase 74 U/L (23-300)
--- NOTE | 2022-11-28 16:53 | CT_ITS ---
PROCEDURE INFORMATION: Exam: CTA Chest With Contrast Exam date and time: 11/28/2022 5:15 PM Age: 77 years old Clinical indication: Pain; Chest pressure; Additional info: Cp elevated dimer >1.0 TECHNIQUE: Imaging protocol: Computed tomographic angiography of the chest with contrast. Exam focused on the arteries. 3D rendering (Not supervised by radiologist): MIP and/or 3D reconstructed images were created by the technologist. Radiation optimization: All CT scans at this facility use at least one of these dose optimization techniques: automated exposure control; mA and/or kV adjustment per patient size (includes targeted exams where dose is matched to clinical indication); or iterative reconstruction. Contrast material: ISOVUE 370; Contrast volume: 75 ml; Contrast route: INTRAVENOUS (IV); REPORTING DATA: Count of CT and Cardiac NM exams in prior 12 months: This patient has received 0 known CTs and 0 known cardiac nuclear medicine studies in the 12 months prior to the current study. COMPARISON: [facility] CTA-CHEST 07/20/2016 10:51 PM FINDINGS: Pulmonary arteries: Normal. No pulmonary emboli. Aorta: Mild atherosclerotic changes are seen within the thoracic aorta without evidence of aneurysm. Lungs: Multiple tiny calcified granulomata within both lungs. Minor bibasilar atelectasis. No acute airspace consolidation. Pleural spaces: Chronic calcific at left apical pleural thickening. Heart: Unremarkable. No cardiomegaly. No pericardial effusion. Mediastinal space: Dilated upper esophagus with fluid seen in the lower esophagus. Lymph nodes: Bilateral hilar region and mediastinal lymphadenopathy. The largest lymph node in the right hilar region measures 1.7 cm in short axis diameter. Tiny mediastinal and hilar region calcified lymph nodes also noted. Gallbladder and bile ducts: Cholecystectomy. Bones/joints: There are vertebral body compression deformities at T3, T5, T7, T11, T12 and L1. Chronic deformity of the proximal left humerus. Soft tissues: Unremarkable. IMPRESSION: 1. Dilatation of the upper esophagus and fluid-filled lower esophagus. No obvious mass or obstructing lesion. Consider further evaluation with EGD. 2. Nonspecific bilateral hilar and mediastinal region lymphadenopathy. 3. Multiple thoracic and lumbar vertebral body compression deformities. Previous CT images from 07/15/2021 are not available. However, review of the dictated report suggests that the compression deformities at T5 and L1 are new compared to that exam. Recommend correlation with that CT exam's images when they become available.
[2022-11-28 16:54] LABS: Troponin I < 0.01 ng/ml (0.00-0.034)
[2022-11-28 17:00] VITALS: BP 128/56; PULSE 64; RESP 18; O2SAT 98
[2022-11-28 17:30] VITALS: BP 124/55; PULSE 65; RESP 20; O2SAT 76
[2022-11-28 18:00] VITALS: BP 106/46; PULSE 66; RESP 17; O2SAT 94
[2022-11-28 18:18] VITALS: BP 136/66; PULSE 66; RESP 15; TEMP 36.9; O2SAT 96
--- NOTE | 2022-11-28 18:21 | PC.NURSE ---
Attempted to reach [facility] to give report patient is coming back. UNable to reach anyone'
== END 2022-11-28 18:37 | disposition home or self-care (01) ==
PROVIDERS: Emergency Provider Student in an Organized Health Care Education/Training Program; PCP Emergency Medicine
DX: R07.9 Chest pain, unspecified (principal); J44.9 Chronic obstructive pulmonary disease, unspecified; K21.9 Gastro-esophageal reflux disease without esophagitis; E78.5 Hyperlipidemia, unspecified; I10 Essential (primary) hypertension; F20.9 Schizophrenia, unspecified; Z87.891 Personal history of nicotine dependence
CPT/HCPCS: 71045; 71275; 80053; 83690; 84484; 85025; 85378; 93005; 99285; Q9967

== ENCOUNTER 2022-11-30 18:53 | Observation (INO) | payer MEDICARE, MEDICAID, SELFPAY ==
[2022-11-30] VITALS (11 sets, daily range): BP systolic 120–147; BP diastolic 53–76; PULSE 62–82; RESP 15–22; TEMP 36.8; O2SAT 92–98; BMI 23.8
--- NOTE | 2022-11-30 18:53 | ECG_ITS ---
APPROVED REPORT Exam: Resting ECG HR:69 bpm ECG Measurements Heart Rate 69 AXES [place] 205 P 75 QRSd 93 QRS -18 QT 379 T 58 QTc 398 Conclusion SINUS RHYTHM WITH OCCASIONAL SUPRAVENTRICULAR PREMATURE COMPLEXES SEPTAL MYOCARDIAL INFARCTION , PROBABLY OLD [40+ ms Q WAVE IN V1/V2] ABNORMAL ECG UNCONFIRMED REPORT Electronically signed by : Cecil Pena MD 12/01/2022 17:16:24
--- NOTE | 2022-11-30 19:16 | XR_ITS ---
PROCEDURE INFORMATION: Exam: XR Chest Exam date and time: 11/30/2022 7:20 PM Age: 77 years old Clinical indication: Other: Chest pain; Additional info: Cp TECHNIQUE: Imaging protocol: Radiologic exam of the chest. Views: 1 view. COMPARISON: CR XR CHEST PORTABLE 11/28/2022 4:15 PM FINDINGS: Lungs: Pleuroparenchymal scarring of the lung bases with subsegmental atelectasis is present without large consolidations or pleural effusions. Pleural spaces: See Lungs finding. Heart/Mediastinum: Unremarkable. No cardiomegaly. Bones/joints: Unremarkable. IMPRESSION: Pleuroparenchymal scarring of the lung bases with subsegmental atelectasis is present without large consolidations or pleural effusions.
[2022-11-30 19:24] LABS: Basophils % 0.7 % (0.1-2.0); Chloride 103 mmol/L (98-107); Eosinophils # 0.2 K/mm3 (0.0-0.4); Eosinophils % 2.8 % (0.1-12.0); Hematocrit 31.8 % (37.0-47.0); Hemoglobin 10.1 g/dL (12.2-16.2); Lymphocytes # 1.8 K/mm3 (0.7-4.5); Lymphocytes % 31.5 % (10-50); Mean Corpuscular HGB Conc 31.8 g/dL (31.8-35.4); Mean Corpuscular Hemoglobin 27.4 pg (27.0-31.2); Mean Corpuscular Volume 86.2 fl (81-99); Mean Platelet Volume 8.2 fl (7.4-10.4); Monocytes # 0.6 K/mm3 (0.1-1.0); Monocytes % 9.6 % (1.7-9.3); Neutrophils # 3.2 K/mm3 (1.8-7.8); Neutrophils % 55.5 % (37.0-80.0); Platelet Count 197 K/mm3 (142-424); Potassium 4.1 mmoL/L (3.5-5.1); Red Blood Count 3.69 M/mm3 (4.20-5.40); Red Cell Distribution Width 15.6 % (11.5-17.5); Sodium 137 mmol/L (136-145); White Blood Count 5.7 K/mm3 (4.8-10.8)
[2022-11-30 19:26] LABS: Blood Urea Nitrogen 16 mg/dl (7-17); Creatinine Clearance Estimated 43 mL/min (50-200); Estimated Glomerular Filt Rate 120 ml/min (>60); GFR (African American) 145 ML/MIN (>60)
[2022-11-30 19:27] LABS: Alanine Aminotransferase 27 U/L (12-78); Albumin Level 3.9 g/dl (3.5-5.0); Albumin/Globulin Ratio 1.4 (1.1-1.8); Alkaline Phosphatase 134 U/L (38-126); Anion Gap 10.1 mEq/L (5-15); Aspartate Amino Transferase 32 U/L (14-36); Bilirubin,Total 0.4 mg/dl (0.2-1.3); Calcium 8.9 mg/dl (8.4-10.2); Carbon Dioxide 28 mmol/L (22.0-30.0); Globulin 2.8 g/dL (1.3-3.2); Glucose 99 mg/dl (74-100); Total Protein,Serum 6.7 g/dl (6.3-8.2)
[2022-11-30 19:40] LABS: Troponin I < 0.01 ng/ml (0.00-0.034)
--- NOTE | 2022-11-30 20:03 | PC.NURSE ---
rounded. pt states she is not having any pain at this time.
--- NOTE | 2022-11-30 21:07 | PC.NURSE ---
check on pt, no new complaints at this time.
--- NOTE | 2022-11-30 22:04 | HMH.EDCP ---
Discharge Plan Disposition Patient Disposition: Admitted Condition: Fair Prescriptions Prescriptions: No Action multivitamin Tablet 1 tab PO DAILY atorvastatin 20 mg Tablet 20 mg PO HS donepezil 5 mg Tablet 5 mg PO HS allopurinol 100 mg Tablet 100 mg PO BID tramadol 50 mg Tablet 50 mg PO BID citalopram 20 mg Tablet 20 mg PO DAILY pantoprazole 40 mg Tablet,Delayed Release (Dr/Ec) 40 mg PO DAILY buspirone 10 mg Tablet 10 mg PO BID aspirin 81 mg Tablet,Chewable 81 mg PO DAILY furosemide 20 mg Tablet 20 mg PO QODHS gabapentin 100 mg Capsule 100 mg PO TID albuterol sulfate 90 mcg/actuation Hfa Aerosol Inhaler 2 puff INHALATION Q6H PRN (Reason: Breathing Problems) aripiprazole 5 mg Tablet 5 mg PO DAILY metoprolol tartrate 25 mg Tablet 12.5 mg PO DAILY potassium chloride 20 mEq Tablet Extended Release 20 meq PO TID Referrals Follow up/Referrals: Donnie Wadsworth MD [Primary Care Provider] - See instructions Clinical Impressions Clinical Impression: Esophageal stricture, Esophageal dysphagia Discharge ED Provider: Emily Galo Chest Pain HPI General Chief Complaint: Chest Pain Stated Complaint: CP Time Seen by Provider: 11/30/22 20:10 Mode of Arrival: EMS Source of Information: EMS Limitations: No Limitations Description of Symptoms (Recalled from ER Triage Doc. by RN): EMS reports pt finished eating around 1630 and began having minimal R sided chest pain. EMS reports pts pain stopped but it has restarted now. EMS reports pt has been very anxious and was recently here for possible pneumonia. pt is confused at baseline. History of Present Illness HPI narrative: Patient is a 71-year-old female who is here secondary to chest pain. Patient was eating dinner she said around 430 and her right-sided chest pain is stopped. Patient has no shortness of breath no diaphoresis no nausea vomiting associated with it. Patient was seen by me in October with 2 sets of troponin sent home. Patient apparently was here and seen for the physicians in the ER Dr. Alfred Soto and had a CT which showed some fluid in upper esophagus and was told to have endoscopy done as an outpatient. Patient does say the food gets stuck when she eats and points at her sternal notch. complaint: chest pain Onset (ago): hour(s) Time: 04:30 Duration: intermittent Activity at onset: after eating Pain location: right chest Severity: moderate Severity scale (1-10): 6 Quality: aching and dull Pain radiation: neck Relieving factors: nothing Exacerbating factors: nothing Risk Factors for CAD: Hypertension Treatments prior to or on arrival for Cardiac Chest Pain: aspirin and nitroglycerin Related Data Home Medications Medication Instructions Recorded Confirmed albuterol sulfate 90 mcg/actuation 2 puff inhalation Q6H PRN 11/28/22 11/28/22 aerosol inhaler Breathing Problems allopurinol 100 mg tablet 100 mg PO BID Gout 11/28/22 11/28/22 aripiprazole 5 mg tablet 5 mg PO DAILY Psychiatric 11/28/22 11/28/22 aspirin 81 mg chewable tablet 81 mg PO DAILY Heart Disease 11/28/22 11/28/22 atorvastatin 20 mg tablet 20 mg PO HS High Cholesterol 11/28/22 11/28/22 buspirone 10 mg tablet 10 mg PO BID Psychiatric 11/28/22 11/28/22 citalopram 20 mg tablet 20 mg PO DAILY Psychiatric 11/28/22 11/28/22 donepezil 5 mg tablet 5 mg PO HS Psychiatric 11/28/22 11/28/22 furosemide 20 mg tablet 20 mg PO QODHS Fluid 11/28/22 11/28/22 gabapentin 100 mg capsule 100 mg PO TID Neuropathy 11/28/22 11/28/22 metoprolol tartrate 25 mg tablet 12.5 mg PO DAILY High Blood 11/28/22 11/28/22 Pressure multivitamin 1 tab PO DAILY Supplement 11/28/22 11/28/22 pantoprazole 40 mg tablet,delayed 40 mg PO DAILY Acid Reflux 11/28/22 11/28/22 release potassium chloride 20 mEq 20 meq PO TID Supplement 11/28/22 11/28/22 tablet,extended release tramadol 50 mg tablet 50 mg PO BID Chronic p
--- NOTE | 2022-11-30 22:14 | PC.NURSE ---
pt resting with eyes closed. second trop drawn at this time.
--- NOTE | 2022-11-30 22:20 | PC.NURSE ---
Dr. Galo s/w retirement nurse for more detailed information
--- NOTE | 2022-11-30 22:21 | CT_ITS ---
PROCEDURE INFORMATION: Exam: CT Chest Without Contrast; Diagnostic Exam date and time: 11/30/2022 10:43 PM Age: 77 years old Clinical indication: Other: Esophageal stricture TECHNIQUE: Imaging protocol: Diagnostic computed tomography of the chest without contrast. Radiation optimization: All CT scans at this facility use at least one of these dose optimization techniques: automated exposure control; mA and/or kV adjustment per patient size (includes targeted exams where dose is matched to clinical indication); or iterative reconstruction. REPORTING DATA: Count of CT and Cardiac NM exams in prior 12 months: This patient has received [address] and 0 known cardiac nuclear medicine studies in the 12 months prior to the current study. COMPARISON: CT ANGIO CHEST PE PROTOCOL 11/28/2022 5:15 PM FINDINGS: Lungs: Unremarkable. No consolidation. No masses. Pleural spaces: Unremarkable. No pneumothorax. No pleural effusion. Heart: Unremarkable. No cardiomegaly. No pericardial effusion. Mediastinal space: Persistent significant distention of the thoracic esophagus which is now diffusely air-filled. The fluid component is no longer present. Lymph nodes: Again noted is mediastinal hilar lymphadenopathy with multiple calcified hilar and mediastinal lymph nodes present. Vasculature: Unremarkable. No aortic aneurysm. Gallbladder and bile ducts: The gallbladder is absent. There is no biliary ductal dilation. Bones/joints: Multiple stable vertebral body compression deformities are noted. Soft tissues: Unremarkable. Other findings: Scattered calcified granulomata are noted. IMPRESSION: 1. Persistent significant air distention of the thoracic esophagus with resolution of the fluid component. EG junction stricture should be considered. Further evaluation with barium swallow or EGD could be performed as indicated. 2. No acute intrathoracic finding. 3. Findings consistent with prior granulomatous exposure.
--- NOTE | 2022-11-30 22:21 | CT_ITS ---
PROCEDURE INFORMATION: Exam: CT Neck Without Contrast Exam date and time: 11/30/2022 10:41 PM Age: 77 years old Clinical indication: Other: Sore throat TECHNIQUE: Imaging protocol: Computed tomography of the neck without contrast. Radiation optimization: All CT scans at this facility use at least one of these dose optimization techniques: automated exposure control; mA and/or kV adjustment per patient size (includes targeted exams where dose is matched to clinical indication); or iterative reconstruction. REPORTING DATA: Count of CT and Cardiac NM exams in prior 12 months: This patient has received [address] and 0 known cardiac nuclear medicine studies in the 12 months prior to the current study. COMPARISON: CT CERVICAL SPINE WO CON 03/22/2019 7:18 AM FINDINGS: Pharynx: Unremarkable. No significant tonsillar enlargement. Larynx: Unremarkable. Epiglottis is normal. Prevertebral and retropharyngeal spaces: Unremarkable. Salivary glands: Normal. Glands are normal in size. Thyroid: Normal. No enlarged or calcified nodules. Lymph nodes: Unremarkable. No lymphadenopathy. Trachea: Visualized trachea is unremarkable. Lungs: Unremarkable as visualized. Bones/joints: Unremarkable. No acute fracture. Multilevel degenerative disc and joint space changes of the visualized cervical spine most pronounced at C6/7. Vertebral body heights grossly preserved. Cortices intact. Soft tissues: Unremarkable. No significant soft tissue swelling. IMPRESSION: No acute findings.
--- NOTE | 2022-11-30 22:30 | PC.NURSE ---
Dr. Galo s/w pt's medical POA
[2022-11-30 23:01] LABS: Troponin I < 0.01 ng/ml (0.00-0.034)
--- NOTE | 2022-11-30 23:31 | PC.NURSE ---
paged dr figueredo @ this time
--- NOTE | 2022-11-30 23:32 | PC.NURSE ---
on phone with dr figueredo
--- NOTE | 2022-11-30 23:38 | PC.NURSE ---
on phone with hospitalist
--- NOTE | 2022-11-30 23:40 | PC.NURSE ---
Registration notified of admission. Pt assigned to room 209 to the hospitalist for esophageal stricture. OBS
[2022-11-30 23:44] LABS: Coronavirus 19, PCR Not Detected (NotDetected); Influenza A, PCR Not Detected (NotDetected); Influenza B, PCR Not Detected (NotDetected)
--- NOTE | 2022-11-30 23:52 | PC.NURSE ---
Report given to Caitlin
[2022-12-01] VITALS (16 sets, daily range): BP systolic 110–150; BP diastolic 52–96; PULSE 60–70; RESP 17–22; TEMP 36.1–36.8; O2SAT 92–100; BMI 29.0
--- NOTE | 2022-12-01 00:03 | EXP.HP ---
History of Present Illness *Admission Date: 12/01/22 *Reason for visit:: dysphagia *History of present illness: This is a 77-year-old female resident of [facility], with PMHx of schizophrenia, GERD, hyperlipidemia, hypertension, unstable angina esophageal dysphagia who was brought to ER from nursing facility complaining of chest pain. Patient was recently discharged from here 2 days ago for same complaint. Patient is stated she was eating dinner this afternoon and suddenly started with right chest pain. Last seen at the ER for concern of esophageal dysphagia and they recommended for follow-up outpatient with EGD. Today facility to send patient back within concern. patient has no shortness of breath no diaphoresis no nausea vomiting associated with it. Patient does say the food gets stuck when she eats and points at her sternal notch. Initial ER evaluation included CT of the chest with persistent significant air distention of the thoracic esophagus with resolution of the fluid component. The rest of the lab was negative. Including troponin. EKG is also negative. Agree with the ER doctor for admission and further management. [facility] Disclaimer: The information contained in this section may have been updated after the patient was seen, as this information can be updated by other users. Medical History Asthma Atypical chest pain Chest pain COPD (chronic obstructive pulmonary disease) Dyspnea Gall bladder disease Gastroesophageal reflux disease HLD (hyperlipidemia) Hypertension Palpitations Schizophrenia Tobacco dependence syndrome Family History Other Family history of cancer Social History Smoking Status: Never smoker second hand exposure: Yes alcohol intake: never substance use type: denies use current occupational status: unemployed and disabled Travel in the last 8 weeks: None household members: other housing: assisted living facility current occupational exposures/hazards: No caffeine: Yes Review of Systems Review of Systems Review of systems:: pertinent systems reviewed and negative unless documented below Meds Home Medications and Allergies Home Medications Medication Instructions Recorded Confirmed Type albuterol sulfate 90 mcg/actuation 2 puff inhalation Q6H PRN 11/28/22 12/01/22 History aerosol inhaler Breathing Problems allopurinol 100 mg tablet 100 mg PO BID Gout 11/28/22 12/01/22 History aripiprazole 5 mg tablet 5 mg PO DAILY Psychiatric 11/28/22 12/01/22 History aspirin 81 mg chewable tablet 81 mg PO DAILY Heart Disease 11/28/22 12/01/22 History atorvastatin 20 mg tablet 20 mg PO HS High Cholesterol 11/28/22 12/01/22 History buspirone 10 mg tablet 10 mg PO BID Psychiatric 11/28/22 12/01/22 History citalopram 20 mg tablet 20 mg PO DAILY Psychiatric 11/28/22 12/01/22 History donepezil 5 mg tablet 5 mg PO HS Psychiatric 11/28/22 12/01/22 History furosemide 20 mg tablet 20 mg PO QODHS Fluid 11/28/22 12/01/22 History gabapentin 100 mg capsule 100 mg PO TID Neuropathy 11/28/22 12/01/22 History metoprolol tartrate 25 mg tablet 12.5 mg PO DAILY High Blood 11/28/22 12/01/22 History Pressure multivitamin 1 tab PO DAILY Supplement 11/28/22 12/01/22 History potassium chloride 20 mEq 20 meq PO TID Supplement 11/28/22 12/01/22 History tablet,extended release tramadol 50 mg tablet 50 mg PO BID Chronic pain 11/28/22 12/01/22 History acetaminophen 500 mg tablet 500 mg PO Q6HP PRN Mild Pain 12/01/22 12/01/22 History (Acetaminophen Extra Strength) (Scale Score 1-4) aluminum-mag hydroxide-simethicone 30 ml PO Q4HP PRN Heartburn 12/01/22 12/01/22 History 200 mg-200 mg-20 mg/5 mL oral susp guaifenesin 100 mg/5 mL oral liquid 200 mg PO Q4HP PRN Chest Congestion 12/01/22 12/01/22 History loperamide 2 mg ca
--- NOTE | 2022-12-01 00:26 | PC.NURSE ---
Pt arrived to the floor via wheelchair @ 0021
[2022-12-01 01:58] LABS: Troponin I < 0.01 ng/ml (0.00-0.034)
[2022-12-01 06:29] LABS: Basophils % 0.7 % (0.1-2.0); Eosinophils # 0.1 K/mm3 (0.0-0.4); Eosinophils % 2.9 % (0.1-12.0); Hemoglobin 9.3 g/dL (12.2-16.2); Lymphocytes # 0.9 K/mm3 (0.7-4.5); Lymphocytes % 24.1 % (10-50); Mean Corpuscular HGB Conc 32.1 g/dL (31.8-35.4); Mean Corpuscular Hemoglobin 27.9 pg (27.0-31.2); Mean Corpuscular Volume 86.8 fl (81-99); Mean Platelet Volume 8.3 fl (7.4-10.4); Monocytes # 0.4 K/mm3 (0.1-1.0); Monocytes % 10.7 % (1.7-9.3); Neutrophils # 2.4 K/mm3 (1.8-7.8); Neutrophils % 61.6 % (37.0-80.0); Platelet Count 200 K/mm3 (142-424); Red Blood Count 3.34 M/mm3 (4.20-5.40); Red Cell Distribution Width 15.6 % (11.5-17.5); White Blood Count 3.8 K/mm3 (4.8-10.8)
[2022-12-01 06:30] LABS: Alanine Aminotransferase 22 U/L (12-78); Albumin Level 3.4 g/dl (3.5-5.0); Albumin/Globulin Ratio 1.5 (1.1-1.8); Alkaline Phosphatase 115 U/L (38-126); Anion Gap 5.8 mEq/L (5-15); Aspartate Amino Transferase 23 U/L (14-36); Bilirubin,Total 0.6 mg/dl (0.2-1.3); Blood Urea Nitrogen 12 mg/dl (7-17); Calcium 8.3 mg/dl (8.4-10.2); Carbon Dioxide 29 mmol/L (22.0-30.0); Chloride 107 mmol/L (98-107); Creatinine Clearance Estimated 52 mL/min (50-200); Estimated Glomerular Filt Rate 120 ml/min (>60); GFR (African American) 145 ML/MIN (>60); Globulin 2.3 g/dL (1.3-3.2); Glucose 87 mg/dl (74-100); Potassium 3.8 mmoL/L (3.5-5.1); Sodium 138 mmol/L (136-145); Total Protein,Serum 5.7 g/dl (6.3-8.2)
--- NOTE | 2022-12-01 06:40 | EXP.SURG.CON ---
History of Present Illness *Admission Date: 12/01/22 *History of present illness: Patient is a 77-year-old female with history of GERD, hyperlipidemia, angina COPD, atrial fibrillation, hypertension, reported schizophrenia who is a long term patient at [facility]. She was evaluated in the emergency department in the evening at this facility on 11/10/2022 for some postprandial chest pain. She was evaluated in the emergency department on 11/28/2022, a couple of days ago, after being brought from the emergency department with some substernal chest pain. Once again, emergent issues were excluded. She underwent a CT scan at that time which revealed dilatation of the upper esophagus and fluid-filled lower esophagus with no evidence of obstruction. The patient was transferred back to the long term and plan was for outpatient endoscopy. She was brought back to the emergency department in the late evening of 11/30/2022 with once again, chest pain. She was evaluated by Dr. Emily Galo. This occurred after eating. Apparently she had eaten a salad. She underwent CT scan of the neck which was normal. She had a CT scan of the chest which revealed findings of distended esophagus. Previously noted fluid-filled component had resolved. Dr. Galo felt the patient needed admitted for inpatient management. Patient currently resting and states that she has no symptoms. [facility] Disclaimer: The information contained in this section may have been updated after the patient was seen, as this information can be updated by other users. Medical History Asthma Atypical chest pain Chest pain COPD (chronic obstructive pulmonary disease) Dyspnea Gall bladder disease Gastroesophageal reflux disease HLD (hyperlipidemia) Hypertension Palpitations Schizophrenia Tobacco dependence syndrome Family History Other Family history of cancer Social History Smoking Status: Never smoker second hand exposure: Yes alcohol intake: never substance use type: denies use current occupational status: unemployed and disabled Travel in the last 8 weeks: None household members: other housing: assisted living facility current occupational exposures/hazards: No caffeine: Yes Review of Systems Review of Systems Review of systems:: unable to obtain Meds Home Medications and Allergies Home Medications Medication Instructions Recorded Confirmed Type albuterol sulfate 90 mcg/actuation 2 puff inhalation Q6H PRN 11/28/22 12/01/22 History aerosol inhaler Breathing Problems allopurinol 100 mg tablet 100 mg PO BID Gout 11/28/22 12/01/22 History aripiprazole 5 mg tablet 5 mg PO DAILY Psychiatric 11/28/22 12/01/22 History aspirin 81 mg chewable tablet 81 mg PO DAILY Heart Disease 11/28/22 12/01/22 History atorvastatin 20 mg tablet 20 mg PO HS High Cholesterol 11/28/22 12/01/22 History buspirone 10 mg tablet 10 mg PO BID Psychiatric 11/28/22 12/01/22 History citalopram 20 mg tablet 20 mg PO DAILY Psychiatric 11/28/22 12/01/22 History donepezil 5 mg tablet 5 mg PO HS Psychiatric 11/28/22 12/01/22 History furosemide 20 mg tablet 20 mg PO QODHS Fluid 11/28/22 12/01/22 History gabapentin 100 mg capsule 100 mg PO TID Neuropathy 11/28/22 12/01/22 History metoprolol tartrate 25 mg tablet 12.5 mg PO DAILY High Blood 11/28/22 12/01/22 History Pressure multivitamin 1 tab PO DAILY Supplement 11/28/22 12/01/22 History pantoprazole 40 mg tablet,delayed 40 mg PO DAILY Acid Reflux 11/28/22 12/01/22 History release potassium chloride 20 mEq 20 meq PO TID Supplement 11/28/22 12/01/22 History tablet,extended release tramadol 50 mg tablet 50 mg PO BID Chronic pain 11/28/22 12/01/22 History acetaminophen 500 mg tablet 500 mg PO Q6HP PRN Mild Pain 12/01/22 12/01/22 History (Acetaminophen Extra Strength) (
[2022-12-01 07:02] LABS: Chol/HDL Ratio 1.2 (1-3.5); Cholesterol 104 mg/dl (140-200); HDL Cholesterol 85 mg/dl (40-60); Triglycerides 33 mg/dl (30-150); VLDL Cholesterol 7 mg/dL (0-40)
--- NOTE | 2022-12-01 07:24 | PC.NURSE ---
consent obtained for EGD, pt able to verbalize what procedure is having performed, ambulated pt to bathroom to void and Theodore RN came to transport pt for EGD
--- NOTE | 2022-12-01 07:27 | EXP.ANES.CKL ---
[facility] Disclaimer: The information contained in this section may have been updated after the patient was seen, as this information can be updated by other users. Medical History Asthma Atypical chest pain Chest pain COPD (chronic obstructive pulmonary disease) Dyspnea Gall bladder disease Gastroesophageal reflux disease HLD (hyperlipidemia) Hypertension Palpitations Schizophrenia Tobacco dependence syndrome Family History Other Family history of cancer Social History Smoking Status: Never smoker second hand exposure: Yes alcohol intake: never substance use type: denies use current occupational status: unemployed and disabled Travel in the last 8 weeks: None household members: other housing: assisted living facility current occupational exposures/hazards: No caffeine: Yes [facility] Anesthesia Checklist Patient Identification Patient Identification: Arm Band and Verbal (Name & ) Structural Data Admitted From: Inpatient Planned Operative Procedure/s: EGD Consent for Planned Operative Procedure(s) Verified: Yes NPO Status Verified Time NPO: 00:00 Chart Verification Results Verified: CBC Additional verifications Anesthesia Reactions: No Airway Assessment C-Spine Mobility Assessed: Yes TMJ Mobility Assessed: Yes Dentition: Edentulous Neurological Assessment Level of Consciousness: Awake Hx Seizures: No Numbness or tingling in extremities: No Anesthesia Plan Anesthesia Risk discussed: Yes Anesthesia Plan: Verified ASA Class: III (E) Anesthesia Type: MAC
--- NOTE | 2022-12-01 07:45 | HMH.SCOPE ---
Procedure: Date: 12/01/22 Patient Date of :: 1945 Procedure Performed:: Esophagogastroduodenoscopy with biopsy Indications:: Patient is a 77-year-old female with history of GERD, hyperlipidemia, angina, COPD, atrial fibrillation, hypertension, reported schizophrenia who is a long term patient at [facility]. She was evaluated in the emergency department in the evening at this facility on 11/10/2022 for some postprandial chest pain and able to be managed as an outpatient. She was evaluated in the emergency department on 11/28/2022, a couple of days ago, after being brought from the emergency department with some substernal chest pain. Once again, emergent issues were excluded. She underwent a CT scan at that time which revealed dilatation of the upper esophagus and fluid-filled lower esophagus with no evidence of obstruction. The patient was transferred back to the long term and plan was for outpatient endoscopy. She was brought back to the emergency department in the late evening of 11/30/2022 with once again, chest pain. She was evaluated by Dr. Emily Galo. This chest pain occurred after eating. Apparently she had eaten a salad. She underwent CT scan of the neck which was normal. She had a CT scan of the chest which revealed findings of distended esophagus. Previously noted fluid-filled component had resolved. Dr. Galo felt the patient needed admitted for inpatient management. Patient currently resting and states that she has no symptoms. Plan is for EGD to evaluate for obstruction or possible stricture. Performing Provider:: Evgeny Kaye MD Referring Provider:: . Sedation:: MAC sedation Procedure:: Patient history was obtained and appropriate physical examination was performed. Patient's medications and allergies were reviewed. Informed consent was obtained after explaining the benefits, alternatives, and risks of the procedure including, but not limited to, bleeding, perforation, missed lesions, and adverse reaction to anesthesia medications. Patient was transported to endoscopy procedure room. Patient was connected to monitoring devices. Throughout the procedure the patient's blood pressure, pulse, and oxygen saturations were monitored continuously. Patient identification and planned procedure were verified by the staff. Patient was positioned in lateral decubitus position. Adequate intravenous sedation was achieved. Olympus endoscope was inserted via the oropharynx. Esophagus was cannulated. There was tortuosity of the esophagus but no retained food, or liquid. This was consistent with possible mild to moderate esophageal dysmotility. Gastroesophageal junction was encountered at 38 cm. There was no stricture. Stomach was cannulated and insufflated. Retroflexion was performed which revealed no evidence of any appreciable hiatal hernia. There is some diffuse mild gastropathy. Incidentally noted there was a moderate somewhat inflamed ulcer in the body of the stomach along the greater curvature with no stigmata of bleeding. Pylorus was traversed. Duodenum appeared normal. Prepyloric gastric antral mucosal biopsy was obtained for histopathologic analysis to assess for H. pylori. Distal esophageal biopsy was obtained for histopathologic analysis. Stomach was desufflated and the scope was withdrawn. Findings:: Findings consistent with mild to moderate esophageal dysmotility No stricture or obstruction Mild gastropathy Moderate inflamed gastric ulcer in the body of the stomach along the greater curvature Recommendations:: Symptoms may be related to esophageal dysmotility. May need outpatient speech therapy evaluation. Recommend medical treatment for ulcer with therapeutic dose proton pump inhibitors. May need repeat EGD to assess for healing as an outpatient in 8 to 10 weeks. Complications:: None Estimated blood obtained (mL): 1 Colonoscopy Component Colonoscopy Component Was a colonos
--- NOTE | 2022-12-01 08:03 | SW/DCPLANNER ---
Addendum entered by Quita Dumont 12/01/22 15:03: [employer] has been arranged for this patient. Addendum entered by Quita Dumont 12/01/22 11:14: I have updated Nimisha fried/ Tania Womack that patient will return today. Original Note: Patient currently resides at [facility] level of care. I will continue to follow up with Nimisha during patient's stay. Discharge date is unknown at this time.
--- NOTE | 2022-12-01 08:13 | PC.NURSE ---
pt back to floor from EGD, report taken from Shweta RAM; 2 biopsies were taken, pt will need outpatient speech therapy, continue/start PPI, and possibly will need another EDG in 8-10 weeks; pt resting well in bed, call light within reach
--- NOTE | 2022-12-01 08:33 | PC.NURSE ---
Addendum entered by Princess Galindo RN 12/01/22 08:34: MD Kaye who performed EGD placed full liquid diet to start at lunch Original Note: spoke with MD Navarro about pt's EGD, stated okay to resume regular diet
--- NOTE | 2022-12-01 08:58 | PC.NURSE ---
COURTESY TECH NOTE; ROUNDED ON PT 0815, ASSISTED NURSE TO AMBULATE PT TO RESTROOM X2 AND REPOSITION PT IN BED, ACTIVITY TOLERATED WELL. CALL LIGHT WITHIN REACH, NO FURTHER REQUESTS AT THIS TIME NONA ALCARAZ
--- NOTE | 2022-12-01 12:41 | EXP.DC.SUM ---
General Admission date:: 12/01/22 Discharge date: 12/01/22 HPI HPI HPI: Patient is a 77-year-old female with history of GERD, hyperlipidemia, angina COPD, atrial fibrillation, hypertension, reported schizophrenia who is a senior care patient at [facility]. She was evaluated in the emergency department in the evening at this facility on 11/10/2022 for some postprandial chest pain. She was evaluated in the emergency department on 11/28/2022, a couple of days ago, after being brought from the emergency department with some substernal chest pain. Once again, emergent issues were excluded. She underwent a CT scan at that time which revealed dilatation of the upper esophagus and fluid-filled lower esophagus with no evidence of obstruction. The patient was transferred back to the senior care and plan was for outpatient endoscopy. She was brought back to the emergency department in the late evening of 11/30/2022 with once again, chest pain. She was evaluated by Dr. Emily Galo. This occurred after eating. Apparently she had eaten a salad. She underwent CT scan of the neck which was normal. She had a CT scan of the chest which revealed findings of distended esophagus. Previously noted fluid-filled component had resolved. Dr. Galo felt the patient needed admitted for inpatient management. Patient currently resting and states that she has no symptoms. Hospital Course Hospital Course Hospital Course: The patient had an EGD by Dr. Kaye EGD Findings:: Findings consistent with mild to moderate esophageal dysmotility No stricture or obstruction Mild gastropathy Moderate inflamed gastric ulcer in the body of the stomach along the greater curvature Recommendations:: Symptoms may be related to esophageal dysmotility. May need outpatient speech therapy evaluation. Recommend medical treatment for ulcer with therapeutic dose proton pump inhibitors. May need repeat EGD to assess for healing as an outpatient in 8 to 10 weeks. The patient will need to f/u with Dr. Kaye in 1 month. She will need speech therapy services at [facility]. Her dose of protonix was doubled from 40mg qd to BID. No other changes were made to her medications. Exam Data for Last 24 hours Vital signs and Labs for Last 24 Hours: Temp Pulse Resp BP Pulse Ox O2 Del Method O2 Flow Rate 98.3 F 60 20 128/96 H 99 Room Air 5 12/01/22 09:50 12/01/22 12:00 12/01/22 09:50 12/01/22 09:50 12/01/22 09:50 12/01/22 09:50 12/01/22 07:34 Laboratory Results - last 24 hr 11/30/22 18:58: WBC 5.7 D, RBC 3.69 L, Hgb 10.1 L, Hct 31.8 L, MCV 86.2, MCH 27.4, MCHC 31.8, RDW 15.6, Plt Count 197, MPV 8.2, Neut % (Auto) 55.5, Lymph % (Auto) 31.5, [place] % (Auto) 9.6 H, Eos % (Auto) 2.8, Baso % (Auto) 0.7, Neut # (Auto) 3.2, Lymph # (Auto) 1.8, T[place] # (Auto) 0.6, Eos # (Auto) 0.2, Baso # (Auto) 0.0, Sodium 137, Potassium 4.1, Chloride 103, Carbon Dioxide 28, Anion Gap 10.1, BUN 16, Creatinine 0.50 L, Estimated Creat Clear 43, Estimated GFR 120, Est GFR ( Amer) 145 D, Glucose 99, Calcium 8.9, Total Bilirubin 0.4, AST 32, ALT 27, Alkaline Phosphatase 134 H, Troponin I < 0.01, Total Protein 6.7, Albumin 3.9, Globulin 2.8, Albumin/Globulin Ratio 1.4 11/30/22 22:14: Troponin I < 0.01 11/30/22 23:37: SARS-CoV-2 (PCR) Not detected, Influenza A Untype (PCR) Not detected, Influenza Type B (PCR) Not detected 12/01/22 01:28: Troponin I < 0.01 12/01/22 05:35: WBC 3.8 L D, RBC 3.34 L, Hgb 9.3 L, Hct 29.0 L, MCV 86.8, MCH 27.9, MCHC 32.1, RDW 15.6, Plt Count 200, MPV 8.3, Neut % (Auto) 61.6, Lymph % (Auto) 24.1, [place] % (Auto) 10.7 H, Eos % (Auto) 2.9, Baso % (Auto) 0.7, Neut # (Auto) 2.4, Lymph # (Auto) 0.9, Tarrant # (Auto) 0.4, Eos # (Auto) 0.1, Baso # (Auto) 0.0, Sodium 138, Potassium 3.8, Chloride 107, Carbon Dioxide 29, Anion Gap 5.8, BUN 12, Creatinine 0.50 L, Estimated Creat Clear 52, Estimated GFR 120, Est GFR ( Amer) 145, Glucose 87, Calcium 8.3 L, Total Bilirubin 0.6, AST 23
== END 2022-12-01 15:55 ==
LOC: ER 23:40 → 2ND 23:49
PROVIDERS: Family Medicine; Nurse Practitioner Family; Surgery; Admitting Provider Internal Medicine; Emergency Provider Emergency Medicine; PCP Emergency Medicine; Visit Provider Internal Medicine
PROC: 0DJ08ZZ Inspection of Upper Intestinal Tract, Via Natural or Artificial Opening Endoscopic (ICD-10-PCS; CPT 43235; principal; 2022-12-01 07:30)
DX: R13.19 Other dysphagia (principal); K25.9 Gastric ulcer, unspecified as acute or chronic, without hemorrhage or perforation; K22.4 Dyskinesia of esophagus; K21.9 Gastro-esophageal reflux disease without esophagitis; E78.5 Hyperlipidemia, unspecified; I10 Essential (primary) hypertension; I48.20 Chronic atrial fibrillation, unspecified; J44.9 Chronic obstructive pulmonary disease, unspecified; Z79.51 Long term (current) use of inhaled steroids; M1A.9XX0 Chronic gout, unspecified, without tophus (tophi); F20.9 Schizophrenia, unspecified; Z79.899 Other long term (current) drug therapy
CPT/HCPCS: 43239; G0378; 36415; 70490; 71045; 71250; 80053; 80061; 84484; 85025; 87636; 93005; 99285

== ENCOUNTER → 2022-12-29 06:31 | Outpatient (CLI) | payer MEDICARE, SELFPAY ==
--- NOTE | 2022-12-29 06:38 | CT_ITS ---
FINAL REPORT TECHNIQUE: Axial images through the abdomen and pelvis were performed without contrast.This study was performed with techniques to keep radiation doses as low as reasonably achievable, (ALARA). Individualized dose reduction techniques using automated exposure control or adjustment of mA and/or kV according to the patient's size were employed. CLINICAL HISTORY: ABD PAIN COMPARISON: 02/24/2019 FINDINGS: ABDOMEN: The lung bases demonstrate mild bibasilar scarring and a calcified granuloma at the right lung base. The heart size is normal. Limited images of the liver are unremarkable. The spleen is normal. No adrenal mass is identified. The aorta is normal in caliber. There is no significant free fluid or adenopathy. There are several, less than 3 mm nonobstructing right renal stones. There is no hydronephrosis. There are moderate vascular calcifications. PELVIS: The appendix is not identified. There are no secondary findings of appendicitis. No ureteral stone is identified. There is mild bladder wall thickening which is likely inflammatory. There is no significant free fluid or adenopathy. There are chronic left parasymphyseal fractures. There is a severe chronic T11 compression fracture. There are mild L1 and L4 superior endplate compression fractures which are new from prior exam but likely chronic. There is also a chronic pelvic fracture. IMPRESSION: Nonobstructing right renal stones without hydronephrosis. Mild bladder wall thickening, likely inflammatory. Mild L1 and L4 superior endplate compression fractures, new from prior exam but likely chronic as well as other multiple chronic fractures. Reviewed, Interpreted and Dictated by Evgeny Flores III, MD Transcribed by Marnie Woodall Authenticated and [facility]
== END ==
LOC: RAD 06:32
PROVIDERS: PCP Emergency Medicine; Visit Provider Emergency Medicine
DX: R10.9 Unspecified abdominal pain (principal)
CPT/HCPCS: 74176

== ENCOUNTER → 2023-01-09 13:48 | Outpatient (CLI) | payer MEDICARE, SELFPAY ==
--- NOTE | 2023-01-09 13:49 | US_ITS ---
FINAL REPORT CLINICAL HISTORY: lipoma on left side of back FINDINGS: Limited sonographic images of the left back were obtained. There is a hypoechoic subcutaneous ovoid focus corresponding to the palpable abnormality in the lower back measuring approximately 6 cm in greatest dimension most consistent with a lipoma. No abnormality is seen at the site of the palpable abnormality in the upper mid back. IMPRESSION: Findings consistent with a lipoma. Reviewed, Interpreted and Dictated by Randy Newton MD Transcribed by Maxine Carlson Authenticated and [facility]
== END ==
LOC: RAD 13:49
PROVIDERS: PCP Emergency Medicine; Visit Provider Surgery
DX: D17.1 Benign lipomatous neoplasm of skin and subcutaneous tissue of trunk (principal)
CPT/HCPCS: 76604

== ENCOUNTER 2023-01-26 17:21 | Emergency (ER) | payer MEDICARE, SELFPAY ==
[2023-01-26] VITALS (14 sets, daily range): BP systolic 117–151; BP diastolic 54–88; PULSE 67–77; RESP 16–20; TEMP 36.8–37; O2SAT 94–97; BMI 27.3
--- NOTE | 2023-01-26 17:18 | ECG_ITS ---
APPROVED REPORT Exam: Resting ECG HR:72 bpm ECG Measurements Heart Rate 72 AXES LA 194 P 66 QRSd 92 QRS -21 QT 375 T 56 QTc 400 Conclusion SINUS RHYTHM LAD LAE BORDERLINE ECG UNCONFIRMED REPORT Electronically signed by : Cecil Pena MD 01/27/2023 06:48:40
[2023-01-26 18:41] LABS: Basophils % 0.5 % (0.1-2.0); Eosinophils # 0.1 K/mm3 (0.0-0.4); Eosinophils % 1.7 % (0.1-12.0); Hematocrit 37.5 % (37.0-47.0); Hemoglobin 11.8 g/dL (12.2-16.2); Lymphocytes # 1.7 K/mm3 (0.7-4.5); Lymphocytes % 23.8 % (10-50); Mean Corpuscular HGB Conc 31.5 g/dL (31.8-35.4); Mean Corpuscular Hemoglobin 27.7 pg (27.0-31.2); Mean Corpuscular Volume 87.9 fl (81-99); Mean Platelet Volume 8.6 fl (7.4-10.4); Monocytes # 0.6 K/mm3 (0.1-1.0); Monocytes % 9.1 % (1.7-9.3); Neutrophils # 4.5 K/mm3 (1.8-7.8); Neutrophils % 64.8 % (37.0-80.0); Platelet Count 179 K/mm3 (142-424); Red Blood Count 4.27 M/mm3 (4.20-5.40); Red Cell Distribution Width 15.5 % (11.5-17.5)
[2023-01-26 18:46] LABS: Chloride 104 mmol/L (98-107); Potassium 4.6 mmoL/L (3.5-5.1); Sodium 142 mmol/L (136-145)
--- NOTE | 2023-01-26 18:46 | XR_ITS ---
PROCEDURE INFORMATION: Exam: XR Chest Exam date and time: 01/26/2023 6:48 PM Age: 77 years old Clinical indication: Shortness of breath; Additional info: SOA, L chest pain TECHNIQUE: Imaging protocol: Radiologic exam of the chest. Views: 2 views. COMPARISON: CT CHEST WO CON 30/11/2022 22:43 FINDINGS: Lungs: Stigmata of old granulomatous disease. Bilateral apical scarring. Pleural spaces: Unremarkable. No pleural effusion. No pneumothorax. Heart/Mediastinum: Unremarkable. No cardiomegaly. Bones/joints: Old right rib fractures. Chronic left humeral deformity. IMPRESSION: No acute findings.
[2023-01-26 18:49] LABS: Alanine Aminotransferase 25 U/L (12-78); Albumin Level 3.8 g/dl (3.5-5.0); Albumin/Globulin Ratio 1.2 (1.1-1.8); Alkaline Phosphatase 137 U/L (38-126); Anion Gap 13.6 mEq/L (5-15); Aspartate Amino Transferase 33 U/L (14-36); Bilirubin,Total 0.5 mg/dl (0.2-1.3); Blood Urea Nitrogen 15 mg/dl (7-17); Carbon Dioxide 29 mmol/L (22.0-30.0); Creatinine Clearance Estimated 62 mL/min (50-200); Estimated Glomerular Filt Rate 97 ml/min (>60); GFR (African American) 117 ML/MIN (>60); Globulin 3.1 g/dL (1.3-3.2); Total Protein,Serum 6.9 g/dl (6.3-8.2)
[2023-01-26 18:50] LABS: Calcium 9.6 mg/dl (8.4-10.2); Glucose 92 mg/dl (74-100)
--- NOTE | 2023-01-26 18:59 | PC.NURSE ---
Pt gone to RAD
[2023-01-26 19:02] LABS: Troponin I < 0.01 ng/ml (0.00-0.034)
--- NOTE | 2023-01-26 19:11 | HMH.EDCP ---
Discharge Plan Disposition Patient Disposition: Home, Self-Care Condition: Good Prescriptions Prescriptions: No Action gabapentin 100 mg capsule 100 mg PO TID Qty: 90 5RF tramadol 50 mg tablet 50 mg PO BID Qty: 60 5RF loperamide 2 mg Capsule 2 mg PO Q3HP PRN (Reason: Diarrhea) acetaminophen [Acetaminophen Extra Strength] 500 mg Tablet 500 mg PO Q6HP PRN (Reason: Mild Pain (Scale Score 1-4)) guaifenesin 100 mg/5 mL Liquid 200 mg PO Q4HP PRN (Reason: Chest Congestion) nitroglycerin 0.4 mg Tablet, Sublingual See Rx Instructions .ROUTE .COMPLEX Rx Instructions: take one tablet Q5MIN FOR UP TO THREE DOSES alum-mag hydroxide-simeth 200-200-20 mg/5 mL Suspension 30 ml PO Q4HP PRN (Reason: Heartburn) pantoprazole 40 mg tablet,delayed release (DR/EC) 40 mg PO BID Qty: 60 1RF multivitamin Tablet 1 tab PO DAILY atorvastatin 20 mg Tablet 20 mg PO HS donepezil 5 mg Tablet 5 mg PO HS allopurinol 100 mg Tablet 100 mg PO BID citalopram 20 mg Tablet 20 mg PO DAILY buspirone 10 mg Tablet 10 mg PO BID aspirin 81 mg Tablet,Chewable 81 mg PO DAILY furosemide 20 mg Tablet 20 mg PO QODHS albuterol sulfate 90 mcg/actuation Hfa Aerosol Inhaler 2 puff INHALATION Q6H PRN (Reason: Breathing Problems) aripiprazole 5 mg Tablet 5 mg PO DAILY metoprolol tartrate 25 mg Tablet 12.5 mg PO DAILY potassium chloride 20 mEq Tablet Extended Release 20 meq PO TID Referrals Follow up/Referrals: Provider,Referral, [Primary Care Provider] - See instructions Clinical Impressions Clinical Impression: Acute pain of left shoulder, Aneurysm of splenic artery Discharge ED Provider: Caleb Acuna Chest Pain HPI General Chief Complaint: Chest Pain Stated Complaint: CP Time Seen by Provider: 01/26/23 18:37 Mode of Arrival: EMS Source of Information: Patient Limitations: Physical Limitations Description of Symptoms (Recalled from ER Triage Doc. by RN): Pt c/o left sided chest & that began aorund 1330 today. States she had a pop with her lunch and her symtoms began. 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 She has a hx of afib, GERD, and gastric ulcers. She takes aspirin 81mg and Tramadol daily.3 History of Present Illness HPI narrative: Patient presents for evaluation of focal left-sided nonradiating nonpleuritic nonexertional nonreproducible chest pain that was gradual in onset starting today, constant, stable in course, has not had similar symptoms before. Previous therapies include antiacid. No associated palpitations or cough or unilateral leg pain or leg swelling or fevers or chills or nausea or vomiting or altered mental status. No blood thinner usage. No exertional dyspnea no syncope or presyncope. No pain elsewhere. No dysuria or frequency. Related Data Home Medications Medication Instructions Recorded Confirmed albuterol sulfate 90 mcg/actuation 2 puff inhalation Q6H PRN 11/28/22 01/02/23 aerosol inhaler Breathing Problems allopurinol 100 mg tablet 100 mg PO BID Gout 11/28/22 01/02/23 aripiprazole 5 mg tablet 5 mg PO DAILY Psychiatric 11/28/22 01/02/23 aspirin 81 mg chewable tablet 81 mg PO DAILY Heart Disease 11/28/22 01/02/23 atorvastatin 20 mg tablet 20 mg PO HS High Cholesterol 11/28/22 01/02/23 buspirone 10 mg tablet 10 mg PO BID Psychiatric 11/28/22 01/02/23 citalopram 20 mg tablet 20 mg PO DAILY Psychiatric 11/28/22 01/02/23 donepezil 5 mg tablet 5 mg PO HS Psychiatric 11/28/22 01/02/23 furosemide 20 mg tablet 20 mg PO QODHS Fluid 11/28/22 01/02/23 metoprolol tartrate 25 mg tablet 12.5 mg PO DAILY High Blood 11/28/22 01/02/23 Pressure multivitamin 1 tab PO DAILY Supplement 11/28/22 01/02/23 potassium chloride 20 mEq 20 meq PO TID Supplement 11/28/22 01/02/23 tablet,extended release acetaminophen 500 mg tablet 500 mg PO Q6HP PRN Mild Pain 12/01/22 01/02/23 (Acetami
[2023-01-26 19:14] LABS: D-Dimer 1.19 ug/mL (0.0-0.5)
[2023-01-26 19:28] LABS: NT Pro Brain Natriuretic Pep. 392 pg/mL (0-450)
--- NOTE | 2023-01-26 20:32 | CT_ITS ---
PROCEDURE INFORMATION: Exam: CTA Chest With Contrast Exam date and time: 01/26/2023 9:15 PM Age: 77 years old Clinical indication: Shortness of breath; Additional info: Chest pain, elevated ddimer TECHNIQUE: Imaging protocol: Computed tomographic angiography of the chest with contrast. Exam focused on the arteries. 3D rendering (Not supervised by radiologist): MIP and/or 3D reconstructed images were created by the technologist. Radiation optimization: All CT scans at this facility use at least one of these dose optimization techniques: automated exposure control; mA and/or kV adjustment per patient size (includes targeted exams where dose is matched to clinical indication); or iterative reconstruction. Contrast material: ISOVUE; Contrast volume: 70 ml; Contrast route: INTRAVENOUS (IV); REPORTING DATA: Count of CT and Cardiac NM exams in prior 12 months: This patient has received 4 known CTs and 0 known cardiac nuclear medicine studies in the 12 months prior to the current study. COMPARISON: CT ANGIO CHEST PE PROTOCOL 03/27/2023 17:15 FINDINGS: Pulmonary arteries: No pulmonary emboli. Aorta: The aorta demonstrates moderate atherosclerotic disease. Lungs: Mild scarring and atelectasis in the lower lungs. Pleural spaces: Unremarkable. No pneumothorax. No pleural effusion. Heart: Cardiomegaly. Coronary arteries: Coronary artery calcifications. Lymph nodes: Unremarkable. No enlarged lymph nodes. Gallbladder and bile ducts: Gallbladder is absent. Bones/joints: Old left humeral fracture. Multiple chronic and unchanged thoracolumbar fractures. Soft tissues: Unremarkable. Other findings: Stigmata of old granulomatous disease. 6 mm splenic arterial aneurysm. IMPRESSION: No pulmonary emboli.
[2023-01-26 21:52] LABS: Troponin I < 0.01 ng/ml (0.00-0.034)
--- NOTE | 2023-01-26 23:02 | PC.NURSE ---
patient assisted with bed terrazas at this time
--- NOTE | 2023-01-26 23:32 | PC.NURSE ---
doctor in room at this time
--- NOTE | 2023-01-26 23:51 | PC.NURSE ---
EMS notified of need for transport
== END 2023-01-27 01:55 | disposition home or self-care (01) ==
PROVIDERS: Emergency Provider Emergency Medicine
DX: R07.9 Chest pain, unspecified (principal); M25.512 Pain in left shoulder; I72.8 Aneurysm of other specified arteries; J44.9 Chronic obstructive pulmonary disease, unspecified; K21.9 Gastro-esophageal reflux disease without esophagitis; E78.5 Hyperlipidemia, unspecified; I10 Essential (primary) hypertension; F20.9 Schizophrenia, unspecified; Z87.891 Personal history of nicotine dependence
CPT/HCPCS: 71046; 71275; 80053; 83880; 84484; 85025; 85378; 93005; 99285; Q9967

== ENCOUNTER 2023-02-07 07:19 | Day surgery (SDC) | payer MEDICARE, SELFPAY ==
--- NOTE | 2023-02-06 08:59 | SUR.PREOP ---
Consent obtained from Dhruv Ochoa, State Guardian at this time for EGD. Verified w/ T LEANNA Rao
[2023-02-07 08:11] VITALS: BP 117/56; PULSE 58; RESP 17; TEMP 36.1; O2SAT 97
[2023-02-07 08:17] VITALS: BMI 24.8
--- NOTE | 2023-02-07 09:52 | EXP.GEN.HP ---
HPI HPI HPI: Patient presents for follow up endoscopy.. Patient is a 77-year-old female with history of GERD, hyperlipidemia, angina, COPD, atrial fibrillation, hypertension, reported schizophrenia who is a jail patient at [facility]. She was evaluated in the emergency department in the evening at this facility on 11/10/2022 for some postprandial chest pain and able to be managed as an outpatient. She was evaluated in the emergency department on 11/28/2022 after being brought from the emergency department with some substernal chest pain. Once again, emergent issues were excluded. She underwent a CT scan at that time which revealed dilatation of the upper esophagus and fluid-filled lower esophagus with no evidence of obstruction. The patient was [facility] to the jail and plan was for outpatient endoscopy. She was brought back to the emergency department in the late evening of 11/30/2022 with once again, chest pain. This chest pain occurred after eating. She had a CT scan of the chest which revealed findings of distended esophagus. Previously noted fluid-filled component had resolved. She was admitted for inpatient management at that time. Upper endoscopy was performed which revealed findings of mild to moderate esophageal dysmotility. There was no stricture or obstruction. She did have a moderate inflamed gastric ulcer in the body of the stomach along the greater curvature. She was managed as an outpatient and recommendations were for medical management of the ulcer with planned repeat EGD in 8 to 12 weeks. She presents for follow-up. I was asked to evaluate her for lower back mass as well. 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 Plan is for follow-up endoscopy to reassess ulcer and rule out malignancy. [facility] Disclaimer: The information contained in this section may have been updated after the patient was seen, as this information can be updated by other users. Medical History Asthma Atypical chest pain Chest pain COPD (chronic obstructive pulmonary disease) Dyspnea Gall bladder disease Gastroesophageal reflux disease HLD (hyperlipidemia) Hypertension Palpitations Schizophrenia Tobacco dependence syndrome Family History Other Family history of cancer Social History Smoking Status: Never smoker second hand exposure: Yes alcohol intake: never substance use type: denies use current occupational status: unemployed and disabled Travel in the last 8 weeks: None household members: other housing: assisted living facility current occupational exposures/hazards: No caffeine: Yes Meds Home Medications and Allergies Home Medications Medication Instructions Recorded Confirmed Type albuterol sulfate 90 mcg/actuation 2 puff inhalation Q6H PRN 11/28/22 02/06/23 History aerosol inhaler Breathing Problems allopurinol 100 mg tablet 100 mg PO BID Gout 11/28/22 02/07/23 History aripiprazole 5 mg tablet 5 mg PO DAILY Psychiatric 11/28/22 02/07/23 History aspirin 81 mg chewable tablet 81 mg PO DAILY Heart Disease 11/28/22 02/07/23 History atorvastatin 20 mg tablet 20 mg PO HS High Cholesterol 11/28/22 02/07/23 History buspirone 10 mg tablet 10 mg PO BID Psychiatric 11/28/22 02/07/23 History citalopram 20 mg tablet 20 mg PO DAILY Psychiatric 11/28/22 02/07/23 History donepezil 5 mg tablet 5 mg PO HS Psychiatric 11/28/22 02/07/23 History furosemide 20 mg tablet 20 mg PO QODHS Fluid 11/28/22 02/07/23 History metoprolol tartrate 25 mg tablet 12.5 mg PO DAILY High Blood 11/28/22 02/07/23 History Pressure multivitamin 1 tab PO DAILY Supplement 11/28/22 02/07/23 History potassium chloride 20 mEq 20 meq PO TID Supplement 11/28/22 02/07/23 History tablet,extended release acetaminophen 500 mg tablet 500 mg PO Q6H
[2023-02-07 10:01] VITALS: O2SAT 97
[2023-02-07 10:20] VITALS: BP 90/51; PULSE 57; RESP 18; TEMP 36.7; O2SAT 98
--- NOTE | 2023-02-07 10:20 | HMH.SCOPE ---
Procedure: Date: 02/07/23 Patient Date of :: 1945 Procedure Performed:: Esophagogastroduodenoscopy with biopsies Indications:: Patient presents for follow up endoscopy.. Patient is a 77-year-old female with history of GERD, hyperlipidemia, angina, COPD, atrial fibrillation, hypertension, reported schizophrenia who is a assisted patient at [facility]. She was evaluated in the emergency department in the evening at this facility on 11/10/2022 for some postprandial chest pain and able to be managed as an outpatient. She was evaluated in the emergency department on 11/28/2022 after being brought from the emergency department with some substernal chest pain. Once again, emergent issues were excluded. She underwent a CT scan at that time which revealed dilatation of the upper esophagus and fluid-filled lower esophagus with no evidence of obstruction. The patient was transferred back to the assisted and plan was for outpatient endoscopy. She was brought back to the emergency department in the late evening of 11/30/2022 with once again, chest pain. This chest pain occurred after eating. She had a CT scan of the chest which revealed findings of distended esophagus. Previously noted fluid-filled component had resolved. She was admitted for inpatient management at that time. Upper endoscopy was performed which revealed findings of mild to moderate esophageal dysmotility. There was no stricture or obstruction. She did have a moderate inflamed gastric ulcer in the body of the stomach along the greater curvature. She was managed as an outpatient and recommendations were for medical management of the ulcer with planned repeat EGD in 8 to 12 weeks. She presents for follow-up. I was asked to evaluate her for lower back mass as well. 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 Plan is for follow-up endoscopy to reassess ulcer and rule out malignancy. Performing Provider:: Evgeny Kaye MD Referring Provider:: . Sedation:: MAC sedation Procedure:: Patient history was obtained and appropriate physical examination was performed. Patient's medications and allergies were reviewed. Informed consent was obtained after explaining the benefits, alternatives, and risks of the procedure including, but not limited to, bleeding, perforation, missed lesions, and adverse reaction to anesthesia medications. Patient was transported to endoscopy procedure room. Patient was connected to monitoring devices. Throughout the procedure the patient's blood pressure, pulse, and oxygen saturations were monitored continuously. Patient identification and planned procedure were verified by the staff. Patient was positioned in lateral decubitus position. Olympus endoscope was inserted via the oropharynx. Esophagus was cannulated. There were findings of esophageal dysmotility without obstruction. Gastroesophageal junction was encountered at approximately 40 cm. Stomach was cannulated and insufflated. There was evidence of partially healing of gastric ulcer along the greater curvature. There actually several punctate ulcerations with surrounding erythema and edema in a cluster along the greater curvature. Multiple biopsies were obtained. The endoscope was advanced through the pylorus and into the duodenum which appeared normal. Stomach was desufflated and the endoscope was withdrawn. Findings:: Gastroesophageal junction at 40 cm Findings consistent with esophageal dysmotility Partially healed gastric ulcer along greater curvature characterized by cluster of several small mildly inflamed ulcers Recommendations:: Continue proton pump inhibitors. I will follow-up on the biopsy results. May consider repeat colonoscopy in 8 to 10 weeks to assess for completeness of healing. Complications:: None immediately apparent Estimated blood obtained (mL): 2 Colonoscopy Component Colonoscopy Component Was a colonoscopy performed during tod
--- NOTE | 2023-02-07 10:28 | P.PNANES_ITS ---
[facility] Disclaimer: The information contained in this section may have been updated after the patient was seen, as this information can be updated by other users. Medical History Asthma Atypical chest pain Chest pain COPD (chronic obstructive pulmonary disease) Dyspnea Gall bladder disease Gastroesophageal reflux disease HLD (hyperlipidemia) Hypertension Palpitations Schizophrenia Tobacco dependence syndrome Family History Other Family history of cancer Social History Smoking Status: Never smoker second hand exposure: Yes alcohol intake: never substance use type: denies use current occupational status: unemployed and disabled Travel in the last 8 weeks: None household members: other housing: assisted living facility current occupational exposures/hazards: No caffeine: Yes [facility] Anesthesia Checklist Patient Identification Patient Identification: Verbal (Name & ) Structural Data Admitted From: Home Planned Operative Procedure/s: egd Additional verifications Anesthesia Reactions: No Hx Blood Transfusions: No Blood Transfusion Reaction: No Airway Assessment Mallampati Score:: Class II C-Spine Mobility Assessed: Yes TMJ Mobility Assessed: Yes Dentition: Edentulous Neurological Assessment Level of Consciousness: Awake, Alert and Appropriate Anesthesia Plan Anesthesia Risk discussed: Yes Anesthesia Plan: Verified ASA Class: III Anesthesia Type: MAC
[2023-02-07 10:30] VITALS: BP 103/50; PULSE 56; RESP 18; O2SAT 97
[2023-02-07 10:40] VITALS: BP 128/72; PULSE 58; RESP 18; O2SAT 98
--- NOTE | 2023-02-07 10:43 | SUR.PHASEII ---
Spoke with spencer Hinson for pt to continue all home meds.
[2023-02-07 10:50] VITALS: BP 147/73; PULSE 64; RESP 18; O2SAT 100
== END 2023-02-07 10:55 | disposition home or self-care (01) ==
PROVIDERS: Visit Provider Surgery
PROC: 0DJ08ZZ Inspection of Upper Intestinal Tract, Via Natural or Artificial Opening Endoscopic (ICD-10-PCS; CPT 43235; principal; 2023-02-07 09:00)
DX: K25.9 Gastric ulcer, unspecified as acute or chronic, without hemorrhage or perforation (principal); K22.4 Dyskinesia of esophagus; K21.9 Gastro-esophageal reflux disease without esophagitis; Z79.899 Other long term (current) drug therapy
CPT/HCPCS: 43239; 88305

== ENCOUNTER → 2023-02-13 07:36 | Outpatient (CLI) | payer MEDICARE, SELFPAY ==
--- NOTE | 2023-02-13 07:40 | NM_ITS ---
APPROVED REPORT Exam: Nuclear Stress Test Indication: HTN, HYPERLIPIDEMIA, TOB USE, ANGINA, SOB, PALPITATIONS, COPD Patient Location: Outpatient Stress Tech: Mary Kate Zhang NM Tech:Ida Cervantes ARRMyranda RT (R)(N)(M) Ht: 5 ft 9 in Wt: 159 lbs Bra Size: B HR: 62 bpm BP: 159/86 mmHg BSA: 1.87 m2 Rhythm: NSR TID: 0.84 BMI: 23.4 History: HTN, HYPERLIPIDEMIA, TOB USE, ANGINA, SOB, PALPITATIONS, COPD PT COULD NOT LAY ON STOMACH FOR PRONE IMAGES Procedure: Patient received 0.4 mg of intravenous Lexiscan, resting heart rate 62 bpm, resting blood pressure 159/86 mmHg, with Lexiscan maximum heart rate achieved was 70 bpm which is % of the maximum predicted heart rate and blood pressure was 154/80 mmHg. With Lexiscan, patient denied any complaint of chest pain. Cardiac Stress and Resting SPECT Images: Cardiac Stress and Resting SPECT images were obtained using technetium 99m Myoview 31.1 mCi stress and 10.25 mCi at rest. Patient could not lie on her abdomen. Therefore, prone stress imaging could not be obtained. There is also significant GI radiotracer uptake in close proximity to the inferior LV wall border. These may affect the diagnostic interpretation of the study findings. Resting and stress imaging in supine position demonstrate a large sized, moderate, fixed perfusion defect in the inferior wall from the base and extending distally towards the inferior apical region. Findings may possibly be suggestive of attenuation, but true perfusion defects cannot be ruled out. Gated imaging demonstrates normal global LV systolic function. There is mild hypokinesis of the inferior LV wall. LVEF is calculated at 62%. Conclusion: Patient could not lie on her abdomen. Therefore, prone stress imaging could not be obtained. There is also significant GI radiotracer uptake in close proximity to the inferior LV wall border. These may affect the diagnostic interpretation of the study findings. Large sized, moderate, fixed perfusion defect in the inferior wall from the base and extending distally towards the inferior apical region. Findings may possibly be suggestive of attenuation, but true perfusion defects cannot be ruled out. Gated imaging demonstrates normal global LV systolic function. There is mild hypokinesis of the inferior LV wall. LVEF is calculated at 62%. Overall, this was a nondiagnostic Lexiscan nuclear stress test. Further evaluation for ischemia is recommended with alternative diagnostic modalities. Electronically signed by : Carol Bruce MD 02/17/2023 23:10:03
--- NOTE | 2023-02-13 09:59 | CA_ITS ---
APPROVED REPORT Exam: Pharmacologic Technologist: Mary Kate Zhang Ht: 5 ft 9 in Wt: 159 lbs BSA: 1.87 m2 HR: 62 bpm BP: 159/86 mmHg Rhythm: NSR Indications: Shortness of Breath Medical History Medications: Aspirin,,,,, Metoprolol,,,,, Gabapentin,,,,, Allopurinol,,,,, Pantoprazole,,,,, Atorvastatin,,,,, Citalopram,,,,, Buspirone,,,,, Albuterol,,,,, Tramadol,,,,, Acetaminophen,,,,, DONEPEZIL,,,,, Stress Test Details Test: LEXISCAN HR Resting HR: 61 bpm Max Heart Rate (APMHR): 143 bpm Max HR Achieved: 83 bpm Target HR (85% APMHR): 122 bpm % of APMHR: 58 Recovery HR: 66 bpm BP Resting BP: 159.0/86.0 mmHg Max BP: 160.0/80.0 mmHg Recovery BP: 145.0/62.0 mmHg ECG Resting ECG: Sinus rhythm Stress ECG: No significant ST changes Arrhythmia: None Clinical Exercise duration: 04:03 min Highest Stage Achieved: Exercise capacity: 1.0 METs Stress ECG Conclusion Symptoms: Dyspnea Arrhythmias/Ectopy: None ST-T Changes: No significant ST changes Conclusion: Unremarkable Lexiscan stress test. Myoview images are reported separately. Test Summary REST . . . . . . . Resting REST 05:57 . . 61 . 159/ 86 . . Stage 1 . . . . . . . Myoview Injected Stage 1 01:00 . . 66 . . . . Stage 2 01:00 . . 71 . . . . Stage 3 01:00 . . 70 . 146/ 65 . . Stage 4 01:00 . . 72 . 154/ 80 . . Stage 4 01:03 . . 73 . 154/ 80 . Stop exercise at 04:03 RECOVERY 01:00 . . 75 . 153/ 85 . . RECOVERY 02:00 . . 67 . 160/ 80 . . RECOVERY 03:00 . . 66 . 160/ 80 . . RECOVERY 04:00 . . 67 . 160/ 80 . . RECOVERY 05:00 . . 67 . 137/ 70 . . RECOVERY 06:00 . . 67 . 137/ 70 . . RECOVERY 07:00 . . 69 . 145/ 62 . . RECOVERY 08:00 . . 67 . 145/ 62 . . RECOVERY 08:20 . . 66 . 145/ 62 . . Electronically signed by : Carol Bruce MD 02/17/2023 23:03:36
[2023-02-13 10:12] LABS: Adenovirus,PCR Not Detected (NotDetected); Bordetella Pertussis Not Detected (NotDetected); Chlamydophila Pneumoniae, PCR Not Detected (NotDetected); Coronavirus 19, PCR Not Detected (NotDetected); Coronavirus 229E Not Detected (NotDetected); Coronavirus NL63 Not Detected (NotDetected); Coronavirus OC43 Not Detected (NotDetected); Coronovirus HKU1,PCR Not Detected (NotDetected); Human Metapneumovirus Not Detected (NotDetected); Influenza A, PCR Not Detected (NotDetected); Influenza AH1, 2009 Not Detected (NotDetected); Influenza AH1, PCR Not Detected (NotDetected); Influenza AH3,PCR Not Detected (NotDetected); Influenza B, PCR Not Detected (NotDetected); Mycoplasma Pneumoniae, PCR Not Detected (NotDetected); Parainfluenza 1, PCR Not Detected (NotDetected); Parainfluenza 2, PCR Not Detected (NotDetected); Parainfluenza 3, PCR Not Detected (NotDetected); Parainfluenza 4, PCR Not Detected (NotDetected); Respiratory Syncytial Virus Not Detected (NotDetected); Rhinovirus/Enterovirus Not Detected (NotDetected)
--- NOTE | 2023-02-13 10:18 | XR_ITS ---
FINAL REPORT CLINICAL HISTORY: shortness of breath x 1 week , coughing FINDINGS: PA and lateral views of the chest are obtained. There is no prior exam for comparison. The cardiac and mediastinal silhouettes are within normal limits. There are bilateral lower lobe opacities and that could reflect atelectasis versus early pneumonia. There is underlying emphysema. There is no pleural effusion or pneumothorax. There are several thoracic compression fractures of indeterminate age. IMPRESSION: Bilateral lower lobe opacities; atelectasis versus early pneumonia. Reviewed, Interpreted and Dictated by Alona Marinelli MD Transcribed by Bony Cobos Authenticated and [facility]
== END ==
PROVIDERS: Nurse Practitioner Family; Visit Provider Nurse Practitioner Family
DX: R07.89 Other chest pain (principal); E78.5 Hyperlipidemia, unspecified; I10 Essential (primary) hypertension; I48.91 Unspecified atrial fibrillation; R06.09 Other forms of dyspnea; R06.02 Shortness of breath
CPT/HCPCS: 71046; 78452; 87581; 87632; 87798; 93017; A9502; J2785

== ENCOUNTER 2023-04-20 12:38 | Day surgery (SDC) | payer MEDICARE, MEDICAID, SELFPAY ==
[2023-04-20 12:58] VITALS: BP 155/84; PULSE 81; RESP 18; TEMP 36.3; O2SAT 95; BMI 27.6
--- NOTE | 2023-04-20 13:58 | P.PCN_ITS ---
Procedure: Date: 04/20/23 Patient Date of :: 1945 Procedure Performed:: Esophagogastroduodenoscopy with biopsy Indications:: Patient is a 78-year-old female with multiple medical problems who is a resident at [facility]. She is apparently a marie of the [facility]. Several months ago she was evaluated for some postprandial chest pain in the emergency department. She had repeated presentation to the emergency department on 2 additional occasions and there was concern for possible upper GI etiology due to findings of dilated esophagus on imaging. She was admitted for inpatient management at that time and underwent upper endoscopy which revealed findings of mild to moderate esophageal dysmotility. However she had a moderate inflamed gastric ulcer in the body of the stomach along the greater curvature. She underwent a follow-up endoscopy as an outpatient on 02/07/2023 which revealed that the ulcer has shown improvement but there was incomplete healing. There were also several small mildly inflamed ulcers. She did have biopsies performed at that time which revealed no evidence of any H. pylori-like organisms and merely reactive gastric mucosal changes. She is on the pantoprazole. Performing Provider:: Evgeny Kaye MD Referring Provider:: Theodore Kay MD Sedation:: MAC sedation Procedure:: Patient history was obtained and appropriate physical examination was performed. Patient's medications and allergies were reviewed. Informed consent was obtained after explaining the benefits, alternatives, and risks of the procedure including, but not limited to, bleeding, perforation, missed lesions, and adverse reaction to anesthesia medications. Patient was transported to endoscopy procedure room. Patient was connected to monitoring devices. Throughout the procedure the patient's blood pressure, pulse, and oxygen saturations were monitored continuously. Patient identification and planned procedure were verified by the staff. Patient was positioned in lateral decubitus position. Olympus endoscope was inserted via the oropharynx. Esophagus was cannulated with the endoscope. There was some salivary secretions and findings consistent with esophageal dysmotility. There is mild tortuosity to the esophagus. Gastroesophageal junction was encountered at 40 cm from the incisors. Stomach was cannulated and insufflated. There is a small sliding hiatal hernia. There is evidence of virtually completely healed ulcer in the mid body of the stomach along the greater curvature characterized by linear erosion and scarring. Several biopsies were obtained of this area. The stomach was desufflated and the endoscope was withdrawn. Duodenum was not evaluated. Findings:: Findings of esophageal dysmotility Gastroesophageal junction at 40 cm Small sliding hiatal hernia Virtually completely healed ulcer in the mid body along the greater curvature characterized by residual linear erosion Recommendations:: If biopsies are benign likely would not pursue follow-up endoscopy. Recommend continuation of therapeutic proton pump inhibitor. Complications:: None immediately apparent Estimated blood obtained (mL): 2 Colonoscopy Component Colonoscopy Component Was a colonoscopy performed during today's procedure?: No
[2023-04-20 14:08] VITALS: O2SAT 95
[2023-04-20 14:27] VITALS: BP 102/79; PULSE 81; RESP 14; TEMP 36.2; O2SAT 95
[2023-04-20 14:37] VITALS: BP 128/58; PULSE 87; RESP 16; O2SAT 97
[2023-04-20 14:47] VITALS: BP 138/79; PULSE 80; RESP 18; O2SAT 98
[2023-04-20 14:57] VITALS: BP 158/98; PULSE 80; RESP 18; O2SAT 98
--- NOTE | 2023-04-20 15:28 | EXP.ANES.CKL ---
[facility] Disclaimer: The information contained in this section may have been updated after the patient was seen, as this information can be updated by other users. Medical History (Updated 04/20/23 @ 12:57 by Theodore Ba RN) Asthma Atypical chest pain Chest pain Cholecystectomy planned COPD (chronic obstructive pulmonary disease) Dyspnea Gall bladder disease Gastroesophageal reflux disease HLD (hyperlipidemia) Hypertension Palpitations Schizophrenia Tobacco dependence syndrome Surgical History (Updated 04/20/23 @ 12:57 by Theodore Ba RN) History of lumpectomy Family History Other Family history of cancer Social History (Updated 04/20/23 @ 12:58 by Theodore Ba RN) Smoking Status: Former smoker tobacco type: cigarettes packs per day: 1 second hand exposure: Yes alcohol intake: never substance use type: denies use current occupational status: unemployed and disabled Travel in the last 8 weeks: None household members: other housing: assisted living facility current occupational exposures/hazards: No caffeine: Yes [facility] Anesthesia Checklist Patient Identification Patient Identification: Arm Band and Guardian Structural Data Admitted From: Long-term Nursing Facility Planned Operative Procedure/s: EGD Consent for Planned Operative Procedure(s) Verified: Yes Verified Documents: Surgical Consent and History and Physical NPO Status Verified Time NPO: 00:00 Additional verifications Patient : No Anesthesia Reactions: No Hx Blood Transfusions: No Blood Transfusion Reaction: No Cephalosporin Allergy: No Previous Colonoscopy: No Airway Assessment Mallampati Score:: Class II C-Spine Mobility Assessed: Yes TMJ Mobility Assessed: Yes Dentition: Edentulous Neurological Assessment Level of Consciousness: Awake, Alert, Appropriate and Follows Commands Hx Seizures: No Numbness or tingling in extremities: No Anesthesia Plan Anesthesia Risk discussed: Yes ASA Class: II Anesthesia Type: MAC
== END 2023-04-20 15:00 | disposition home or self-care (01) ==
PROVIDERS: PCP Internal Medicine; Visit Provider Surgery
PROC: 0DJ08ZZ Inspection of Upper Intestinal Tract, Via Natural or Artificial Opening Endoscopic (ICD-10-PCS; CPT 43235; principal; 2023-04-20 13:30)
DX: K22.4 Dyskinesia of esophagus (principal); K44.9 Diaphragmatic hernia without obstruction or gangrene; K29.50 Unspecified chronic gastritis without bleeding
CPT/HCPCS: 43239; 88305; 88342

== ENCOUNTER 2023-06-23 10:20 | Emergency (ER) | payer MEDICARE, MEDICAID, SELFPAY ==
[2023-06-23] VITALS (9 sets, daily range): BP systolic 95–129; BP diastolic 50–78; PULSE 58–84; RESP 11–22; TEMP 36.4–36.6; O2SAT 97–100; BMI 24.0
--- NOTE | 2023-06-23 10:20 | PC.NURSE ---
Dr. Slo at [facility]
--- NOTE | 2023-06-23 10:22 | XR_ITS ---
PROCEDURE INFORMATION: Exam: XR Chest Exam date and time: 06/23/2023 10:23 AM Age: 78 years old Clinical indication: Pain; Chest pressure; Additional info: Chest pain, HX of breast CA TECHNIQUE: Imaging protocol: Radiologic exam of the chest. Views: 1 view. Total images: 1 COMPARISON: CR XR CHEST 2V 02/13/2023 10:26 AM FINDINGS: Lungs: Atelectatic changes noted within both lung bases. Bilateral hyperinflation is present. Granulomatous density noted within the right lung base. Pleural spaces: Unremarkable. No pleural effusion. No pneumothorax. Heart/Mediastinum: Unremarkable. No cardiomegaly. Bones/joints: The thoracic spine demonstrates mild degenerative changes at multiple levels. Chronic changes of the left proximal humerus. IMPRESSION: 1. Atelectatic changes noted within both lung bases. 2. Bilateral hyperinflation is present.
--- NOTE | 2023-06-23 10:23 | ECG_ITS ---
APPROVED REPORT Exam: Resting ECG HR:76 bpm ECG Measurements Heart Rate 76 AXES IA 220 P 69 QRSd 87 QRS -30 QT 382 T 48 QTc 412 Conclusion SINUS RHYTHM WITH FIRST DEGREE AV BLOCK LOW QRS VOLTAGE IN PRECORDIAL LEADS [QRS DEFLECTION < 1.0 mV IN CHEST LEADS] ANTEROSEPTAL MYOCARDIAL INFARCTION , PROBABLY OLD [40+ ms Q WAVE IN V1-V4] ABNORMAL ECG UNCONFIRMED REPORT Electronically signed by : Cecil Pena MD 06/23/2023 21:16:05
--- NOTE | 2023-06-23 10:24 | ED_ITS ---
Discharge Plan Disposition Patient Disposition: Xfer SNF Condition: Good Prescriptions Prescriptions: No Action levofloxacin 500 mg tablet 500 mg PO DAILY Qty: 10 0RF gabapentin 100 mg capsule 100 mg PO TID Qty: 90 5RF tramadol 50 mg tablet 50 mg PO BID Qty: 60 5RF trazodone 50 mg tablet 50 mg PO HS ranolazine 500 mg tablet extended release 12 hr See Rx Instructions .ROUTE .COMPLEX Qty: 60 4RF Dose Instruction: GIVE 1 TABLET BY MOUTH TWICE A DAY Rx Instructions: GIVE 1 TABLET BY MOUTH TWICE A DAY loperamide 2 mg Capsule 2 mg PO Q3HP PRN (Reason: Diarrhea) acetaminophen [Acetaminophen Extra Strength] 500 mg Tablet 500 mg PO Q6HP PRN (Reason: Mild Pain (Scale Score 1-4)) guaifenesin 100 mg/5 mL Liquid 200 mg PO Q4HP PRN (Reason: Chest Congestion) nitroglycerin 0.4 mg Tablet, Sublingual See Rx Instructions .ROUTE .COMPLEX Rx Instructions: take one tablet Q5MIN FOR UP TO THREE DOSES alum-mag hydroxide-simeth [Maryjo-Lanta] 200-200-20 mg/5 mL Suspension 30 ml PO Q4HP PRN (Reason: Heartburn) pantoprazole 40 mg tablet,delayed release (DR/EC) 40 mg PO BID multivitamin Tablet 1 tab PO DAILY atorvastatin 20 mg Tablet 20 mg PO HS donepezil 5 mg Tablet 5 mg PO HS allopurinol 100 mg Tablet 100 mg PO BID citalopram 20 mg Tablet 20 mg PO DAILY buspirone 10 mg Tablet 10 mg PO BID aspirin 81 mg Tablet,Chewable 81 mg PO DAILY furosemide 20 mg Tablet 20 mg PO QODHS albuterol sulfate 90 mcg/actuation Hfa Aerosol Inhaler 2 puff INHALATION Q6H PRN (Reason: Breathing Problems) aripiprazole 5 mg Tablet 2 mg PO DAILY metoprolol tartrate 25 mg Tablet 12.5 mg PO DAILY potassium chloride 20 mEq Tablet Extended Release 20 meq PO TID Referrals Follow up/Referrals: Provider,Referral, MD [Primary Care Provider] - See instructions Activity Restrictions/Add. Instructions Additional Instructions/Restrictions: You were evaluated in the emergency department today. Follow-up with your [facility] care provider. Return to the emergency department for new or worsening symptoms. Clinical Impressions Clinical Impression: Chest pain Instructions Patient Instructions: DI for Atypical Chest Pain Discharge ED Provider: Kavita Sol General Adult HPI General Chief complaint: Chest Pain Stated complaint: CP Time Seen by Provider: 06/23/23 10:22 History of Present Illness HPI narrative: This patient is a 78-year-old female with a history of Parkinson's disease, personality disorder, hypertension, hyperlipidemia, GERD, COPD, and history of angina in the past presenting to the emergency department for evaluation with concern for chest pain. Patient arrives by EMS from care home facility. According to report from nursing facility this started after 930 this morning. Patient rarely complains, so they were very concerned and gave her nitroglycerin . This did not improve her symptoms, so they gave her a second nitroglycerin. This did not seem to improve her symptoms at the facility, however per EMS, the patient states that her pain went down from an 8 to about a 5. It is just left of her sternum and feels like a crushing pressure. She states that it feels like something is moving around in there. It is nonradiating. She denies any other associated symptoms, such as shortness of breath, abdominal pain, nausea, vomiting, or other concerns. Nothing seems to make it better or worse. It is constant. EMS notes that per nursing facility the patient did start coughing last night. Patient is alert and oriented to person, place, and situation but not time. Related Data Home Medications Medication Instructions Recorded Confirmed albuterol sulfate 90 mcg/actuation 2 puff inhalation Q6H PRN 11/28/22 04/20/23 aerosol inhaler Breathing Problems allopurinol 100 mg tablet 100 mg PO BID Gout 11/28/22 04/20/23 aripiprazole 5 mg tablet 2 mg PO DAILY Psychiatric 11/28/22 04/20/23 aspirin 81 mg chewable tablet 81 mg PO DAILY Heart Disease 11/28/22 04/20/23 atorvastatin 20 mg tablet 20 mg PO HS High Cholesterol 11/28/22 04/20/23 buspirone 10 mg tablet 10 mg PO BID Psychiatric 11/28/22 04/20/23 citalopram 20 mg tablet 20 mg PO DAILY Psychiatric 11/28/22 04/20/23 donepezil 5 mg tablet 5 mg PO HS Psychiatric 11/28/22 04/20/23 furosemide 20 mg tablet 20 mg PO QODHS Fluid 11/28/22 04/20/23 metoprolol tartrate 25 mg tablet 12.5 mg PO DAILY High Blood 11/28/22 04/20/23 Pressure multivitamin 1 tab PO DAILY Supplement 11/28/22 04/20/23 potassium chloride 20 mEq 20 meq PO TID Supplement 11/28/22 04/20/23 tablet,extended release acetaminophen 500 mg tablet 500 mg PO Q6HP PRN Mild Pain 12/01/22 04/20/23 (Acetaminophen Extra Strength) (Scale Score 1-4) aluminum-mag hydroxide-simethicone 30 ml PO Q4HP PRN Heartburn 12/01/22 04/20/23 200 mg-200 mg-20 mg/5 mL oral susp (Maryjo-Lanta) guaifenesin 100 mg/5 mL oral liquid 200 mg PO Q4HP PRN Chest Congestion 12/01/22 04/20/23 loperamide 2 mg capsule 2 mg PO Q3HP PRN Diarrhea 12/01/22 04/20/23 nitroglycerin 0.4 mg sublingual See Rx Instructions .Route 12/01/22 04/20/23 tablet .COMPLEX Chest Pain pantoprazole 40 mg tablet,delayed 40 mg PO BID gerd 02/07/23 04/20/23 release trazodone 50 mg tablet 50 mg PO HS 04/24/23 Previous Rx's Medication Instructions Recorded gabapentin 100 mg capsule 100 mg PO TID Neuropathy #90 caps 12/22/22 tramadol 50 mg tablet 50 mg PO BID Chronic pain #60 tabs 12/29/22 levofloxacin 500 mg tablet 500 mg PO DAILY #10 tabs 02/22/23 ranolazine 500 mg tablet,extended See Rx Instructions .Route 05/07/23 release,12 hr .COMPLEX #60 tabs Allergies Allergy/AdvReac Type Severity Reaction Status Date / Time No Known Allergies Allergy Verified 06/23/23 10:37 [facility] Disclaimer: The information contained in this section may have been updated after the corey ent was seen, as this information can be updated by other users. Medical History Actinic keratosis Anxiety disorder, unspecified Asthma Atypical chest pain Chest pain Cholecystectomy planned Cognitive communication deficit Contracture of muscle, right hand COPD (chronic obstructive pulmonary disease) Dependent personality disorder Depression Dysphagia, oropharyngeal phase Dyspnea Gall bladder disease Gastroesophageal reflux disease HLD (hyperlipidemia) Hypertension Palpitations Parkinsons disease Schizophrenia Squamous cell 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, including shoulder Tobacco dependence syndrome Unspecified osteoarthritis, unspecified site Surgical History History of lumpectomy Family History Other Family history of cancer Social History Smoking Status: Former smoker tobacco type: cigarettes packs per day: 1 second hand exposure: Yes alcohol intake: never substance use type: denies use current occupational status: unemployed and disabled Travel in the last 8 weeks: None household members: other housing: assisted living facility current occupational exposures/hazards: No caffeine: Yes ROS Obtained: Yes All systems reviewed & no additional complaints except as documented Physical Exam General General appearance: alert and in no apparent distress Head Head exam: atraumatic and normocephalic Eye Eye exam: Present normal appearance, PERRL and EOMI ENT ENT exam: Present normal exam, normal oropharynx, mucous membranes moist and normal external ear exam Neck Neck exam: Present normal inspection, full ROM and trachea midline; Absent tenderness Chest Chest inspection: Present normal inspection and symmetric chest wall rise; Absent tenderness Respiratory Respiratory exam: Present normal lung sounds bilaterally; Absent respiratory distress, wheezes, stridor or accessory muscle use Cardiovascular Cardiovascular exam: Present regular rate and normal rhythm Abdominal Exam Abdominal exam: Present soft; Absent distention, tenderness or guarding Extremities Exam Extremities exam: Present normal inspection, full ROM and normal capillary refill; Absent tenderness or edema Back Exam Back exam: Present normal inspection and full ROM; Absent tenderness Neurological Exam Neurological exam: Present alert, CN II-XII intact and normal gait; Absent oriented X3 (Not oriented to time) or motor sensory deficit Psychiatric Psychiatric exam: Present normal affect and normal mood Skin Skin exam: Present warm and dry Medical Decision Making Medical Records Medical records reviewed: Yes I reviewed the patient's medical records. Nitin Inquiry Pt receiving controlled substance: No Vital Signs: 06/23/23 10:25 06/23/23 10:30 06/23/23 11:01 Temperature 97.5 F L Temperature Source Oral Pulse Rate 81 59 L Pulse Rate [Left] 82 Respiratory Rate 15 11 L 18 Blood Pressure 107/57 L 100/59 L Blood Pressure [Right Arm] 112/60 Blood Pressure Mean Blood Pressure Mean [Right Arm] 77 Blood Pressure Source [Right Arm] Automatic Cuff Blood Pressure Position [Right Arm] Sitting 02 Sat by Pulse Oximetry 97 98 100 Oxygen Delivery Method Room Air Room Air Room Air 06/23/23 11:30 06/23/23 12:00 06/23/23 12:30 Temperature Temperature Source Pulse Rate 61 59 L 63 Pulse Rate [Left] Respiratory Rate 22 17 16 Blood Pressure 95/61 L 98/50 L 115/57 L Blood Pressure [Right Arm] Blood Pressure Mean 68 Blood Pressure Mean [Right Arm] Blood Pressure Source [Right Arm] Blood Pressure Position [Right Arm] 02 Sat by Pulse Oximetry 99 97 97 Oxygen Delivery Method Room Air Room Air Room Air 06/23/23 13:00 06/23/23 13:31 06/23/23 14:18 Temperature 97.9 F Temperature Source Pulse Rate 59 L 58 L 84 Pulse Rate [Left] Respiratory Rate 21 21 17 Blood Pressure 120/60 129/71 104/78 L Blood Pressure [Right Arm] Blood Pressure Mean 80 Blood Pressure Mean [Right Arm] Blood Pressure Source [Right Arm] Blood Pressure Position [Right Arm] 02 Sat by Pulse Oximetry 98 97 Oxygen Delivery Method Room Air Room Air Room Air Lab Data Lab results reviewed: Yes I reviewed the patient's lab results. Lab Results 06/23/23 10:26: Sodium 135 L, Potassium 3.7, Chloride 102, Carbon Dioxide 27, Anion Gap 9.7, BUN 11, Creatinine 0.50 L, Estimated Creat Clear 49, Estimated GFR 119, Est GFR ( Amer) 144, Glucose 111 H, Calcium 8.7, Total Bilirubin 0.8, AST 32, ALT 27, Alkaline Phosphatase 102, Troponin I < 0.01, Total Protein 6.4, Albumin 3.8, Globulin 2.6, Albumin/Globulin Ratio 1.5, TSH 1.50, Thyroxine (T4) 9.9 06/23/23 10:27: WBC 4.4 L, RBC 3.73 L, Hgb 11.3 L, Hct 33.5 L, MCV 89.9, MCH 30.2, MCHC 33.6, RDW 15.2, Plt Count 195, MPV 8.3, Neut % (Auto) 57.7, Lymph % (Auto) 30.7, [place] % (Auto) 8.6, Eos % (Auto) 2.3, Baso % (Auto) 0.7, Neut # (Auto) 2.5, Lymph # (Auto) 1.3, [place] # (Auto) 0.4, Eos # (Auto) 0.1, Baso # (Auto) 0.0, SARS-CoV-2 (PCR) Not detected, Influenza A Untype (PCR) Not detected, Influenza Type B (PCR) Not detected 06/23/23 13:02: Troponin I < 0.01 06/23/23 10:27 06/23/23 10:26 Orders (Tests/Meds): ED MEDICATIONS Discontinued Medications Generic Name Dose Route Start Last Admin Trade Name Freq PRN Reason Stop Dose Admin Aspirin 324 mg 06/23/23 10:23 06/23/23 10:34 Aspirin 81mg Chewable Tablet PO 06/23/23 10:24 324 mg ONCE ONE Administration ORDERS Category Date Time Status XR chest portable Stat Exams 06/23/23 10:22 Completed Complete Blood Count Auto Diff Stat Lab 06/23/23 10:27 Completed Comprehensive Metabolic Panel Stat Lab 06/23/23 10:26 Completed Rapid PCR Covid and Flu A/B Stat Lab 06/23/23 10:27 Completed T4 (Thyroxine) Stat Lab 06/23/23 10:26 Completed Thyroid Stimulating Hormone Stat Lab 06/23/23 10:26 Completed Troponin I Q3H Lab 06/23/23 13:02 Completed Troponin I Stat Lab 06/23/23 10:26 Completed ECG initial Besson Routine Y 06/23/23 10:23 Completed ECG Data Tracing #1: I reviewed this ECG and interpreted as documented below: Normal sinus rhythm with a ventricular rate of 76 bpm. First-degree AV block with IA interval 220 ms. This was not present on prior EKG, but otherwise there are no acute changes. No acute ST elevations concerning for ischemia. ECG initial impression date: 06/23/23 ECG initial impression time: 10:24 HEART Score History (anamnesis): Moderately suspicious ECG: Normal Age: >65 years Risk factors: 1-2 risk factors Troponin: </= normal limit HEART Score: 4 Medical Decision Narrative: In summary, this patient is a 78-year-old female presenting to the Emergency Department for evaluation of chest pain. Differential diagnoses considered include but are not limited to ACS, GERD, pleurisy, aortic dissection, costochondritis, pneumonia. Ruling out the most morbid conditions drove assessment. I reviewed patient's past medical records and noted evaluations in the past for similar symptoms with reassuring workups at those times. She was found to have a fluid-filled lower esophagus in the past. On exam, the patient is well-appearing. She has equal pulses bilaterally and normal vital signs on cardiac telemetry with no significant tachycardia or hypertension. Workup included CBC, CMP, troponin, TSH, T4, viral swab, chest x- ray, and EKG. Patient was given oral aspirin. EKG is reassuring without acute ST changes from prior EKGs. I independently interpreted x-ray prior to the radiologist read and noted focal consolidation, pneumothorax, or other concerns. Please see their read for final interpretation. Labs were obtained that demonstrated no acutely concerning abnormalities. Troponin is negative x 2. On reassessment, patient is resting calmly with no pain. She has normal vital signs on cardiac telemetry. She is tolerating oral intake without difficulty. Given reassuring workup and exam, feel that she is appropriate for discharge. Nursing facility report was called, they were given strict return precautions, and EMS transfer was arranged. Patient was transported in stable condition. Critical Care Critical Care Time Critical Care Time: No
--- NOTE | 2023-06-23 10:28 | PC.NURSE ---
RAD at for CXR
[2023-06-23] MEDS: ASPIRIN 81MG CHEWABLE TABLET 324 MG PO (10:34)
[2023-06-23 10:37] LABS: Coronavirus 19, PCR Not Detected (NotDetected); Influenza A, PCR Not Detected (NotDetected); Influenza B, PCR Not Detected (NotDetected)
[2023-06-23 10:44] LABS: Basophils % 0.7 % (0.1-2.0); Eosinophils # 0.1 K/mm3 (0.0-0.4); Eosinophils % 2.3 % (0.1-12.0); Hematocrit 33.5 % (37.0-47.0); Hemoglobin 11.3 g/dL (12.2-16.2); Lymphocytes # 1.3 K/mm3 (0.7-4.5); Lymphocytes % 30.7 % (10-50); Mean Corpuscular HGB Conc 33.6 g/dL (31.8-35.4); Mean Corpuscular Hemoglobin 30.2 pg (27.0-31.2); Mean Corpuscular Volume 89.9 fl (81-99); Mean Platelet Volume 8.3 fl (7.4-10.4); Monocytes # 0.4 K/mm3 (0.1-1.0); Monocytes % 8.6 % (1.7-9.3); Neutrophils # 2.5 K/mm3 (1.8-7.8); Neutrophils % 57.7 % (37.0-80.0); Platelet Count 195 K/mm3 (142-424); Red Blood Count 3.73 M/mm3 (4.20-5.40); Red Cell Distribution Width 15.2 % (11.5-17.5); White Blood Count 4.4 K/mm3 (4.8-10.8)
[2023-06-23 10:45] LABS: Chloride 102 mmol/L (98-107); Potassium 3.7 mmoL/L (3.5-5.1); Sodium 135 mmol/L (136-145)
[2023-06-23 10:47] LABS: Alanine Aminotransferase 27 U/L (12-78); Aspartate Amino Transferase 32 U/L (14-36); Blood Urea Nitrogen 11 mg/dl (7-17); Creatinine Clearance Estimated 49 mL/min (50-200); Estimated Glomerular Filt Rate 119 ml/min (>60); GFR (African American) 144 ML/MIN (>60)
[2023-06-23 10:48] LABS: Albumin Level 3.8 g/dl (3.5-5.0); Albumin/Globulin Ratio 1.5 (1.1-1.8); Alkaline Phosphatase 102 U/L (38-126); Anion Gap 9.7 mEq/L (5-15); Bilirubin,Total 0.8 mg/dl (0.2-1.3); Calcium 8.7 mg/dl (8.4-10.2); Carbon Dioxide 27 mmol/L (22.0-30.0); Globulin 2.6 g/dL (1.3-3.2); Glucose 111 mg/dl (74-100); Total Protein,Serum 6.4 g/dl (6.3-8.2)
[2023-06-23 11:04] LABS: T4 (Thyroxine) 9.9 ug/dl (5.53-11.0)
[2023-06-23 11:07] LABS: Troponin I < 0.01 ng/ml (0.00-0.034)
--- NOTE | 2023-06-23 11:43 | PC.NURSE ---
Rounded on pt. Pt resting with eyes close, respirations are even and unlabored, and call light within reach.
--- NOTE | 2023-06-23 13:03 | PC.NURSE ---
Ordered lunch tray for pt
--- NOTE | 2023-06-23 13:05 | PC.NURSE ---
second troponin vrasha from pts IV line and sent to lab.
--- NOTE | 2023-06-23 13:25 | PC.NURSE ---
Pt provided with lunch tray
[2023-06-23 13:49] LABS: Troponin I < 0.01 ng/ml (0.00-0.034)
--- NOTE | 2023-06-23 13:50 | PC.NURSE ---
Spoke with Henna at [facility] and updated pt would be returning
--- NOTE | 2023-06-23 13:54 | PC.NURSE ---
Dr. Sol at to update pt on results
--- NOTE | 2023-06-23 14:18 | PC.NURSE ---
I called report to Thi at [facility]
== END 2023-06-23 14:47 ==
PROVIDERS: Emergency Provider Emergency Medicine
DX: R07.9 Chest pain, unspecified (principal); G20.C Parkinsonism, unspecified; I10 Essential (primary) hypertension; E78.5 Hyperlipidemia, unspecified; J44.9 Chronic obstructive pulmonary disease, unspecified; I44.0 Atrioventricular block, first degree; K21.9 Gastro-esophageal reflux disease without esophagitis; F20.9 Schizophrenia, unspecified; Z87.891 Personal history of nicotine dependence
CPT/HCPCS: 71045; 80053; 84436; 84443; 84484; 85025; 87636; 93005; 99285

== ENCOUNTER 2023-07-14 16:55 | Emergency (ER) | payer MEDICARE, MEDICAID, SELFPAY ==
[2023-07-14] VITALS (13 sets, daily range): BP systolic 103–152; BP diastolic 58–96; PULSE 67–234; RESP 14–23; TEMP 36.6–36.8; O2SAT 93–98; BMI 27.4
--- NOTE | 2023-07-14 16:57 | ECG_ITS ---
APPROVED REPORT Exam: Resting ECG HR:84 bpm ECG Measurements Heart Rate 84 AXES NY 202 P 65 QRSd 81 QRS -39 QT 369 T 54 QTc 410 Conclusion SINUS RHYTHM LEFT AXIS DEVIATION [QRS AXIS < -30] LOW QRS VOLTAGE IN PRECORDIAL LEADS [QRS DEFLECTION < 1.0 mV IN CHEST LEADS] SEPTAL MYOCARDIAL INFARCTION , PROBABLY OLD [40+ ms Q WAVE IN V1/V2] ABNORMAL ECG UNCONFIRMED REPORT Electronically signed by : Cecil Pena MD 07/16/2023 20:02:15
--- NOTE | 2023-07-14 17:14 | XR_ITS ---
PROCEDURE INFORMATION: Exam: XR Chest Exam date and time: 07/14/2023 5:18 PM Age: 78 years old Clinical indication: Pain; Chest pressure; Additional info: Cp, left sided TECHNIQUE: Imaging protocol: Radiologic exam of the chest. Views: 1 view. COMPARISON: CR XR CHEST PORTABLE 06/23/2023 10:23 AM FINDINGS: Lungs: Unremarkable. No consolidation. Pleural spaces: Unremarkable. No pleural effusion. No pneumothorax. Heart/Mediastinum: Unremarkable. No cardiomegaly. Bones/joints: Unremarkable. IMPRESSION: No acute findings.
--- NOTE | 2023-07-14 17:23 | [facility].EDCP ---
Discharge Plan Disposition Patient Disposition: Home, Self-Care Prescriptions Prescriptions: New nitrofurantoin monohyd/m-cryst [Macrobid] 100 mg capsule 100 mg PO BID 5 Days Qty: 10 0RF Rx Instructions: must administer with a meal/food No Action levofloxacin 500 mg tablet 500 mg PO DAILY Qty: 10 0RF trazodone 50 mg tablet 50 mg PO HS ranolazine 500 mg tablet extended release 12 hr See Rx Instructions .ROUTE .COMPLEX Qty: 60 4RF Dose Instruction: GIVE 1 TABLET BY MOUTH TWICE A DAY Rx Instructions: GIVE 1 TABLET BY MOUTH TWICE A DAY gabapentin 100 mg capsule 100 mg PO TID Qty: 90 5RF tramadol 50 mg tablet 50 mg PO BID Qty: 60 5RF loperamide 2 mg Capsule 2 mg PO Q3HP PRN (Reason: Diarrhea) acetaminophen [Acetaminophen Extra Strength] 500 mg Tablet 500 mg PO Q6HP PRN (Reason: Mild Pain (Scale Score 1-4)) guaifenesin 100 mg/5 mL Liquid 200 mg PO Q4HP PRN (Reason: Chest Congestion) nitroglycerin 0.4 mg Tablet, Sublingual See Rx Instructions .ROUTE .COMPLEX Rx Instructions: take one tablet Q5MIN FOR UP TO THREE DOSES alum-mag hydroxide-simeth [Maryjo-Lanta] 200-200-20 mg/5 mL Suspension 30 ml PO Q4HP PRN (Reason: Heartburn) pantoprazole 40 mg tablet,delayed release (DR/EC) 40 mg PO BID multivitamin Tablet 1 tab PO DAILY atorvastatin 20 mg Tablet 20 mg PO HS donepezil 5 mg Tablet 5 mg PO HS allopurinol 100 mg Tablet 100 mg PO BID citalopram 20 mg Tablet 20 mg PO DAILY buspirone 10 mg Tablet 10 mg PO BID aspirin 81 mg Tablet,Chewable 81 mg PO DAILY furosemide 20 mg Tablet 20 mg PO QODHS albuterol sulfate 90 mcg/actuation Hfa Aerosol Inhaler 2 puff INHALATION Q6H PRN (Reason: Breathing Problems) metoprolol tartrate 25 mg Tablet 12.5 mg PO DAILY potassium chloride 20 mEq Tablet Extended Release 20 meq PO TID Referrals Follow up/Referrals: Zeinab See DO [Primary Care Provider] - See instructions Activity Restrictions/Add. Instructions Additional Instructions/Restrictions: Call your family doctor to establish care for this visit to the emergency department and schedule follow-up within 48 hours to ensure improvement. If you have any worsening of your condition or any other concerning signs or symptoms, return to the emergency department or your primary care doctor for further evaluation. Take Bactroban twice daily for 5 days. Clinical Impressions Clinical Impression: Acute chest wall pain, Acute UTI Discharge ED Provider: Artis Grove HPI General Chief Complaint: Chest Pain Stated Complaint: Chest pain Time Seen by Provider: 07/14/23 16:57 Mode of Arrival: EMS Source of Information: Patient Limitations: No Limitations Description of Symptoms (Recalled from ER Triage Doc. by RN): Patient complaint of chest and breast pain that started approx 1 hour ago. Per [facility] patient was given Nitro x 3 with no relief. History of Present Illness HPI narrative: 78-year-old female history of CAD presenting with chest pain. Patient states that about an hour prior to arrival, she started having left-sided chest pain. Just under her left breast, does not radiate, not associate with shortness of breath, nausea, vomiting, fevers, chills, or any other concerns. She states nothing makes it better or worse. Took 3 nitroglycerin, that did not help. Has pains like this intermittently, wanted to seek evaluation today. Related Data Home Medications Medication Instructions Recorded Confirmed albuterol sulfate 90 mcg/actuation 2 puff inhalation Q6H PRN 11/28/22 04/20/23 aerosol inhaler Breathing Problems allopurinol 100 mg tablet 100 mg PO BID Gout 11/28/22 04/20/23 aspirin 81 mg chewable tablet 81 mg PO DAILY Heart Disease 11/28/22 04/20/23 atorvastatin 20 mg tablet 20 mg PO HS High Cholesterol 11/28/22 04/20/23 buspirone 10 mg tablet 10 mg PO BID Psychiatric 11/28/22 04/20/23 citalopram 20 mg tablet 20 mg PO DAILY Psychiatric 11/28/22 04/20/23 donepezil 5 mg tablet 5 mg PO HS Psychiatric 11/28/22 04/20/23 furosemide 20 mg tablet 20 mg PO QODHS Fluid 11/28/22 04/20/23 metoprolol tartrate 25 mg tablet 12.5 mg PO DAILY High Blood 11/28/22 04/20/23 Pressure multivitamin 1 tab PO DAILY Supplement 11/28/22 04/20/23 potassium chloride 20 mEq 20 meq PO TID Supplement 11/28/22 04/20/23 tablet,extended release acetaminophen 500 mg tablet 500 mg PO Q6HP PRN Mild Pain 12/01/22 04/20/23 (Acetaminophen Extra Strength) (Scale Score 1-4) aluminum-mag hydroxide-simethicone 30 ml PO Q4HP PRN Heartburn 12/01/22 04/20/23 200 mg-200 mg-20 mg/5 mL oral susp (Maryjo-Lanta) guaifenesin 100 mg/5 mL oral liquid 200 mg PO Q4HP PRN Chest Congestion 12/01/22 04/20/23 loperamide 2 mg capsule 2 mg PO Q3HP PRN Diarrhea 12/01/22 04/20/23 nitroglycerin 0.4 mg sublingual See Rx Instructions .Route 12/01/22 04/20/23 tablet .COMPLEX Chest Pain pantoprazole 40 mg tablet,delayed 40 mg PO BID gerd 02/07/23 04/20/23 release trazodone 50 mg tablet 50 mg PO HS 04/24/23 Previous Rx's Medication Instructions Recorded levofloxacin 500 mg tablet 500 mg PO DAILY #10 tabs 02/22/23 ranolazine 500 mg tablet,extended See Rx Instructions .Route 05/07/23 release,12 hr .COMPLEX #60 tabs gabapentin 100 mg capsule 100 mg PO TID Neuropathy #90 caps 06/26/23 tramadol 50 mg tablet 50 mg PO BID Chronic pain #60 tabs 06/26/23 nitrofurantoin 100 mg PO BID 5 days #10 caps 07/14/23 monohydrate/macrocrystals 100 mg capsule (Macrobid) Allergies Allergy/AdvReac Type Severity Reaction Status Date / Time No Known Allergies Allergy Verified 06/23/23 10:37 [facility] Disclaimer: The information contained in this section may have been updated after the patient was seen, as this information can be updated by other users. Medical History Actinic keratosis Anxiety disorder, unspecified Asthma Atypical chest pain Chest pain Cholecystectomy planned Cognitive communication deficit Contracture of muscle, right hand COPD (chronic obstructive pulmonary disease) Dependent personality disorder Depression Dysphagia, oropharyngeal phase Dyspnea Gall bladder disease Gastroesophageal reflux disease HLD (hyperlipidemia) Hypertension Palpitations Parkinsons disease Schizophrenia Squamous cell 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, including shoulder Tobacco dependence syndrome Unspecified osteoarthritis, unspecified site Surgical History History of lumpectomy Family History Other Family history of cancer Social History Smoking Status: Never smoker second hand exposure: Yes alcohol intake: never substance use type: denies use current occupational status: unemployed and disabled Travel in the last 8 weeks: None household members: other housing: assisted living facility current occupational exposures/hazards: No caffeine: Yes ROS Obtained: Yes All systems reviewed & no additional complaints except as documented Physical Exam General General appearance: alert Head Head exam: normocephalic and other (Superficial skin tears on left side face) Neck Neck exam: Present trachea midline and other (Soft collar in place) Chest Chest inspection: Present normal inspection and symmetric chest wall rise Respiratory Respiratory exam: Present normal lung sounds bilaterally; Absent respiratory distress, wheezes, stridor, accessory muscle use or prolonged expiratory phase Cardiovascular Cardiovascular exam: Present regular rate and normal rhythm Extremities Exam Extremities exam: Absent edema Neurological Exam Neurological exam: Present alert, oriented X3 and CN II-XII intact Skin Skin exam: Present warm and dry; Absent cyanosis, diaphoresis or pallor HEART Score HEART Score HEART Score assessment performed?: Yes History (anamnesis): Slightly suspicious ECG: Normal Age: >65 years Risk factors: 3 or more risk factors Troponin: </= normal limit HEART Score: 4 Procedures Limited Ultrasound Indication:: Limited cardiac ultrasound Indication: Left-sided chest pain Identified cardiac views: -Cardiac parasternal long axis -Cardiac parasternal short axis Findings: -Cardiac activity present -Gross wall motion normal -Pericardial effusion absent -Right heart strain absent Impression: -Normal cardiac ultrasound Images were saved to permanent archive The study was technically adequate CPT: 47792 This study was performed by me, and I personally interpreted all images/videos. Based on my clinical judgement, these images were adequate and did not necessitate further imaging. Critical Care Critical Care Time Critical Care Time: No Medical Decision Making Medical Records Medical records reviewed: Yes I reviewed the patient's medical records. Nitin Inquiry Pt receiving controlled substance: No Nitin was queried for this patient: No Vital Signs Vital Signs: 07/14/23 16:55 07/14/23 17:01 07/14/23 17:31 Temperature 97.8 F Temperature Source Oral Pulse Rate 82 Pulse Rate [Radial] 85 Respiratory Rate 18 22 23 Blood Pressure 104/58 L 130/96 H Blood Pressure [Right Arm] 103/67 L Blood Pressure Mean [Right Arm] 79 Blood Pressure Source [Right Arm] Automatic Cuff Blood Pressure Position [Right Arm] Sitting 02 Sat by Pulse Oximetry 96 95 95 Oxygen Delivery Method Room Air Room Air Room Air 07/14/23 18:00 07/14/23 18:30 07/14/23 19:00 Temperature Temperature Source Pulse Rate 78 84 84 Pulse Rate [Radial] Respiratory Rate 23 19 14 Blood Pressure 129/73 152/71 H 150/84 H Blood Pressure [Right Arm] Blood Pressure Mean [Right Arm] Blood Pressure Source [Right Arm] Blood Pressure Position [Right Arm] 02 Sat by Pulse Oximetry 97 93 L 97 Oxygen Delivery Method Room Air 07/14/23 19:30 07/14/23 20:00 07/14/23 20:30 Temperature Temperature Source Pulse Rate 80 72 76 Pulse Rate [Radial] Respiratory Rate 21 14 21 Blood Pressure 130/79 139/75 133/70 Blood Pressure [Right Arm] Blood Pressure Mean [Right Arm] Blood Pressure Source [Right Arm] Blood Pressure Position [Right Arm] 02 Sat by Pulse Oximetry 96 96 97 Oxygen Delivery Method 07/14/23 21:00 Temperature Temperature Source Pulse Rate 234 H Pulse Rate [Radial] Respiratory Rate 21 Blood Pressure 128/74 Blood Pressure [Right Arm] Blood Pressure Mean [Right Arm] Blood Pressure Source [Right Arm] Blood Pressure Position [Right Arm] 02 Sat by Pulse Oximetry 98 Oxygen Delivery Method Lab Data Labs: Lab Results 07/14/23 17:08: WBC 5.2, RBC 3.59 L, Hgb 10.7 L, Hct 33.4 L, MCV 93.0, MCH 29.7, MCHC 31.9, RDW 14.9, Plt Count 209, MPV 8.3, Neut % (Auto) 62.4, Lymph % (Auto) 26.9, Geary % (Auto) 7.0, Eos % (Auto) 3.5, Baso % (Auto) 0.2, Neut # (Auto) 3.2, Lymph # (Auto) 1.4, Geary # (Auto) 0.4, Eos # (Auto) 0.2, Baso # (Auto) 0.0, Sodium 135 L, Potassium 4.2, Chloride 105, Carbon Dioxide 28, Anion Gap 6.2, BUN 15, Creatinine 0.50 L, Estimated Creat Clear 53, Estimated GFR 119, Est GFR ( Amer) 144, Glucose 95, Calcium 8.7, Total Bilirubin 0.5, AST 30, ALT 21, Alkaline Phosphatase 112, Troponin I < 0.01, NT-Pro-B Natriuret Pep 98.0, Total Protein 6.1 L, Albumin 3.6, Globulin 2.5, Albumin/Globulin Ratio 1.4 07/14/23 18:55: Urine Color Yellow, Urine Appearance Clear, Urine pH 6.5, Ur Specific [place] 1.015, Urine Protein Negative, Urine Glucose (UA) Negative, Urine Ketones Negative, Urine Blood Negative, Urine Nitrate Negative, Urine Bilirubin Negative, Urine Urobilinogen 2.0, Ur Leukocyte Esterase Trace, Urine RBC None, Urine WBC 5-10, Ur Squamous Epith Cells 3-5, Urine Bacteria 2+ 07/14/23 20:25: Troponin I < 0.01 07/14/23 17:08 07/14/23 17:08 Response Orders (Tests/Meds): ED MEDICATIONS Discontinued Medications Generic Name Dose Route Start Last Admin Trade Name Freq PRN Reason Stop Dose Admin Aspirin 324 mg 07/14/23 17:14 07/14/23 17:25 Aspirin 81mg Chewable Tablet PO 07/14/23 17:15 324 mg ONCE ONE Administration Nitrofurantoin Macrocrystals 100 mg 07/14/23 20:21 07/14/23 20:25 Nitrofurantoin 100mg Capsule PO 07/14/23 20:22 100 mg ONCE ONE Administration ORDERS Category Date Time Status POCUS Point of Care (ER Only) Stat Exams 07/14/23 20:27 Ordered XR chest portable Stat Exams 07/14/23 17:14 Taken Brain Natriuretic Peptide Stat Lab 07/14/23 17:08 Completed Complete Blood Count Auto Diff Stat Lab 07/14/23 17:08 Completed Comprehensive Metabolic Panel Stat Lab 07/14/23 17:08 Completed Troponin I Q3H Lab 07/14/23 20:25 Completed Troponin I Q3H Lab 07/14/23 23:15 Ordered Troponin I Stat Lab 07/14/23 17:08 Completed Urinalysis and Microscopic Stat Lab 07/14/23 18:55 Completed Urine Culture Stat Micro 07/14/23 18:55 Received MDM Narrative Medical Decision Narrative: 78-year-old female history of CAD presenting with chest pain. Patient states that about an hour prior to arrival, she started having left-sided chest pain. Just under her left breast, does not radiate, not associate with shortness of breath, nausea, vomiting, fevers, chills, or any other concerns. She states nothing makes it better or worse. Took 3 nitroglycerin, that did not help. Has pains like this intermittently, wanted to seek evaluation today.. History was obtained via conversation with patient and EMS. On arrival, patient hemodynamically stable, alert, oriented x4, appropriate, GCS 15, moving all extremities spontaneously, pupils equal and reactive to light. Full physical exam performed and significant for well-appearing woman in no acute distress. She does have a soft cervical collar in place from, what she explains, occupational versus physical therapy. Cardiopulmonary exam without any acute findings. No lower extremity edema. Abdomen is soft, nontender, nondistended. Differential includes microvascular coronary artery disease, CHF, ACS, CT, coronary artery dissection, pneumothorax, PE, dissection, pericarditis, myocarditis, pneumothorax, aortic aneurysm, pneumonia, bronchitis, among others. Patient was given 324 mg aspirin p.o. for symptomatic management and correction of underlying abnormalities. Workup independently interpreted and significant for negative troponin. Nonactionable CBC or chemistry. BNP negative. Chest x-ray without acute cardiopulmonary airspace disease see radiology read for full review of final results. Independent interpretation of EKG shows sinus rhythm without ST or T wave changes concerning for acute ischemia. CT mildly elongated at 202 ms. QRS, QT intervals within normal limits. [place] toward the left. Patient placed on continuous cardiac monitoring and continuous pulse ox with initial blood pressure 104/58, heart rate 81, saturation 95. Bedside cardiac ultrasound without acute abnormality. Heart score 4. Patient was placed in observation beginning at 5 PM in order to rule out evolving CT with delta troponins and determine need for admission versus home-going. The patient was provided serial monitoring, bedside ultrasound while awaiting results. Independent interpretation of results demonstrated normal cardiac ultrasound, negative delta troponin. On reevaluation, patient resting comfortably in bed. At this time, I feel patient is appropriate for discharge. Total observation time 4 hours. Because patient at baseline without signs or symptoms of clinical decompensation, deemed appropriate for discharge. Results were relayed to patient who voiced understanding and were agreeable to outpatient management and follow up. At the time of discharge the patient was hemodynamically stable, tolerating PO, and mobilizing appropriately.
[2023-07-14] MEDS: ASPIRIN 81MG CHEWABLE TABLET 324 MG PO (17:25)
[2023-07-14 17:27] LABS: Chloride 105 mmol/L (98-107); Potassium 4.2 mmoL/L (3.5-5.1); Sodium 135 mmol/L (136-145)
[2023-07-14 17:29] LABS: Alanine Aminotransferase 21 U/L (12-78); Aspartate Amino Transferase 30 U/L (14-36); Blood Urea Nitrogen 15 mg/dl (7-17); Creatinine Clearance Estimated 53 mL/min (50-200); Estimated Glomerular Filt Rate 119 ml/min (>60); GFR (African American) 144 ML/MIN (>60)
[2023-07-14 17:30] LABS: Albumin Level 3.6 g/dl (3.5-5.0); Albumin/Globulin Ratio 1.4 (1.1-1.8); Alkaline Phosphatase 112 U/L (38-126); Anion Gap 6.2 mEq/L (5-15); Bilirubin,Total 0.5 mg/dl (0.2-1.3); Calcium 8.7 mg/dl (8.4-10.2); Carbon Dioxide 28 mmol/L (22.0-30.0); Globulin 2.5 g/dL (1.3-3.2); Glucose 95 mg/dl (74-100); Total Protein,Serum 6.1 g/dl (6.3-8.2)
[2023-07-14 17:35] LABS: Basophils % 0.2 % (0.1-2.0); Eosinophils # 0.2 K/mm3 (0.0-0.4); Eosinophils % 3.5 % (0.1-12.0); Hematocrit 33.4 % (37.0-47.0); Hemoglobin 10.7 g/dL (12.2-16.2); Lymphocytes # 1.4 K/mm3 (0.7-4.5); Lymphocytes % 26.9 % (10-50); Mean Corpuscular HGB Conc 31.9 g/dL (31.8-35.4); Mean Corpuscular Hemoglobin 29.7 pg (27.0-31.2); Mean Platelet Volume 8.3 fl (7.4-10.4); Monocytes # 0.4 K/mm3 (0.1-1.0); Neutrophils # 3.2 K/mm3 (1.8-7.8); Neutrophils % 62.4 % (37.0-80.0); Platelet Count 209 K/mm3 (142-424); Red Blood Count 3.59 M/mm3 (4.20-5.40); Red Cell Distribution Width 14.9 % (11.5-17.5); White Blood Count 5.2 K/mm3 (4.8-10.8)
[2023-07-14 17:48] LABS: Troponin I < 0.01 ng/ml (0.00-0.034)
[2023-07-14 19:00] LABS: Microscopic, Urine URINE MICROSCOPIC (MICROSCOPIC)
[2023-07-14 19:01] LABS: Appearance,Urine CLEAR (Clear); Bilirubin,Urine Negative (Negative); Blood, Urine Negative (Negative); Color,Urine YELLOW (Yellow); Glucose,Urine (UA) Negative (Negative); Ketones,Urine Negative (Negative); Leukocyte Esterase,Urine TRACE (Negative); Nitrate,Urine Negative (Negative); PH,Urine 6.5 (5.0-8.5); Protein,Urine Negative (Negative); Specific Gravity, Urine 1.015 (1.005-1.030)
[2023-07-14 19:15] LABS: Bacteria,Urine 2+ /lpf
[2023-07-14] MEDS: NITROFURANTOIN 100MG CAPSULE 100 MG PO (20:25)
--- NOTE | 2023-07-14 20:27 | PC.NURSE ---
second trop obtained and sent to lab.
[2023-07-14 21:01] LABS: Troponin I < 0.01 ng/ml (0.00-0.034)
--- NOTE | 2023-07-14 21:07 | PC.NURSE ---
Dr. Grove at bedside with ultrasound.
--- NOTE | 2023-07-14 21:15 | PC.NURSE ---
EMS notified of need for transport once [place]
--- NOTE | 2023-07-14 21:22 | PC.NURSE ---
Nurse to nurse report given to
== END 2023-07-14 23:11 | disposition home or self-care (01) ==
PROVIDERS: Emergency Provider Emergency Medicine; PCP Obstetrics & Gynecology
DX: R07.89 Other chest pain (principal); N39.0 Urinary tract infection, site not specified; I25.10 Atherosclerotic heart disease of native coronary artery without angina pectoris; J44.9 Chronic obstructive pulmonary disease, unspecified; E78.5 Hyperlipidemia, unspecified; I10 Essential (primary) hypertension; G20.C Parkinsonism, unspecified; F20.9 Schizophrenia, unspecified
CPT/HCPCS: 71045; 80053; 81001; 83880; 84484; 85025; 87086; 93005; 99285

== ENCOUNTER 2023-10-30 16:25 | Outpatient (CLI) | payer MEDICARE, MEDICAID, SELFPAY ==
[2023-10-30 18:25] LABS: Basophils % 0.9 % (0.1-2.0); Eosinophils # 0.2 K/mm3 (0.0-0.4); Eosinophils % 4.1 % (0.1-12.0); Hemoglobin 11.1 g/dL (12.2-16.2); Lymphocytes # 1.4 K/mm3 (0.7-4.5); Lymphocytes % 34.2 % (10-50); Mean Corpuscular HGB Conc 31.8 g/dL (31.8-35.4); Mean Corpuscular Hemoglobin 29.3 pg (27.0-31.2); Mean Corpuscular Volume 92.1 fl (81-99); Mean Platelet Volume 8.6 fl (7.4-10.4); Monocytes # 0.4 K/mm3 (0.1-1.0); Monocytes % 10.5 % (1.7-9.3); Neutrophils # 2.1 K/mm3 (1.8-7.8); Neutrophils % 50.3 % (37.0-80.0); Platelet Count 216 K/mm3 (142-424); Red Cell Distribution Width 15.6 % (11.5-17.5); White Blood Count 4.2 K/mm3 (4.8-10.8)
== END 2023-10-30 23:59 | disposition home or self-care (01) ==
LOC: LAB 16:30
PROVIDERS: PCP Nurse Practitioner Family; Visit Provider Nurse Practitioner Family
DX: D64.9 Anemia, unspecified (principal)
CPT/HCPCS: 85025

== ENCOUNTER 2024-02-28 20:21 | Emergency (ER) | payer MEDICARE, MEDICAID, SELFPAY ==
[2024-02-28] VITALS (7 sets, daily range): BP systolic 97–145; BP diastolic 44–81; PULSE 62–75; RESP 16–25; TEMP 36.3; O2SAT 94–100; BMI 20.3
--- NOTE | 2024-02-28 20:28 | XR_ITS ---
PROCEDURE INFORMATION: Exam: XR Chest Exam date and time: 02/28/2024 8:39 PM Age: 78 years old Clinical indication: Pain; Chest pressure; Additional info: Chest pain, cough TECHNIQUE: Imaging protocol: Radiologic exam of the chest. Views: 2 views. COMPARISON: 1. CR XR CHEST PORTABLE 07/14/2023 5:18 PM 2. CR XR CHEST 2V 02/13/2023 10:26 AM FINDINGS: Lungs: Unremarkable. No consolidation. Pleural spaces: Unremarkable. No pleural effusion. No pneumothorax. Heart/Mediastinum: Unremarkable. No cardiomegaly. Bones/joints: Unremarkable. IMPRESSION: Stable chest x-ray with no acute disease.
--- NOTE | 2024-02-28 20:33 | ECG_ITS ---
APPROVED REPORT Exam: Resting ECG HR:74 bpm ECG Measurements Heart Rate 74 AXES AZ 175 P 80 QRSd 91 QRS -48 QT 374 T 70 QTc 401 Conclusion SINUS RHYTHM LEFT ANTERIOR FASCICULAR BLOCK [QRS AXIS <= -45, QR IN I, RS IN II] POSSIBLE ANTERIOR MYOCARDIAL INFARCTION , PROBABLY OLD [30 ms Q WAVE IN V3/V4, OR R < 0.2 mV IN V4] No STEMI Electronically signed by : ADRIAN BARNHART, 02/29/2024 03:24:58
--- NOTE | 2024-02-28 20:40 | ED_ITS ---
Discharge Plan Disposition Patient Disposition: Home, Self-Care Condition: Good Prescriptions Prescriptions: New doxycycline hyclate 100 mg capsule 100 mg PO BID 5 Days Qty: 10 0RF No Action Systane Nighttime 94-3 % ointment 1 applic ophthalmic (eye) DAILY aripiprazole 10 mg tablet 10 mg PO DAILY coQ10 (ubiquinol) [Qunol Selvin CoQ10] 100 mg capsule 100 mg PO BID Qty: 180 3RF trazodone 50 mg tablet 50 mg PO HS ranolazine 500 mg tablet extended release 12 hr See Rx Instructions .ROUTE .COMPLEX Qty: 60 4RF Dose Instruction: GIVE 1 TABLET BY MOUTH TWICE A DAY Rx Instructions: GIVE 1 TABLET BY MOUTH TWICE A DAY gabapentin 100 mg capsule 100 mg PO TID Qty: 90 5RF tramadol 50 mg tablet 50 mg PO BID Qty: 60 5RF calcium carbonate 500 mg calcium (1,250 mg) tablet 500 mg PO DAILY Qty: 90 3RF cholecalciferol (vitamin D3) 50 mcg (2,000 unit) tablet 50 mcg PO DAILY Qty: 90 3RF loperamide 2 mg Capsule 2 mg PO Q3HP PRN (Reason: Diarrhea) acetaminophen [Acetaminophen Extra Strength] 500 mg Tablet 500 mg PO Q6HP PRN (Reason: Mild Pain (Scale Score 1-4)) guaifenesin 100 mg/5 mL Liquid 200 mg PO Q4HP PRN (Reason: Chest Congestion) nitroglycerin 0.4 mg Tablet, Sublingual See Rx Instructions .ROUTE .COMPLEX Rx Instructions: take one tablet Q5MIN FOR UP TO THREE DOSES pantoprazole 40 mg tablet,delayed release (DR/EC) 40 mg PO BID multivitamin Tablet 1 tab PO DAILY atorvastatin 20 mg Tablet 20 mg PO HS donepezil 5 mg Tablet 5 mg PO HS allopurinol 100 mg Tablet 100 mg PO BID citalopram 20 mg Tablet 20 mg PO DAILY aspirin 81 mg Tablet,Chewable 81 mg PO DAILY furosemide 20 mg Tablet 20 mg PO QODHS albuterol sulfate 90 mcg/actuation Hfa Aerosol Inhaler 2 puff INHALATION Q6H PRN (Reason: Breathing Problems) metoprolol tartrate 25 mg Tablet 12.5 mg PO DAILY potassium chloride 20 mEq Tablet Extended Release 20 meq PO TID Referrals Follow up/Referrals: Provider,Shantanu, [Primary Care Provider] - See instructions Cecil Talbert MD [Staff Physician] - See instructions (Follow up with Dr. Talbert in 1-2 weeks.) Activity Restrictions/Add. Instructions Additional Instructions/Restrictions: You are being prescribed doxycycline, an antibiotic, to treat your pneumonia. Take this as prescribed. Your CT scan showed some inflamed lymph nodes or possible mass and is recommended that you follow-up with Dr. Talbert in 1 to 2 weeks as you may need additional workup. If you develop any new or worsening symptoms, such as worsening shortness of breath, chest pain, or if you become concerned for your health for any reason, return to the emergency department for evaluation Clinical Impressions Clinical Impression: Pneumonia, Lesion of left lung Print Language Print Language: Tamazight Discharge ED Provider: Armando Pleitez Adult HPI General Chief complaint: Chest Pain Stated complaint: Chest pain Time Seen by Provider: 02/28/24 20:28 Mode of Arrival: EMS Source of Information: Patient and EMS Limitations: No Limitations Description of Symptoms (Recalled from ER Triage Doc. by RN): ems reports they were called for chest pain, pt reports its more like chest pressure instead of chest pain. pain is midsternal and does not radiate. pt is reporting a nonproductive cough. History of Present Illness HPI narrative: Corie Peck is a 78F with a history of COPD, Parkinson's disease, hypertension, RENA, A-fib presented to the emergency department from her custodial for complaints of chest pain. Patient reports that she began to feel chest pain in the left side of her chest that feels like a lump that began at some point today. She also notes that she has had a cough over the last 1 to 2 weeks. She does not believe she has had any fevers. She states that she has not had any heart attacks before or blood clots. She does report some mild shortness of breath. EMS states that vital signs were stable and route and she was put on 2 L nasal cannula for comfort. She received 325 mg aspirin and nitroglycerin en-route. Related Data Home Medications ?Medication ?Instructions ?Recorded ?Confirmed albuterol sulfate 90 mcg/actuation 2 puff inhalation Q6H PRN 11/28/22 02/10/24 aerosol inhaler Breathing Problems allopurinol 100 mg tablet 100 mg PO BID Gout 11/28/22 02/10/24 aspirin 81 mg chewable tablet 81 mg PO DAILY Heart Disease 11/28/22 02/10/24 atorvastatin 20 mg tablet 20 mg PO HS High Cholesterol 11/28/22 02/10/24 citalopram 20 mg tablet 20 mg PO DAILY Psychiatric 11/28/22 02/10/24 donepezil 5 mg tablet 5 mg PO HS Psychiatric 11/28/22 02/10/24 furosemide 20 mg tablet 20 mg PO QODHS Fluid 11/28/22 02/10/24 metoprolol tartrate 25 mg tablet 12.5 mg PO DAILY High Blood 11/28/22 02/10/24 Pressure multivitamin 1 tab PO DAILY Supplement 11/28/22 02/10/24 potassium chloride 20 mEq 20 meq PO TID Supplement 11/28/22 02/10/24 tablet,extended release acetaminophen 500 mg tablet 500 mg PO Q6HP PRN Mild Pain 12/01/22 02/10/24 (Acetaminophen Extra Strength) (Scale Score 1-4) guaifenesin 100 mg/5 mL oral liquid 200 mg PO Q4HP PRN Chest Congestion 12/01/22 02/10/24 loperamide 2 mg capsule 2 mg PO Q3HP PRN Diarrhea 12/01/22 02/10/24 nitroglycerin 0.4 mg sublingual See Rx Instructions .Route 12/01/22 02/10/24 tablet .COMPLEX Chest Pain pantoprazole 40 mg tablet,delayed 40 mg PO BID gerd 02/07/23 02/10/24 release trazodone 50 mg tablet 50 mg PO HS 04/24/23 02/10/24 white petrolatum-mineral oil 94 1 applic ophthalmic (eye) DAILY 09/27/23 02/10/24 %-3 % eye ointment (Systane Nighttime) aripiprazole 10 mg tablet 10 mg PO DAILY 11/27/23 02/10/24 Previous Rx's ?Medication ?Instructions ?Recorded ranolazine 500 mg tablet,extended See Rx Instructions .Route 05/07/23 release,12 hr .COMPLEX #60 tabs gabapentin 100 mg capsule 100 mg PO TID Neuropathy #90 caps 09/15/23 tramadol 50 mg tablet 50 mg PO BID Chronic pain #60 tabs 12/18/23 calcium carbonate 500 mg PO DAILY #90 tabs 12/25/23 cholecalciferol (vitamin D3) 50 50 mcg PO DAILY #90 tabs 12/25/23 mcg (2,000 unit) tablet coQ10 (ubiquinol) 100 mg capsule 100 mg PO BID #180 caps 01/01/24 (Qunol Selvin CoQ10) doxycycline hyclate 100 mg capsule 100 mg PO BID 5 days #10 caps 02/28/24 Allergies Allergy/AdvReac Type Severity Reaction Status Date / Time No Known Allergies Allergy Verified 01/01/24 16:22 [facility] Disclaimer: The information contained in this section may have been updated after the patient was seen, as this information can be updated by other users. Medical History (Updated 02/28/24 @ 23:59 by Armando Pleitez MD) History of atrial fibrillation Lipoma of back Compression fracture of body of thoracic vertebra Osteopenia Compression fracture of lumbar vertebra Gastric ulcer Bilateral leg pain Acute kidney injury Urinary tract infection Fracture, thoracic vertebra, compression Abnormal cardiovascular stress test Nasal bone fracture Fracture of humerus, proximal, left, closed Fracture of radius, distal, right, closed Fall Epistaxis due to trauma Concussion Fall Pneumonia Cognitive communication deficit Contracture of muscle, right hand Parkinsons disease Dependent personality disorder Anxiety disorder, unspecified Depression Dysphagia, oropharyngeal phase Squamous cell 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, including shoulder Actinic keratosis COPD (chronic obstructive pulmonary disease) Gastroesophageal reflux disease Tobacco dependence syndrome Schizophrenia HLD (hyperlipidemia) Hypertension Surgical History History of lumpectomy Family History Other Family history of cancer Social History Smoking Status: Former smoker tobacco type: cigarettes packs per day: 1 second hand exposure: Yes alcohol intake: never substance use type: denies use current occupational status: unemployed and disabled Travel in the last 8 weeks: None household members: other housing: assisted living facility current occupational exposures/hazards: No caffeine: Yes Other Medical History Have you received the Flu Vaccine for this season: No Have you received the Pneumonia Vaccine: No ROS Obtained: Yes Systems reviewed as appropriate & no additional complaints except as documented Physical Exam General General appearance: alert and in no apparent distress Head Head exam: atraumatic Eye Eye exam: Present normal appearance ENT ENT exam: Present normal external ear exam Neck Neck exam: Present normal inspection Chest Chest inspection: Present normal inspection and symmetric chest wall rise; Absent tenderness Respiratory Respiratory exam: Present normal lung sounds bilaterally; Absent respiratory distress Cardiovascular Cardiovascular exam: Present regular rate, normal rhythm and normal heart sounds Abdominal Exam Abdominal exam: Present soft; Absent distention or tenderness Extremities Exam Extremities exam: Present normal inspection; Absent edema Back Exam Back exam: Present normal inspection Neurological Exam Neurological exam: Present alert and oriented X3 Psychiatric Psychiatric exam: Present normal affect Skin Skin exam: Present warm and dry Medical Decision Making Medical Records Medical records reviewed: Yes I reviewed the patient's medical records. Screening: Per USPSTF and CDC recommendations, given the prevalence of disease in our region, it is our hospital?s policy to screen for HIV and viral Hepatitis for all patients aged 18 and over and those with ongoing risk factors. Nitin Inquiry Pt receiving controlled substance: No Vital Signs: 02/28/24 20:21 02/28/24 20:37 02/28/24 21:00 Temperature 97.4 F L Temperature Source Oral Pulse Rate 75 68 Pulse Rate [Right] 75 Respiratory Rate 18 25 H Blood Pressure 122/60 Blood Pressure [Right Arm] 145/81 H Blood Pressure Mean [Right Arm] 102 02 Sat by Pulse Oximetry 95 99 Oxygen Delivery Method Nasal Cannula Oxygen Flow Rate (LPM) 2 02/28/24 21:31 02/28/24 22:00 02/28/24 23:00 Temperature Temperature Source Pulse Rate 67 62 66 Pulse Rate [Right] Respiratory Rate 18 16 17 Blood Pressure 109/54 L 97/44 L 119/59 L Blood Pressure [Right Arm] Blood Pressure Mean [Right Arm] 02 Sat by Pulse Oximetry 100 99 99 Oxygen Delivery Method Oxygen Flow Rate (LPM) 02/28/24 23:30 02/29/24 00:17 Temperature 98.2 F Temperature Source Oral Pulse Rate 67 66 Pulse Rate [Right] Respiratory Rate 17 19 Blood Pressure 116/56 L 124/58 L Blood Pressure [Right Arm] Blood Pressure Mean [Right Arm] 02 Sat by Pulse Oximetry 94 L Oxygen Delivery Method Room Air Oxygen Flow Rate (LPM) Lab Data Lab Results 02/28/24 20:35: WBC 5.6, RBC 3.94 L, Hgb 11.3 L, Hct 35.7 L, MCV 90.5, MCH 28.7, MCHC 31.7 L, RDW 15.6, Plt Count 210, MPV 8.5, Neut % (Auto) 54.0, Lymph % (Auto) 34.2, [place] % (Auto) 8.1, Eos % (Auto) 2.9, Baso % (Auto) 0.8, Neut # (Auto) 3.0, Lymph # (Auto) 1.9, [place] # (Auto) 0.5, Eos # (Auto) 0.2, Baso # (Auto) 0.0, D-Dimer 1.91 H, Sodium 133 L, Potassium 3.9, Chloride 101, Carbon Dioxide 33 H, Anion Gap 2.9 L, BUN 12, Creatinine 0.50 L, Estimated Creat Clear 43, Estimated GFR 119, Est GFR ( Amer) 144, Glucose 92, Calcium 9.7, Troponin I < 0.01, Procalcitonin < 0.030 02/28/24 20:55: SARS-CoV-2 (PCR) Not detected, Influenza A Untype (PCR) Not detected, Influenza Type B (PCR) Not detected 02/28/24 23:24: Troponin I < 0.01 02/28/24 20:35 02/28/24 20:35 Orders (Tests/Meds): ED MEDICATIONS Discontinued Medications Generic Name Dose Route Start Last Admin Trade Name Freq PRN Reason Stop Dose Admin Iopamidol 80 ml 02/28/24 22:33 02/28/24 22:34 Iopamidol-370 (76%);100ml Bottle IV 02/28/24 22:34 80 ml ONCE ONE Administration Sodium Chloride 50 ml 02/28/24 22:33 02/28/24 22:35 0.9 % Sodium Chloride 50 Ml Vial IV 02/28/24 22:34 50 ml ONCE ONE Administration Sodium Chloride 10 ml 02/28/24 22:33 02/28/24 22:34 Sodium Chloride 0.9% 10ml Syr (Rad Only) IV 02/28/24 22:34 10 ml ONCE ONE Administration ORDERS Category Date Time Status CT angio chest PE protocol Stat Cat Scan 02/28/24 21:54 Completed CXR 2 view (NOT portable) [XR chest 2V] Stat Exams 02/28/24 20:28 Completed BMP [Basic Metabolic Panel] Stat Lab 02/28/24 20:35 Completed CBC w/Auto Diff [Complete Blood Count Auto Diff] Stat Lab 02/28/24 20:35 Completed D-Dimer Stat Lab 02/28/24 20:35 Completed Procalcitonin Stat Lab 02/28/24 20:35 Completed Rapid PCR Covid and Flu A/B Stat Lab 02/28/24 20:55 Completed Troponin I Q3H Lab 02/28/24 23:24 Completed Troponin I Q3H Lab 02/29/24 02:30 Ordered Troponin I Stat Lab 02/28/24 20:35 Completed Blood Culture Stat Micro 02/28/24 20:35 Received ECG Data Tracing #1: I reviewed this ECG and interpreted as documented below: EKG interpreted by me personally at 2039. Normal sinus rhythm with ventricular rate of 74 bpm. Normal QTc of 401. No ST elevations or depressions. No T wave inversions. Normal axis. Medical Decision Narrative: Corie Peck is a 78F with a history of A-fib, COPD, hypertension, pneumonia, presenting to the emergency department from her custodial secondary to complaints of chest pain that began today. She describes the pain as a lump in the left side of her chest. She reports some mild shortness of breath. She was placed on 2 L O2 nasal cannula by EMS and route for comfort but was not hypoxic. Patient has no other complaints or concerns at this time. She does not have any known sick contacts. On arrival, patient is normotensive, heart rate within normal limits, mildly tachypneic, SpO2 at 99% on 2 L nasal cannula. Physical exam, stated above, revealed female in no acute distress. She speaking full sentences and alert and oriented x 3. Cardiopulmonary exam revealed no abnormal findings. Remainder of her exam was grossly unremarkable as well. Differential diagnosis: ACS, pneumonia, pulmonary embolism, cancer, hypo- /hyperthyroidism, electrolyte derangement, among others. Patient's workup was based on her physical exam and most morbid conditions based on her differential Workup in the emergency room included CBC with differential, D-dimer, BMP, troponin, procalcitonin, viral respiratory panel (COVID/flu), chest x-ray. Patient's D-dimer was elevated at 1.91, even when adjusted for age this is elevated and pulmonary was not cannot be ruled out. Patient's chest x-ray was interpreted by me personally prior to official radiology read and demonstrates no consolidation, no widening of the mediastinum, cardiac silhouette within normal limits. Otherwise unremarkable. See radiology report for details. Given the patient's elevated D-dimer, CT pulmonary embolism protocol was ordered. Remainder the patient's workup was grossly unremarkable. She does not have a leukocytosis and CBC was otherwise unremarkable. Thyroid studies within normal limits. Procalcitonin was less than 0.030. Troponin 0.[address] PE was interpreted by me personally and demonstrates no pulmonary embolism. She has a opacity in the right middle lobe that could represent a consolidation. Radiology report mentions that a developing mass cannot be excluded and recommend follow-up CT scan in 3 months. Per radiology report, groundglass opacity in the right lung apex could be atelectasis versus developing pneumonitis. She has a left hilar mass or adenopathy measuring 3.5 cm that could represent potential invasion of the adjacent left superior pulmonary vein with associated mediastinal lymphadenopathy. Developing tumor regardless findings is a consideration especially given the pulmonary vein invasion. It is possible the patient's adenopathy seen on CT imaging is secondary to an infectious process given other findings concerning for pneumonia. Patient was taken off of her nasal cannula and was maintaining appropriate oxygen saturations above 92% SpO2. It is felt that she likely has a mild pneumonia given CT imaging findings and will treat her with doxycycline. Will have patient follow-up with her family physician, Dr. Talbert, in approximately 1 to 2 weeks for reevaluation and follow-up regarding patient's possible lung masses versus adenopathy. This was discussed with the patient. All questions were answered. She demonstrated understanding and was in agreement with this plan. She had remained hemodynamically stable throughout her entire ED visit and was appropriate for discharge at this time. Critical Care Critical Care Time Critical Care Time: No
[2024-02-28 20:55] LABS: Basophils % 0.8 % (0.1-2.0); Eosinophils # 0.2 K/mm3 (0.0-0.4); Eosinophils % 2.9 % (0.1-12.0); Hematocrit 35.7 % (37.0-47.0); Hemoglobin 11.3 g/dL (12.2-16.2); Lymphocytes # 1.9 K/mm3 (0.7-4.5); Lymphocytes % 34.2 % (10-50); Mean Corpuscular HGB Conc 31.7 g/dL (31.8-35.4); Mean Corpuscular Hemoglobin 28.7 pg (27.0-31.2); Mean Corpuscular Volume 90.5 fl (81-99); Mean Platelet Volume 8.5 fl (7.4-10.4); Monocytes # 0.5 K/mm3 (0.1-1.0); Monocytes % 8.1 % (1.7-9.3); Platelet Count 210 K/mm3 (142-424); Red Blood Count 3.94 M/mm3 (4.20-5.40); Red Cell Distribution Width 15.6 % (11.5-17.5); White Blood Count 5.6 K/mm3 (4.8-10.8)
[2024-02-28 21:03] LABS: Coronavirus 19, PCR Not Detected (NotDetected); Influenza A, PCR Not Detected (NotDetected); Influenza B, PCR Not Detected (NotDetected)
[2024-02-28 21:09] LABS: Anion Gap 2.9 mEq/L (5-15); Blood Urea Nitrogen 12 mg/dl (7-17); Calcium 9.7 mg/dl (8.4-10.2); Carbon Dioxide 33 mmol/L (22.0-30.0); Chloride 101 mmol/L (98-107); Creatinine Clearance Estimated 43 mL/min (50-200); Estimated Glomerular Filt Rate 119 ml/min (>60); GFR (African American) 144 ML/MIN (>60); Glucose 92 mg/dl (74-100); Potassium 3.9 mmoL/L (3.5-5.1); Sodium 133 mmol/L (136-145)
[2024-02-28 21:13] LABS: D-Dimer 1.91 ug/mL (0.0-0.5)
[2024-02-28 21:26] LABS: Troponin I < 0.01 ng/ml (0.00-0.034)
[2024-02-28 21:27] LABS: Procalcitonin < 0.030 ng/mL (0.0-2.0)
--- NOTE | 2024-02-28 21:54 | CT_ITS ---
PROCEDURE INFORMATION: Exam: CTA Chest With Contrast Exam date and time: 02/28/2024 10:28 PM Age: 78 years old Clinical indication: Shortness of breath; Additional info: SOB, cp, elevated d-dimer TECHNIQUE: Imaging protocol: Computed tomographic angiography of the chest with contrast. Exam focused on the arteries. 3D rendering (Not supervised by radiologist): MIP and/or 3D reconstructed images were created by the technologist. Radiation optimization: All CT scans at this facility use at least one of these dose optimization techniques: automated exposure control; mA and/or kV adjustment per patient size (includes targeted exams where dose is matched to clinical indication); or iterative reconstruction. Contrast material: ISOVUE; Contrast volume: 80 ml; Contrast route: INTRAVENOUS (IV); COMPARISON: CT ANGIO CHEST PE PROTOCOL 01/26/2023 9:15 PM FINDINGS: Pulmonary arteries: Normal. No pulmonary emboli. Aorta: Unremarkable. No aortic aneurysm. No aortic dissection. Veins: There is possible extension of the mass into the left superior pulmonary vein. Lungs: Subpleural opacity measuring 2 cm in the anterior inferior right middle lobe may reflect atelectasis versus focal consolidation. Mild ground-glass opacity in the posterolateral right lung apex also noted. Lung palacios otherwise clear. No Pleural spaces: Unremarkable. No pneumothorax. No pleural effusion. Heart: Unremarkable. No cardiomegaly. No pericardial effusion. Coronary arteries: Mild coronary artery calcifications are noted. Esophagus: Patulous air-filled esophagus suggesting reflux or dysmotility redemonstrated. Lymph nodes: Enlarged subcarinal node measuring 18 mm and 14 mm enlarged AP window lymph node. Enlarged right paratracheal nodes measuring up to 23 mm. Interval development of a left hilar mass or adenopathy measuring up to 3.5 cm. Bones/joints: Old [id number] compression fracture of T3 with some interval progression and [id number] compression fracture of T4 which has developed in the interval. Old severe compression fracture of T7 again noted. Interval development of a subacute healing [id number]-ao-[id number] compression fracture of T10. Old severe compression fracture T11 and mild superior endplate compression fracture of T12 and L1 similar to previous. Soft tissues: Unremarkable. IMPRESSION: 1. No evident PE. 2. Focal 2 cm subpleural opacity inferior right middle lobe. Favor atelectasis or focal consolidation. Developing mass not totally excluded. Consider follow-up CT in 3 months to ensure resolution. 3. Mild ground-glass opacity right lung apex may be due to atelectasis versus a developing pneumonitis. 4. Left hilar region mass or adenopathy measuring 3.5 cm. Potential invasion of the adjacent left superior pulmonary vein noted. Associated mediastinal lymphadenopathy. Developing tumor regarding these findings is a consideration especially given the potential pulmonary vein invasion. Further workup and follow-up advised.
[2024-02-28] MEDS: SODIUM CHLORIDE 0.9% 10ML SYR (RAD ONLY) 10 ML IV (22:34)
[2024-02-28] MEDS: IOPAMIDOL-370 (76%);100ML BOTTLE 80 ML IV (22:34)
[2024-02-28] MEDS: 0.9 % SODIUM CHLORIDE 50 ML VIAL IV (22:35)
[2024-02-28 23:53] LABS: Troponin I < 0.01 ng/ml (0.00-0.034)
[2024-02-29 00:17] VITALS: BP 124/58; PULSE 66; RESP 19; TEMP 36.8; O2SAT 93
== END 2024-02-29 00:35 | disposition home or self-care (01) ==
PROVIDERS: Emergency Provider Student in an Organized Health Care Education/Training Program
DX: R91.1 Solitary pulmonary nodule (principal); J18.9 Pneumonia, unspecified organism; R07.9 Chest pain, unspecified; R05.9 Cough, unspecified; R06.02 Shortness of breath
CPT/HCPCS: 71046; 71275; 80048; 84145; 84484; 85025; 85378; 87040; 87636; 93005; 99285; Q9967

== ENCOUNTER → 2024-05-05 09:30 | Day surgery (SDC) | payer MEDICARE, MEDICAID, SELFPAY ==
--- NOTE | 2024-05-02 15:52 | SUR.PREOP ---
[facility] called and noted that patient has not stopped their aspirin 5 days prior to procedure. Yesy's office notified.
[2024-05-05 10:28] VITALS: BMI 23.3
--- NOTE | 2024-05-05 11:10 | SUR.PREOP ---
Procedure cancelled per Augie Frias and Dr. Hawyard. Pt ate breakfast.
== END ==
PROVIDERS: PCP Family Medicine; Visit Provider Internal Medicine Pulmonary Disease
DX: Z53.9 Procedure and treatment not carried out, unspecified reason (principal)

== ENCOUNTER 2024-06-30 09:17 | Day surgery (SDC) | payer MEDICARE, MEDICAID, SELFPAY ==
--- NOTE | 2024-05-28 12:43 | SUR.PREOP ---
SPOKE W/ ASSISTED STAFF. THEY ARE AWARE OF PT'S ARRIVAL TIME OF 1130. PT IS TO BE NPO AFTER MIDNIGHT AND PER CARDIAC CLEARANCE PT IS OKAY TO STOP ASA TODAY. ASSISTED STAFF VERBALIZED UNDERSTANDING.
[2024-05-28 12:55] VITALS: BMI 26.5
--- NOTE | 2024-06-02 12:41 | SUR.PREOP ---
1140-Called [facility] to check on pt status. She was due to arrive at 1130. Spoke w/Lary. 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 The patient had also eaten a full breakfast. Lary was notified that we would have to reschedule the patient's procedure r/t npo status. Dr. Hayward's office notified. Pt to be rescheduled.
--- NOTE | 2024-06-06 13:53 | SUR.PREOP ---
06/06/24 1320- spoke with Sandrita at [facility] regarding patients npo status for procedure on Sunday06/09/24 and arrival time. patient to arrive at hospital at 9am and staff will be staying with patient for the duration of the procedure
--- NOTE | 2024-06-09 07:55 | SUR.PREOP ---
New consent obtained with LEANNA Gaines. Spoke to on-call state guardianship, Feliberto Rico. Also called Tania to confirm pt's arrival time and NPO status.
[2024-06-30] VITALS (9 sets, daily range): BP systolic 125–160; BP diastolic 70–98; PULSE 73–94; RESP 18–20; TEMP 31.1–37; O2SAT 91–98
--- NOTE | 2024-06-30 09:57 | ECG_ITS ---
APPROVED REPORT Exam: Resting ECG HR:75 bpm ECG Measurements Heart Rate 75 AXES CO 178 P 86 QRSd 94 QRS -51 QT 378 T 67 QTc 407 Conclusion SINUS RHYTHM WITH OCCASIONAL SUPRAVENTRICULAR PREMATURE COMPLEXES LEFT ANTERIOR FASCICULAR BLOCK [QRS AXIS <= -45, QR IN I, RS IN II] ANTEROSEPTAL MYOCARDIAL INFARCTION , OF INDETERMINATE AGE [40+ ms Q WAVE IN V1-V4] ABNORMAL ECG UNCONFIRMED REPORT Electronically signed by : Cecil Pena MD 07/01/2024 15:30:59
[2024-06-30] MEDS: LACTATED RINGERS 1000ML 1,000 ML 25 ML IV (10:05)
[2024-06-30 10:29] LABS: Basophils % 0.4 % (0.1-2.0); Eosinophils # 0.1 K/mm3 (0.0-0.4); Eosinophils % 1.4 % (0.1-12.0); Hematocrit 29.9 % (37.0-47.0); Hemoglobin 9.6 g/dL (12.2-16.2); Lymphocytes # 1.1 K/mm3 (0.7-4.5); Lymphocytes % 19.1 % (10-50); Mean Corpuscular HGB Conc 32.1 g/dL (31.8-35.4); Mean Corpuscular Hemoglobin 28.4 pg (27.0-31.2); Mean Corpuscular Volume 88.5 fl (81-99); Mean Platelet Volume 10.3 fl (7.4-10.4); Monocytes # 0.5 K/mm3 (0.1-1.0); Monocytes % 8.3 % (1.7-9.3); Neutrophils # 3.9 K/mm3 (1.8-7.8); Neutrophils % 70.6 % (37.0-80.0); Platelet Count 195 K/mm3 (142-424); Red Blood Count 3.38 M/mm3 (4.20-5.40); Red Cell Distribution Width 15.7 % (11.5-17.5); White Blood Count 5.6 K/mm3 (4.8-10.8)
[2024-06-30 10:35] LABS: Chloride 101 mmol/L (98-107); Potassium 3.8 mmoL/L (3.5-5.1); Sodium 138 mmol/L (136-145)
[2024-06-30 10:38] LABS: Anion Gap 10.8 mEq/L (5-15); Blood Urea Nitrogen 10 mg/dl (7-17); Calcium 9.4 mg/dl (8.4-10.2); Carbon Dioxide 30 mmol/L (22.0-30.0); Creatinine Clearance Estimated 49 mL/min (50-200); Estimated Glomerular Filt Rate 96 ml/min (>60); GFR (African American) 117 ML/MIN (>60); Glucose 98 mg/dl (74-100)
--- NOTE | 2024-06-30 10:53 | P.PNANES_ITS ---
[facility] Disclaimer: The information contained in this section may have been updated after the patient was seen, as this information can be updated by other users. Medical History Drug-induced Parkinson's disease Coronary artery disease Parkinsons disease Hilar mass Dyspnea on exertion Chronic cough Mediastinal lymphadenopathy Hilar lymphadenopathy Lung nodule History of atrial fibrillation Lipoma of back Compression fracture of body of thoracic vertebra Osteopenia Compression fracture of lumbar vertebra Gastric ulcer Bilateral leg pain Acute kidney injury Urinary tract infection Fracture, thoracic vertebra, compression Abnormal cardiovascular stress test Nasal bone fracture Fracture of humerus, proximal, left, closed Fracture of radius, distal, right, closed Fall Epistaxis due to trauma Concussion Fall Pneumonia Cognitive communication deficit Contracture of muscle, right hand Dependent personality disorder Anxiety disorder, unspecified Depression Dysphagia, oropharyngeal phase Squamous cell 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, including shoulder Actinic keratosis COPD (chronic obstructive pulmonary disease) Gastroesophageal reflux disease Tobacco dependence syndrome Schizophrenia HLD (hyperlipidemia) Hypertension Surgical History History of lumpectomy Family History Other Family history of cancer Social History Smoking Status: Former smoker tobacco type: cigarettes packs per day: 1 second hand exposure: Yes alcohol intake: never substance use type: denies use current occupational status: unemployed and disabled Travel in the last 8 weeks: None household members: other housing: assisted living facility current occupational exposures/hazards: No caffeine: Yes Have you lived/traveled outside [place] in past 30 days?: No Contact w/someone who lives/traveled outside [place] past 30 days?: No Exposure to someone with infectious disease in past 14 days?: No Do you have a fever (greater than 100.4 F or 38 C)?: No Have you tested positive for COVID-19: No Exposed to someone with COVID-19 in past 14 days?: No Do you have a sore throat?: No Do you have a cough?: No Do you have any weakness?: No Do you have any diarrhea?: No Are you experiencing any unusual bleeding?: No Do you have any muscle aches/pain?: No Do you have any abdominal pain?: No Are you experiencing loss of taste or smell?: No [facility] Anesthesia Checklist Patient Identification Patient Identification: Arm Band Structural Data Admitted From: Home Planned Operative Procedure/s: Bronchoscopy Consent for Planned Operative Procedure(s) Verified: Yes Verified Documents: Surgical Consent and History and Physical NPO Status Verified Time NPO: 00:00 Additional verifications Anesthesia Reactions: No Hx Blood Transfusions: No Blood Transfusion Reaction: No Airway Assessment Mallampati Score:: Class II C-Spine Mobility Assessed: Yes TMJ Mobility Assessed: Yes Dentition: Edentulous Neurological Assessment Level of Consciousness: Awake, Alert and Appropriate Anesthesia Plan Anesthesia Risk discussed: Yes Anesthesia Plan: Verified ASA Class: III Anesthesia Type: General
--- NOTE | 2024-06-30 13:25 | XR_ITS ---
FINAL REPORT CLINICAL HISTORY: MD order post surg COMPARISON: 07/14/2023 FINDINGS: There is a left perihilar opacities suspicious for pneumonia. A right infrahilar density is also suspicious for pneumonia. There is chronic scarring in the lung bases. Changes of emphysema are noted. There is a trace right pleural effusion. Mediastinum is unremarkable. Heart size is normal. IMPRESSION: Bilateral pulmonary opacities compatible with pneumonia. Recommend continued imaging follow-up. Reviewed, Interpreted and Dictated by Jus Jimenes MD Transcribed by Mary Jane Grijalva Authenticated and [facility]
--- NOTE | 2024-06-30 13:31 | P.PCN_ITS ---
Procedure: Date: 06/30/24 Patient Date of :: 1945 Procedure Performed:: Bronchoscopy airway examination bronchoalveolar lavage endobronchial ultrasound- guided fine-needle aspiration and transbronchial lung biopsy Indications:: Lymphadenopathy Performing Provider:: Jun Hayward MD Referring Provider:: Dr. Talbert Sedation:: General anesthesia Procedure:: Bronchoscopy airway examination, bronchoalveolar lavage, endobronchial lung biopsy and endobronchial ultrasound-guided fine-needle aspiration of lymph node: A clean DIAGNOSTIC bronchoscopy was advanced through the ET tube and airways were examined up to subsegmental bronchi. Copious amount of mucoid secretions were noted in the right mainstem and right middle lobe bronchi. Endobronchial lesion also noted at the bifurcation of left upper lobe and left lingula. Airways appear patent distal to the lesion. Bronchoalveolar lavage was performed in the RIGHT MIDDLE LOBE with instillation of 60 cc normal saline with return of 30 cc back. BAL fluid was sent for cell count and differential along with bacterial fungal and AFB stain and cultures. Endobronchial biopsies were performed for the noted abnormal left lingular endobronchial lesion. Total of 5 biopsies were performed and sent in formalin for cytopathologic examination. Bronchoalveolar lavage was also performed in left lingula with instillation of 20 cc of normal saline with return of 10 cc back. BAL fluid from left lingula was sent in CytoLyt for cytopathologic examination. Diagnostic bronchoscopy retracted and a EBUS bronchoscopy was advanced lymph node surveillance was performed. Patient noted to have lymphadenopathy at station 4R, station 7 and station 10R. Total of 5 passes were performed at each lymph node station-the fine-needle aspiration sample was sent in CytoLyt labeled separately for each lymph node station for cytopathologic examination. Patient tolerated the procedure with no immediate acute complications. We will follow the patient in pulmonary clinic in 7 to 10 days. Findings:: Please see the procedure note Recommendations:: Postoperative bronchoscopy instructions Follow in pulmonary clinic in 5 to 7 days with the result Complications:: No acute immediate complication Estimated blood obtained (mL): 10
--- NOTE | 2024-06-30 13:35 | EXP.ANES.I ---
[facility] Anesthesia Record Part I Anesthesia Record I Intake, IV Amount: 700 Hydration: Adequate Estimated blood loss (mL): 0 Urine output (mL): 0 Blood Products used (#): none Blood Pressure: 125/83 SaO2: 95 Pulse Rate: 73 Airway Patency: Patent Respiratory Rate: 20 Temperature: 87.9 F Patient is:: Stable Stable to PACU at:: 13:21
--- NOTE | 2024-07-01 10:57 | EXP.ANES.II ---
[facility] Anesthesia Record Part II Anesthesia Record Part II Discharge Time: 13:51 Destination: Surgical Day Care (OP Surgery) PACU nurse assessment reviewed?: Yes Patient Condition:: Good Anesthesia Complications:: None Swallowing reflex intact?: Yes Airway Patency: Patent Cyanosis?: No Blood Pressure: 142/80 SaO2: 95 Respiratory Rate: 20 Pulse Rate: 81 Temperature: 97.9 F Mental Status: Alert & Oriented Pain level:: 0 Nausea and/or vomitting:: None Intake, IV Amount: 0 Hydration: Adequate
[2024-07-01 10:58] VITALS: BP 142/80; PULSE 81; RESP 20; TEMP 36.6; O2SAT 95
== END 2024-06-30 14:40 | disposition home or self-care (01) ==
PROVIDERS: PCP Family Medicine; Visit Provider Internal Medicine Pulmonary Disease
PROC: BB4BZZZ Ultrasonography of Pleura (ICD-10-PCS; CPT 31624; principal; 2024-06-30 11:30)
DX: R93.89 Abnormal findings on diagnostic imaging of other specified body structures (principal); R59.0 Localized enlarged lymph nodes; J44.9 Chronic obstructive pulmonary disease, unspecified; Z79.899 Other long term (current) drug therapy; C83.30 Diffuse large B-cell lymphoma, unspecified site
CPT/HCPCS: 31624; 31628; 31653; 71045; 80048; 85025; 87070; 87077; 87102; 87116; 87186; 87205; 87206; 88112; 88173; 88305; 88341; 88342; 88360; 88365; 89051; 93005; J1100; J2250; J2405; J3010; J7120

== ENCOUNTER 2024-08-13 09:51 | Outpatient (CLI) | payer MEDICARE, MEDICAID, SELFPAY ==
[2024-08-13 10:39] LABS: Basophils % 0.6 % (0.1-2.0); Eosinophils # 0.1 K/mm3 (0.0-0.4); Hematocrit 30.1 % (37.0-47.0); Hemoglobin 9.9 g/dL (12.2-16.2); Lymphocytes # 0.8 K/mm3 (0.7-4.5); Lymphocytes % 15.6 % (10-50); Mean Corpuscular HGB Conc 32.9 g/dL (31.8-35.4); Mean Corpuscular Hemoglobin 29.5 pg (27.0-31.2); Mean Corpuscular Volume 89.6 fl (81-99); Mean Platelet Volume 11.4 fl (7.4-10.4); Monocytes # 0.5 K/mm3 (0.1-1.0); Monocytes % 9.6 % (1.7-9.3); Neutrophils # 3.8 K/mm3 (1.8-7.8); Platelet Count 205 K/mm3 (142-424); Red Blood Count 3.36 M/mm3 (4.20-5.40); Red Cell Distribution Width 15.6 % (11.5-17.5); White Blood Count 5.2 K/mm3 (4.8-10.8)
[2024-08-13 11:07] LABS: Alanine Aminotransferase 16 U/L (12-78); Albumin Level 3.9 g/dl (3.5-5.0); Albumin/Globulin Ratio 1.8 (1.1-1.8); Alkaline Phosphatase 78 U/L (38-126); Anion Gap 11.5 mEq/L (5-15); Aspartate Amino Transferase 26 U/L (14-36); Bilirubin,Total 0.9 mg/dl (0.2-1.3); Blood Urea Nitrogen 10 mg/dl (7-17); Calcium 10.5 mg/dl (8.4-10.2); Carbon Dioxide 29 mmol/L (22.0-30.0); Chloride 98 mmol/L (98-107); Estimated Glomerular Filt Rate 96 ml/min (>60); GFR (African American) 117 ML/MIN (>60); Globulin 2.2 g/dL (1.3-3.2); Glucose 114 mg/dl (74-100); Lactate Dehydrogenase 415 U/L (313-618); Potassium 3.5 mmoL/L (3.5-5.1); Sodium 135 mmol/L (136-145); Total Protein,Serum 6.1 g/dl (6.3-8.2); Uric Acid 2.1 mg/dl (2.5-6.2)
[2024-08-13 12:08] LABS: Reticulocyte % (Auto) 1.7 % (0.9-3.2)
[2024-08-13 13:05] LABS: Vitamin B12 649 pg/mL (239-931)
[2024-08-13 13:31] LABS: Folate > 20.00 ng/mL
[2024-08-13 13:52] LABS: Iron 79 ug/dL (37-170)
[2024-08-13 14:01] LABS: Total Iron Binding Capacity 306 ug/dL (265-497)
[2024-08-13 14:28] LABS: Ferritin 80.7 ng/ml (11.1-264)
== END 2024-08-13 23:59 | disposition home or self-care (01) ==
PROVIDERS: Visit Provider Internal Medicine Medical Oncology
DX: C85.90 Non-Hodgkin lymphoma, unspecified, unspecified site (principal)
CPT/HCPCS: 36415; 80053; 82607; 82728; 82746; 83540; 83550; 83615; 84550; 85025; 85044; 86880

== ENCOUNTER 2024-08-21 08:24 | Outpatient (CLI) | payer MEDICARE, MEDICAID, SELFPAY ==
[2024-08-21] VITALS (15 sets, daily range): BP systolic 90–151; BP diastolic 43–86; PULSE 58–74; RESP 15–17; TEMP 36.2; O2SAT 94–95; BMI 24.0
[2024-08-21] MEDS: diphenhydrAMINE 50MG CAPSULE 50 MG PO (08:58)
[2024-08-21] MEDS: SODIUM CHLORIDE 0.9% 50ML BAG 50 ML IV (08:58)
[2024-08-21] MEDS: ACETAMINOPHEN 325MG TAB 650 MG PO (08:58)
[2024-08-21] MEDS: RITUXIMAB IV (09:35)
[2024-08-21] MEDS: SODIUM CHLORIDE 0.9% IV (09:35)
[2024-08-22 06:04] LABS: HBsAg Screen Negative (Negative); HCV Ab Non Reactive (Non Reactive); Hep A Ab, IGM Negative (Negative); Hep B Core Ab, IgM Negative (Negative)
== END 2024-08-21 13:25 | disposition home or self-care (01) ==
LOC: INF 08:26
PROVIDERS: PCP Internal Medicine; Visit Provider Internal Medicine Medical Oncology
DX: C85.90 Non-Hodgkin lymphoma, unspecified, unspecified site (principal)
CPT/HCPCS: 80074; 86803; 96413; 96415; J9312

== ENCOUNTER 2024-08-28 09:05 | Outpatient (CLI) | payer MEDICARE, MEDICAID, SELFPAY ==
[2024-08-28] MEDS: diphenhydrAMINE 50MG CAPSULE 50 MG PO (09:14)
[2024-08-28] MEDS: ACETAMINOPHEN 325MG TAB 650 MG PO (09:14)
[2024-08-28] MEDS: SODIUM CHLORIDE 0.9% 50ML BAG 50 ML IV (09:15)
[2024-08-28] MEDS: SODIUM CHLORIDE 0.9% IV (09:51)
[2024-08-28] MEDS: RITUXIMAB IV (09:51)
[2024-08-28 09:55] VITALS: BP 118/63; PULSE 63; RESP 20; TEMP 36; O2SAT 96
[2024-08-28 10:25] VITALS: BP 121/58; PULSE 61; RESP 20; O2SAT 96
[2024-08-28 10:55] VITALS: BP 133/64; PULSE 62; RESP 20; O2SAT 96
[2024-08-28 11:25] VITALS: BP 133/64; PULSE 62; RESP 20; O2SAT 95
[2024-08-28 11:55] VITALS: BP 126/63; PULSE 58; RESP 20; O2SAT 96
[2024-08-28 12:20] VITALS: BP 132/68; PULSE 64; RESP 18; O2SAT 96
== END 2024-08-28 12:20 | disposition home or self-care (01) ==
LOC: INF 09:07
PROVIDERS: PCP Internal Medicine; Visit Provider Internal Medicine Medical Oncology
DX: Z51.11 Encounter for antineoplastic chemotherapy (principal); C85.90 Non-Hodgkin lymphoma, unspecified, unspecified site
CPT/HCPCS: 96413; 96415; J7050; J9312

== ENCOUNTER 2024-09-04 08:55 | Outpatient (CLI) | payer MEDICARE, MEDICAID, SELFPAY ==
[2024-09-04] VITALS (7 sets, daily range): BP systolic 101–113; BP diastolic 45–67; PULSE 62–77; RESP 18; O2SAT 95–96; BMI 24.0
[2024-09-04 09:14] LABS: Basophils % 0.3 % (0.1-2.0); Eosinophils # 0.2 K/mm3 (0.0-0.4); Eosinophils % 2.7 % (0.1-12.0); Hematocrit 28.1 % (37.0-47.0); Lymphocytes # 1.1 K/mm3 (0.7-4.5); Lymphocytes % 16.1 % (10-50); Mean Corpuscular Hemoglobin 29.2 pg (27.0-31.2); Mean Corpuscular Volume 91.2 fl (81-99); Mean Platelet Volume 10.8 fl (7.4-10.4); Monocytes # 0.7 K/mm3 (0.1-1.0); Monocytes % 9.8 % (1.7-9.3); Neutrophils # 4.7 K/mm3 (1.8-7.8); Neutrophils % 70.9 % (37.0-80.0); Nucleated Red Blood Cells # 0 10^3/uL; Nucleated Red Blood Cells % 0 %; Platelet Count 204 K/mm3 (142-424); Red Blood Count 3.08 M/mm3 (4.20-5.40); Red Cell Distribution Width-SD 52.4 fL; White Blood Count 6.6 K/mm3 (4.8-10.8)
[2024-09-04 09:26] LABS: Chloride 104 mmol/L (98-107); Potassium 3.7 mmoL/L (3.5-5.1); Sodium 140 mmol/L (136-145)
[2024-09-04 09:29] LABS: Alanine Aminotransferase 16 U/L (12-78); Alkaline Phosphatase 110 U/L (38-126); Anion Gap 11.7 mEq/L (5-15); Aspartate Amino Transferase 33 U/L (14-36); Bilirubin,Total 0.7 mg/dl (0.2-1.3); Blood Urea Nitrogen 9 mg/dl (7-17); Carbon Dioxide 28 mmol/L (22.0-30.0); Creatinine Clearance Estimated 44 mL/min (50-200); Estimated Glomerular Filt Rate 81 ml/min (>60); GFR (African American) 98 ML/MIN (>60); Glucose 92 mg/dl (74-100); Total Protein,Serum 6.5 g/dl (6.3-8.2)
[2024-09-04] MEDS: ACETAMINOPHEN 325MG TAB 650 MG PO (09:37)
[2024-09-04] MEDS: diphenhydrAMINE 50MG CAPSULE 50 MG PO (09:38)
[2024-09-04 09:54] LABS: Albumin Level 3.7 g/dl (3.5-5.0); Albumin/Globulin Ratio 1.3 (1.1-1.8); Globulin 2.8 g/dL (1.3-3.2)
[2024-09-04] MEDS: RITUXIMAB IV (10:11)
[2024-09-04] MEDS: SODIUM CHLORIDE 0.9% IV (10:11)
== END 2024-09-04 12:45 | disposition home or self-care (01) ==
LOC: INF 08:57
PROVIDERS: PCP Family Medicine; Visit Provider Internal Medicine Medical Oncology
DX: Z51.11 Encounter for antineoplastic chemotherapy (principal); C85.90 Non-Hodgkin lymphoma, unspecified, unspecified site
CPT/HCPCS: 80053; 85025; 96413; 96415; J7050; J9312

== ENCOUNTER 2024-09-11 09:14 | Outpatient (CLI) | payer MEDICARE, MEDICAID, SELFPAY ==
[2024-09-11] MEDS: SODIUM CHLORIDE 0.9% 50ML BAG 50 ML IV (09:40)
[2024-09-11 09:41] VITALS: BP 111/62; PULSE 75; RESP 18; TEMP 36.1; O2SAT 97
[2024-09-11] MEDS: diphenhydrAMINE 50MG CAPSULE 50 MG PO (09:41)
[2024-09-11] MEDS: ACETAMINOPHEN 325MG TAB 650 MG PO (09:41)
[2024-09-11] MEDS: SODIUM CHLORIDE 0.9% 10ML FLUSH SYRINGE 10 ML IV (09:42)
[2024-09-11] MEDS: RITUXIMAB IV (10:04)
[2024-09-11] MEDS: SODIUM CHLORIDE 0.9% IV (10:04)
[2024-09-11 10:11] VITALS: BP 106/55; PULSE 69; RESP 18; O2SAT 97
[2024-09-11 10:41] VITALS: BP 98/51; PULSE 64; RESP 18; O2SAT 98
[2024-09-11 11:11] VITALS: BP 107/53; PULSE 66; RESP 18; O2SAT 97
[2024-09-11 11:41] VITALS: BP 101/47; PULSE 64; RESP 18; O2SAT 98
[2024-09-11 12:23] VITALS: BP 116/85; PULSE 67; RESP 18; O2SAT 98
== END 2024-09-11 12:25 | disposition home or self-care (01) ==
LOC: INF 09:16
PROVIDERS: PCP Family Medicine; Visit Provider Internal Medicine Medical Oncology
DX: Z51.11 Encounter for antineoplastic chemotherapy (principal); C85.90 Non-Hodgkin lymphoma, unspecified, unspecified site
CPT/HCPCS: 96413; 96415; J7050; J9312

== ENCOUNTER 2024-09-18 09:35 | Outpatient (CLI) | payer MEDICARE, MEDICAID, SELFPAY ==
--- NOTE | 2024-09-18 09:45 | PC.NURSE ---
0941-collected labs via venipuncture stick in right forearm with butterfly needle;pt to oncology appt
[2024-09-18 09:46] VITALS: BMI 24.0
[2024-09-18 09:54] LABS: Basophils % 0.6 % (0.1-2.0); Eosinophils # 0.1 Kmm3 (0.0-0.4); Eosinophils % 1.6 % (0.1-12.0); Hematocrit 28.9 % (37.0-47.0); Hemoglobin 9.4 g/dL (12.2-16.2); Lymphocytes % 14.6 % (10-50); Mean Corpuscular HGB Conc 32.5 g/dL (31.8-35.4); Mean Corpuscular Hemoglobin 29.9 pg (27.0-31.2); Mean Platelet Volume 11.2 fl (7.4-10.4); Monocytes # 0.7 K/mm3 (0.1-1.0); Monocytes % 10.1 % (1.7-9.3); Neutrophils # 5.1 K/mm3 (1.8-7.8); Neutrophils % 72.7 % (37.0-80.0); Nucleated Red Blood Cells # 0 10^3/uL; Nucleated Red Blood Cells % 0 %; Platelet Count 212 K/mm3 (142-424); Red Blood Count 3.14 M/mm3 (4.20-5.40); Red Cell Distribution Width 16.3 % (11.5-17.5); Red Cell Distribution Width-SD 54.6 fL; White Blood Count 7.1 K/mm3 (4.8-10.8)
[2024-09-18 09:56] LABS: Chloride 105 mmol/L (98-107); Potassium 4.1 mmoL/L (3.5-5.1); Sodium 136 mmol/L (136-145)
[2024-09-18 09:58] LABS: Blood Urea Nitrogen 13 mg/dl (7-17); Creatinine Clearance Estimated 44 mL/min (50-200); Estimated Glomerular Filt Rate 96 ml/min (>60); GFR (African American) 117 ML/MIN (>60)
[2024-09-18 09:59] LABS: Alanine Aminotransferase 17 U/L (12-78); Alkaline Phosphatase 115 U/L (38-126); Anion Gap 9.1 mEq/L (5-15); Aspartate Amino Transferase 34 U/L (14-36); Bilirubin,Total 0.8 mg/dl (0.2-1.3); Carbon Dioxide 26 mmol/L (22.0-30.0); Glucose 120 mg/dl (74-100); Total Protein,Serum 6.5 g/dl (6.3-8.2)
[2024-09-18 10:49] LABS: Albumin/Globulin Ratio 1.6 (1.1-1.8); Globulin 2.5 g/dL (1.3-3.2)
== END 2024-09-18 09:45 | disposition home or self-care (01) ==
LOC: INF 09:37
PROVIDERS: PCP Family Medicine; Visit Provider Internal Medicine Medical Oncology
DX: C85.90 Non-Hodgkin lymphoma, unspecified, unspecified site (principal)
CPT/HCPCS: 36415; 80053; 85025

== ENCOUNTER 2024-10-06 07:19 | Outpatient (CLI) | payer MEDICARE, MEDICAID, SELFPAY ==
--- NOTE | 2024-10-06 08:00 | CT_ITS ---
FINAL REPORT TECHNIQUE: Routine axial images were obtained from the lung apices to below the diaphragm following IV contrast administration. Individualized dose reduction techniques using automated exposure control or adjustment of the mA and/or kV according to the patient size were employed. CLINICAL HISTORY: Lymphoma COMPARISON: 02/29/2024 FINDINGS: Pulmonary artery vasculature is adequately opacified. There are calcified right paratracheal, subcarinal and bilateral hilar lymph nodes. Previously seen left anterior hilar mass has nearly completely resolved with minimal residual mass measuring 1 cm. This is best seen on image 39. There is no mediastinal adenopathy. Groundglass opacity at the right apex is stable and likely due to chronic fibrosis. Pleural-based opacity in the inferior right middle lobe is less evident than on prior exam and likely postinflammatory. The lungs are otherwise clear. There is no pneumothorax. There is no pleural or pericardial effusion. IMPRESSION: Near complete resolution of previously seen left anterior hilar mass. Stable groundglass opacity at the right apex likely due to chronic fibrosis. Improvement of pleural-based opacity in the inferior right middle lobe, likely postinflammatory. Reviewed, Interpreted and Dictated by Randy Newton MD Transcribed by Marnie Woodall Authenticated and [facility]
[2024-10-06] MEDS: IOPAMIDOL-370 (76%);100ML BOTTLE 75 ML IV (08:03)
[2024-10-06] MEDS: SODIUM CHLORIDE 0.9% 10ML SYR (RAD ONLY) 10 ML IV (08:03)
--- NOTE | 2024-10-06 08:45 | CT_ITS ---
FINAL REPORT TECHNIQUE: After the administration of intravenous contrast, axial images were obtained through the abdomen and pelvis by computed tomography. This study was performed with technique to keep radiation doses as low as reasonably achievable, (ALARA). Individualized dose reduction techniques using automated exposure control or adjustment of the MA and/or KV according to the patient's size were employed. CLINICAL HISTORY: lymphoma COMPARISON: 12/29/2022 FINDINGS: Abdomen: The liver is normal in size and attenuation. Patient is status postcholecystectomy. There is mild intra and extrahepatic biliary ductal dilatation. Small low-attenuation focus is seen in the spleen which may be due to small cyst. This measures 8 mm and is best seen on image 13 of series 5. The adrenals are normal. The pancreas is unremarkable. There are multiple stones in the lower pole of the left kidney which have increased in size and number measuring up to 6 mm. The aorta is normal in caliber. There is no free fluid or adenopathy. Pelvis: The appendix is not identified. The urinary bladder is decompressed. There is no free fluid or adenopathy. There is a new compression deformity of T10. There are stable compression fractures of T11, T12, L1 and L4. IMPRESSION: Increase in the numbers of left renal stones. New compression fracture of T10. Reviewed, Interpreted and Dictated by Randy Newton MD Transcribed by Marnie Woodall Authenticated and [facility]
== END 2024-10-06 23:59 | disposition home or self-care (01) ==
LOC: RAD 07:20
PROVIDERS: PCP Family Medicine; Visit Provider Internal Medicine Medical Oncology
DX: S22.078A Other fracture of T9-T10 vertebra, initial encounter for closed fracture (principal); N20.0 Calculus of kidney; J84.10 Pulmonary fibrosis, unspecified; R91.8 Other nonspecific abnormal finding of lung field; C85.90 Non-Hodgkin lymphoma, unspecified, unspecified site
CPT/HCPCS: 71260; 74177; Q9967

== ENCOUNTER 2024-10-10 08:49 | Outpatient (CLI) | payer MEDICARE, MEDICAID, SELFPAY ==
--- NOTE | 2024-10-10 09:00 | CA_ITS ---
APPROVED REPORT EXAM: Comprehensive 2D, Doppler, and color-flow Echocardiogram Briquette Maker: Nakita Torres, RCS, RVS Ht: 5 ft 3 in Wt: 136lbs BSA: 1.64 BP: 108/66 mmHg Indications: SOB, PAF, CAD, HX-Lymphoma, GERD 2D Dimensions IVSd 0.69 cm LVEF (Visual) 61.80 % PWd 0.72 cm LA Volume 62.50 mL LVDd 4.11 cm LA Volume Index 37.20 mL/m2 (M/F) 16-34 LVDs 2.76 cm EF AP4 72.70 % Left Atrium 3.85 cm GL Strain -20.0 % M-Mode Dimensions LA Diam 3.50 cm (1.9-4.0) EPSs 0.57 cm TAPSE 1.56 (<1.7) LV Diastology E Decel Time 220 (160-240 msec) E/A Ratio 0.69 MED A' 12.10 cm/s LAT A' 14.60 cm/s Aortic Valve SHAI Index 0.89 cm2/m2 AoV Peak Javed. 155.0 (50-130 cm/s) AO Peak GR. 9.60 mmHg AO Mean GR. 4.70 (<5 mmHg) AO VTI 30.6 (18-25 cm) SHAI (VTI) 1.50 (2.5-4.5 cm2) Mitral Valve MV A Velocity 94.0 (40-130 cm/s) E/A Ratio 0.69 Pulmonary Valve HI End VMAX 76.0 cm/s Tricuspid Valve TR P. Velocity 197.00 cm/s RAP Estimate 10.00 mmHg RVSP 25.50 mmHg Left Ventricle The left ventricle is normal size. The left ventricular systolic function is normal. The left ventricular ejection fraction is within the normal range. Proximal septal thickening is present. There is normal LV segmental wall motion. Transmitral Doppler flow pattern suggests impaired LV relaxation. LVEF is 55%. Right Ventricle The right ventricle is normal size. The right ventricular systolic function is normal. Atria Left atrium is mildly dilated. Right atrium is mildly dilated. There is no Doppler evidence of interatrial shunt. Aortic Valve The aortic valve is mildly thickened. There is no aortic valvular stenosis. No aortic regurgitation is present. Mitral Valve The mitral valve is normal in structure. No evidence of mitral valve stenosis. Trace mitral regurgitation. Tricuspid Valve Tricuspid valve is grossly normal in structure and function. Trace tricuspid regurgitation. There is insufficient TR jet to estimate RVSP. Pulmonic Valve The pulmonary valve is normal in structure. Trace pulmonic regurgitation. Great Vessels The aortic root is normal in size. IVC is normal in size and collapses >50% with inspiration. Pericardium There is no pericardial effusion. Other Information Study Quality: Fair Conclusion Normal biventricular systolic function. Mild biatrial dilation. No significant valvular stenosis or regurgitation. Electronically signed by : Carol Bruce MD 10/19/2024 20:54:56
== END 2024-10-10 23:59 | disposition home or self-care (01) ==
LOC: RT 08:50
PROVIDERS: PCP Family Medicine; Visit Provider Nurse Practitioner Family
DX: I51.7 Cardiomegaly (principal); I48.0 Paroxysmal atrial fibrillation; K21.9 Gastro-esophageal reflux disease without esophagitis; Z85.72 Personal history of non-Hodgkin lymphomas
CPT/HCPCS: 93306

== ENCOUNTER 2024-10-16 12:50 | Outpatient (CLI) | payer MEDICARE, MEDICAID, SELFPAY ==
--- NOTE | 2024-10-16 12:55 | PC.NURSE ---
1255-collected labs via venipuncture stick in left ac with butterfly needle;pt to oncology appt.
[2024-10-16 13:09] LABS: Basophils % 0.5 % (0.1-2.0); Eosinophils # 0.2 Kmm3 (0.0-0.4); Eosinophils % 3.3 % (0.1-12.0); Hematocrit 26.6 % (37.0-47.0); Hemoglobin 8.5 g/dL (12.2-16.2); Immature Granulocytes # 0.01 10^3uL; Immature Granulocytes % 0.2 %; Lymphocytes # 1.4 K/mm3 (0.7-4.5); Monocytes # 0.6 K/mm3 (0.1-1.0); Monocytes % 9.6 % (1.7-9.3); Neutrophils # 3.6 K/mm3 (1.8-7.8); Neutrophils % 62.4 % (37.0-80.0); Nucleated Red Blood Cells # 0 10^3/uL; Nucleated Red Blood Cells % 0 %; Platelet Count 181 K/mm3 (142-424); Red Blood Count 2.83 M/mm3 (4.20-5.40); Red Cell Distribution Width 15.9 % (11.5-17.5); Red Cell Distribution Width-SD 54.4 fL; White Blood Count 5.8 K/mm3 (4.8-10.8)
[2024-10-16 13:23] LABS: Albumin Level 3.4 g/dl (3.5-5.0); Chloride 105 mmol/L (98-107); Potassium 3.8 mmoL/L (3.5-5.1); Sodium 137 mmol/L (136-145)
[2024-10-16 13:28] LABS: Alanine Aminotransferase 13 U/L (12-78); Albumin/Globulin Ratio 1.5 (1.1-1.8); Alkaline Phosphatase 94 U/L (38-126); Anion Gap 7.8 mEq/L (5-15); Aspartate Amino Transferase 20 U/L (14-36); Bilirubin,Total 0.5 mg/dl (0.2-1.3); Blood Urea Nitrogen 14 mg/dl (7-17); Calcium 8.6 mg/dl (8.4-10.2); Carbon Dioxide 28 mmol/L (22.0-30.0); Estimated Glomerular Filt Rate 96 ml/min (>60); GFR (African American) 117 ML/MIN (>60); Globulin 2.3 g/dL (1.3-3.2); Glucose 94 mg/dl (74-100); Lactate Dehydrogenase 147 U/L (313-618); Total Protein,Serum 5.7 g/dl (6.3-8.2)
== END 2024-10-16 13:00 | disposition home or self-care (01) ==
LOC: INF 12:52
PROVIDERS: PCP Family Medicine; Visit Provider Internal Medicine Medical Oncology
DX: C85.90 Non-Hodgkin lymphoma, unspecified, unspecified site (principal)
CPT/HCPCS: 36415; 80053; 83615; 85025

== ENCOUNTER 2025-01-07 09:48 | Outpatient (CLI) | payer MEDICARE, MEDICAID, SELFPAY ==
[2025-01-07 07:21] LABS: Blood Urea Nitrogen 19 mg/dl (7-17); Creatinine,Serum 0.50 mg/dl (0.52-1.04); Estimated Glomerular Filt Rate 119 ml/min (>60); GFR (African American) 144 ML/MIN (>60)
--- NOTE | 2025-01-07 10:30 | CT_ITS ---
FINAL REPORT TECHNIQUE: Routine axial images were obtained from the lung apices to below the diaphragm following IV contrast administration. Individualized dose reduction techniques using automated exposure control or adjustment of the mA and/or kV according to the patient size were employed. CLINICAL HISTORY: lymphoma COMPARISON: 10/06/2024 FINDINGS: CT CHEST WITH CONTRAST: There is a right precarinal 25 mm lymph node, similar to the prior exam. There are calcified subcarinal and right hilar lymph nodes present. Coarse interstitial opacities are noted in the upper lung palacios bilaterally, particularly the right upper lobe, that may be secondary to chronic fibrosis. These are stable. Chronic scarring is present at the lung bases. There is soft tissue in the left hilum continues to improve when compared to the prior exam. IMPRESSION: Stable or improving adenopathy as described. Soft tissue in the left hilum continues to improve, may resent resolving adenopathy. Reviewed, Interpreted and Dictated by Randy Newton MD Transcribed by Jenna Diaz Authenticated and [facility]
--- NOTE | 2025-01-07 10:30 | CT_ITS ---
FINAL REPORT TECHNIQUE: After the administration of oral and intravenous contrast, axial images were obtained through the abdomen and pelvis by computed tomography. The study was performed with techniques to keep radiation dose as low as reasonably achievable, (ALARA). Individual dose reduction techniques using automated exposure control or adjustment of mA and/or kV according to the patient's size were employed. CLINICAL HISTORY: Lymphoma COMPARISON: 10/06/2024 FINDINGS: Abdomen: The liver parenchyma is homogeneous. The gallbladder has been surgically resected. Mild biliary ductal dilatation remains present and stable. The spleen, pancreas, and adrenals appear unremarkable. There are multiple small nonobstructing renal stones present in the lower pole of the right kidney, unchanged. The aorta is normal in caliber. There is no free fluid or adenopathy. Pelvis: The appendix is not identified. The urinary bladder is incompletely distended. There is no free fluid or adenopathy. Compression fracture are present at T10, T11, T12, L1, L3, and L4, and all are stable when compared to the prior exam of 10/06/2024. IMPRESSION: Nonobstructing stones in the lower pole of the right kidney, stable. Multiple thoracolumbar compression fractures, also stable when compared to the prior exam. Reviewed, Interpreted and Dictated by Randy Newton MD Transcribed by Jenna Diaz Authenticated and [facility]
[2025-01-07] MEDS: SODIUM CHLORIDE 0.9% 10ML SYR (RAD ONLY) 10 ML IV (10:57)
[2025-01-07] MEDS: IOPAMIDOL-370 (76%);100ML BOTTLE 75 ML IV (10:57)
== END 2025-01-07 23:59 | disposition home or self-care (01) ==
LOC: RAD 09:53
PROVIDERS: Nurse Practitioner Family; PCP Family Medicine; Visit Provider Internal Medicine Medical Oncology
DX: C85.90 Non-Hodgkin lymphoma, unspecified, unspecified site (principal); N20.0 Calculus of kidney; M48.55XA Collapsed vertebra, not elsewhere classified, thoracolumbar region, initial encounter for fracture; R59.0 Localized enlarged lymph nodes; R91.8 Other nonspecific abnormal finding of lung field
CPT/HCPCS: 36415; 71260; 74177; 82565; 84520; Q9967

== ENCOUNTER 2025-01-15 12:08 | Outpatient (CLI) | payer MEDICARE, MEDICAID, SELFPAY ==
[2025-01-15 13:00] LABS: Hematocrit 32.1 % (37.0-47.0); Hemoglobin 10.1 g/dL (12.2-16.2); Immature Granulocytes % 0.2 %; Mean Corpuscular HGB Conc 31.5 g/dL (31.8-35.4); Mean Corpuscular Hemoglobin 28.9 pg (27.0-31.2); Mean Corpuscular Volume 91.7 fl (81-99); Nucleated Red Blood Cells % 0 %; Platelet Count 180 K/mm3 (142-424); Red Blood Count 3.50 M/mm3 (4.20-5.40); Red Cell Distribution Width-SD 51.8 fL; White Blood Count 4.3 K/mm3 (4.8-10.8)
[2025-01-15 13:48] LABS: Albumin Level 4.3 g/dl (3.5-5.0); Chloride 106 mmol/L (98-107); Sodium 138 mmol/L (136-145)
[2025-01-15 13:49] LABS: Potassium 4.4 mmoL/L (3.5-5.1)
[2025-01-15 13:51] LABS: Alanine Aminotransferase 15 U/L (12-78); Alkaline Phosphatase 96 U/L (38-126); Anion Gap 12.4 mEq/L (5-15); Aspartate Amino Transferase 30 U/L (14-36); Bilirubin,Total 0.7 mg/dl (0.2-1.3); Blood Urea Nitrogen 16 mg/dl (7-17); Carbon Dioxide 24 mmol/L (22.0-30.0); Creatinine,Serum 0.60 mg/dl (0.52-1.04); Estimated Glomerular Filt Rate 96 ml/min (>60); GFR (African American) 117 ML/MIN (>60)
[2025-01-15 13:52] LABS: Albumin/Globulin Ratio 2.0 (1.1-1.8); Calcium 8.9 mg/dl (8.4-10.2); Globulin 2.2 g/dL (1.3-3.2); Glucose 91 mg/dl (74-100); Total Protein,Serum 6.5 g/dl (6.3-8.2)
== END 2025-01-15 23:59 | disposition home or self-care (01) ==
LOC: LAB 12:10
PROVIDERS: PCP Family Medicine; Visit Provider Internal Medicine Medical Oncology
DX: C34.90 Malignant neoplasm of unspecified part of unspecified bronchus or lung (principal); C85.90 Non-Hodgkin lymphoma, unspecified, unspecified site
CPT/HCPCS: 36415; 80053; 83615; 85025

== ENCOUNTER 2025-02-05 12:46 | Outpatient (CLI) | payer MEDICARE, MEDICAID, SELFPAY ==
--- NOTE | 2025-02-05 13:19 | RESP.PFTSS ---
PATIENT UNABLE TO FOLLOW DIRECTIONS TO PERFORM TEST
== END 2025-02-05 23:59 | disposition home or self-care (01) ==
LOC: RT 12:49
PROVIDERS: PCP Family Medicine; Visit Provider Internal Medicine Pulmonary Disease
DX: R06.02 Shortness of breath (principal)

== ENCOUNTER 2025-03-16 16:40 | Outpatient (CLI) | payer MEDICARE, MEDICAID, SELFPAY ==
[2025-03-16 18:02] LABS: Coronavirus 19, PCR Not Detected (NotDetected); Influenza A, PCR Not Detected (NotDetected); Influenza B, PCR Not Detected (NotDetected)
== END 2025-03-16 23:59 | disposition home or self-care (01) ==
PROVIDERS: PCP Family Medicine; Visit Provider Family Medicine
DX: D64.9 Anemia, unspecified (principal)
CPT/HCPCS: 87631

== ENCOUNTER 2025-04-23 10:44 | Outpatient (CLI) | payer MEDICARE, MEDICAID, SELFPAY ==
[2025-04-23 12:06] LABS: Hematocrit 31.9 % (37.0-47.0); Hemoglobin 10.4 g/dL (12.2-16.2); Immature Granulocytes % 0.3 %; Mean Corpuscular HGB Conc 32.6 g/dL (31.8-35.4); Mean Corpuscular Hemoglobin 30.2 pg (27.0-31.2); Mean Corpuscular Volume 92.7 fl (81-99); Nucleated Red Blood Cells % 0 %; Platelet Count 152 K/mm3 (142-424); Red Blood Count 3.44 M/mm3 (4.20-5.40); Red Cell Distribution Width-SD 52.2 fL; White Blood Count 3.9 K/mm3 (4.8-10.8)
[2025-04-23 13:04] LABS: Chloride 104 mmol/L (98-107)
[2025-04-23 13:05] LABS: Potassium 4.7 mmoL/L (3.5-5.1); Sodium 140 mmol/L (136-145)
[2025-04-23 13:07] LABS: Alanine Aminotransferase 21 U/L (12-78); Albumin Level 4.0 g/dl (3.5-5.0); Alkaline Phosphatase 92 U/L (38-126); Anion Gap 15.7 mEq/L (5-15); Aspartate Amino Transferase 29 U/L (14-36); Bilirubin,Total 0.8 mg/dl (0.2-1.3); Blood Urea Nitrogen 16 mg/dl (7-17); Carbon Dioxide 25 mmol/L (22.0-30.0); Creatinine,Serum 0.70 mg/dl (0.52-1.04); Estimated Glomerular Filt Rate 81 ml/min (>60); GFR (African American) 97 ML/MIN (>60)
[2025-04-23 13:08] LABS: Albumin/Globulin Ratio 1.7 (1.1-1.8); Calcium 8.9 mg/dl (8.4-10.2); Globulin 2.4 g/dL (1.3-3.2); Glucose 97 mg/dl (74-100); Total Protein,Serum 6.4 g/dl (6.3-8.2)
== END 2025-04-23 23:59 | disposition home or self-care (01) ==
PROVIDERS: PCP Family Medicine; Visit Provider Internal Medicine Medical Oncology
DX: C83.30 Diffuse large B-cell lymphoma, unspecified site (principal)
CPT/HCPCS: 36415; 80053; 83615; 85025

== ENCOUNTER 2025-05-06 08:45 | Outpatient (CLI) | payer MEDICARE, MEDICAID, SELFPAY ==
[2025-05-06 09:12] LABS: Hematocrit 30.4 % (37.0-47.0); Hemoglobin 9.7 g/dL (12.2-16.2); Immature Granulocytes % 0.2 %; Mean Corpuscular HGB Conc 31.9 g/dL (31.8-35.4); Mean Corpuscular Hemoglobin 29.8 pg (27.0-31.2); Mean Corpuscular Volume 93.3 fl (81-99); Nucleated Red Blood Cells % 0 %; Platelet Count 175 K/mm3 (142-424); Red Blood Count 3.26 M/mm3 (4.20-5.40); Red Cell Distribution Width-SD 52.1 fL; White Blood Count 4.7 K/mm3 (4.8-10.8)
== END 2025-05-06 23:59 | disposition home or self-care (01) ==
LOC: LAB.DROPOF 08:45
PROVIDERS: PCP Family Medicine; Visit Provider Nurse Practitioner Family
DX: C83.30 Diffuse large B-cell lymphoma, unspecified site (principal)
CPT/HCPCS: 36415; 85025

== ENCOUNTER 2025-05-08 08:06 | Outpatient (CLI) | payer MEDICARE, MEDICAID, SELFPAY ==
--- NOTE | 2025-05-08 08:00 | CT_ITS ---
FINAL REPORT TECHNIQUE: After the administration of oral and intravenous contrast, axial images were obtained through the abdomen and pelvis by computed tomography. The study was performed with techniques to keep radiation dose as low as reasonably achievable, (ALARA). Individual dose reduction techniques using automated exposure control or adjustment of mA and/or kV according to the patient's size were employed. CLINICAL HISTORY: lymphoma COMPARISON: 01/07/2025 FINDINGS: Abdomen: The liver parenchyma is homogeneous. The gallbladder is surgically absent. The spleen, pancreas, and adrenals appear unremarkable. Again noted are nonobstructing stones in the lower pole of the right kidney measuring up to 5 mm. The aorta is normal in caliber. There is no free fluid or adenopathy. Pelvis: Relative lack of intra-abdominal fat is noted. There is a large amount of stool in the colon. The appendix is not identified. The urinary bladder is contracted. There is no free fluid or adenopathy. There are multitude of compression deformities throughout the lower thoracic and lumbar spine, most evident at T11 which appears similar to the prior study. Hypertrophic changes of the symphysis pubis are stable. IMPRESSION: Limited sensitivity due to lack of intra-abdominal fat. Stable thoracic and lumbar compression deformities. Please see CT chest report. Reviewed, Interpreted and Dictated by Randy Newton MD Transcribed by Mary Jane Grijalva Authenticated and [facility]
--- NOTE | 2025-05-08 08:00 | CT_ITS ---
FINAL REPORT TECHNIQUE: Routine axial images were obtained from the lung apices to below the diaphragm following IV contrast administration. Individualized dose reduction techniques using automated exposure control or adjustment of the mA and/or kV according to the patient size were employed. CLINICAL HISTORY: lymphoma COMPARISON: 01/07/2025 FINDINGS: The mediastinal vasculature is well opacified. Right paratracheal lymph node measures 3.3 x 2.8 cm, significantly increased in size from the prior study. Central calcifications are noted. There is worsening right hilar adenopathy with a node measuring up to 2.4 x 1.7 cm. There is a superior mediastinal node measuring 2.2 cm in diameter which previously measured 1.4 cm. No pleural or pericardial effusion is seen. Advanced changes of centrilobular emphysema are noted. Coarse linear scarring or fibrosis is noted in the bilateral lungs. IMPRESSION: Worsening right paratracheal, superior mediastinal, and right hilar adenopathy consistent with progressive lymphomatous involvement. Reviewed, Interpreted and Dictated by Randy Newton MD Transcribed by Mary Jane Grijalva Authenticated and [facility]
[2025-05-08] MEDS: IOPAMIDOL-370 (76%);100ML BOTTLE 75 ML IV (08:57)
[2025-05-08] MEDS: SODIUM CHLORIDE 0.9% 10ML SYR (RAD ONLY) 10 ML IV (08:57)
== END 2025-05-08 23:59 | disposition home or self-care (01) ==
LOC: RAD 08:07
PROVIDERS: PCP Family Medicine; Visit Provider Internal Medicine Medical Oncology
DX: C83.30 Diffuse large B-cell lymphoma, unspecified site (principal); R59.0 Localized enlarged lymph nodes
CPT/HCPCS: 71260; 74177; Q9967